=== PATIENT | female | born 1935 | race Caucasian/White ===

== ENCOUNTER 2016-11-23 06:45 | Inpatient (IN) | payer OTHER ==
--- NOTE | 2016-11-23 07:10 | PDOC ---
History of Present Illness <Benjamin Geller - Last Filed: 11/23/16 08:54> - General History Source: Patient Exam Limitations: No Limitations - History of Present Illness Initial Comments: 11/23/16 07:09 The patient is an 81-year-old female, with a significant past medical history of hypertension and hyperlipidemia, who presents to the emergency department with approximately 10 days of progressive generalized weakness, and approximately 4 days of progressive dyspnea. She was in her usual state of health until 14 days ago, when she developed urinary symptoms as well as nausea and lightheadedness. Ten days ago, she saw her primary care physician and was diagnosed with a urinary tract infection" a virus." She was placed on Levaquin, and she completed a course of it yesterday. <Conner Begum - Last Filed: 11/23/16 09:11> - General Chief Complaint: Respiratory Stated Complaint: DIFFICULTY BREATHING Time Seen by Provider: 11/23/16 07:02 Past History <Benjamin Geller - Last Filed: 11/23/16 08:54> - Past Medical History HTN: Yes - Psycho/Social/Smoking Cessation Hx Suicidal Ideation: No Smoking History: Unknown if ever smoked Information on smoking cessation initiated: No Hx Alcohol Use: No Drug/Substance Use Hx: No <Conner Begum - Last Filed: 11/23/16 09:11> - Past Medical History Allergies/Adverse Reactions: Allergies Allergy/AdvReac Type Severity Reaction Status Date / Time No Known Allergies Allergy Verified 11/23/16 07:04 Home Medications: Ambulatory Orders Acetaminophen [Tylenol .Extra-Strength -] 500 mg PO Q6H PRN 11/23/16 Ascorbate Calcium [Vitamin C] 500 mg PO DAILY 11/23/16 Aspirin [ASA -] 81 mg PO Q48H 11/23/16 Atorvastatin Ca [Lipitor] 10 mg PO HS 11/23/16 Calcium Carb, Citrate/Vit D3 [Calcium + D3 ER Tablet] 1,200 mg PO DAILY Cetirizine HCl [Zyrtec -] 10 mg PO DAILY 11/23/16 Lisinopril 10 mg PO DAILY 11/23/16 Review of Systems - Review of Systems Comments:: 11/23/16 07:17 CONSTITUTIONAL: Present: generalized weakness, malaise Absent: fever, chills, diaphoresis HEENT: Absent: rhinorrhea, nasal congestion, throat pain, throat swelling, difficulty swallowing, mouth swelling, ear pain, eye pain, visual Changes CARDIOVASCULAR: Absent: chest pain, loss of consciousness, palpitations, irregular heart rate, peripheral edema RESPIRATORY: Present: shortness of breath, dyspnea with exertion, orthopnea Absent: cough, wheezing, stridor, hemoptysis GASTROINTESTINAL: Absent: abdominal pain, abdominal distension, nausea, vomiting, diarrhea, constipation, melena, hematochezia GENITOURINARY: Absent: dysuria, frequency, urgency, hesitancy, hematuria, flank pain, genital pain MUSCULOSKELETAL: Absent: myalgia, arthralgia, joint swelling SKIN: Absent: rash, itching, pallor HEMATOLOGIC/IMMUNOLOGIC: Absent: easy bleeding, easy bruising, lymphadenopathy, frequent infections ENDOCRINE: Absent: unexplained weight gain, unexplained weight loss, heat intolerance, cold intolerance NEUROLOGIC: Absent: headache, focal weakness or paresthesias, dizziness, unsteady gait, seizure, mental status changes, bladder or bowel incontinence PSYCHIATRIC: Absent: anxiety, depression, suicidal or homicidal ideation, hallucinations. <Conner Begum - Last Filed: 11/23/16 09:11> *Physical Exam - Vital Signs Last Vital Signs Temp Pulse Resp BP Pulse Ox 98.3 F 102 H 18 139/85 98 11/23/16 07:04 11/23/16 07:04 11/23/16 07:04 11/23/16 07:04 11/23/16 07:04 <Benjamin Geller - Last Filed: 11/23/16 08:54> - Vital Signs Last Vital Signs Temp Pulse Resp BP Pulse Ox 98.3 F 102 H 18 139/85 98 11/23/16 07:04 11/23/16 07:04 11/23/16 07:04 11/23/16 07:04 11/23/16 07:04 - Physical Exam Comments: 11/23/16 07:18 GENERAL: Well developed, well nourished. Awake and alert. No acute distress. HEENT: Normocephalic, atraumatic. PERRLA, EOMI. No conjunctival pallor. Sclera are non- icteric. Moist mucous membranes. Oropharynx is clear. NECK: Supple. Full ROM. No JVD. Carotid pulses 2+ and symmetric, without bruits. No thyromegaly. No lymphadenopathy. CARDIOVASCULAR: Trace bilateral lower extremity pitting edema. Regular rate and rhythm. No murmurs, rubs, or gallops. Distal pulses are 2+ and symmetric. PULMONARY: Bibasilar crackles with dullness to percussion. No evidence of respiratory distress. LNo wheezing or rhonchi. ABDOMINAL: Soft. Non-tender. Non-distended. No rebound or guarding. No organomegaly. Normoactive bowel sounds. MUSCULOSKELETAL Normal range of motion at all joints. No bony deformities or tenderness. No CVA tenderness. EXTREMITIES: No cyanosis. No clubbing. No calf tenderness. SKIN: Warm and dry. Normal capillary refill. No rashes. No jaundice. NEUROLOGICAL: Alert, awake, appropriate. Cranial nerves 2-12 intact. No deficits to light touch and temperature in face, upper extremities and lower extremities. No motor deficits in the in face, upper extremities and lower extremities. Normoreflexic in the upper and lower extremities. Normal speech. Toes are down- going bilaterally. Gait is normal without ataxia. PSYCHIATRIC: Cooperative. Good eye contact. Appropriate mood and affect. <Conner Begum - Last Filed: 11/23/16 09:11> Heart Score/ECG Review - ECG Intrepretation Comment:: 11/23/16 07:20 Normal sinus rhythm at 96, normal axis, normal intervals, flat T-wave in 1, aVL , late R-wave progression, possible left atrial enlargement <Conner Begum - Last Filed: 11/23/16 09:11> ED Treatment Course - LABORATORY CBC & Chemistry Diagram: 11/23/16 07:15 11/23/16 07:15 - ADDITIONAL ORDERS Additional order review: Laboratory Results 11/23/16 11/23/16 07:19 07:15 Sodium 140 Potassium 4.3 Chloride 103 Carbon Dioxide 28 Anion Gap 9 BUN 18 Creatinine 0.8 Creat Clearance w eGFR > 60 Random Glucose 101 Calcium 9.0 Magnesium 2.0 Total Bilirubin 0.4 AST 21 ALT 24 Alkaline Phosphatase 103 Creatine Kinase 47 Troponin I 0.06 H B-Natriuretic Peptide 66003.13 H Total Protein 6.7 Albumin 3.0 L Urine Color Straw Urine Appearance Clear Urine pH 6.0 Ur Specific [place] 1.003 Urine Protein Negative Urine Glucose (UA) Negative Urine Ketones Negative Urine Blood Negative Urine Nitrite Negative Urine Bilirubin Negative Urine Urobilinogen Negative Ur Leukocyte Esterase Negative 11/23/16 07:15 RBC 4.46 MCV 92.3 MCHC 32.7 RDW 13.8 MPV 7.2 L Neutrophils % 62.1 Lymphocytes % 24.7 Monocytes % 9.8 Eosinophils % 2.9 Basophils % 0.5 <Benjamin Geller - Last Filed: 11/23/16 08:54> - LABORATORY CBC & Chemistry Diagram: 11/23/16 07:15 11/23/16 07:15 - RADIOLOGY Radiology Studies Ordered: Category Date Time Status CHEST PA & LAT [RAD] Stat Radiology 11/23/16 07:09 Ordered <Conner Begum - Last Filed: 11/23/16 09:11> Medical Decision Making - Medical Decision Making 11/23/16 08:50 First call placed to Dr. Brandon at 08:49. Awaiting call back. Case discussed with Dr. Mata at 08:55 First call placed to Dr. Britton at 08:54. Awaiting call back. <Benjamin Geller - Last Filed: 11/23/16 08:54> - Medical Decision Making 11/23/16 07:00 The patient is well-appearing and in no acute distress Her signs and symptoms are potentially consistent with left and right sided congestive heart failure Will obtain labs, EKG, chest x-ray 11/23/16 07:19 EKG noted with flattened T waves in 1, aVL No old EKGs are available for comparison 11/23/16 08:47 Labs noted, including elevated BNP Chest x-ray pending Clinical impression: New onset congestive heart failure, right-sided and left-sided Will admit to inpatient services Case discussed in detail with admitting provider including history, physical exam and ancillary studies. Admitting physician has assumed care for the patient, will follow all pending diagnostics and will complete the evaluation and treatment. A portion of this note was documented by scribe services under my direction. I have reviewed the details of the note, within reason, and agree with the documentation with the following case summary and management plan written by me. 11/23/16 08:54 11/23/16 09:11 Chest x-ray emergency Department interpretation: Increased interstitial markings bilaterally consistent with pulmonary vascular congestion, bilateral pleural effusions, left greater than right <Conner Begum - Last Filed: 11/23/16 09:11> *DC/Admit/Observation/Transfer - Attestations Scribe Attestion: 11/23/16 08:50 Documentation prepared by Benjmain Geller, acting as medical appliance maker for Conner Begum MD. <Benjamin Geller - Last Filed: 11/23/16 08:54> - Discharge Dispostion Admit: Yes <Conner Begum - Last Filed: 11/23/16 09:11> Diagnosis at time of Disposition: Congestive heart failure - Referrals Referrals: Sandra Brandon MD [Primary Care Provider] -
[2016-11-23 07:45] LABS: BASOPHIL 0.5 % (0-2.0); EOSINOPHIL 2.9 % (0-4.5); MCH 30.2 pg (25.7-33.7); MCHC 32.7 g/dl (32.0-36.0); MEAN CELL VOLUME 92.3 fl (80-96); MEAN PLT VOLUME 7.2 fl (7.5-11.1); NEUTROPHILS 62.1 % (42.8-82.8); PLATELET COUNT 404 K/MM3 (134-434); RDW 13.8 % (11.6-15.6); WHITE BLOOD COUNT 11.4 K/mm3 (4.0-10.0)
[2016-11-23 07:53] LABS: URINE APPEARANCE CLEAR; URINE BILIRUBIN NEGATIVE (NEGATIVE); URINE BLOOD NEGATIVE (NEGATIVE); URINE COLOR STRAW; URINE GLUCOSE (UA) NEGATIVE (NEGATIVE); URINE KETONE NEGATIVE (NEGATIVE); URINE LEUK ESTERASE NEGATIVE (NEGATIVE); URINE NITRITE NEGATIVE (NEGATIVE); URINE PROTEIN NEGATIVE (NEGATIVE); URINE UROBILINOGEN NEGATIVE E.U./dl (0.2-1.0)
[2016-11-23 08:06] LABS: INR 1.02 (0.82-1.09); PROTHROMBIN TIME (PATIENT) 11.2 SEC (9.98-11.88)
[2016-11-23 08:09] LABS: ACTIVATED PTT 36.6 SECONDS (26.9-34.4)
[2016-11-23 08:18] LABS: ANION GAP 9 (8-16); BILIRUBIN,TOTAL 0.4 mg/dL (0.2-1.0); CO2 28 mmol/L (21-32); CREATININE 0.8 mg/dL (0.55-1.02); GLUCOSE,RANDOM 101 mg/dL (74-106); SGOT/AST 21 U/L (15-37); SGPT/ALT 24 U/L (12-78); TOT PROT 6.7 g/dl (6.4-8.2)
[2016-11-23 08:20] LABS: ALK PHOS 103 U/L (45-117); TROPONIN I 0.06 ng/ml (0.00-0.05)
[2016-11-23] MEDS ORDERED: FUROSEMIDE 40 MG/4 ML INJECTABLE VIAL IVPUSH ONE (08:53)
[2016-11-23] MEDS ORDERED: ASPIRIN 81 MG CHEWABLE TABLETS PO ONE (08:54)
--- NOTE | 2016-11-23 09:21 | HP ---
Admitting History and Physical - Primary Care Physician PCP: Sandra Brandon - Admission Chief Complaint: shortness of breath History of Present Illness: developed fevers up to F102 with chills approx 2 weeks ago, came to office was diagnosed with UTI, was given levaquin. since then she has had poor appetite was getting progressively weaker and developed worsening exertional dyspnea to the point that now she has difficulty completing full sentences. no cough, has minimal pleuritic chest pain, no fever , no chills. History Source: Patient Limitations to Obtaining History: No Limitations - Past Medical History Cardiovascular: Yes: HTN, Hyperlipdemia - Past Surgical History Past Surgical History: Yes: Joint Replacement (bilateral hip replacements.) Additional Past Surgical History: hemorrhoidectomy - Smoking History Smoking history: Unknown if ever smoked Have you smoked in the past 12 months: No If you are a former smoker, when did you quit?: 25 years ago - Alcohol/Substance Use Hx Alcohol Use: No - Social History Usual Living Arrangement: Yes: With Spouse ADL: Independent History of Recent Travel: No Home Medications - Allergies Allergies/Adverse Reactions: Allergies Allergy/AdvReac Type Severity Reaction Status Date / Time No Known Allergies Allergy Verified 11/23/16 07:04 - Home Medications Home Medications: Ambulatory Orders Acetaminophen [Tylenol .Extra-Strength -] 500 mg PO Q6H PRN 11/23/16 Ascorbate Calcium [Vitamin C] 500 mg PO DAILY 11/23/16 Aspirin [ASA -] 81 mg PO Q48H 11/23/16 Atorvastatin Ca [Lipitor] 10 mg PO HS 11/23/16 Calcium Carb, Citrate/Vit D3 [Calcium + D3 ER Tablet] 1,200 mg PO DAILY Cetirizine HCl [Zyrtec -] 10 mg PO DAILY 11/23/16 Lisinopril 10 mg PO DAILY 11/23/16 Family Disease History - Family Disease History Family History: Unremarkable Review of Systems - Review of Systems Constitutional: reports: Loss of Appetite, Weakness Respiratory: reports: Exercise Intolerance, SOB on Exertion Physical Examination Vital Signs: Vital Signs Temperature 98.3 F 11/23/16 07:04 Pulse Rate 102 H 11/23/16 07:04 Respiratory Rate 18 11/23/16 07:04 Blood Pressure 139/85 11/23/16 07:04 O2 Sat by Pulse Oximetry (%) 98 11/23/16 07:04 Constitutional: Yes: Calm Eyes: Yes: EOM Intact HENT: Yes: Normocephalic Neck: Yes: Trachea Midline Cardiovascular: Yes: Regular Rate and Rhythm Respiratory: Yes: Rales (bilateral basal rales) Gastrointestinal: Yes: Normal Bowel Sounds, Soft Musculoskeletal: Yes: WNL Extremities: Yes: WNL Edema: LLE: 1+, RLE: 1+ Neurological: Yes: WNL Labs: CBC, BMP 11/23/16 07:15 11/23/16 07:15 Abnormal Lab Results 11/23/16 11/23/16 11/23/16 07:15 07:15 07:15 WBC 11.4 H MPV 7.2 L PTT (Actin FS) 36.6 H Troponin I 0.06 H B-Natriuretic Peptide 48499.13 H Albumin 3.0 L Imaging - Results Chest X-ray: Image Reviewed EKG: Image Reviewed Problem List - Problems (1) Congestive heart failure Code(s): I50.9 - HEART FAILURE, UNSPECIFIED Qualifiers: Congestive heart failure type: unspecified congestive heart failure type Congestive heart failure chronicity: acute Qualified Code(s): I50.9 - Heart failure, unspecified (2) Hypertension Code(s): I10 - ESSENTIAL (PRIMARY) HYPERTENSION Qualifiers: Hypertension type: essential hypertension Qualified Code(s): I10 - Essential (primary) hypertension (3) Hyperlipidemia Code(s): E78.5 - HYPERLIPIDEMIA, UNSPECIFIED Qualifiers: Hyperlipidemia type: unspecified Qualified Code(s): E78.5 - Hyperlipidemia, unspecified Assessment/Plan telemetry admission serial cardiac enzymes echo for LVSF cardiology consultation iv diuresis o2
[2016-11-23] MEDS ORDERED: ACETAMINOPHEN 500 MG TABLET (FP) PO PRN (09:22)
[2016-11-23] MEDS ORDERED: FUROSEMIDE 40 MG/4 ML INJECTABLE VIAL ONE (09:24)
[2016-11-23] MEDS: ASPIRIN 81 MG CHEWABLE TABLETS PO SCH (09:54)
[2016-11-23] MEDS ORDERED: ENOXAPARIN NA (PORCINE) 30 MG/0.3 ML DISP.SYRIN SQ ONE (10:16)
[2016-11-23] MEDS ORDERED: LISINOPRIL 5 MG TABLET (FP) ONE (10:16)
[2016-11-23] MEDS: LISINOPRIL 10 MG TABLET (FP) PO SCH (10:22)
--- NOTE | 2016-11-23 10:27 | CON.CARD ---
Consult Consult Specialty:: Cardiology Referred by:: ER Reason for Consultation:: SOB - History of Present Illness Chief Complaint: SOB History of Present Illness: 81 year old woman with a history of HTN, HLD, recent UTI, admitted with progressively worsening sob/phillips. Pt seen and examined in the ER in nad. states she is still feeling sob. became very dyspneic walking from the bathroom back to the stretcher. she states that for the past month or so she has noted intermittent episodes of sob/phillips however after her recent illness and especially today she has become severely sob and dyspneic with minimal exertion. she also notes mild LE edema R>L. denies any chest pain. no palpitations. no pnd, orthopnea. no lightheadedness, dizziness, syncope, or near syncope. - History Source History Provided By: Patient, Family Member, Medical Record Limitations to Obtaining History: No Limitations - Past Medical History Cardio/Vascular: Yes: HTN, Hyperlipdemia - Past Surgical History Past Surgical History: Yes: Joint Replacement (bilateral hip replacements.) - Alcohol/Substance Use Hx Alcohol Use: No - Smoking History Smoking history: Former smoker Have you smoked in the past 12 months: No If you are a former smoker, when did you quit?: 25 years ago - Social History ADL: Independent History of Recent Travel: No Home Medications - Allergies Allergies/Adverse Reactions: Allergies Allergy/AdvReac Type Severity Reaction Status Date / Time No Known Allergies Allergy Verified 11/23/16 07:04 - Home Medications Home Medications: Ambulatory Orders Acetaminophen [Tylenol .Extra-Strength -] 500 mg PO Q6H PRN 11/23/16 Ascorbate Calcium [Vitamin C] 500 mg PO DAILY 11/23/16 Aspirin [ASA -] 81 mg PO Q48H 11/23/16 Atorvastatin Ca [Lipitor] 10 mg PO HS 11/23/16 Calcium Carb, Citrate/Vit D3 [Calcium + D3 ER Tablet] 1,200 mg PO DAILY Cetirizine HCl [Zyrtec -] 10 mg PO DAILY 11/23/16 Lisinopril 10 mg PO DAILY 11/23/16 Family Disease History - Family Disease History Family History: Denies Review of Systems - Review of Systems Constitutional: reports: Fever, Malaise, Weakness. denies: No Symptoms, Chills , Diaphoresis, Lethargy, Loss of Appetite, Night Sweats, Unintentional Wgt. Loss , Other Eyes: denies: No Symptoms, Blind Spots, Blurred Vision, Double Vision, Eye Pain , Floaters, Photophobia, Recent Change in Vision, Other HENT: denies: No Symptoms, Difficult Swallowing, Ear Discharge, Ear Pain, Epistaxis, Gingival Bleeding, Hearing Loss, Mouth Swelling, Nasal Congestion, Ocular Prosthesis, Throat Pain, Toothache, Ringing in Ears, Other Neck: denies: No Symptoms, Decreased ROM, Lumps, Pain on Movement, Stiffness, Swollen Glands, Tenderness, Other Cardiovascular: reports: Edema, Shortness of Breath. denies: No Symptoms, Chest Pain, Palpitations, Other Respiratory: reports: Exercise Intolerance, SOB, SOB on Exertion. denies: No Symptoms, Cough, Hemoptysis, Orthopnea, PND, Snoring, Wheezing, Other Gastrointestinal: denies: No Symptoms, Abdominal Pain, Bloating, Constipation, Diarrhea, Dysphagia, Indigestion, Melena, Nausea, Rectal Bleeding, Vomiting, Vomiting Blood, Other Genitourinary: denies: No Symptoms, Burning, Discharge, Dysuria, Flank Pain, Frequency, Hematuria, Incontinence, Lesions, Menses, Pain, Testicular Mass, Testicular Pain, Testicular Swelling, Urgency, Vaginal Bleeding, Other Breasts: denies: No Symptoms Reported, See HPI, Breast Implants, Discharge from Nipple, Lumps, Pain, Skin Changes, Other Musculoskeletal: denies: No Symptoms, Back Pain, Crepitus, Decreased ROM, Extremity Pain, Joint Pain, Joint Swelling, Muscle Pain, Muscle Cramps, Muscle Weakness, Other Integumentary: denies: No Symptoms, Blister, Bruising, Change in Color, Eczema, Erythema, Incision, Lesions, Lump, Pallor, Pruritis, Rash, Wound, Other Neurological: denies: No Symptoms, Change in LOC, Change in Speech, Confusion, Dizziness, Headache, Incoordination, Numbness, Parasthesia, Pre-Existing Deficit , Seizure, Syncope, Tremors, Unsteady Gait, Weakness, Other Endocrine: denies: No Symptoms, Excessive Sweating, Flushing, Increased Hunger, Increased Thirst, Intolerance to Cold, Intolerance to Heat, Unexplained Weight Gain, Unexplained Weight Loss, Other Hematology/Lymphatic: denies: No Symptoms, Easily Bruised, Excessive Bleeding, Swollen Glands, Other Psychiatric: denies: No Symptoms, Altered Sleep Pattern, Anxiety, Depression, Hallucinations, Panic, Paranoia, Suicidal, Other - Risk Factors Known Risk Factors: Yes: Age, Hypercholesterolemia, Hypertension Vital Signs: Vital Signs Temperature 98.3 F 11/23/16 07:04 Pulse Rate 102 H 11/23/16 07:04 Respiratory Rate 18 11/23/16 07:04 Blood Pressure 139/85 11/23/16 07:04 O2 Sat by Pulse Oximetry (%) 98 11/23/16 07:04 Constitutional: Yes: Well Nourished, No Distress, Calm Eyes: Yes: WNL, Conjunctiva Clear, EOM Intact, PERRL HENT: Yes: WNL, Atraumatic, Normocephalic Neck: Yes: WNL, Supple, Trachea Midline Respiratory: Yes: Regular, Diminished, Rales, SOB. No: On Nasal O2, Rhonchi, Wheezes Gastrointestinal: Yes: WNL, Normal Bowel Sounds, Soft. No: Distention, Tenderness Renal/: Yes: WNL Cardiovascular: Yes: Regular Rate and Rhythm. No: Bradycardia, Tachycardia, Pulse Irregular, Gallop, Rub, Varicosities JVD: No Carotid Bruit: No PMI: Non-Displaced Heart Sounds: Yes: S1, S2. No: Split S2, S3, S4, Clicks, Gallop, Rub, Bruit Murmur: No: Systolic Murmur, Diastolic Murmur Musculoskeletal: Yes: WNL Extremities: Yes: WNL Edema: Yes Edema: LLE: Trace, RLE: Trace Peripheral Pulses WNL: Yes Peripheral Pulses: 2+ Left Doralis Pedis, 2+ Right Dorsalis Pedis Integumentary: Yes: WNL Neurological: Yes: WNL, Alert, Oriented, Cran Nerves II-XII Intact ...Motor Strength: WNL Psychiatric: Yes: WNL, Alert, Oriented - Other Data Labs, Other Data: INR, PTT INR 1.02 (0.82-1.09) 11/23/16 07:15 ekg-nsr 99bpm, LAE, septal infarct, poor R progression, NSST Echo: Pending Imaging - Results Chest X-ray: Report Reviewed, Image Reviewed EKG: Report Reviewed, Image Reviewed Other: Report Reviewed, Image Reviewed Assessment/Plan 81 year old woman with a history of HTN, HLD, recent UTI, admitted with progressively worsening sob/phillips. SOB/PHILLIPS -concern for possible acute exacerbation of CHF (unknown type) vs PNA vs COPD vs malignancy -given IV Lasix in ER with resultant urination but no change in symptoms -only appears mildly volume overloaded on exam -CT chest ordered to further evaluate pulmonary pathology -can cont IV Lasix, monitor I/Os, daily weights, bun/creat, electrolytes and replete as needed -would recc a Pulm evaluation, nodules seen on Cxr, CT chest ordered and done, awaiting read -trop very slightly elevated, would trend serial cardiac enzymes HTN-adequately controlled -cont current medical regimen HLD- -cont home meds
[2016-11-23] MEDS: ENOXAPARIN NA (PORCINE) 30 MG/0.3 ML DISP.SYRIN SQ SCH (10:29)
--- NOTE | 2016-11-23 12:20 | EKG ---
Test Reason : Blood Pressure : / mmHG Vent. Rate : 099 BPM Atrial Rate : 099 BPM P-R Int : 154 ms QRS Dur : 076 ms QT Int : 352 ms P-R-T Axes : 059 -02 057 degrees QTc Int : 451 ms SINUS RHYTHM WITH PREMATURE SUPRAVENTRICULAR COMPLEXES POSSIBLE LEFT ATRIAL ENLARGEMENT SEPTAL INFARCT (CITED ON OR BEFORE 29-JUN-2009) ABNORMAL ECG WHEN COMPARED WITH ECG OF 30-JUN-2009 08:32, PREMATURE SUPRAVENTRICULAR COMPLEXES ARE NOW PRESENT NONSPECIFIC T WAVE ABNORMALITY NOW EVIDENT IN ANTERIOR LEADS Confirmed by NACHO DONOHUE MD ([id number]) on 11/23/2016 12:19:40 PM Referred By: Confirmed By:NACHO DONOHUE MD
[2016-11-23 15:21] LABS: TROPONIN I 0.06 ng/ml (0.00-0.05)
[2016-11-23] MEDS: ATORVASTATIN CA 10 MG TABLET (FP) PO SCH (21:59)
[2016-11-24 07:12] LABS: MCH 30.2 pg (25.7-33.7); MCHC 33.3 g/dl (32.0-36.0); MEAN CELL VOLUME 90.6 fl (80-96); MEAN PLT VOLUME 7.5 fl (7.5-11.1); PLATELET COUNT 392 K/MM3 (134-434); RDW 13.5 % (11.6-15.6); WHITE BLOOD COUNT 9.5 K/mm3 (4.0-10.0)
[2016-11-24 07:44] LABS: ALBUMIN 2.8 g/dl (3.4-5.0); ANION GAP 7 (8-16); CALCIUM 8.5 mg/dL (8.5-10.1); CO2 31 mmol/L (21-32); CREATININE 0.8 mg/dL (0.55-1.02); GLUCOSE,RANDOM 92 mg/dL (74-106); SGOT/AST 17 U/L (15-37); SGPT/ALT 19 U/L (12-78)
[2016-11-24 07:46] LABS: ALK PHOS 92 U/L (45-117); BILIRUBIN,TOTAL 0.4 mg/dL (0.2-1.0); TOT PROT 6.1 g/dl (6.4-8.2)
--- NOTE | 2016-11-24 08:35 | PN ---
Progress Note (short form) - Note Progress Note: CBC, BMP 11/24/16 05:35 11/24/16 05:35 Vital Signs Period Temp Pulse Resp BP Sys/Johns Pulse Ox Last 24 Hr 97.5 F-98.8 F 89-116 16-97 105-144/52-72 95-99 S1S2 RRR Lungs faint basal rales decreased leg edema aa03 no deficit Allergic to Shellfish Imp Admitted fro exertional dyspnea COPD Lung mass mild fluid overload Plan cardiology consult appreciated pulm consult requested cont mild iv diuresis check US r/o DVT renal US-f/up hydro on CT chest DVT prophylaxis Problem List - Problems (1) Congestive heart failure Code(s): I50.9 - HEART FAILURE, UNSPECIFIED Qualifiers: Congestive heart failure type: unspecified congestive heart failure type Congestive heart failure chronicity: acute Qualified Code(s): I50.9 - Heart failure, unspecified (2) Hypertension Code(s): I10 - ESSENTIAL (PRIMARY) HYPERTENSION Qualifiers: Hypertension type: essential hypertension Qualified Code(s): I10 - Essential (primary) hypertension (3) Hyperlipidemia Code(s): E78.5 - HYPERLIPIDEMIA, UNSPECIFIED Qualifiers: Hyperlipidemia type: unspecified Qualified Code(s): E78.5 - Hyperlipidemia, unspecified
[2016-11-24] MEDS: LISINOPRIL 10 MG TABLET (FP) PO SCH (09:18)
[2016-11-24] MEDS: ENOXAPARIN NA (PORCINE) 30 MG/0.3 ML DISP.SYRIN SQ SCH (09:18)
--- NOTE | 2016-11-24 09:26 | PN ---
Progress Note, Physician History of Present Illness: seen and examined today in nad. states her sob/phillips is unchanged. reports urinating a lot yesterday. no overnight events. no new complaints. - Current Medication List Current Medications: Active Medications Acetaminophen (Tylenol -) 500 mg PO Q6H PRN PRN Reason: pain,fever Aspirin (Asa -) 81 mg PO Q2D@1000 [facility] Last Admin: 11/23/16 09:54 Dose: Not Given Atorvastatin Calcium (Lipitor -) 10 mg PO HS [facility] Last Admin: 11/23/16 21:59 Dose: 10 mg Enoxaparin Sodium (Lovenox -) 30 mg SQ DAILY [facility] Last Admin: 11/24/16 09:18 Dose: 30 mg Furosemide (Lasix Injection -) 40 mg IVPUSH DAILY [facility] Last Admin: 11/24/16 09:18 Dose: 40 mg Lisinopril (Prinivil) 10 mg PO DAILY [facility] Last Admin: 11/24/16 09:18 Dose: 10 mg - Objective Vital Signs: Vital Signs Temperature 97.9 F 11/24/16 06:00 Pulse Rate 94 H 11/24/16 06:00 Respiratory Rate 18 11/24/16 06:00 Blood Pressure 117/59 11/24/16 06:00 O2 Sat by Pulse Oximetry (%) 95 11/23/16 21:00 Constitutional: Yes: Well Nourished, No Distress, Calm Eyes: Yes: WNL, Conjunctiva Clear, EOM Intact, PERRL HENT: Yes: WNL, Atraumatic, Normocephalic Neck: Yes: WNL, Supple, Trachea Midline Cardiovascular: Yes: Tachycardia, S1, S2. No: Regular Rate and Rhythm, Bradycardia, Pulse Irregular, Bruit, JVD, Gallop, Murmur, Rub, S3, S4, Varicosities Respiratory: Yes: Regular, Rhonchi. No: Rales, Wheezes Musculoskeletal: Yes: WNL Extremities: Yes: WNL Edema: No Peripheral Pulses WNL: Yes Peripheral Pulses: Left Doralis Pedis: 2+, Right Dorsalis Pedis: 2+ Integumentary: Yes: WNL Neurological: Yes: WNL, Alert, Oriented, Cran Nerves II-XII Intact ...Motor Strength: WNL Psychiatric: Yes: WNL, Alert, Oriented Labs: CBC, BMP 11/24/16 05:35 11/24/16 05:35 INR, PTT INR 1.02 (0.82-1.09) 11/23/16 07:15 - ....Imaging Chest X-ray: Report Reviewed, Image Reviewed EKG: Report Reviewed, Image Reviewed Other: Report Reviewed, Image Reviewed (tele-sinus tach, pvcs, no sig arrhythmia ) Assessment/Plan 81 year old woman with a history of HTN, HLD, recent UTI, admitted with progressively worsening sob/phillips. SOB/PHILLIPS-uncertain etiology, COPD vs malignancy vs mild acute diastolic CHF -does not appear sig volume overloaded on exam or imaging -mild LE edema has resolved -can cont IV Lasix today and plan to transition to po tomorrow -echo showed normal LV systolic function, mild mr, mild tr, mild AR -CT chest reviewed, L lung mass -Pulmonary to evaluate -trop very slightly elevated, but did not trend up -would investigate potential pulmonary sources of sob -will consider a stress test for ischemic evaluation prior to discharge after pulmonary evaluates HTN-adequately controlled -cont current medical regimen HLD- -cont home meds
[2016-11-24] MEDS ORDERED: FUROSEMIDE 40 MG/4 ML INJECTABLE VIAL IVPUSH SCH (10:00)
--- NOTE | 2016-11-24 12:46 | PN ---
Progress Note (short form) - Note Progress Note: PULMONARY CONSULTATION DICTATED 11/24/16 IMP DYSPNEA ? COPD,?PE LEFT LUNG MASS LIKELY MALIGNANT,? INFECTIOUS,MAC COPD HTN PLAN CHEST CTA INHALED BRONCHODILATORS NASAL O2 PET SCAN OUTPATIENT PFTS CT GUIDED BX AFTER PET DR FREDERICK Problem List - Problems (1) Congestive heart failure Code(s): I50.9 - HEART FAILURE, UNSPECIFIED Qualifiers: Congestive heart failure type: unspecified congestive heart failure type Congestive heart failure chronicity: acute Qualified Code(s): I50.9 - Heart failure, unspecified (2) Hyperlipidemia Code(s): E78.5 - HYPERLIPIDEMIA, UNSPECIFIED Qualifiers: Hyperlipidemia type: unspecified Qualified Code(s): E78.5 - Hyperlipidemia, unspecified (3) Hypertension Code(s): I10 - ESSENTIAL (PRIMARY) HYPERTENSION Qualifiers: Hypertension type: essential hypertension Qualified Code(s): I10 - Essential (primary) hypertension (4) Lung mass Code(s): R91.8 - OTHER NONSPECIFIC ABNORMAL FINDING OF LUNG FIELD (5) COPD (chronic obstructive pulmonary disease) Code(s): J44.9 - CHRONIC OBSTRUCTIVE PULMONARY DISEASE, UNSPECIFIED (6) Dyspnea Code(s): R06.00 - DYSPNEA, UNSPECIFIED
[2016-11-24] MEDS: BUDESONIDE/FORMETEROL FUMARATE 80/4.5 mcg INHALER IH SCH ×2 (13:55→22:41)
[2016-11-24] MEDS: methylPREDNISolone NA SUCC 40 MG/1 ML VIAL IVPB SCH ×3 (13:56→22:40)
[2016-11-24] MEDS: TIOTROPIUM BROMIDE 18 MCG/INH (DEVICE W/ 5 CAPSULES) IH SCH (13:56)
--- NOTE | 2016-11-24 14:11 | CONS ---
DATE OF CONSULTATION: 11/24/2016 REFERRING PHYSICIAN: Dr. Mata. HISTORY OF PRESENT ILLNESS: The patient is an 81-year-old white female with a past medical history that includes hypertension, hyperlipidemia, history of bilateral hip replacement, history of tobacco use, approximately 1 pack per day, many years, quit 25 years ago, admitted to [facility] with the complaint of shortness of breath, dyspnea on exertion, and generalized weakness. Patient developed fevers of up to 102 with chills approximately 2 weeks ago. At that time, she was diagnosed to have a UTI and was started on Levaquin. Since that time, she had increasing loss of appetite, progressive weakness. For the past couple days , though, she started noticing increasing shortness of breath and marked dyspnea on minimal exertion. She states it is at the point now where she is unable to speak in full sentences without getting severely dyspneic. She presented to the emergency room as above. She denies any complaints of chest pain, nausea, vomiting, diaphoresis. Denies any hemoptysis. Denies any cough or wheezing. She states for the past month or so she started noticing increasing shortness of breath with exertion while walking up inclines, not on level ground. She denies any previous history of asthma or COPD. She was hospitalized approximately 7 years ago for pneumonia. On admission, she underwent a CAT scan of the chest which reveals a nodule in the left upper lobe, a spiculated nodule 1.5 x 1 cm. There is also a nodule in the right middle lobe 3 to 4 mm and 7 mm, slightly spiculated. On review of the CAT scan from 2008, she did not have any evidence of any nodularity in the left upper lobe. Patient denies any weight loss. Denies sweats. PAST MEDICAL HISTORY: Again includes hypertension, hyperlipidemia. PAST SURGICAL HISTORY: Significant for bilateral hip replacement. SOCIAL HISTORY: History of tobacco use; quit 25 years ago. No occupational exposures. REVIEW OF SYSTEMS: Positive dyspnea. No orthopnea. No PND. Positive dyspnea on exertion. Positive mild left chest discomfort. No cough. No hemoptysis. No wheeze. No abdominal pain. No diarrhea. No lower extremity edema. CURRENT MEDICATIONS: Include Tylenol, Prinivil, Lovenox, Lipitor, Lasix, and aspirin. PHYSICAL EXAMINATION:General: The patient is a well-developed thin white female awake, alert, mildly dyspneic but in no acute distress. Vital Signs: She is afebrile. Heart rate is 110, blood pressure 118/56, respiratory rate is 18, O2 saturation is 93% on room air. HEENT: Normocephalic, atraumatic. Neck: Supple. Heart: Tachycardic with a normal S1, S2. Chest: Diminished breath sounds bilaterally. Abdomen: Soft. Bowel sounds positive. Extremities: No cyanosis or edema. LABORATORIES: WBC is 9.5, hemoglobin 13.2, hematocrit 39.7, with a platelet count of 392,000. INR is 1.02. BUN 20, creatinine 0.8. BNP is 12,075. Echocardiogram reveals normal LV function, normal RV function, no evidence of pulmonary hypertension. IMPRESSION: 1. Dyspnea, etiology to be determined, possibly secondary to chronic obstructive pulmonary disease exacerbation. 2. Cannot exclude possible pulmonary embolism increased risk due to left upper lobe massl ikely ca. 3. 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 4. Hypertension. PLAN: Inhaled bronchodilators. IV steroids. Supplemental O2. Will obtain chest CT with contrast to rule out PE. Pulmonary function tests as outpatient as well as PET scan as outpatient .Will arrange CT-guided needle aspiration/biopsy as an outpatient after PET scan. GILBERTO FREDERICK M.D. [id number] MTDD
[2016-11-24 20:05] LABS: TROPONIN I 0.02 ng/ml (0.00-0.05)
[2016-11-24] MEDS: ATORVASTATIN CA 10 MG TABLET (FP) PO SCH (22:40)
[2016-11-25] MEDS: methylPREDNISolone NA SUCC 40 MG/1 ML VIAL IVPB SCH ×4 (03:30→21:15)
--- NOTE | 2016-11-25 08:16 | PN ---
Progress Note, Physician Chief Complaint: CTA negative for PE - Current Medication List Current Medications: Active Medications Acetaminophen (Tylenol -) 500 mg PO Q6H PRN PRN Reason: pain,fever Aspirin (Asa -) 81 mg PO Q2D@1000 [facility] Last Admin: 11/23/16 09:54 Dose: Not Given Atorvastatin Calcium (Lipitor -) 10 mg PO HS [facility] Last Admin: 11/24/16 22:40 Dose: 10 mg Budesonide/Formoterol Fumarate (Symbicort 80/4.5mcg -) 2 puff IH BID [facility] Last Admin: 11/24/16 22:41 Dose: 2 puff Enoxaparin Sodium (Lovenox -) 30 mg SQ DAILY [facility] Last Admin: 11/24/16 09:18 Dose: 30 mg Furosemide (Lasix Injection -) 40 mg IVPUSH DAILY [facility] Last Admin: 11/24/16 09:18 Dose: 40 mg Lisinopril (Prinivil) 10 mg PO DAILY [facility] Last Admin: 11/24/16 09:18 Dose: 10 mg Methylprednisolone Sodium Succinate (Solu-Medrol -) 60 mg IVPB Q6H-IV [facility] Last Admin: 11/25/16 03:30 Dose: 60 mg Tiotropium [place] (Spiriva -) 1 puff IH DAILY [facility] Last Admin: 11/24/16 13:56 Dose: 1 puff - Objective Vital Signs: Vital Signs Temperature 98 F 11/25/16 05:40 Pulse Rate 77 11/25/16 05:40 Respiratory Rate 20 11/25/16 05:40 Blood Pressure 118/61 11/25/16 05:40 O2 Sat by Pulse Oximetry (%) 97 11/24/16 21:00 Constitutional: Yes: Calm Eyes: Yes: Conjunctiva Clear Cardiovascular: Yes: Regular Rate and Rhythm Respiratory: Yes: CTA Bilaterally Gastrointestinal: Yes: Soft Edema: No Neurological: Yes: Alert, Oriented ...Motor Strength: WNL Labs: CBC, BMP 11/24/16 05:35 11/24/16 05:35 INR, PTT INR 1.02 (0.82-1.09) 11/23/16 07:15 - ....Imaging Cat Scan: Report Reviewed EKG: Image Reviewed (TELE: NSR with sinus tachycardia) Assessment/Plan Assessment/Plan 81 year old woman with a history of HTN, HLD, recent UTI, admitted with progressively worsening sob/phillips. SOB/PHILLIPS-uncertain etiology, COPD vs malignancy vs mild acute diastolic CHF -does not appear sig volume overloaded on exam or imaging -mild LE edema has resolved -switch to PO Lasix -echo showed normal LV systolic function, mild mr, mild tr, mild AR -CT chest reviewed, L lung mass and CTA with no pulmonary embolism -would investigate potential pulmonary sources of sob -will consider a stress test for ischemic evaluation prior to discharge after pulmonary evaluation completed.
--- NOTE | 2016-11-25 08:23 | PN ---
Progress Note (short form) - Note Progress Note: still have sob no palpitaions no distress cta o lung no pe she is c/o mild abd pain on ruq will order abd sono r/o gall stones vs Vital Signs Period Temp Pulse Resp BP Sys/Johns Pulse Ox Last 24 Hr 97.6 F-98.8 F 77-104 18-20 106-124/54-68 97-97 CBC, BMP 11/24/16 05:35 11/24/16 05:35 Heent nad neck supple lungs clear heart no change ext trace edema ap shortness of breath r/o asthma, copd cad continue the lasix oob d/w cardio will do w/u for lung mass out patient bases
[2016-11-25] MEDS: FUROSEMIDE 40 MG TABLET (FP) PO SCH (09:04)
[2016-11-25] MEDS: ENOXAPARIN NA (PORCINE) 30 MG/0.3 ML DISP.SYRIN SQ SCH (09:04)
[2016-11-25] MEDS: ASPIRIN 81 MG CHEWABLE TABLETS PO SCH (09:04)
[2016-11-25] MEDS: LISINOPRIL 10 MG TABLET (FP) PO SCH (09:05)
[2016-11-25] MEDS: TIOTROPIUM BROMIDE 18 MCG/INH (DEVICE W/ 5 CAPSULES) IH SCH (09:05)
[2016-11-25] MEDS: BUDESONIDE/FORMETEROL FUMARATE 80/4.5 mcg INHALER IH SCH ×2 (09:05→21:14)
--- NOTE | 2016-11-25 09:11 | PN ---
Progress Note, Physician History of Present Illness: pulmonary alert,feeling better,less dyspneic. chest cta - pe - Current Medication List Current Medications: Active Medications Acetaminophen (Tylenol -) 500 mg PO Q6H PRN PRN Reason: pain,fever Aspirin (Asa -) 81 mg PO Q2D@1000 [facility] Last Admin: 11/25/16 09:04 Dose: 81 mg Atorvastatin Calcium (Lipitor -) 10 mg PO HS [facility] Last Admin: 11/24/16 22:40 Dose: 10 mg Budesonide/Formoterol Fumarate (Symbicort 80/4.5mcg -) 2 puff IH BID [facility] Last Admin: 11/25/16 09:05 Dose: 2 puff Enoxaparin Sodium (Lovenox -) 30 mg SQ DAILY [facility] Last Admin: 11/25/16 09:04 Dose: 30 mg Furosemide (Lasix -) 40 mg PO DAILY [facility] Last Admin: 11/25/16 09:04 Dose: 40 mg Lisinopril (Prinivil) 10 mg PO DAILY [facility] Last Admin: 11/25/16 09:05 Dose: 10 mg Methylprednisolone Sodium Succinate (Solu-Medrol -) 60 mg IVPB Q6H-IV [facility] Last Admin: 11/25/16 09:04 Dose: 60 mg Tiotropium [place] (Spiriva -) 1 puff IH DAILY [facility] Last Admin: 11/25/16 09:05 Dose: 1 puff - Objective Vital Signs: Vital Signs Temperature 98 F 11/25/16 05:40 Pulse Rate 77 11/25/16 05:40 Respiratory Rate 20 11/25/16 05:40 Blood Pressure 118/61 11/25/16 05:40 O2 Sat by Pulse Oximetry (%) 97 11/24/16 21:00 Constitutional: Yes: Calm, Thin Eyes: Yes: WNL HENT: Yes: WNL Neck: Yes: WNL Cardiovascular: Yes: Regular Rate and Rhythm, S1, S2 Respiratory: Yes: Diminished Gastrointestinal: Yes: Normal Bowel Sounds, Soft Extremities: Yes: WNL Edema: No Labs: CBC, BMP Problem List - Problems (1) Congestive heart failure Code(s): I50.9 - HEART FAILURE, UNSPECIFIED Qualifiers: Congestive heart failure type: unspecified congestive heart failure type Congestive heart failure chronicity: acute Qualified Code(s): I50.9 - Heart failure, unspecified (2) Hyperlipidemia Code(s): E78.5 - HYPERLIPIDEMIA, UNSPECIFIED Qualifiers: Hyperlipidemia type: unspecified Qualified Code(s): E78.5 - Hyperlipidemia, unspecified (3) Hypertension Code(s): I10 - ESSENTIAL (PRIMARY) HYPERTENSION Qualifiers: Hypertension type: essential hypertension Qualified Code(s): I10 - Essential (primary) hypertension (4) Lung mass Code(s): R91.8 - OTHER NONSPECIFIC ABNORMAL FINDING OF LUNG FIELD (5) COPD (chronic obstructive pulmonary disease) Code(s): J44.9 - CHRONIC OBSTRUCTIVE PULMONARY DISEASE, UNSPECIFIED (6) Dyspnea Code(s): R06.00 - DYSPNEA, UNSPECIFIED Assessment/Plan IMP DYSPNEA ? COPD, LEFT LUNG MASS LIKELY MALIGNANT,? INFECTIOUS,MAC COPD HTN PLAN TAPER STEROIDS INHALED BRONCHODILATORS NASAL O2 PET SCAN OUTPATIENT PFTS OUTPATIENT CT GUIDED BX AFTER PET DR FREDERICK Problem List - Problems (1) Congestive heart failure Code(s): I50.9 - HEART FAILURE, UNSPECIFIED Qualifiers: Congestive heart failure type: unspecified congestive heart failure type Congestive heart failure chronicity: acute Qualified Code(s): I50.9 - Heart failure, unspecified (2) Hyperlipidemia Code(s): E78.5 - HYPERLIPIDEMIA, UNSPECIFIED Qualifiers: Hyperlipidemia type: unspecified Qualified Code(s): E78.5 - Hyperlipidemia, unspecified (3) Hypertension Code(s): I10 - ESSENTIAL (PRIMARY) HYPERTENSION Qualifiers: Hypertension type: essential hypertension Qualified Code(s): I10 - Essential (primary) hypertension (4) Lung mass Code(s): R91.8 - OTHER NONSPECIFIC ABNORMAL FINDING OF LUNG FIELD (5) COPD (chronic obstructive pulmonary disease) Code(s): J44.9 - CHRONIC OBSTRUCTIVE PULMONARY DISEASE, UNSPECIFIED (6) Dyspnea Code(s): R06.00 - DYSPNEA, UNSPECIFIED
[2016-11-25] MEDS: ATORVASTATIN CA 10 MG TABLET (FP) PO SCH (21:15)
[2016-11-26] MEDS: methylPREDNISolone NA SUCC 40 MG/1 ML VIAL IVPB SCH ×4 (02:47→17:28)
--- NOTE | 2016-11-26 08:56 | PN ---
Progress Note, Physician Chief Complaint: sob improved History of Present Illness: less dyspneic with exertion - Current Medication List Current Medications: Active Medications Acetaminophen (Tylenol -) 500 mg PO Q6H PRN PRN Reason: pain,fever Aspirin (Asa -) 81 mg PO Q2D@1000 [facility] Last Admin: 11/25/16 09:04 Dose: 81 mg Atorvastatin Calcium (Lipitor -) 10 mg PO HS [facility] Last Admin: 11/25/16 21:15 Dose: 10 mg Budesonide/Formoterol Fumarate (Symbicort 80/4.5mcg -) 2 puff IH BID [facility] Last Admin: 11/25/16 21:14 Dose: 2 puff Enoxaparin Sodium (Lovenox -) 30 mg SQ DAILY [facility] Last Admin: 11/25/16 09:04 Dose: 30 mg Furosemide (Lasix -) 40 mg PO DAILY [facility] Last Admin: 11/25/16 09:04 Dose: 40 mg Lisinopril (Prinivil) 10 mg PO DAILY [facility] Last Admin: 11/25/16 09:05 Dose: 10 mg Methylprednisolone Sodium Succinate (Solu-Medrol -) 40 mg IVPB Q6H-IV [facility] Last Admin: 11/26/16 02:47 Dose: 40 mg Tiotropium [place] (Spiriva -) 1 puff IH DAILY [facility] Last Admin: 11/25/16 09:05 Dose: 1 puff - Objective Vital Signs: Vital Signs Temperature 97.7 F 11/26/16 08:36 Pulse Rate 90 11/26/16 08:36 Respiratory Rate 18 11/26/16 05:00 Blood Pressure 129/65 11/26/16 08:36 O2 Sat by Pulse Oximetry (%) 98 11/25/16 20:36 Constitutional: Yes: No Distress Neck: Yes: Supple Cardiovascular: Yes: Regular Rate and Rhythm Respiratory: Yes: CTA Bilaterally Gastrointestinal: Yes: Soft Edema: No Neurological: Yes: Alert, Oriented Labs: CBC, BMP 11/24/16 05:35 11/24/16 05:35 INR, PTT INR 1.02 (0.82-1.09) 11/23/16 07:15 - ....Imaging EKG: Image Reviewed (tele: nsr pvcs) Assessment/Plan 81 year old woman with a history of HTN, HLD, recent UTI, admitted with progressively worsening sob/phillips. SOB/PHILLIPS- COPD vs malignancy vs mild acute diastolic CHF -does not appear sig volume overloaded on exam or imaging -mild LE edema has resolved -PO Lasix -echo showed normal LV systolic function, mild mr, mild tr, mild AR -CT chest reviewed, L lung mass and CTA with no pulmonary embolism -outpatient stress test recommended
[2016-11-26] MEDS: FUROSEMIDE 40 MG TABLET (FP) PO SCH (08:59)
[2016-11-26] MEDS: LISINOPRIL 10 MG TABLET (FP) PO SCH (08:59)
[2016-11-26] MEDS: ENOXAPARIN NA (PORCINE) 30 MG/0.3 ML DISP.SYRIN SQ SCH (09:00)
[2016-11-26] MEDS: TIOTROPIUM BROMIDE 18 MCG/INH (DEVICE W/ 5 CAPSULES) IH SCH (09:01)
[2016-11-26] MEDS: BUDESONIDE/FORMETEROL FUMARATE 80/4.5 mcg INHALER IH SCH ×2 (09:01→21:28)
--- NOTE | 2016-11-26 09:52 | PN ---
Progress Note, Physician History of Present Illness: pulmonary alert,+hackett and when speaking,-cp,-cough - Current Medication List Current Medications: Active Medications Acetaminophen (Tylenol -) 500 mg PO Q6H PRN PRN Reason: pain,fever Aspirin (Asa -) 81 mg PO Q2D@1000 [facility] Last Admin: 11/25/16 09:04 Dose: 81 mg Atorvastatin Calcium (Lipitor -) 10 mg PO HS [facility] Last Admin: 11/25/16 21:15 Dose: 10 mg Budesonide/Formoterol Fumarate (Symbicort 80/4.5mcg -) 2 puff IH BID [facility] Last Admin: 11/26/16 09:01 Dose: 2 puff Enoxaparin Sodium (Lovenox -) 30 mg SQ DAILY [facility] Last Admin: 11/26/16 09:00 Dose: 30 mg Furosemide (Lasix -) 40 mg PO DAILY [facility] Last Admin: 11/26/16 08:59 Dose: 40 mg Lisinopril (Prinivil) 10 mg PO DAILY [facility] Last Admin: 11/26/16 08:59 Dose: 10 mg Methylprednisolone Sodium Succinate (Solu-Medrol -) 40 mg IVPB Q6H-IV [facility] Last Admin: 11/26/16 09:00 Dose: 40 mg Tiotropium [place] (Spiriva -) 1 puff IH DAILY [facility] Last Admin: 11/26/16 09:01 Dose: 1 puff - Objective Vital Signs: Vital Signs Temperature 97.7 F 11/26/16 08:36 Pulse Rate 90 11/26/16 08:36 Respiratory Rate 18 11/26/16 05:00 Blood Pressure 129/65 11/26/16 08:36 O2 Sat by Pulse Oximetry (%) 97 11/26/16 09:10 Constitutional: Yes: Well Nourished, Calm Eyes: Yes: WNL HENT: Yes: WNL Neck: Yes: WNL Cardiovascular: Yes: Regular Rate and Rhythm, S1, S2 Respiratory: Yes: Diminished Gastrointestinal: Yes: Normal Bowel Sounds, Soft Extremities: Yes: WNL Edema: No Labs: CBC, BMP Problem List - Problems (1) Congestive heart failure Code(s): I50.9 - HEART FAILURE, UNSPECIFIED Qualifiers: Congestive heart failure type: unspecified congestive heart failure type Congestive heart failure chronicity: acute Qualified Code(s): I50.9 - Heart failure, unspecified (2) Hyperlipidemia Code(s): E78.5 - HYPERLIPIDEMIA, UNSPECIFIED Qualifiers: Hyperlipidemia type: unspecified Qualified Code(s): E78.5 - Hyperlipidemia, unspecified (3) Hypertension Code(s): I10 - ESSENTIAL (PRIMARY) HYPERTENSION Qualifiers: Hypertension type: essential hypertension Qualified Code(s): I10 - Essential (primary) hypertension (4) Lung mass Code(s): R91.8 - OTHER NONSPECIFIC ABNORMAL FINDING OF LUNG FIELD (5) COPD (chronic obstructive pulmonary disease) Code(s): J44.9 - CHRONIC OBSTRUCTIVE PULMONARY DISEASE, UNSPECIFIED (6) Dyspnea Code(s): R06.00 - DYSPNEA, UNSPECIFIED Assessment/Plan IMP DYSPNEA LIKELY COPD, LEFT LUNG MASS LIKELY MALIGNANT,? INFECTIOUS,MAC COPD HTN PLAN TAPER STEROIDS INHALED BRONCHODILATORS NASAL O2 PET SCAN OUTPATIENT PFTS OUTPATIENT CT GUIDED BX AFTER PET DR FREDERICK Problem List - Problems (1) Congestive heart failure Code(s): I50.9 - HEART FAILURE, UNSPECIFIED Qualifiers: Congestive heart failure type: unspecified congestive heart failure type Congestive heart failure chronicity: acute Qualified Code(s): I50.9 - Heart failure, unspecified (2) Hyperlipidemia Code(s): E78.5 - HYPERLIPIDEMIA, UNSPECIFIED Qualifiers: Hyperlipidemia type: unspecified Qualified Code(s): E78.5 - Hyperlipidemia, unspecified (3) Hypertension Code(s): I10 - ESSENTIAL (PRIMARY) HYPERTENSION Qualifiers: Hypertension type: essential hypertension Qualified Code(s): I10 - Essential (primary) hypertension (4) Lung mass Code(s): R91.8 - OTHER NONSPECIFIC ABNORMAL FINDING OF LUNG FIELD (5) COPD (chronic obstructive pulmonary disease) Code(s): J44.9 - CHRONIC OBSTRUCTIVE PULMONARY DISEASE, UNSPECIFIED (6) Dyspnea Code(s): R06.00 - DYSPNEA, UNSPECIFIED
[2016-11-26] MEDS: ATORVASTATIN CA 10 MG TABLET (FP) PO SCH (21:29)
[2016-11-27] MEDS: methylPREDNISolone NA SUCC 40 MG/1 ML VIAL IVPB SCH ×3 (01:25→21:55)
--- NOTE | 2016-11-27 09:01 | PN ---
Progress Note (short form) - Note Progress Note: Vital Signs Period Temp Pulse Resp BP Sys/Johns Pulse Ox Last 24 Hr 97.6 F-98.3 F 84-93 17-20 110-133/50-77 97 S1S2 RRR Lungs clear decreased leg edema mild RUQ tenderness aa03 no deficit Allergic to Shellfish Imp Admitted fro exertional dyspnea COPD Lung mass mild fluid overload with acute diastolic CHF HTN Cholelithiasis Plan cardiology consult appreciated pulm consult appreciated cont po lasix w/up negative for PE DVT prophylaxis H2 blockers steroid taper dc planning for outpt PET Problem List - Problems (1) Congestive heart failure Code(s): I50.9 - HEART FAILURE, UNSPECIFIED Qualifiers: Congestive heart failure type: unspecified congestive heart failure type Congestive heart failure chronicity: acute Qualified Code(s): I50.9 - Heart failure, unspecified (2) Hypertension Code(s): I10 - ESSENTIAL (PRIMARY) HYPERTENSION Qualifiers: Hypertension type: essential hypertension Qualified Code(s): I10 - Essential (primary) hypertension (3) Hyperlipidemia Code(s): E78.5 - HYPERLIPIDEMIA, UNSPECIFIED Qualifiers: Hyperlipidemia type: unspecified Qualified Code(s): E78.5 - Hyperlipidemia, unspecified
[2016-11-27] MEDS: FUROSEMIDE 40 MG TABLET (FP) PO SCH (09:46)
[2016-11-27] MEDS: BUDESONIDE/FORMETEROL FUMARATE 80/4.5 mcg INHALER IH SCH ×2 (09:47→21:55)
[2016-11-27] MEDS: ENOXAPARIN NA (PORCINE) 30 MG/0.3 ML DISP.SYRIN SQ SCH (09:47)
[2016-11-27] MEDS: ASPIRIN 81 MG CHEWABLE TABLETS PO SCH (09:47)
[2016-11-27] MEDS: LISINOPRIL 10 MG TABLET (FP) PO SCH (09:47)
[2016-11-27] MEDS: TIOTROPIUM BROMIDE 18 MCG/INH (DEVICE W/ 5 CAPSULES) IH SCH (09:48)
[2016-11-27] MEDS: RANITIDINE HCL 150 MG TABLET (FP) PO SCH ×2 (09:48→21:55)
[2016-11-27 10:17] LABS: BASOPHIL 0.1 % (0-2.0); MCH 30.1 pg (25.7-33.7); MCHC 32.8 g/dl (32.0-36.0); MEAN CELL VOLUME 91.6 fl (80-96); MEAN PLT VOLUME 7.6 fl (7.5-11.1); NEUTROPHILS 84.5 % (42.8-82.8); PLATELET COUNT 409 K/MM3 (134-434); RDW 13.8 % (11.6-15.6)
[2016-11-27 10:40] LABS: ALBUMIN 3.2 g/dl (3.4-5.0); ANION GAP 10 (8-16); BILIRUBIN,TOTAL 0.2 mg/dL (0.2-1.0); CALCIUM 8.9 mg/dL (8.5-10.1); CO2 29 mmol/L (21-32); CREATININE 0.9 mg/dL (0.55-1.02); GLUCOSE,RANDOM 161 mg/dL (74-106); SGOT/AST 28 U/L (15-37); SGPT/ALT 41 U/L (12-78); TOT PROT 6.6 g/dl (6.4-8.2)
[2016-11-27 10:41] LABS: ALK PHOS 97 U/L (45-117)
--- NOTE | 2016-11-27 11:35 | PN ---
Progress Note, Physician History of Present Illness: pulmonary alert,feeling better,less dyspneic - Current Medication List Current Medications: Active Medications Acetaminophen (Tylenol -) 500 mg PO Q6H PRN PRN Reason: pain,fever Aspirin (Asa -) 81 mg PO Q2D@1000 [facility] Last Admin: 11/27/16 09:47 Dose: 81 mg Atorvastatin Calcium (Lipitor -) 10 mg PO HS [facility] Last Admin: 11/26/16 21:29 Dose: 10 mg Budesonide/Formoterol Fumarate (Symbicort 80/4.5mcg -) 2 puff IH BID [facility] Last Admin: 11/27/16 09:47 Dose: 2 puff Enoxaparin Sodium (Lovenox -) 30 mg SQ DAILY [facility] Last Admin: 11/27/16 09:47 Dose: 30 mg Furosemide (Lasix -) 40 mg PO DAILY [facility] Last Admin: 11/27/16 09:46 Dose: 40 mg Lisinopril (Prinivil) 10 mg PO DAILY [facility] Last Admin: 11/27/16 09:47 Dose: 10 mg Methylprednisolone Sodium Succinate (Solu-Medrol -) 40 mg IVPB BID [facility] Last Admin: 11/27/16 09:47 Dose: 40 mg Ranitidine HCl (Zantac -) 150 mg PO BID [facility] Last Admin: 11/27/16 09:48 Dose: 150 mg Tiotropium [place] (Spiriva -) 1 puff IH DAILY [facility] Last Admin: 11/27/16 09:48 Dose: 1 puff - Objective Vital Signs: Vital Signs Temperature 97.6 F 11/27/16 05:29 Pulse Rate 93 H 11/27/16 05:29 Respiratory Rate 20 11/27/16 05:29 Blood Pressure 126/62 11/27/16 05:29 O2 Sat by Pulse Oximetry (%) 97 11/26/16 09:10 Constitutional: Yes: Calm, Thin Eyes: Yes: WNL HENT: Yes: WNL Neck: Yes: WNL Cardiovascular: Yes: Regular Rate and Rhythm, S1, S2 Respiratory: Yes: Diminished Gastrointestinal: Yes: Normal Bowel Sounds, Soft Extremities: Yes: WNL Edema: No Labs: CBC, BMP 11/27/16 10:11 11/27/16 10:11 INR, PTT INR 1.02 (0.82-1.09) 11/23/16 07:15 Problem List - Problems (1) Congestive heart failure Code(s): I50.9 - HEART FAILURE, UNSPECIFIED Qualifiers: Congestive heart failure type: unspecified congestive heart failure type Congestive heart failure chronicity: acute Qualified Code(s): I50.9 - Heart failure, unspecified (2) Hyperlipidemia Code(s): E78.5 - HYPERLIPIDEMIA, UNSPECIFIED Qualifiers: Hyperlipidemia type: unspecified Qualified Code(s): E78.5 - Hyperlipidemia, unspecified (3) Hypertension Code(s): I10 - ESSENTIAL (PRIMARY) HYPERTENSION Qualifiers: Hypertension type: essential hypertension Qualified Code(s): I10 - Essential (primary) hypertension (4) Lung mass Code(s): R91.8 - OTHER NONSPECIFIC ABNORMAL FINDING OF LUNG FIELD (5) COPD (chronic obstructive pulmonary disease) Code(s): J44.9 - CHRONIC OBSTRUCTIVE PULMONARY DISEASE, UNSPECIFIED (6) Dyspnea Code(s): R06.00 - DYSPNEA, UNSPECIFIED Assessment/Plan IMP DYSPNEA LIKELY COPD, LEFT LUNG MASS LIKELY MALIGNANT,? INFECTIOUS,MAC COPD HTN PLAN TAPER STEROIDS INHALED BRONCHODILATORS NASAL O2 PET SCAN OUTPATIENT PFTS OUTPATIENT CT GUIDED BX AFTER PET CHECK O2 SAT AT REST AND POAT EXERCISE ON RA DR FREDERICK Problem List - Problems (1) Congestive heart failure Code(s): I50.9 - HEART FAILURE, UNSPECIFIED Qualifiers: Congestive heart failure type: unspecified congestive heart failure type Congestive heart failure chronicity: acute Qualified Code(s): I50.9 - Heart failure, unspecified (2) Hyperlipidemia Code(s): E78.5 - HYPERLIPIDEMIA, UNSPECIFIED Qualifiers: Hyperlipidemia type: unspecified Qualified Code(s): E78.5 - Hyperlipidemia, unspecified (3) Hypertension Code(s): I10 - ESSENTIAL (PRIMARY) HYPERTENSION Qualifiers: Hypertension type: essential hypertension Qualified Code(s): I10 - Essential (primary) hypertension (4) Lung mass Code(s): R91.8 - OTHER NONSPECIFIC ABNORMAL FINDING OF LUNG FIELD (5) COPD (chronic obstructive pulmonary disease) Code(s): J44.9 - CHRONIC OBSTRUCTIVE PULMONARY DISEASE, UNSPECIFIED (6) Dyspnea Code(s): R06.00 - DYSPNEA, UNSPECIFIED
--- NOTE | 2016-11-27 11:36 | PN ---
Progress Note, Physician History of Present Illness: seen and examined today in nad. no overnight events. feeling a little better today. - Current Medication List Current Medications: Active Medications Acetaminophen (Tylenol -) 500 mg PO Q6H PRN PRN Reason: pain,fever Aspirin (Asa -) 81 mg PO Q2D@1000 [facility] Last Admin: 11/27/16 09:47 Dose: 81 mg Atorvastatin Calcium (Lipitor -) 10 mg PO HS [facility] Last Admin: 11/26/16 21:29 Dose: 10 mg Budesonide/Formoterol Fumarate (Symbicort 80/4.5mcg -) 2 puff IH BID [facility] Last Admin: 11/27/16 09:47 Dose: 2 puff Enoxaparin Sodium (Lovenox -) 30 mg SQ DAILY [facility] Last Admin: 11/27/16 09:47 Dose: 30 mg Furosemide (Lasix -) 40 mg PO DAILY [facility] Last Admin: 11/27/16 09:46 Dose: 40 mg Lisinopril (Prinivil) 10 mg PO DAILY [facility] Last Admin: 11/27/16 09:47 Dose: 10 mg Methylprednisolone Sodium Succinate (Solu-Medrol -) 40 mg IVPB BID [facility] Last Admin: 11/27/16 09:47 Dose: 40 mg Ranitidine HCl (Zantac -) 150 mg PO BID [facility] Last Admin: 11/27/16 09:48 Dose: 150 mg Tiotropium [place] (Spiriva -) 1 puff IH DAILY [facility] Last Admin: 11/27/16 09:48 Dose: 1 puff - Objective Vital Signs: Vital Signs Temperature 97.6 F 11/27/16 05:29 Pulse Rate 93 H 11/27/16 05:29 Respiratory Rate 20 11/27/16 05:29 Blood Pressure 126/62 11/27/16 05:29 O2 Sat by Pulse Oximetry (%) 97 11/26/16 09:10 Constitutional: Yes: Well Nourished, No Distress, Calm Eyes: Yes: WNL, Conjunctiva Clear, EOM Intact, PERRL HENT: Yes: WNL, Atraumatic, Normocephalic Neck: Yes: WNL, Supple, Trachea Midline Cardiovascular: Yes: Regular Rate and Rhythm, S1, S2. No: Bradycardia, Tachycardia, Pulse Irregular, Bruit, JVD, Gallop, Murmur, Rub, S3, S4, Varicosities Respiratory: Yes: Regular, Rales, Rhonchi, Wheezes Gastrointestinal: Yes: WNL, Normal Bowel Sounds, Soft. No: Distention, Tenderness Musculoskeletal: Yes: WNL Extremities: Yes: WNL Edema: No Peripheral Pulses WNL: Yes Peripheral Pulses: Left Doralis Pedis: 2+, Right Dorsalis Pedis: 2+ Integumentary: Yes: WNL Neurological: Yes: Alert, Oriented Psychiatric: Yes: Alert, Oriented Labs: CBC, BMP 11/27/16 10:11 11/27/16 10:11 INR, PTT INR 1.02 (0.82-1.09) 11/23/16 07:15 Assessment/Plan 81 year old woman with a history of HTN, HLD, recent UTI, admitted with progressively worsening sob/phillips. SOB/PHILLIPS- COPD vs malignancy vs mild acute diastolic CHF -improving slowly with tx of COPD -does not appear sig volume overloaded on exam or imaging -mild LE edema has resolved -cont Lasix 40mg po daily -echo showed normal LV systolic function, mild mr, mild tr, mild AR -CT chest reviewed, L lung mass and CTA with no pulmonary embolism -plan for outpatient stress test -no additional inpatient cardiac work up at this point -ok to dc tele
[2016-11-27] MEDS ORDERED: PT OWN MED DRAWER 7, Y5N ONE (21:54)
[2016-11-27] MEDS: ATORVASTATIN CA 10 MG TABLET (FP) PO SCH (21:55)
--- NOTE | 2016-11-28 09:20 | DS ---
Physical Examination Vital Signs: Vital Signs Temperature 98.4 F 11/28/16 07:00 Pulse Rate 75 11/28/16 07:00 Respiratory Rate 18 11/28/16 07:00 Blood Pressure 127/62 11/28/16 07:00 O2 Sat by Pulse Oximetry (%) 96 11/27/16 21:00 Constitutional: Yes: No Distress Eyes: Yes: Conjunctiva Clear Neck: Yes: Trachea Midline Cardiovascular: Yes: Regular Rate and Rhythm Respiratory: Yes: CTA Bilaterally Edema: No Labs: CBC, BMP 11/27/16 10:11 11/27/16 10:11 Discharge Summary Reason For Visit: CHF Current Active Problems COPD (chronic obstructive pulmonary disease) (Acute) Congestive heart failure (Acute) Dyspnea (Acute) Hyperlipidemia (Acute) Hypertension (Acute) Lung mass (Acute) Hospital Course: Admitted fro exertional dyspnea, was found to have mild diastolic congestive heart failure, COPD and spiculated TEREZA lung mass. Improved after iv steroids, mild diuresis and bronchodilators. Medically stable to nc home with close outpt f/up for work up for likely lung malignancy. - Instructions Referrals: Sandra Brandon MD [Primary Care Provider] - - Home Medications Comprehensive Discharge Medication List: Ambulatory Orders Acetaminophen [Tylenol .Extra-Strength -] 500 mg PO Q6H PRN 11/23/16 Ascorbate Calcium [Vitamin C] 500 mg PO DAILY 11/23/16 Aspirin [ASA -] 81 mg PO Q48H 11/23/16 Atorvastatin Ca [Lipitor] 10 mg PO HS 11/23/16 Calcium Carb, Citrate/Vit D3 [Calcium + D3 ER Tablet] 1,200 mg PO DAILY Cetirizine HCl [Zyrtec -] 10 mg PO DAILY 11/23/16 Lisinopril 10 mg PO DAILY 11/23/16 Budesonide/Formeterol Fumarate [SYMBICORT 80/4.5mcg -] 1 puff IH BID #1 inhaler 11/28/16 Furosemide [Lasix -] 20 mg PO DAILY #30 tablet 11/28/16 Methylprednisolone [Medrol Dose [place]] 4 mg PO ASDIR #21 tablet 11/28/16 Tiotropium [place] [Spiriva] 1 puff IH DAILY #1 inh 11/28/16
[2016-11-28] MEDS ORDERED: PT OWN MED DRAWER 7, Y5N ONE (09:29)
[2016-11-28] MEDS: RANITIDINE HCL 150 MG TABLET (FP) PO SCH (09:33)
[2016-11-28] MEDS: TIOTROPIUM BROMIDE 18 MCG/INH (DEVICE W/ 5 CAPSULES) IH SCH (09:33)
[2016-11-28] MEDS: methylPREDNISolone NA SUCC 40 MG/1 ML VIAL IVPB SCH (09:33)
[2016-11-28] MEDS: LISINOPRIL 10 MG TABLET (FP) PO SCH (09:33)
[2016-11-28] MEDS: BUDESONIDE/FORMETEROL FUMARATE 80/4.5 mcg INHALER IH SCH (09:33)
[2016-11-28] MEDS: ENOXAPARIN NA (PORCINE) 30 MG/0.3 ML DISP.SYRIN SQ SCH (09:33)
[2016-11-28] MEDS: FUROSEMIDE 40 MG TABLET (FP) PO SCH (09:33)
[2016-11-28 09:50] VITALS: BP 143/64; PULSE 95; TEMP 98.7
== END 2016-11-28 10:48 | disposition home or self-care (01) | DRG 190 ==
LOC: JER 06:45 → JERBED 08:48 → J4W 15:10 → J5S 11-27 15:18
PROVIDERS: ADMIT Internal Medicine; ATTEND Internal Medicine
DX: J44.1 Chronic obstructive pulmonary disease with (acute) exacerbation (principal); I50.31 Acute diastolic (congestive) heart failure; I10 Essential (primary) hypertension; E78.5 Hyperlipidemia, unspecified; Z96.643 Presence of artificial hip joint, bilateral; R91.8 Other nonspecific abnormal finding of lung field; R10.11 Right upper quadrant pain
CPT/HCPCS: 36415; 71020-TC; 71250-TC; 71275-TC; 76705-TC; 76775-TC; 80053; 81003; 82550; 83735; 83880; 84484; 85025; 85027; 85379; 85610; 85730; 93005; 93010; 93306-TC; 93970-TC; 94761; 99283-25

== ENCOUNTER 2016-12-20 08:04 | Day surgery (SDC) | payer OTHER ==
[2016-12-19 17:11] VITALS: BMI 18.6
[2016-12-20 08:24] LABS: BASOPHIL 0.6 % (0-2.0); EOSINOPHIL 5.3 % (0-4.5); MCH 30.5 pg (25.7-33.7); MEAN CELL VOLUME 92.5 fl (80-96); MEAN PLT VOLUME 7.2 fl (7.5-11.1); NEUTROPHILS 46.1 % (42.8-82.8); PLATELET COUNT 242 K/MM3 (134-434); RDW 14.2 % (11.6-15.6); WHITE BLOOD COUNT 7.8 K/mm3 (4.0-10.0)
[2016-12-20 08:44] LABS: INR 0.95 (0.82-1.09); PROTHROMBIN TIME (PATIENT) 10.4 SEC (9.98-11.88)
[2016-12-20 10:03] VITALS: TEMP 97.6
[2016-12-20 12:17] VITALS: BP 115/62; PULSE 90
== END 2016-12-20 12:25 | disposition home or self-care (01) ==
LOC: JRADIR 08:04
PROVIDERS: ATTEND Internal Medicine Pulmonary Disease
PROC: BB24ZZZ Computerized Tomography (CT Scan) of Bilateral Lungs (ICD-10-PCS; principal; 2016-12-20)
PROC: 0BBJ3ZX Excision of Left Lower Lung Lobe, Percutaneous Approach, Diagnostic (ICD-10-PCS; 2016-12-20)
DX: R91.1 Solitary pulmonary nodule (principal); Z53.8 Procedure and treatment not carried out for other reasons
CPT/HCPCS: 36415; 71250-TC; 85025; 85610

== ENCOUNTER 2017-03-05 05:24 | Inpatient (IN) | payer OTHER ==
[2017-03-01 17:02] VITALS: BMI 17.9
[2017-03-05] MEDS ORDERED: methylPREDNISolone NA SUCC 40 MG/1 ML VIAL ONE (07:01)
[2017-03-05] MEDS ORDERED: ALBUTEROL SO4 0.083% IH SOL 2.5 MG/3 ML VIAL.NEB. NEB ONE (07:02)
[2017-03-05] MEDS ORDERED: ALBUTEROL SO4 0.5 % INH SOLN 2.5 MG/0.5 ML VIAL.NEB. NEB PRN ×2 (07:11→07:13)
[2017-03-05] MEDS ORDERED: MIDAZOLAM HCL 2 MG/2 ML SINGLE DOSE VIAL ONE (07:42)
[2017-03-05] MEDS ORDERED: ROCURONIUM BROMIDE 50 MG/5 ML VIAL ONE (07:42)
[2017-03-05] MEDS ORDERED: PROPOFOL 20 ML ONE ×3 (07:42→09:30)
[2017-03-05] MEDS ORDERED: methylPREDNISolone NA SUCC 125 MG/2 ML VIAL IVPB ONE (08:00)
[2017-03-05] MEDS ORDERED: LIDOCAINE HCL 1%, 10 MG/ML (20ML VIAL) ONE (08:00)
[2017-03-05] MEDS ORDERED: BUPIVACAINE HCL/PF 0.25% (2.5MG/ML) 10 ML VIAL ONE ×2 (08:16→09:02)
[2017-03-05] MEDS ORDERED: ceFAZolin SODIUM 1 GM VIAL ONE (08:23)
[2017-03-05] MEDS ORDERED: ceFAZolin SODIUM 1 GM VIAL IVPB ONE (08:45)
[2017-03-05] MEDS ORDERED: DEXAMETHASONE SOD PHOSPHATE/PF 10 MG/ML SDV ONE (08:54)
[2017-03-05] MEDS ORDERED: ACETAMINOPHEN INJECTION 100 ML IVPB ONE ×2 (09:26)
[2017-03-05] MEDS ORDERED: NEOSTIGMINE METHYLSULFATE 0.5 MG/ML - 10 ML MDV ONE (09:49)
[2017-03-05] MEDS ORDERED: BUPIVACAINE HCL/PF 0.25% (2.5MG/ML) 10 ML VIAL IJ ONE (10:15)
[2017-03-05] MEDS ORDERED: ONDANSETRON 4 MG/2 ML VIAL IVPUSH PRN (10:30)
[2017-03-05] MEDS ORDERED: LACTATED RINGERS SOLUTION 1,000 ML IV SCH (10:30)
[2017-03-05] MEDS ORDERED: HYDROmorphone HCL CARPU-JECT 2 MG/1 ML DISP.SYRIN ONE (10:36)
[2017-03-05] MEDS: HYDROmorphone HCL CARPU-JECT 1 MG/1 ML DISP.SYRIN IVPUSH PRN ×4 (10:39→11:20)
[2017-03-05] MEDS ORDERED: traMADol HCL 50 MG TABLET PO PRN (10:45)
[2017-03-05] MEDS ORDERED: traMADol HCL 50 MG TABLET ONE (11:15)
--- NOTE | 2017-03-05 11:17 | OP ---
Operative Note - Note: Operative Date: 03/05/17 Pre-Operative Diagnosis: Lung cancer Operation: Bronchoscopy, left VATS, pneumolysis, wedge resection, mediastinal lymph node sampling, intercostal nerve block. Findings: Adhesions from TEREZA to chest wall, nodule in fissure (frozen margin negative), no pleural implants or other lung nodules. Surgeon: Chandu Rocha Home Improvement Contractor: Migue Wilder Anesthesiologist/FEDERAL JAVA DEVELOPER: Eloise Badillo Anesthesia: General Specimens Removed: TEREZA wedge, lymph node Drains & Tubes with Location: Left chest tube.
--- NOTE | 2017-03-05 12:32 | OPR ---
Patient Name: Kaia Chang MR#: [id number] Procedure Date: 03/05/2017 Preoperative Diagnosis: Left lung cancer Postoperative Diagnosis: same Procedure: 1. Bronchoscopy; 2. Left VATS pneumolysis; 3. Left upper lobe wedge resection 4. Mediastinal lymph node sampling; 5. Intercostal nerve block. Indication: Infection. Surgeon(s): Chandu Rocha MD Cosurgeon: Migue Wilder MD Assembler Watch Train Surgeon: ayana Anesthesia: General with intercostal nerve black. Findings: 1. Bronchoscopy: Minimal secretions; 2. VATS: TEREZA adherent to posterior chest wall; nodule with negative margin on frozen. Specimens Sent: TEREZA wedge, LN level 5, sputum from left upper lobe. Complications: none Drains / Tubes / Catheters: 1 chest tubes. Hardware / Implants: na Blood / Fluid Losses: 25cc. Post-Operative Condition: Hemodynamically stable in transfer to PACU Indications: This patient is an 81 year-old female with CAD and a PET avid biopsy proven TEREZA nodule. She was referred by Dr. Dasilva and Dr. Britton for resection. After discussion and consideration of risks, benefits, and alternatives with the patient she agreed to the procedure. The patient understood the risks and benefits. Details of Procedure: The patient was taken into the operating room and placed supine on the table. She was monitored with pulse oximetry and blood pressure monitoring. She was given sedation and then intubated. Preoperative antibiotics were given. I then performed a bronchoscopy. Findings are listed above. A bronchial karthikeyan was then placed. Subcutaneous heparin and antibiotics were given. Next we positioned. Her left chest was prepared and draped in standard surgical fashion. The first port was placed in the posterior axillary line 6th intercostal space. A posterior and anterior access port were then created. A pneumolysis was performed of a TEREZA adhesion to the chest wall. We then identified the lesion and prepared to resect with an adequate negative margin. We wedge-resected it. We removed it with an endo-catch bag. We then sampled a level 5 lymph node. We placed surgicell on the lymph node harvest site. The chest was irrigated with warm water. There was no air-leak on inflation of the lung. We then performed an intercostal nerve block using lidocaine, bupivicane, and decadron from the 3rd interspace to the 8th interspace. Hemostasis was then checked. Next we placed a chest tube and secured it. The incisions were closed and dressings were placed. She was extubated and transferred to the PACU in hemodynamically stable condition. Dr. Wilder was present and available (as was I ) during the procedure and afterwards. His expertise was necessary as there was no other qualified help available.
[2017-03-05] MEDS: ACETAMINOPHEN 1000 MG/100 ML VIAL (NON FORMULARY) IVPB SCH ×2 (13:55→16:45)
[2017-03-05] MEDS: METOPROLOL TARTRATE 5 MG/5 ML VIAL IVPUSH SCH ×3 (17:00→22:53)
[2017-03-05] MEDS: oxyCODONE HCL 5 MG TABLET PO PRN ×2 (17:06→22:40)
[2017-03-05] MEDS: IPRATROPIUM BR 0.02% 0.5 MG/2.5 ML VIAL.NEB. NEB SCH (18:32)
[2017-03-05 19:34] LABS: MCH 30.2 pg (25.7-33.7); MCHC 32.1 g/dl (32.0-36.0); MEAN PLT VOLUME 7.7 fl (7.5-11.1); PLATELET COUNT 239 K/MM3 (134-434); RDW 13.8 % (11.6-15.6); WHITE BLOOD COUNT 13.8 K/mm3 (4.0-10.0)
[2017-03-05] MEDS: HEPARIN NA (PORCINE) 5,000 UNITS/ML 1ML VIAL SQ SCH (22:40)
[2017-03-05] MEDS: SENNOSIDES 8.6MG TABLET (FP) PO SCH (22:40)
[2017-03-05] MEDS: ACETAMINOPHEN IVPB SCH (22:40)
--- NOTE | 2017-03-05 22:59 | CONSULT ---
Consult Consult Specialty:: Pulm/CCM Reason for Consultation:: Post-Op VATS; TEREZA nodule - History of Present Illness Chief Complaint: Lt chest post-op pain History of Present Illness: 81 year-old female with COPD, CHF, HTN, HLD who was admitted to hospital for elective resection of a PET avid biopsy proven TEREZA nodule. The procedure a VATS assisted wedge resection of Lt lung was performed without complications and the pt was extubated and transferred to ICU for monitoring. She received an intercostal nerve block using lidocaine, bupivicane, and decadron from the 3rd interspace to the 8th interspace. Pt received in ICU A+O x3, hemodynamically stable with Lt chest tube to pleuravac drainage. There was moderate amt serosang drainage and no air leak noted. Pt appears comfortable but with c/o Lt chest tube site pain. - History Source History Provided By: Medical Record - Past Medical History Cardio/Vascular: Yes: HTN, Hyperlipdemia - Past Surgical History Past Surgical History: Yes: Joint Replacement (bilateral hip replacements.) - Alcohol/Substance Use Hx Alcohol Use: Yes (RARELY) - Smoking History Smoking history: Former smoker Have you smoked in the past 12 months: No If you are a former smoker, when did you quit?: 25 years ago - Social History ADL: Independent History of Recent Travel: No Home Medications - Allergies Allergies/Adverse Reactions: Allergies Allergy/AdvReac Type Severity Reaction Status Date / Time shellfish derived Allergy Severe Verified 03/05/17 06:56 aspirin AdvReac Intermediate Verified 03/05/17 06:56 - Home Medications Home Medications: Ambulatory Orders Aspirin [ASA -] 81 mg PO Q48H 11/23/16 Atorvastatin Ca [Lipitor] 10 mg PO HS 11/23/16 Cetirizine HCl [Zyrtec -] 10 mg PO HS 11/23/16 Lisinopril 10 mg PO DAILY 11/23/16 Tiotropium [place] [Spiriva] 1 puff IH DAILY #1 inh 11/28/16 Ascorbate Calcium [Vitamin C] 500 mg PO DAILY 03/01/17 Calcium Carbonate/Vitamin D3 [Calcium 600 + Vit D Softgel] 2 each PO DAILY 03/01 Family Disease History - Family Disease History Family History: Unremarkable Physical Exam Vital Signs: Vital Signs Temperature 98.2 F 03/05/17 22:00 Pulse Rate 79 03/05/17 22:00 Respiratory Rate 20 03/05/17 22:00 Blood Pressure 139/63 03/05/17 22:00 O2 Sat by Pulse Oximetry (%) 98 03/05/17 14:00 Constitutional: Yes: No Distress, Calm Eyes: Yes: WNL HENT: Yes: WNL, Atraumatic, Normocephalic Neck: Yes: WNL, Supple, Trachea Midline Cardiovascular: Yes: Regular Rate and Rhythm Respiratory: Yes: Regular, CTA Bilaterally, On Nasal O2, Other (Lt CT site dry and intact) Gastrointestinal: Yes: Normal Bowel Sounds, Soft Renal/: Yes: [place] Present Extremities: Yes: WNL Edema: No Peripheral Pulses WNL: Yes Neurological: Yes: Alert, Oriented ...Motor Strength: WNL Psychiatric: Yes: WNL Labs: CBC, BMP 03/05/17 19:26 CBC,CMP WBC 13.8 K/mm3 (4.0-10.0) H D 03/05/17 19:26 RBC 4.14 M/mm3 (3.60-5.2) 03/05/17 19:26 Hgb 12.5 GM/dL (10.7-15.3) D 03/05/17 19:26 Hct 38.9 % (32.4-45.2) 03/05/17 19:26 MCV 94.0 fl (80-96) 03/05/17 19:26 MCH 30.2 pg (25.7-33.7) 03/05/17 19:26 MCHC 32.1 g/dl (32.0-36.0) 03/05/17 19:26 RDW 13.8 % (11.6-15.6) 03/05/17 19:26 Plt Count 239 K/MM3 (134-434) D 03/05/17 19:26 MPV 7.7 fl (7.5-11.1) 03/05/17 19:26 Vital Signs Period Temp Pulse Resp BP Sys/Johns Pulse Ox Last 24 Hr 95.0 F-98.2 F 60-82 15-22 86-168/36-70 97-100 Active Medications Albuterol Sulfate (Ventolin 0.5% -) 1 amp NEB Q6H PRN Last Admin: 03/05/17 07:05 Dose: 1 amp Albuterol Sulfate (Ventolin 0.5% -) 1 amp NEB Q4H PRN PRN Reason: SHORT OF BREATH/WHEEZING Atorvastatin Calcium (Lipitor -) 10 mg PO HS [facility] Docusate Sodium (Colace -) 100 mg PO Q8H PRN PRN Reason: CONSTIPATION Heparin Sodium (Porcine) (Heparin -) 5,000 unit SQ BID [facility] Last Admin: 03/05/17 22:40 Dose: 5,000 unit Hydromorphone HCl (Dilaudid Injection -) 0.25 mg IVPUSH [id number] PRN PRN Reason: PAIN Stop: 03/08/17 10:31 Last Admin: 03/05/17 11:20 Dose: 0.25 mg Lactated Ringer's (Lactated Ringers Solution) 1,000 mls @ 75 mls/hr IV ASDIR [facility] Last Admin: 03/05/17 14:00 Dose: 75 mls/hr Acetaminophen (Ofirmev Injection -) 60 mls @ 240 mls/hr IVPB Q6H [facility] Stop: 03/06/17 13:14 Last Admin: 03/06/17 03:00 Dose: 240 mls/hr Ipratropium [place] (Atrovent 0.02% Nebulizer -) 1 amp NEB Q6HPO [facility] Last Admin: 03/06/17 00:28 Dose: 1 amp Metoprolol Tartrate (Lopressor Injection -) 5 mg IVPUSH Q6H-IV [facility] Last Admin: 03/06/17 03:00 Dose: 5 mg Oxycodone HCl (Roxicodone -) 5 mg PO Q4H PRN PRN Reason: PAIN Last Admin: 03/05/17 22:40 Dose: 5 mg Senna (Senna -) 1 tab PO HS [facility] Last Admin: 03/05/17 22:40 Dose: 1 tab Tramadol HCl (Ultram -) 50 mg PO Q6H PRN Imaging - Results Chest X-ray: Report Reviewed (Post-op changes, CT in place. no pneumothorax) Problem List - Problems (1) COPD (chronic obstructive pulmonary disease) Code(s): J44.9 - CHRONIC OBSTRUCTIVE PULMONARY DISEASE, UNSPECIFIED (2) Congestive heart failure Code(s): I50.9 - HEART FAILURE, UNSPECIFIED Qualifiers: Congestive heart failure type: unspecified congestive heart failure type Congestive heart failure chronicity: acute Qualified Code(s): I50.9 - Heart failure, unspecified (3) Dyspnea Code(s): R06.00 - DYSPNEA, UNSPECIFIED (4) Hyperlipidemia Code(s): E78.5 - HYPERLIPIDEMIA, UNSPECIFIED Qualifiers: Hyperlipidemia type: unspecified Qualified Code(s): E78.5 - Hyperlipidemia, unspecified (5) Lung mass Code(s): R91.8 - OTHER NONSPECIFIC ABNORMAL FINDING OF LUNG FIELD Assessment/Plan 81 year-old female with CAD who was admitted to hospital for elective resection of a PET avid biopsy proven TEREZA nodule. The procedure was performed without complications and the pt was extubated and transferred to ICU for monitoring. Plan: Pulm: Post-op VATS procedure for TEREZA nodule -NC O2 support for O2 sat >92% -CT to LWS- monitor for air leak and bleeding -incentive spirometry -Pulm toilet -OOB as able -Pain management -Continue antihypertensives and statins Proph Heparin sq
[2017-03-06] MEDS: IPRATROPIUM BR 0.02% 0.5 MG/2.5 ML VIAL.NEB. NEB SCH ×4 (00:28→18:00)
[2017-03-06 00:54] LABS: ALBUMIN 3.3 g/dl (3.4-5.0); ALK PHOS 108 U/L (45-117); ANION GAP 11 (8-16); BILIRUBIN,TOTAL 0.3 mg/dL (0.2-1.0); CALCIUM 8.6 mg/dL (8.5-10.1); CO2 23 mmol/L (21-32); CREATININE 0.9 mg/dL (0.55-1.02); GLUCOSE,RANDOM 199 mg/dL (74-106); SGOT/AST 23 U/L (15-37); SGPT/ALT 21 U/L (12-78)
[2017-03-06] MEDS: ACETAMINOPHEN IVPB SCH ×3 (03:00→13:09)
[2017-03-06] MEDS: METOPROLOL TARTRATE 5 MG/5 ML VIAL IVPUSH SCH ×4 (03:00→21:59)
[2017-03-06 06:27] LABS: MCH 30.6 pg (25.7-33.7); MCHC 32.6 g/dl (32.0-36.0); MEAN CELL VOLUME 93.9 fl (80-96); MEAN PLT VOLUME 8.4 fl (7.5-11.1); PLATELET COUNT 247 K/MM3 (134-434); RDW 13.5 % (11.6-15.6); WHITE BLOOD COUNT 11.8 K/mm3 (4.0-10.0)
[2017-03-06] MEDS: oxyCODONE HCL 5 MG TABLET PO PRN ×3 (06:31→21:59)
[2017-03-06 06:54] LABS: ALBUMIN 2.9 g/dl (3.4-5.0); ANION GAP 6 (8-16); CO2 29 mmol/L (21-32); GLUCOSE,RANDOM 93 mg/dL (74-106)
[2017-03-06 06:58] LABS: ALK PHOS 100 U/L (45-117); BILIRUBIN,TOTAL 0.6 mg/dL (0.2-1.0); CREATININE 0.8 mg/dL (0.55-1.02); PHOSPHOROUS 4.4 mg/dL (2.5-4.9); SGOT/AST 20 U/L (15-37); SGPT/ALT 18 U/L (12-78); TOT PROT 5.6 g/dl (6.4-8.2)
[2017-03-06] MEDS ORDERED: SODIUM POLYSTYRENE SULFONATE 15 GM/60 ML BOTTLE PO ONE (08:20)
--- NOTE | 2017-03-06 08:24 | PN ---
Progress Note, Physician Chief Complaint: 81F, office patient with COPD and recently diagnosed lung mass s/p resection yesterday. Awake and alert in ICU Left chest tube in place. - Current Medication List Current Medications: Active Medications Albuterol Sulfate (Ventolin 0.5% -) 1 amp NEB Q6H PRN Last Admin: 03/05/17 07:05 Dose: 1 amp Albuterol Sulfate (Ventolin 0.5% -) 1 amp NEB Q4H PRN PRN Reason: SHORT OF BREATH/WHEEZING Atorvastatin Calcium (Lipitor -) 10 mg PO HS [facility] Docusate Sodium (Colace -) 100 mg PO Q8H PRN PRN Reason: CONSTIPATION Heparin Sodium (Porcine) (Heparin -) 5,000 unit SQ BID [facility] Last Admin: 03/05/17 22:40 Dose: 5,000 unit Hydromorphone HCl (Dilaudid Injection -) 0.25 mg IVPUSH [id number] PRN PRN Reason: PAIN Stop: 03/08/17 10:31 Last Admin: 03/05/17 11:20 Dose: 0.25 mg Lactated Ringer's (Lactated Ringers Solution) 1,000 mls @ 75 mls/hr IV ASDIR [facility] Last Admin: 03/05/17 14:00 Dose: 75 mls/hr Acetaminophen (Ofirmev Injection -) 60 mls @ 240 mls/hr IVPB Q6H [facility] Stop: 03/06/17 13:14 Last Admin: 03/06/17 03:00 Dose: 240 mls/hr Ipratropium [place] (Atrovent 0.02% Nebulizer -) 1 amp NEB Q6HPO [facility] Last Admin: 03/06/17 06:15 Dose: 1 amp Metoprolol Tartrate (Lopressor Injection -) 5 mg IVPUSH Q6H-IV [facility] Last Admin: 03/06/17 03:00 Dose: 5 mg Oxycodone HCl (Roxicodone -) 5 mg PO Q4H PRN PRN Reason: PAIN Last Admin: 03/06/17 06:31 Dose: 5 mg Senna (Senna -) 1 tab PO HS [facility] Last Admin: 03/05/17 22:40 Dose: 1 tab Tramadol HCl (Ultram -) 50 mg PO Q6H PRN - Objective Vital Signs: Vital Signs Temperature 98.5 F 03/06/17 06:00 Pulse Rate 65 03/06/17 06:00 Respiratory Rate 18 03/06/17 06:00 Blood Pressure 131/57 03/06/17 04:00 O2 Sat by Pulse Oximetry (%) 98 03/05/17 21:00 Constitutional: Yes: No Distress Eyes: Yes: Conjunctiva Clear Cardiovascular: Yes: Regular Rate and Rhythm Respiratory: Yes: Other (decreased breath sounds c/w chronic COPD) Gastrointestinal: Yes: Soft Edema: No (venodynes) Neurological: Yes: Alert, Oriented Labs: CBC, BMP 03/06/17 05:20 03/06/17 05:20 Laboratory Tests 03/06/17 03/06/17 05:20 05:20 WBC 11.8 H Hgb 12.5 Plt Count 247 Sodium 133 L Potassium 6.3 H* D BUN 21 H Creatinine 0.8 - ....Imaging EKG: Pending Problem List - Problems (1) COPD (chronic obstructive pulmonary disease) Code(s): J44.9 - CHRONIC OBSTRUCTIVE PULMONARY DISEASE, UNSPECIFIED (2) Hypertension Code(s): I10 - ESSENTIAL (PRIMARY) HYPERTENSION Qualifiers: Hypertension type: essential hypertension Qualified Code(s): I10 - Essential (primary) hypertension (3) Lung mass Code(s): R91.8 - OTHER NONSPECIFIC ABNORMAL FINDING OF LUNG FIELD (4) Hyperkalemia Code(s): E87.5 - HYPERKALEMIA Assessment/Plan IMP: S/p L. VATS and wedge resection PET+ lung mass COPD Hyperkalemia REC: 1. K+ 6.3 today (not hemolyzed) -Will order Kayexalate, repeat K+ in several hours -Check ECG -Continue tele in ICU 2. L. chest tube management as per thoracic surgery -suppliment O2 -f/u path.
[2017-03-06] MEDS ORDERED: SODIUM POLYSTYRENE SULFONATE 15 GM/60 ML BOTTLE ONE (08:58)
--- NOTE | 2017-03-06 09:12 | PN ---
Progress Note (short form) - Note Progress Note: POD#1 Pt with complaints of pain today, no CP or SOB. Vital Signs Period Temp Pulse Resp BP Sys/Johns Pulse Ox Last 24 Hr 95.0 F-98.5 F 60-82 15-22 86-139/36-70 97-99 CT-300ml serosangrenous eduardo-1600ml, eduardo removed this am. GEN: Alert CV: RRR Lungs: course breath sounds L>R, NO air leak in CT off suction. No SQ emphysema noted on palpation. CT dressing c/d/i. LE: SCDs in place. CBC, BMP 03/06/17 05:20 03/06/17 05:20 cxr: 03/06-CT in place, lung expanded A/P: 81 yo female s/p Left VATS with wedge resection/mediastinal biopsy CT placed off suction at midnight, no obvious airleak poor cough effort S/w Dr. Rocha and will give 1 dose of ultram this am to help with pain management. Goal is to manage her pain and mobilize her oob to chair today. May possibly remove her CT later today, cont to water seal. eduardo cath removed DVT ppx with Heparin SQ/SCDs K 6.3 today, discontinued lactate ringers she was treated with kayexalate and plan for repeat K today.
[2017-03-06] MEDS: HEPARIN NA (PORCINE) 5,000 UNITS/ML 1ML VIAL SQ SCH ×2 (09:20→22:00)
[2017-03-06] MEDS ORDERED: morphine CARPU-JECT 2 MG/1 ML DISP.SYRIN IVPUSH PRN (11:21)
--- NOTE | 2017-03-06 11:28 | PN ---
Progress Note, Physician Chief Complaint: s/p L VATS wedge resection under general anesthesia History of Present Illness: post op pain control by intercostal bloock performed by surgeon and IV and oral analgesics - Current Medication List Current Medications: Active Medications Albuterol Sulfate (Ventolin 0.5% -) 1 amp NEB Q6H PRN Last Admin: 03/05/17 07:05 Dose: 1 amp Albuterol Sulfate (Ventolin 0.5% -) 1 amp NEB Q4H PRN PRN Reason: SHORT OF BREATH/WHEEZING Atorvastatin Calcium (Lipitor -) 10 mg PO HS [facility] Docusate Sodium (Colace -) 100 mg PO Q8H PRN PRN Reason: CONSTIPATION Heparin Sodium (Porcine) (Heparin -) 5,000 unit SQ BID [facility] Last Admin: 03/06/17 09:20 Dose: 5,000 unit Acetaminophen (Ofirmev Injection -) 60 mls @ 240 mls/hr IVPB Q6H [facility] Stop: 03/06/17 13:14 Last Admin: 03/06/17 09:18 Dose: 240 mls/hr Ipratropium [place] (Atrovent 0.02% Nebulizer -) 1 amp NEB Q6HPO [facility] Last Admin: 03/06/17 06:15 Dose: 1 amp Metoprolol Tartrate (Lopressor Injection -) 5 mg IVPUSH Q6H-IV [facility] Last Admin: 03/06/17 09:19 Dose: 5 mg Morphine Sulfate (Morphine Injection -) 2 mg IVPUSH Q4H PRN PRN Reason: PAIN Oxycodone HCl (Roxicodone -) 5 mg PO Q4H PRN PRN Reason: PAIN Last Admin: 03/06/17 06:31 Dose: 5 mg Senna (Senna -) 1 tab PO HS [facility] Last Admin: 03/05/17 22:40 Dose: 1 tab Tramadol HCl (Ultram -) 50 mg PO Q6H PRN Last Admin: 03/06/17 09:31 Dose: 50 mg - Objective Vital Signs: Vital Signs Temperature 98.5 F 03/06/17 06:00 Pulse Rate 73 03/06/17 09:19 Respiratory Rate 25 H 03/06/17 08:00 Blood Pressure 125/53 03/06/17 09:19 O2 Sat by Pulse Oximetry (%) 98 03/05/17 21:00 Constitutional: Yes: Well Nourished Cardiovascular: Yes: WNL Respiratory: Yes: On Nasal O2 (chest tube in place and draining) Labs: CBC, BMP 03/06/17 05:20 Assessment/Plan patient complains of pain, treated with tramodol this morning which appears to be working, patient is able to cough, no nausea or vomiting, no adverse effects of anesthesia, dept of anesthesia will sign off care at this time.
[2017-03-06] MEDS ORDERED: SODIUM CHLORIDE 1,000 ML IV STA (11:40)
[2017-03-06] MEDS ORDERED: ASPIRIN COATED 81 MG TABLET.EC PO SCH (11:45)
--- NOTE | 2017-03-06 11:56 | HP ---
CHIEF COMPLAINT: Post-Op Pain PCP: Sandra Brandon HISTORY OF PRESENT ILLNESS: 81 year old F with a PMH of CAD, COPD, HTN, HLD, and TEREZA lung nodule presented for a elective bronchoscopy, left VATS, pneumolysis, wedge resection, mediastinal lymph node sampling, and intercostal nerve block on 03/05 admitted for pain at the chest tube site. Patient underwent procedure yesterday morning with left chest tube placement. Patient states she woke up in the middle of the night in severe sharp pain at the chest tube site radiating across her chest. Pain was a 10/10. Pain worse upon movement. Current pain regimen did not help control her pain. Pain improved when resting. Patient had an episode of lightheadedness this morning. No LOC. She was found to be hypotensive. Symptoms resolved after receiving IVF. Patient went to her PCP in November for a UTI and dyspnea. She received antibiotics. UTI resolved, but dyspnea continued to worsen so patient went to the ED. On chest CT, patient was found to have a TEREZA nodule. She has been following with Dr. Rocha. PET scan was done, which showed no hot nodules outside of her one lung nodule. PAST MEDICAL HISTORY: as stated above PAST SURGICAL HISTORY: Hip replacement B/L, Cataract surgery, Hemorrhoid surgery Social History: Smoking: Former Smoker, 50 Pack year Alcohol: Occasional Drugs: Denies Family History: Allergies shellfish derived Allergy (Severe, Verified 03/05/17 06:56) STATED SEVERE ALLERGIES TO SHELLFISH "SEVERE SWELLING, SHORTNESS OF BREATH." aspirin Adverse Reaction (Intermediate, Verified 03/05/17 06:56) PT DOES NOT DANIELA DUE TO HX OF DUODENAL ULCER DISEASE HOME MEDICATIONS: Home Medications Medication Instructions Recorded Aspirin [ASA -] 81 mg PO Q48H 11/23/16 Atorvastatin Ca [Lipitor] 10 mg PO HS 11/23/16 Cetirizine HCl [Zyrtec -] 10 mg PO HS 11/23/16 Lisinopril 10 mg PO DAILY 11/23/16 Tiotropium [place] [Spiriva] 1 puff IH DAILY #1 inh 11/28/16 Ascorbate Calcium [Vitamin C] 500 mg PO DAILY 03/01/17 Calcium Carbonate/Vitamin D3 2 each PO DAILY 03/01/17 [Calcium 600 + Vit D Softgel] REVIEW OF SYSTEMS CONSTITUTIONAL: Absent: fever, chills, diaphoresis, generalized weakness, malaise, loss of appetite, weight change HEENT: Absent: rhinorrhea, nasal congestion, throat pain, throat swelling, difficulty swallowing, mouth swelling, ear pain, eye pain, visual changes CARDIOVASCULAR: Absent: chest pain (@ site of chest tube), syncope, palpitations, irregular heart rate, lightheadedness (resolved), peripheral edema RESPIRATORY: Absent: cough, shortness of breath, dyspnea with exertion, orthopnea, wheezing, stridor, hemoptysis GASTROINTESTINAL: Absent: abdominal pain, abdominal distension, nausea, vomiting, diarrhea, constipation, melena, hematochezia GENITOURINARY: Absent: dysuria, frequency, urgency, hesitancy, hematuria, flank pain, genital pain MUSCULOSKELETAL: Absent: myalgia, arthralgia, joint swelling, back pain, neck pain SKIN: Absent: rash, itching, pallor HEMATOLOGIC/IMMUNOLOGIC: Absent: easy bleeding, easy bruising, lymphadenopathy, frequent infections ENDOCRINE: Absent: unexplained weight gain, unexplained weight loss, heat intolerance, cold intolerance NEUROLOGIC: Absent: headache, focal weakness or paresthesias, dizziness, unsteady gait, seizure, mental status changes, bladder or bowel incontinence PSYCHIATRIC: Absent: anxiety, depression, suicidal or homicidal ideation, hallucinations. PHYSICAL EXAMINATION Vital Signs - 24 hr 03/05/17 03/05/17 03/05/17 12:05 12:20 12:35 Temperature 95.5 F L Pulse Rate 64 64 62 Respiratory 18 18 16 Rate Blood Pressure 101/68 107/46 91/36 O2 Sat by Pulse 99 97 99 Oximetry (%) 03/05/17 03/05/17 03/05/17 12:50 13:05 13:15 Temperature 97.7 F 97.8 F Pulse Rate 62 62 67 Respiratory 16 22 18 Rate Blood Pressure 108/45 98/44 100/39 O2 Sat by Pulse 99 99 Oximetry (%) 03/05/17 03/05/17 03/05/17 14:00 16:00 17:00 Temperature 97.5 F L 97.5 F L Pulse Rate 61 61 61 Respiratory 19 19 Rate Blood Pressure 87/63 109/56 109/56 O2 Sat by Pulse 98 Oximetry (%) 03/05/17 03/05/17 03/05/17 18:00 20:00 21:00 Temperature 97.6 F Pulse Rate 60 80 Respiratory 19 21 18 Rate Blood Pressure 108/54 108/70 O2 Sat by Pulse 98 Oximetry (%) 03/05/17 03/06/17 03/06/17 22:00 00:00 02:00 Temperature 98.2 F 98.2 F Pulse Rate 79 68 67 Respiratory 20 18 18 Rate Blood Pressure 139/63 130/64 136/60 O2 Sat by Pulse Oximetry (%) 03/06/17 03/06/17 03/06/17 03:00 04:00 06:00 Temperature 98.5 F Pulse Rate 68 65 Respiratory 20 18 Rate Blood Pressure 134/65 131/57 O2 Sat by Pulse Oximetry (%) 03/06/17 03/06/17 08:00 09:19 Temperature Pulse Rate 82 73 Respiratory 25 H Rate Blood Pressure 136/53 125/53 O2 Sat by Pulse Oximetry (%) GENERAL: Awake, alert, and fully oriented, mild distress. HEAD: Normal with no signs of trauma. EYES: Pupils equal, round and reactive to light, extraocular movements intact, sclera anicteric, conjunctiva clear. No lid lag. EARS, NOSE, THROAT: Oropharynx clear without exudates. dry mucous membranes. NECK: Normal range of motion, submandibuular fullnes, supple without lymphadenopathy, JVD, or masses. LUNGS: Breath sounds equal, bilateral crackles at the bases, mild expiratory wheezing. No accessory muscle use. +Chest Tube site - dressing in place c/d/i HEART: Regular rate and rhythm, normal S1 and S2 without murmur, rub or gallop. ABDOMEN: Soft, + LUQ tenderness, not distended, normoactive bowel sounds, no guarding, no rebound, no masses. No hepatomegaly or splenomegaly. MUSCULOSKELETAL: Normal range of motion at all joints. No bony deformities or tenderness. UPPER EXTREMITIES:warm, well-perfused. No cyanosis. No clubbing. No peripheral edema. LOWER EXTREMITIES: 1+ Dp pulses, warm, well-perfused. No calf tenderness. No peripheral edema. NEUROLOGICAL: Cranial nerves II-XII intact. Normal speech. Normal gait. PSYCHIATRIC: Cooperative. Good eye contact. Appropriate mood and affect. SKIN: Warm, dry, skin tenting, no rashes or lesions noted, normal capillary refill. Laboratory Results - last 24 hr 03/05/17 03/05/17 03/06/17 19:26 19:26 05:20 WBC 13.8 H D 11.8 H RBC 4.14 4.07 Hgb 12.5 D 12.5 Hct 38.9 38.2 MCV 94.0 93.9 MCH 30.2 30.6 MCHC 32.1 32.6 RDW 13.8 13.5 Plt Count 239 D 247 MPV 7.7 8.4 Sodium 133 L Potassium 5.1 Chloride 99 Carbon Dioxide 23 D Anion Gap 11 BUN 25 H Creatinine 0.9 D Creat Clearance w eGFR > 60 Random Glucose 199 H D Calcium 8.6 Phosphorus Magnesium Total Bilirubin 0.3 D AST 23 ALT 21 D Alkaline Phosphatase 108 Total Protein 6.0 L Albumin 3.3 L 03/06/17 05:20 WBC RBC Hgb Hct MCV MCH MCHC RDW Plt Count MPV Sodium 133 L Potassium 6.3 H* D Chloride 98 Carbon Dioxide 29 D Anion Gap 6 L BUN 21 H Creatinine 0.8 Creat Clearance w eGFR > 60 Random Glucose 93 D Calcium 9.0 Phosphorus 4.4 Magnesium 2.0 Total Bilirubin 0.6 D AST 20 ALT 18 Alkaline Phosphatase 100 Total Protein 5.6 L Albumin 2.9 L ASSESSMENT/PLAN: 81 year old F with a PMH of CAD, COPD, HTN, HLD, and TEREZA lung nodule presented for a elective bronchoscopy, left VATS, pneumolysis, wedge resection, mediastinal lymph node sampling, and intercostal nerve block on 03/05 admitted for pain at the chest tube site. Low sodium diet Code Status: Full Code Problem List - Problem (1) Lung mass Assessment/Plan: Patient's chest tube removed Continue morphine 2mg Q4 PRN, Oxycodone 5 mg Q4 PRn, and Tramadal 50 mg Q6 PRN Incentive spirometry Nasal Cannula 4L, wean as tolerated Pulse ox monitoring CT Surgery on board: Dr. Rocha (2) Hyperkalemia Assessment/Plan: Resolved after a dose of kayexalate (3) COPD (chronic obstructive pulmonary disease) Assessment/Plan: Continue Ipratropium nebs and Ventolin nebs (4) Hyperlipidemia Assessment/Plan: Lipitor 10 mg starting at 2200 (5) Hypertension Assessment/Plan: On Metoprolol 5 mg IV q6 Holding lisinopril due to hypotensive episode resolved with fluids. (6) Constipation Assessment/Plan: Secondary to pain medications On Colace and Senna (7) CAD (coronary artery disease) Assessment/Plan: Continue Aspirin 81 mg Qualifiers: Coronary Disease-Associated Artery/Lesion type: unspecified vessel or lesion type Associated angina: without angina (8) DVT prophylaxis Assessment/Plan: Heparin 5000 units BID TEDs stockings Visit type - Emergency Visit Emergency Visit: No - New Patient This patient is new to me today: Yes Date on this admission: 03/06/17 - Critical Care Critical Care patient: Yes Total Critical Care Time (in minutes): 30 Critical Care Statement: The care of this patient involved high complexity decision making to prevent further life threatening deterioration of the patient 's condition and/or to evalute & treat vital organ system(s) failure or risk of failure.
--- NOTE | 2017-03-06 12:12 | EKG ---
Test Reason : Blood Pressure : / mmHG Vent. Rate : 075 BPM Atrial Rate : 075 BPM P-R Int : 146 ms QRS Dur : 076 ms QT Int : 440 ms P-R-T Axes : 001 -06 005 degrees QTc Int : 491 ms SINUS RHYTHM WITH FREQUENT ,SINGLE AND UNIFOCAL SEPTAL INFARCT (CITED ON OR BEFORE 29-JUN-2009) ABNORMAL ECG WHEN COMPARED WITH ECG OF 06-MAR-2017 08:32, NO SIGNIFICANT CHANGE WAS FOUND Confirmed by TERRELL SOTO MD ([id number]) on 03/06/2017 12:12:33 PM Referred By: Elias MENDOSA Confirmed By:TERRELL SOTO MD
--- NOTE | 2017-03-06 12:17 | EKG ---
Test Reason : Blood Pressure : / mmHG Vent. Rate : 075 BPM Atrial Rate : 075 BPM P-R Int : 148 ms QRS Dur : 078 ms QT Int : 398 ms P-R-T Axes : 002 -10 007 degrees QTc Int : 444 ms SINUS RHYTHM WITH FREQUENT PREMATURE VENTRICULAR COMPLEXES SEPTAL INFARCT (CITED ON OR BEFORE 29-JUN-2009) ABNORMAL ECG COMPARED [id number] APPEARANCE OF VPBs NONSPECIFIC T WAVE ABNORMALITY NO LONGER EVIDENT IN ANTERIOR LEADS CLINICAL CORRELATION IS RECOMMENDED Confirmed by ETRRELL SOTO MD ([id number]) on 03/06/2017 12:16:47 PM Referred By: [facility] Confirmed By:TERRELL SOTO MD
[2017-03-06 12:22] LABS: ANION GAP 8 (8-16); CALCIUM 8.6 mg/dL (8.5-10.1); CO2 28 mmol/L (21-32); CPK 119 IU/L (26-192); CREATININE 0.9 mg/dL (0.55-1.02); GLUCOSE,RANDOM 90 mg/dL (74-106)
[2017-03-06 12:23] LABS: TROPONIN I < 0.02 ng/ml (0.00-0.05)
--- NOTE | 2017-03-06 13:41 | PN ---
Teaching Attending Note Name of Resident: Beny Martell ATTENDING PHYSICIAN STATEMENT I saw and evaluated the patient. I reviewed the resident's note and discussed the case with the resident. I agree with the resident's findings and plan as documented. SUBJECTIVE: In brief. 81 F, CAD, COPD, HPL, and TEREZA lung nodule. Admitted for surgical biopsy. POD #1 from a bronchoscopy, left VATS, pneumolysis, wedge resection, mediastinal lymph node sampling, and intercostal nerve block. Pathology is pending. Patient is awake and alert. She is mildly tachypneic at rest. Intake & Output 03/03/17 03/04/17 03/05/17 03/06/17 23:59 23:59 23:59 23:59 Intake Total 100 3000 1300 Output Total 1075 1740 Balance 100 1925 -440 Last Vital Signs Temp Pulse Resp BP Pulse Ox 98.7 F 73 20 125/63 98 03/06/17 10:00 03/06/17 12:00 03/06/17 12:00 03/06/17 12:00 03/05/17 21:00 Active Medications Albuterol Sulfate (Ventolin 0.5% -) 1 amp NEB Q6H PRN Last Admin: 03/05/17 07:05 Dose: 1 amp Albuterol Sulfate (Ventolin 0.5% -) 1 amp NEB Q4H PRN PRN Reason: SHORT OF BREATH/WHEEZING Aspirin (Ecotrin -) 81 mg PO DAILY [facility] Last Admin: 03/06/17 11:47 Dose: 81 mg Atorvastatin Calcium (Lipitor -) 10 mg PO HS [facility] Docusate Sodium (Colace -) 100 mg PO Q8H PRN PRN Reason: CONSTIPATION Heparin Sodium (Porcine) (Heparin -) 5,000 unit SQ BID [facility] Last Admin: 03/06/17 09:20 Dose: 5,000 unit Ipratropium [place] (Atrovent 0.02% Nebulizer -) 1 amp NEB Q6HPO [facility] Last Admin: 03/06/17 06:15 Dose: 1 amp Metoprolol Tartrate (Lopressor Injection -) 5 mg IVPUSH Q6H-IV [facility] Last Admin: 03/06/17 09:19 Dose: 5 mg Morphine Sulfate (Morphine Injection -) 2 mg IVPUSH Q4H PRN PRN Reason: PAIN Oxycodone HCl (Roxicodone -) 5 mg PO Q4H PRN PRN Reason: PAIN Last Admin: 03/06/17 13:09 Dose: 5 mg Senna (Senna -) 1 tab PO HS [facility] Last Admin: 03/05/17 22:40 Dose: 1 tab Tiotropium [place] (Spiriva -) 1 puff IH DAILY [facility] Tramadol HCl (Ultram -) 50 mg PO Q6H PRN Last Admin: 03/06/17 09:31 Dose: 50 mg GENERAL: Awake, alert, and fully oriented, mildy tachypneic at rest HEAD: Normal with no signs of trauma. EYES: Pupils equal, round and reactive to light, sclera anicteric, conjunctiva clear. No lid lag. EARS, NOSE, THROAT: Ears normal, nares patent, oropharynx clear without exudates. Moist mucous membranes. NECK: Normal range of motion, supple without lymphadenopathy, JVD, or masses. LUNGS: Left CT intact w/o an air leak, bibasilar rhonchi HEART: Regular rate and rhythm, normal S1 and S2 without murmur, rub or gallop. ABDOMEN: Soft, nontender, not distended, normoactive bowel sounds, no guarding, no rebound, no masses. No hepatomegaly or splenomegaly. MUSCULOSKELETAL: Normal range of motion at all joints. No bony deformities or tenderness. No CVA tenderness. UPPER EXTREMITIES: 2+ pulses, warm, well-perfused. No cyanosis. No clubbing. No peripheral edema. LOWER EXTREMITIES: 2+ pulses, warm, well-perfused. No calf tenderness. No peripheral edema. NEUROLOGICAL: Non-focal PSYCHIATRIC: Cooperative. Appropriate mood and affect. SKIN: Warm, dry, normal turgor, no rashes or lesions noted, normal capillary refill. Laboratory Results - last 24 hr 03/05/17 03/05/17 03/06/17 19:26 19:26 05:20 WBC 13.8 H D 11.8 H RBC 4.14 4.07 Hgb 12.5 D 12.5 Hct 38.9 38.2 MCV 94.0 93.9 MCH 30.2 30.6 MCHC 32.1 32.6 RDW 13.8 13.5 Plt Count 239 D 247 MPV 7.7 8.4 Sodium 133 L Potassium 5.1 Chloride 99 Carbon Dioxide 23 D Anion Gap 11 BUN 25 H Creatinine 0.9 D Creat Clearance w eGFR > 60 Random Glucose 199 H D Calcium 8.6 Phosphorus Magnesium Total Bilirubin 0.3 D AST 23 ALT 21 D Alkaline Phosphatase 108 Total Protein 6.0 L Albumin 3.3 L 03/06/17 05:20 WBC RBC Hgb Hct MCV MCH MCHC RDW Plt Count MPV Sodium 133 L Potassium 6.3 H* D Chloride 98 Carbon Dioxide 29 D Anion Gap 6 L BUN 21 H Creatinine 0.8 Creat Clearance w eGFR > 60 Random Glucose 93 D Calcium 9.0 Phosphorus 4.4 Magnesium 2.0 Total Bilirubin 0.6 D AST 20 ALT 18 Alkaline Phosphatase 100 Total Protein 5.6 L Albumin 2.9 L ASSESSMENT/PLAN: POD #1 bronchoscopy, left VATS, pneumolysis, wedge resection, mediastinal lymph node sampling, and intercostal nerve block for a TEREZA Pulmonary nodule CAD COPD HPL Hyperkalemia IVF Pain control O2 as needed Cardiac enzymes EKG SQ Heparin ASA Dr Mcgill Critical care time spent in reviewing chart, evaluating patient and formulating plan 35 min
--- NOTE | 2017-03-06 13:50 | PN ---
Progress Note, Physician History of Present Illness: patient seen and examined at bedside no events ivclint feels well complains of pain at the incision site - Current Medication List Current Medications: Active Medications Albuterol Sulfate (Ventolin 0.5% -) 1 amp NEB Q6H PRN Last Admin: 03/05/17 07:05 Dose: 1 amp Albuterol Sulfate (Ventolin 0.5% -) 1 amp NEB Q4H PRN PRN Reason: SHORT OF BREATH/WHEEZING Aspirin (Ecotrin -) 81 mg PO DAILY [facility] Last Admin: 03/06/17 11:47 Dose: 81 mg Atorvastatin Calcium (Lipitor -) 10 mg PO HS [facility] Docusate Sodium (Colace -) 100 mg PO Q8H PRN PRN Reason: CONSTIPATION Heparin Sodium (Porcine) (Heparin -) 5,000 unit SQ BID [facility] Last Admin: 03/06/17 09:20 Dose: 5,000 unit Ipratropium [place] (Atrovent 0.02% Nebulizer -) 1 amp NEB Q6HPO [facility] Last Admin: 03/06/17 06:15 Dose: 1 amp Metoprolol Tartrate (Lopressor Injection -) 5 mg IVPUSH Q6H-IV [facility] Last Admin: 03/06/17 09:19 Dose: 5 mg Morphine Sulfate (Morphine Injection -) 2 mg IVPUSH Q4H PRN PRN Reason: PAIN Oxycodone HCl (Roxicodone -) 5 mg PO Q4H PRN PRN Reason: PAIN Last Admin: 03/06/17 13:09 Dose: 5 mg Senna (Senna -) 1 tab PO [facility] Last Admin: 03/05/17 22:40 Dose: 1 tab Tiotropium [place] (Spiriva -) 1 puff IH DAILY [facility] Tramadol HCl (Ultram -) 50 mg PO Q6H PRN Last Admin: 03/06/17 09:31 Dose: 50 mg - Objective Vital Signs: Vital Signs Temperature 98.7 F 03/06/17 10:00 Pulse Rate 73 03/06/17 12:00 Respiratory Rate 20 03/06/17 12:00 Blood Pressure 125/63 03/06/17 12:00 O2 Sat by Pulse Oximetry (%) 98 03/05/17 21:00 Constitutional: Yes: No Distress, Calm, Thin Eyes: Yes: Conjunctiva Clear HENT: Yes: Atraumatic, Normocephalic Neck: Yes: Supple Cardiovascular: Yes: Regular Rate and Rhythm Respiratory: Yes: Other (righht side clear left side coarse breath sounds chest tube in place serosangenous fluid draining) Gastrointestinal: Yes: Normal Bowel Sounds, Soft Extremities: Yes: WNL Edema: No Neurological: Yes: Alert, Oriented Psychiatric: Yes: Alert, Oriented Labs: CBC, BMP 03/06/17 05:20 03/06/17 11:00 - ....Imaging Chest X-ray: Report Reviewed, Image Reviewed Assessment/Plan 81F with a history of HTN HLD COPD presents to the hospital for VATS wedge resection after PET scan proven Lung Cancer. lung Ca: s/p Left VATS wedge resection thoracic surgery on board CT to waterseal CT to be pulled today f/u CXR after removal to make sure no pneumothorax f/u pathology incentive spirometry COPD: ipratropium albuterol nebulizer as needed not in acute exacerbation supplemental O2 PRN HTN: metoprolol 5mg IV Q6h with hold parameters well controlled at this time hold lisinopril will restart when cleared by cardiology HLD: on statin will hold got for now until restarted by cardiology Hyperkalemia: Resolved Of note patient had orthostatic hypotension when she got up to sit in the prabhu. given 1 liter bolus and BP and dizziness improved FEN: no IVF bolus PRN hyperkalemia resolved low sodium diet PPx: HSQ No GI PPx needed PT consult CCTime 35 min
--- NOTE | 2017-03-06 13:57 | PROC ---
Procedure Note Procedure: Left chest tube dc'd fully intact. Occlusive dressing applied. Patient tolerated procedure well. Post-pull cxr ordered.
--- NOTE | 2017-03-06 14:25 | HP ---
Admitting History and Physical - Admission Chief Complaint: s/p uncomplicated VATS, Bronchoscopy, left VATS, pneumolysis, wedge resection, mediastinal lymph node sampling, intercostal nerve block. History of Present Illness: 81 yr old woman with COPD, HTN, with pulmonary lung nodule s/p wedge resection and VATS on 03/05. c/o pain especially at chest tube insertion, radiating from left lower chest across to the right, worse with movement. Feels short of breath especially with exertion. She had an episode of feeling lightheaded and dizzy with floaters which was attributed to the pain medications she was given. She has not had a bowel movement yet but does not have abdominal pain. denies palpitations, headache, difficulty swallowing, fevers,vomiting, urinary retention. History Source: Patient, Family Member Limitations to Obtaining History: No Limitations - Past Medical History Cardiovascular: Yes: HTN, Hyperlipdemia Pulmonary: Yes: COPD - Past Surgical History Past Surgical History: Yes: Joint Replacement (bilateral hip replacements.) - Smoking History Smoking history: Former smoker Have you smoked in the past 12 months: No If you are a former smoker, when did you quit?: 25 years ago - Alcohol/Substance Use Hx Alcohol Use: Yes (RARELY) History of Substance Use: reports: None - Social History ADL: Independent History of Recent Travel: No Home Medications - Allergies Allergies/Adverse Reactions: Allergies Allergy/AdvReac Type Severity Reaction Status Date / Time shellfish derived Allergy Severe Verified 03/05/17 06:56 aspirin AdvReac Intermediate Verified 03/05/17 06:56 - Home Medications Home Medications: Ambulatory Orders Aspirin [ASA -] 81 mg PO Q48H 11/23/16 Atorvastatin Ca [Lipitor] 10 mg PO HS 11/23/16 Cetirizine HCl [Zyrtec -] 10 mg PO HS 11/23/16 Lisinopril 10 mg PO DAILY 11/23/16 Tiotropium [place] [Spiriva] 1 puff IH DAILY #1 inh 11/28/16 Ascorbate Calcium [Vitamin C] 500 mg PO DAILY 03/01/17 Calcium Carbonate/Vitamin D3 [Calcium 600 + Vit D Softgel] 2 each PO DAILY 03/01 Review of Systems - Review of Systems Constitutional: denies: Fever, Unintentional Wgt. Loss Gastrointestinal: reports: Constipation. denies: Abdominal Pain Musculoskeletal: reports: No Symptoms Integumentary: reports: No Symptoms Neurological: reports: No Symptoms Endocrine: reports: No Symptoms Physical Examination Vital Signs: Vital Signs Temperature 98.7 F 03/06/17 10:00 Pulse Rate 73 03/06/17 12:00 Respiratory Rate 20 03/06/17 12:00 Blood Pressure 125/63 03/06/17 12:00 O2 Sat by Pulse Oximetry (%) 98 03/05/17 21:00 Findings/Remarks: full physical as per paid internship note Constitutional: Yes: Calm Eyes: Yes: EOM Intact HENT: Yes: Atraumatic, Normocephalic Neck: Yes: Trachea Midline Cardiovascular: Yes: Regular Rate and Rhythm. No: Tachycardia Edema: No Wound/Incision: Yes: Dressing Dry and Intact (left lateral chest tube with sero- sanguious drainage) Psychiatric: Yes: Alert, Oriented Labs: CBC, BMP 03/06/17 05:20 03/06/17 11:00 Assessment/Plan 81 yr old woman with recent lung cancer dx s/p VATS, wedge resection. #Hyperkalemia - resolved on repeat labs, given dose of kayexalate #s/p VATS/lung wedge resection, Lung cancer - chest tube removed today - CT surgery consult: Dr. Rocha - pathology pending - pain control with oxy, morphine and tramadol, avoid dilaudid - attempt to wean parenteral pain control to po - incentive spirometry and OOB - nasal cannula o2 4L, titrate as needed to maintain o2 sat - continuos pulse ox monitoring constipation - colace and senna, likely due to pain meds COPD - ventolin and atrovent prn nebs HTN- curretly normotensive, had episode of hypotension earlier that responded well to fluids. - metoprolol 5mg IV Q6h, hold if systolic <110 and HR <65bpm - hold acei due to hypotension HLD: statin on hold, CAD- continue asa 81mg #physical therapy qshift #DVT - Heparin 5000 units BID + TEDS #Diet: low sodium Code status- patient has living will, if efforts are futile she does not want resuscitation. Visit type - Emergency Visit Emergency Visit: No - New Patient This patient is new to me today: Yes Date on this admission: 03/06/17 - Critical Care Critical Care patient: Yes Total Critical Care Time (in minutes): 36 Critical Care Statement: The care of this patient involved high complexity decision making to prevent further life threatening deterioration of the patient 's condition and/or to evalute & treat vital organ system(s) failure or risk of failure.
--- NOTE | 2017-03-06 18:29 | PN ---
Teaching Attending Note Name of Resident: Sabino Branch ATTENDING PHYSICIAN STATEMENT I saw and evaluated the patient. I reviewed the resident's note and discussed the case with the resident. I agree with the resident's findings and plan as documented. SUBJECTIVE: OBJECTIVE: Vital Signs Period Temp Pulse Resp BP Sys/Johns Pulse Ox Last 24 Hr 98.2 F-98.9 F 65-83 17-32 108-139/50-76 95-98 ASSESSMENT AND PLAN:
[2017-03-06] MEDS: ATORVASTATIN CA 10 MG TABLET (FP) PO SCH (22:00)
[2017-03-06] MEDS: SENNOSIDES 8.6MG TABLET (FP) PO SCH (22:00)
[2017-03-07] MEDS: IPRATROPIUM BR 0.02% 0.5 MG/2.5 ML VIAL.NEB. NEB SCH ×4 (00:34→18:13)
[2017-03-07 02:45] LABS: URINE APPEARANCE CLEAR; URINE BILIRUBIN NEGATIVE (NEGATIVE); URINE BLOOD NEGATIVE (NEGATIVE); URINE COLOR COLORLESS; URINE GLUCOSE (UA) NEGATIVE (NEGATIVE); URINE KETONE NEGATIVE (NEGATIVE); URINE LEUK ESTERASE NEGATIVE (NEGATIVE); URINE NITRITE NEGATIVE (NEGATIVE); URINE PROTEIN NEGATIVE (NEGATIVE); URINE UROBILINOGEN NEGATIVE mg/dL (0.2-1.0)
[2017-03-07] MEDS: METOPROLOL TARTRATE 5 MG/5 ML VIAL IVPUSH SCH (03:00)
[2017-03-07] MEDS: oxyCODONE HCL 5 MG TABLET PO PRN (06:30)
[2017-03-07 06:34] LABS: BASOPHIL 0.2 % (0-2.0); EOSINOPHIL 2.5 % (0-4.5); MCH 30.6 pg (25.7-33.7); MCHC 32.9 g/dl (32.0-36.0); MEAN CELL VOLUME 93.1 fl (80-96); MEAN PLT VOLUME 8.4 fl (7.5-11.1); NEUTROPHILS 64.4 % (42.8-82.8); PLATELET COUNT 255 K/MM3 (134-434); RDW 13.3 % (11.6-15.6)
[2017-03-07 06:57] LABS: ALBUMIN 2.8 g/dl (3.4-5.0); ANION GAP 6 (8-16); CALCIUM 8.7 mg/dL (8.5-10.1); CO2 30 mmol/L (21-32); GLUCOSE,RANDOM 81 mg/dL (74-106)
[2017-03-07 07:01] LABS: ALK PHOS 103 U/L (45-117); BILIRUBIN,TOTAL 0.5 mg/dL (0.2-1.0); CREATININE 0.7 mg/dL (0.55-1.02); MAGNESIUM 2.1 mg/dL (1.8-2.4); PHOSPHOROUS 3.5 mg/dL (2.5-4.9); SGOT/AST 25 U/L (15-37); SGPT/ALT 18 U/L (12-78); TOT PROT 5.5 g/dl (6.4-8.2)
--- NOTE | 2017-03-07 08:12 | PN ---
Progress Note (short form) - Note Progress Note: POD#2 Pt complaints of some dyspnea with movement, overall feels much better than yesterday. Tolerated a diet and was oob to chair. frequent urination. Vital Signs Period Temp Pulse Resp BP Sys/Johns Pulse Ox Last 24 Hr 98.2 F-98.9 F 68-84 16-32 109-160/50-76 95-95 GEN: Alert and appears comfortable CV:RRR Lungs: coarse BS b/l. left chest inc c/d/i. Dressing dry and intact. LE: no calf tenderness and SCDs in place b/l CBC, BMP 08/02/17 05:30 08//17 05:30 Laboratory Tests //17 02:30 Urine Color Colorless Urine Appearance Clear Urine pH 5.0 Ur Specific [place] Pending Urine Protein Negative Urine Glucose (UA) Negative Urine Ketones Negative Urine Blood Negative Urine Nitrite Negative Urine Bilirubin Negative Urine Urobilinogen Negative Ur Leukocyte Esterase Negative CXR-8/2 no pntx A/P: 81 YO female, POD #2 s/p Left Vats with wedge resection and mediastinal LN biopsy CXR removed yesterday with resolution of small hilar pntx, cont left CT dressing Diet as tolerated, continue stool softners to avoid constipation with narcotic use OOB and ambulate as tolerated The patient was transferred to the medical service for continued care Awaiting biopsy results Continue DVT ppx with SCD/heparin SQ D/w Dr. Rocha
--- NOTE | 2017-03-07 08:22 | PN ---
Progress Note, Physician Chief Complaint: chest tube out In Sinus - Current Medication List Current Medications: Active Medications Albuterol Sulfate (Ventolin 0.5% -) 1 amp NEB Q6H PRN Last Admin: 03/05/17 07:05 Dose: 1 amp Albuterol Sulfate (Ventolin 0.5% -) 1 amp NEB Q4H PRN PRN Reason: SHORT OF BREATH/WHEEZING Aspirin (Ecotrin -) 81 mg PO Q2D@1000 [facility] Atorvastatin Calcium (Lipitor -) 10 mg PO HS [facility] Last Admin: 03/06/17 22:00 Dose: 10 mg Docusate Sodium (Colace -) 100 mg PO Q8H PRN PRN Reason: CONSTIPATION Heparin Sodium (Porcine) (Heparin -) 5,000 unit SQ BID [facility] Last Admin: 03/06/17 22:00 Dose: 5,000 unit Ipratropium [place] (Atrovent 0.02% Nebulizer -) 1 amp NEB Q6HPO [facility] Last Admin: 03/07/17 07:07 Dose: 1 amp Metoprolol Tartrate (Lopressor Injection -) 5 mg IVPUSH Q6H-IV [facility] Last Admin: 03/07/17 03:00 Dose: 5 mg Oxycodone HCl (Roxicodone -) 5 mg PO Q4H PRN PRN Reason: PAIN Last Admin: 03/07/17 06:30 Dose: 5 mg Senna (Senna -) 1 tab PO [facility] Last Admin: 03/06/17 22:00 Dose: 1 tab Tiotropium [place] (Spiriva -) 1 puff IH DAILY [facility] Tramadol HCl (Ultram -) 50 mg PO Q6H PRN Last Admin: 03/06/17 09:31 Dose: 50 mg - Objective Vital Signs: Vital Signs Temperature 98.8 F 03/07/17 06:00 Pulse Rate 83 03/07/17 06:00 Respiratory Rate 20 03/07/17 06:00 Blood Pressure 143/69 03/07/17 06:00 O2 Sat by Pulse Oximetry (%) 95 03/06/17 19:50 Constitutional: Yes: No Distress Eyes: Yes: Conjunctiva Clear Cardiovascular: Yes: Regular Rate and Rhythm Respiratory: Yes: CTA Bilaterally (no wheezing) Gastrointestinal: Yes: Soft Edema: No Neurological: Yes: Alert Labs: CBC, BMP 03/07/17 05:30 03/07/17 05:30 Laboratory Tests 03/06/17 03/07/17 03/07/17 11:00 05:30 05:30 WBC 10.0 Hgb 13.4 Plt Count 255 Sodium 135 L Potassium 5.2 H Creatinine 0.7 D Troponin I < 0.02 - ....Imaging EKG: Image Reviewed Problem List - Problems (1) COPD (chronic obstructive pulmonary disease) Code(s): J44.9 - CHRONIC OBSTRUCTIVE PULMONARY DISEASE, UNSPECIFIED Qualifiers : COPD type: unspecified COPD Qualified Code(s): J44.9 - Chronic obstructive pulmonary disease, unspecified (2) Hypertension Code(s): I10 - ESSENTIAL (PRIMARY) HYPERTENSION Qualifiers: Hypertension type: essential hypertension Qualified Code(s): I10 - Essential (primary) hypertension (3) Lung mass Code(s): R91.8 - OTHER NONSPECIFIC ABNORMAL FINDING OF LUNG FIELD (4) Hyperkalemia Code(s): E87.5 - HYPERKALEMIA Assessment/Plan IMP: S/p L. VATS and wedge resection PET+ lung mass, tolerated well COPD Hyperkalemia REC: 1.Borderline elevated K, would repeat and consider renal consult. 2. Mild HTN: can continue low dose beta karthikeyan. Can start lopressor 12.5 mg Q8H
--- NOTE | 2017-03-07 08:32 | MSN ---
Progress Note (short form) - Note Progress Note: Pt seen and examined at bedside, bladder discomfort, urinary urgency, and incontinence noted overnight. States her chest tube site pain is much better today, rates as 4/10. States she still has dyspnea with exertion. She has been burping but not passing gas and has not had a bowel movement since sunday ( before her surgery). She states she has pressure over her bladder, feels like she is constantly urinating and leaking, especially with coughing. Denies chest pain,palpitations, nausea, vomiting, h/a, change in vision, leg pain, and numbness and tingling in extremities. Last Vital Signs Temp Pulse Resp BP Pulse Ox 98.8 F 83 20 143/69 95 03/07/17 06:00 03/07/17 06:00 03/07/17 06:00 03/07/17 06:00 03/06/17 19:50 PE: Constitutional: alert and oriented x3, in no acute distress Head: normocephalic, atraumatic, dry mucus membranes Eyes: PERRLA, EOM intact Neck: submandibular fullness noted, no other lymphadenopathy felt Heart: RRR Lungs: expiratory wheezes in all lung nascimento, some crackles heard in b/l bases Ab: suprapubic tenderness elicited, hypoactive bowel sounds in upper quadrants, normactive bowel sounds in lower quadrants Extremities: 2+ radial pulses b/l, 1+ DP pulses b/l, no LE edema appreciated, 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 Laboratory Results - last 24 hr 03/06/17 03/07/17 03/07/17 11:00 02:30 05:30 WBC 10.0 RBC 4.37 Hgb 13.4 Hct 40.6 MCV 93.1 MCH 30.6 MCHC 32.9 RDW 13.3 Plt Count 255 MPV 8.4 Neutrophils % 64.4 Lymphocytes % 24.1 Monocytes % 8.8 Eosinophils % 2.5 Basophils % 0.2 Sodium 133 L Potassium 4.9 D Chloride 97 L Carbon Dioxide 28 Anion Gap 8 BUN 21 H Creatinine 0.9 Creat Clearance w eGFR Random Glucose 90 Calcium 8.6 Phosphorus Magnesium Total Bilirubin AST ALT Alkaline Phosphatase Creatine Kinase 119 Troponin I < 0.02 Total Protein Albumin Urine Color Colorless Urine Appearance Clear Urine pH 5.0 Urine Protein Negative Urine Glucose (UA) Negative Urine Ketones Negative Urine Blood Negative Urine Nitrite Negative Urine Bilirubin Negative Urine Urobilinogen Negative Ur Leukocyte Esterase Negative 03/07/17 05:30 WBC RBC Hgb Hct MCV MCH MCHC RDW Plt Count MPV Neutrophils % Lymphocytes % Monocytes % Eosinophils % Basophils % Sodium 135 L Potassium 5.2 H Chloride 99 Carbon Dioxide 30 Anion Gap 6 L BUN 16 D Creatinine 0.7 D Creat Clearance w eGFR > 60 Random Glucose 81 Calcium 8.7 Phosphorus 3.5 D Magnesium 2.1 Total Bilirubin 0.5 AST 25 D ALT 18 Alkaline Phosphatase 103 Creatine Kinase Troponin I Total Protein 5.5 L Albumin 2.8 L Urine Color Urine Appearance Urine pH Urine Protein Urine Glucose (UA) Urine Ketones Urine Blood Urine Nitrite Urine Bilirubin Urine Urobilinogen Ur Leukocyte Esterase Assessment: 81 y.o. F, PMHx of COPD, HTN, HLD, pulmonary lung nodule s/p TEREZA wedge resection and VATS (03/05) admitted for pain control. Plan: 1. Hyperkalemia: could be due to SIADH from lung malignancy, repeat BMP ordered , cont to monitor 2. 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 Repeat CXR improved from yesterday, cont to monitor for signs of pneumothorax or atelectasis 3. Constipation: most likely due to pain control meds, was given one dose of colace yesterday, given another dose today. 4. COPD: most likely due to 50pack year smoking history, continue on home ventolin as well as atrovent 5. HTN: cont home meds, metoprolol 6. HLD: cont home meds, lipitor 10mg
[2017-03-07] MEDS ORDERED: TIOTROPIUM BROMIDE 18 MCG/INH (DEVICE W/ 5 CAPSULES) IH SCH (10:00)
[2017-03-07] MEDS: DOCUSATE SODIUM 100 MG CAPSULE (FP) PO PRN ×2 (10:27→22:29)
[2017-03-07] MEDS: METOPROLOL TARTRATE 25 MG TABLET (FP) PO SCH ×3 (10:27→22:23)
[2017-03-07] MEDS: HEPARIN NA (PORCINE) 5,000 UNITS/ML 1ML VIAL SQ SCH ×2 (10:31→22:24)
--- NOTE | 2017-03-07 13:10 | CONSULT ---
Consultation: REQUESTING PROVIDER: CONSULT REQUEST: We have been asked to medically evaluate this patient for ( Nephrology). HISTORY OF PRESENT ILLNESS: 81 year old F with a PMH of CAD, COPD, HTN, HLD, and TEREZA lung nodule had elective bronchoscopy, left VATS, pneumolysis, wedge resection, mediastinal lymph node sampling, and intercostal nerve block on . Post patient has hyperkalemia and hyponatrmia. For hypokalemia patient got kaxylate on 03/06. Patient hyponatrmia has resolved. Patient has no bowel movement post surgery. Patient was sitting comfortably in chair States pain has decreased. Denies sob, palpitations. Denies pain abdomen, nausea, vomiting. Denies pain in legs. PAST MEDICAL HISTORY: CAD, copd, htn, hld, TEREZA nodule PAST SURGICAL HISTORY: Hip replacement B/L, Cataract surgery, Hemorrhoid surgery Social History: Smoking: Former Smoker, 50 Pack year Alcohol: Occasional Drugs: Denies Family History: Allergies shellfish derived Allergy (Severe, Verified 03/05/17 06:56) STATED SEVERE ALLERGIES TO SHELLFISH "SEVERE SWELLING, SHORTNESS OF BREATH." aspirin Adverse Reaction (Intermediate, Verified 03/05/17 06:56) REVIEW OF SYSTEMS: CONSTITUTIONAL: Absent: fever, chills, diaphoresis, generalized weakness, malaise, loss of appetite, weight change HEENT: Absent: rhinorrhea, nasal congestion, throat pain, throat swelling, CARDIOVASCULAR: Absent: syncope, palpitations, irregular heart rate, RESPIRATORY: Absent: cough, shortness of breath, dyspnea with exertion, GASTROINTESTINAL: Absent: abdominal pain, abdominal distension, nausea, vomiting, diarrhea, GENITOURINARY: Absent: dysuria, frequency, urgency, MUSCULOSKELETAL: Absent: myalgia, arthralgia, PHYSICAL EXAMINATION Vital Signs - 24 hr 03/06/17 03/06/17 03/06/17 14:00 14:53 16:00 Temperature 98.3 F Pulse Rate 71 69 69 Respiratory 19 17 Rate Blood Pressure 111/50 109/50 111/50 O2 Sat by Pulse Oximetry (%) 03/06/17 03/06/17 03/06/17 17:52 19:50 20:00 Temperature 98.9 F Pulse Rate 83 84 Respiratory 20 20 20 Rate Blood Pressure 110/51 129/51 O2 Sat by Pulse 95 Oximetry (%) 03/06/17 03/06/17 03/07/17 21:59 22:00 00:00 Temperature 98.8 F Pulse Rate 81 79 Respiratory 18 16 Rate Blood Pressure 122/50 135/65 129/54 O2 Sat by Pulse Oximetry (%) 03/07/17 03/07/17 03/07/17 02:00 04:00 06:00 Temperature 98.2 F 98.8 F Pulse Rate 84 82 83 Respiratory 18 18 20 Rate Blood Pressure 119/54 160/57 143/69 O2 Sat by Pulse Oximetry (%) 03/07/17 03/07/17 03/07/17 08:00 09:00 10:00 Temperature 98.6 F Pulse Rate 98 H 83 Respiratory 19 19 Rate Blood Pressure 159/82 143/72 O2 Sat by Pulse 95 Oximetry (%) 03/07/17 03/07/17 10:44 12:00 Temperature Pulse Rate 77 79 Respiratory 23 Rate Blood Pressure 147/64 O2 Sat by Pulse 96 Oximetry (%) GENERAL: Awake, alert, and fully oriented, in no acute distress. HEAD: Normal with no signs of trauma. EARS, NOSE, THROAT: oropharynx clear without exudates. dry mucous membranes. NECK: Normal range of motion, no JVD, . LUNGS: Breath sounds equal, clear to auscultation bilaterally. b/l crackles. No accessory muscle use. HEART: Regular rate and rhythm, s1s2 normal ABDOMEN: Soft, nontender, not distended, normoactive bowel sounds, no guarding, no rebound, no masses UPPER EXTREMITIES: 2+ pulses, warm, well-perfused. No cyanosis. No clubbing. No peripheral edema. LOWER EXTREMITIES: No calf tenderness. No peripheral edema. PSYCHIATRIC: Cooperative. Good eye contact. SKIN: Warm, dry, Laboratory Results - last 24 hr 03/07/17 03/07/17 03/07/17 02:30 05:30 05:30 WBC 10.0 RBC 4.37 Hgb 13.4 Hct 40.6 MCV 93.1 MCH 30.6 MCHC 32.9 RDW 13.3 Plt Count 255 MPV 8.4 Neutrophils % 64.4 Lymphocytes % 24.1 Monocytes % 8.8 Eosinophils % 2.5 Basophils % 0.2 Sodium 135 L Potassium 5.2 H Chloride 99 Carbon Dioxide 30 Anion Gap 6 L BUN 16 D Creatinine 0.7 D Creat Clearance w eGFR > 60 Random Glucose 81 Calcium 8.7 Phosphorus 3.5 D Magnesium 2.1 Total Bilirubin 0.5 AST 25 D ALT 18 Alkaline Phosphatase 103 Total Protein 5.5 L Albumin 2.8 L Urine Color Colorless Urine Appearance Clear Urine pH 5.0 Ur Specific [place] <= 1.005 Urine Protein Negative Urine Glucose (UA) Negative Urine Ketones Negative Urine Blood Negative Urine Nitrite Negative Urine Bilirubin Negative Urine Urobilinogen Negative Ur Leukocyte Esterase Negative Active Medications Generic Name Dose Route Start Last Admin Trade Name Freq PRN Reason Stop Dose Admin Albuterol Sulfate 1 amp 03/05/17 07:11 03/05/17 07:05 Ventolin 0.5% - NEB 1 amp Q6H PRN Administration Albuterol Sulfate 1 amp 03/05/17 07:13 Ventolin 0.5% - NEB Q4H PRN SHORT OF BREATH/WHEEZING Aspirin 81 mg 03/08/17 10:00 Ecotrin - PO Q2D@1000 [facility] Atorvastatin Calcium 10 mg 03/06/17 22:00 03/06/17 22:00 Lipitor - PO 10 mg HS [facility] Administration Docusate Sodium 100 mg 03/05/17 11:21 03/07/17 10:27 Colace - PO 100 mg Q8H PRN Administration CONSTIPATION Heparin Sodium (Porcine) 5,000 unit 03/05/17 22:00 03/07/17 10:31 Heparin - SQ 5,000 unit BID [facility] Administration Ipratropium [place] 1 amp 03/05/17 12:00 03/07/17 07:07 Atrovent 0.02% Nebulizer - NEB 1 amp Q6HPO [facility] Administration Metoprolol Tartrate 12.5 mg 03/07/17 08:45 03/07/17 10:27 Lopressor - PO 12.5 mg TID [facility] Administration Oxycodone HCl 5 mg 03/05/17 10:31 03/07/17 06:30 Roxicodone - PO 5 mg Q4H PRN Administration PAIN Senna 1 tab 03/05/17 22:00 03/06/17 22:00 Senna - PO 1 tab HS [facility] Administration Tiotropium [place] 1 puff 03/07/17 10:00 Spiriva - IH DAILY [facility] Tramadol HCl 50 mg 03/05/17 10:45 03/06/17 09:31 Ultram - PO 50 mg Q6H PRN Administration ASSESSMENT/PLAN: Hyperkalemia: could be due due to post op haemolysis, rhabdomyolysis( from bed rest or from statin), or beta karthikeyan use Hyponatremia lung Ca:S/P VATS. PO day 2. COPD HTN HLD Plan low potassium diet. Monitor serum potassium. Serum sodium improved. monitor intake and output. Monitor vitals. BP control. Incentive spirometry. on albuterol inhaler for copd. Increase PO intake. Visit type - Emergency Visit Emergency Visit: Yes ED Registration Date: 03/05/17 Care time: The patient presented to the Emergency Department on the above date and was hospitalized for further evaluation of their emergent condition. - New Patient This patient is new to me today: No - Critical Care Critical Care patient: No
--- NOTE | 2017-03-07 14:19 | PN ---
Progress Note, Physician History of Present Illness: patient seen and examined at bedside no events overnight feels well complains of pain at the incision site but improving denies bowel movement but feels like she may go soon now has trouble controlling her urine flow and requested a diaper - Current Medication List Current Medications: Active Medications Albuterol Sulfate (Ventolin 0.5% -) 1 amp NEB Q6H PRN Last Admin: 03/05/17 07:05 Dose: 1 amp Albuterol Sulfate (Ventolin 0.5% -) 1 amp NEB Q4H PRN PRN Reason: SHORT OF BREATH/WHEEZING Aspirin (Ecotrin -) 81 mg PO Q2D@1000 [facility] Atorvastatin Calcium (Lipitor -) 10 mg PO HS [facility] Last Admin: 03/06/17 22:00 Dose: 10 mg Docusate Sodium (Colace -) 100 mg PO Q8H PRN PRN Reason: CONSTIPATION Last Admin: 03/07/17 10:27 Dose: 100 mg Heparin Sodium (Porcine) (Heparin -) 5,000 unit SQ BID [facility] Last Admin: 03/07/17 10:31 Dose: 5,000 unit Ipratropium [place] (Atrovent 0.02% Nebulizer -) 1 amp NEB Q6HPO [facility] Last Admin: 03/07/17 12:00 Dose: 1 amp Metoprolol Tartrate (Lopressor -) 12.5 mg PO TID [facility] Last Admin: 03/07/17 10:27 Dose: 12.5 mg Oxycodone HCl (Roxicodone -) 5 mg PO Q4H PRN PRN Reason: PAIN Last Admin: 03/07/17 06:30 Dose: 5 mg Senna (Senna -) 1 tab PO [facility] Last Admin: 03/06/17 22:00 Dose: 1 tab Tiotropium [place] (Spiriva -) 1 puff IH DAILY [facility] Tramadol HCl (Ultram -) 50 mg PO Q6H PRN Last Admin: 03/06/17 09:31 Dose: 50 mg - Objective Vital Signs: Vital Signs Temperature 98.6 F 03/07/17 10:00 Pulse Rate 79 03/07/17 12:00 Respiratory Rate 23 03/07/17 12:00 Blood Pressure 147/64 03/07/17 12:00 O2 Sat by Pulse Oximetry (%) 96 03/07/17 10:44 Constitutional: Yes: No Distress, Calm, Thin Eyes: Yes: Conjunctiva Clear HENT: Yes: Atraumatic, Normocephalic Neck: Yes: Supple Cardiovascular: Yes: Regular Rate and Rhythm Respiratory: Yes: CTAB. Chest incision C/D/I Gastrointestinal: Yes: Normal Bowel Sounds, Soft Extremities: Yes: WNL Edema: No Neurological: Yes: Alert, Oriented Psychiatric: Yes: Alert, Oriented Labs: CBC, BMP 03/07/17 05:30 03/07/17 05:30 - ....Imaging Chest X-ray: Report Reviewed, Image Reviewed Assessment/Plan 81F with a history of HTN HLD COPD presents to the hospital for VATS wedge resection after PET scan proven Lung Cancer. lung Ca: s/p Left VATS wedge resection POD 2 thoracic surgery on board f/u pathology incentive spirometry COPD: ipratropium albuterol nebulizer as needed not in acute exacerbation supplemental O2 PRN HTN: metoprolol 12.5mg TID well controlled at this time hold lisinopril will restart when cleared by cardiology HLD: statin continue aspirin 81mg po q48hrs (Home dose) Hyperkalemia: potassium 5.2 renal consult appreciated Incontinence: could be an effect of narcotis UA negative FEN: no IVF hyperkalemia trend potassium low potassium diet low sodium low potassium diet PPx: HSQ No GI PPx needed PT consult CCTime 35 min Transfer to telemetry
[2017-03-07 14:43] LABS: CPK 103 IU/L (26-192)
--- NOTE | 2017-03-07 14:55 | PN ---
Teaching Attending Note Name of Resident: Beny Martell ATTENDING PHYSICIAN STATEMENT I saw and evaluated the patient. I reviewed the resident's note and discussed the case with the resident. I agree with the resident's findings and plan as documented. SUBJECTIVE: Pt seen and examined in the ICU. Pain much improved since chest tube removed. Denies shortness of breath. No fevers or chills. Had episode of orthostatic hypotension yesterday but improved today. OBJECTIVE: Last Vital Signs Temp Pulse Resp BP Pulse Ox 98.6 F 79 23 147/64 96 03/07/17 10:00 03/07/17 12:00 03/07/17 12:00 03/07/17 12:00 03/07/17 10:44 Intake & Output 03/04/17 03/05/17 03/06/17 03/07/17 23:59 23:59 23:59 23:59 Intake Total 100 3000 2420 Output Total 1075 2030 Balance 100 1925 390 Weight 109 lb 9.116 oz Gen: NAD at rest Heart: RRR Lung: distant breath sounds Abd: soft, nontender Ext: no edema CBC, BMP 03/07/17 05:30 03/07/17 05:30 Active Medications Albuterol Sulfate (Ventolin 0.5% -) 1 amp NEB Q6H PRN Last Admin: 03/05/17 07:05 Dose: 1 amp Albuterol Sulfate (Ventolin 0.5% -) 1 amp NEB Q4H PRN PRN Reason: SHORT OF BREATH/WHEEZING Aspirin (Ecotrin -) 81 mg PO Q2D@1000 [facility] Atorvastatin Calcium (Lipitor -) 10 mg PO HS [facility] Last Admin: 03/06/17 22:00 Dose: 10 mg Docusate Sodium (Colace -) 100 mg PO Q8H PRN PRN Reason: CONSTIPATION Last Admin: 03/07/17 10:27 Dose: 100 mg Heparin Sodium (Porcine) (Heparin -) 5,000 unit SQ BID [facility] Last Admin: 03/07/17 10:31 Dose: 5,000 unit Ipratropium [place] (Atrovent 0.02% Nebulizer -) 1 amp NEB Q6HPO [facility] Last Admin: 03/07/17 12:00 Dose: 1 amp Metoprolol Tartrate (Lopressor -) 12.5 mg PO TID [facility] Last Admin: 03/07/17 10:27 Dose: 12.5 mg Oxycodone HCl (Roxicodone -) 5 mg PO Q4H PRN PRN Reason: PAIN Last Admin: 03/07/17 06:30 Dose: 5 mg Senna (Senna -) 1 tab PO HS [facility] Last Admin: 03/06/17 22:00 Dose: 1 tab Tiotropium [place] (Spiriva -) 1 puff IH DAILY [facility] Tramadol HCl (Ultram -) 50 mg PO Q6H PRN Last Admin: 03/06/17 09:31 Dose: 50 mg ASSESSMENT AND PLAN: Lung Nodule s/p L VATS/wedge resection/LN biopsy COPD HTN Hyperlipidemia - pain control - incentive spirometry - O2 to keep SpO2 >90% - inhaled bronchodilators - f/u final pathology report - OOB, ambulate - can monitor on floor
--- NOTE | 2017-03-07 16:14 | PN ---
Physical Exam: SUBJECTIVE: Patient seen and examined No acute events overnight. Pain improved. Patient complaining of urinary incontinence, needing diaper. Feels she cannot make it to the bathroom OBJECTIVE: Vital Signs Period Temp Pulse Resp BP Sys/Johns Pulse Ox Last 24 Hr 98.2 F-98.9 F 77-98 16-23 110-160/50-82 95-96 GENERAL: Awake, alert, and fully oriented, mild distress. HEAD: Normal with no signs of trauma. EYES: Pupils equal, round and reactive to light, extraocular movements intact, sclera anicteric, conjunctiva clear. No lid lag. EARS, NOSE, THROAT: Oropharynx clear without exudates. dry mucous membranes. NECK: Normal range of motion, submandibular fullness, supple without lymphadenopathy, JVD, or masses. LUNGS: Breath sounds equal, lungs CTAB. No accessory muscle use. HEART: Regular rate and rhythm, normal S1 and S2 without murmur, rub or gallop. ABDOMEN: Soft, + LUQ tenderness, not distended, normoactive bowel sounds, no guarding, no rebound, no masses. No hepatomegaly or splenomegaly. MUSCULOSKELETAL: Normal range of motion at all joints. No bony deformities or tenderness. UPPER EXTREMITIES:warm, well-perfused. No cyanosis. No clubbing. No peripheral edema. LOWER EXTREMITIES: 1+ Dp pulses, warm, well-perfused. No calf tenderness. No peripheral edema. NEUROLOGICAL: Cranial nerves II-XII intact. Normal speech. Normal gait. PSYCHIATRIC: Cooperative. Good eye contact. Appropriate mood and affect. SKIN: Warm, dry, skin tenting, no rashes or lesions noted, normal capillary refill. Laboratory Results - last 24 hr 03/07/17 03/07/17 03/07/17 02:30 05:30 05:30 WBC 10.0 RBC 4.37 Hgb 13.4 Hct 40.6 MCV 93.1 MCH 30.6 MCHC 32.9 RDW 13.3 Plt Count 255 MPV 8.4 Neutrophils % 64.4 Lymphocytes % 24.1 Monocytes % 8.8 Eosinophils % 2.5 Basophils % 0.2 Sodium 135 L Potassium 5.2 H Chloride 99 Carbon Dioxide 30 Anion Gap 6 L BUN 16 D Creatinine 0.7 D Creat Clearance w eGFR > 60 Random Glucose 81 Calcium 8.7 Phosphorus 3.5 D Magnesium 2.1 Total Bilirubin 0.5 AST 25 D ALT 18 Alkaline Phosphatase 103 Creatine Kinase 103 Total Protein 5.5 L Albumin 2.8 L Urine Color Colorless Urine Appearance Clear Urine pH 5.0 Ur Specific [place] <= 1.005 Urine Protein Negative Urine Glucose (UA) Negative Urine Ketones Negative Urine Blood Negative Urine Nitrite Negative Urine Bilirubin Negative Urine Urobilinogen Negative Ur Leukocyte Esterase Negative 03/07/17 13:50 WBC RBC Hgb Hct MCV MCH MCHC RDW Plt Count MPV Neutrophils % Lymphocytes % Monocytes % Eosinophils % Basophils % Sodium Potassium Chloride Carbon Dioxide Anion Gap BUN Creatinine Creat Clearance w eGFR Random Glucose Calcium Phosphorus Magnesium Total Bilirubin AST ALT Alkaline Phosphatase Creatine Kinase Cancelled Total Protein Albumin Urine Color Urine Appearance Urine pH Ur Specific [place] Urine Protein Urine Glucose (UA) Urine Ketones Urine Blood Urine Nitrite Urine Bilirubin Urine Urobilinogen Ur Leukocyte Esterase Active Medications Generic Name Dose Route Start Last Admin Trade Name Freq PRN Reason Stop Dose Admin Albuterol Sulfate 1 amp 03/05/17 07:11 03/05/17 07:05 Ventolin 0.5% - NEB 1 amp Q6H PRN Administration Albuterol Sulfate 1 amp 03/05/17 07:13 Ventolin 0.5% - NEB Q4H PRN SHORT OF BREATH/WHEEZING Aspirin 81 mg 03/08/17 10:00 Ecotrin - PO Q2D@1000 [facility] Atorvastatin Calcium 10 mg 03/06/17 22:00 03/06/17 22:00 Lipitor - PO 10 mg HS [facility] Administration Docusate Sodium 100 mg 03/05/17 11:21 03/07/17 10:27 Colace - PO 100 mg Q8H PRN Administration CONSTIPATION Heparin Sodium (Porcine) 5,000 unit 03/05/17 22:00 03/07/17 10:31 Heparin - SQ 5,000 unit BID [facility] Administration Ipratropium [place] 1 amp 03/05/17 12:00 03/07/17 12:00 Atrovent 0.02% Nebulizer - NEB 1 amp Q6HPO [facility] Administration Metoprolol Tartrate 12.5 mg 03/07/17 08:45 03/07/17 10:27 Lopressor - PO 12.5 mg TID [facility] Administration Oxycodone HCl 5 mg 03/05/17 10:31 03/07/17 06:30 Roxicodone - PO 5 mg Q4H PRN Administration PAIN Senna 1 tab 03/05/17 22:00 03/06/17 22:00 Senna - PO 1 tab HS [facility] Administration Tiotropium [place] 1 puff 03/07/17 10:00 Spiriva - IH DAILY [facility] Tramadol HCl 50 mg 03/05/17 10:45 03/06/17 09:31 Ultram - PO 50 mg Q6H PRN Administration ASSESSMENT/PLAN: 81 year old F with a PMH of CAD, COPD, HTN, HLD, and TEREZA lung nodule presented for a elective bronchoscopy, left VATS, pneumolysis, wedge resection, mediastinal lymph node sampling, and intercostal nerve block on 03/05 admitted for pain at the chest tube site. Low sodium diet Code Status: Full Code Problem List - Problems (1) Lung mass Assessment/Plan: s/p left VATS and wedge resection Patient's chest tube removed Continue morphine 2mg Q4 PRN, Oxycodone 5 mg Q4 PRn, and Tramadal 50 mg Q6 PRN Incentive spirometry Supplemental O2, wean as tolerated Pulse ox monitoring CT Surgery on board: Dr. Rocha (2) Hyperkalemia Assessment/Plan: K+ 5.2 today, possibly SIADH secondary to lung Ca Renal consulted (3) COPD (chronic obstructive pulmonary disease) Assessment/Plan: Continue Ipratropium nebs and Ventolin nebs O2 as needed, wean as tolerated (4) Hyperlipidemia Assessment/Plan: Lipitor 10 mg starting at 2200 (5) Hypertension Assessment/Plan: On Metoprolol 12.5 mg po tid Holding lisinopril due to hypotensive episode resolved with fluids. (6) Constipation Assessment/Plan: Secondary to pain medications On Colace and Senna (7) CAD (coronary artery disease) Assessment/Plan: Continue Aspirin 81 mg (8) Urinary incontinence Assessment/Plan: No dysuria UA overnight negative Renal consulted Will monitor for improvement (9) DVT prophylaxis Assessment/Plan: Heparin 5000 units BID TEDs stockings Visit type - Emergency Visit Emergency Visit: No - New Patient This patient is new to me today: No - Critical Care Critical Care patient: Yes Total Critical Care Time (in minutes): 30 Critical Care Statement: The care of this patient involved high complexity decision making to prevent further life threatening deterioration of the patient 's condition and/or to evalute & treat vital organ system(s) failure or risk of failure.
--- NOTE | 2017-03-07 17:06 | PN ---
Teaching Attending Note Name of Resident: Sabino Branch ATTENDING PHYSICIAN STATEMENT I saw and evaluated the patient. I reviewed the resident's note and discussed the case with the resident. I agree with the resident's findings and plan as documented. SUBJECTIVE: OBJECTIVE: Vital Signs Period Temp Pulse Resp BP Sys/Johns Pulse Ox Last 24 Hr 98.2 F-98.9 F 77-98 16-23 110-160/50-82 95-96 ASSESSMENT AND PLAN:
--- NOTE | 2017-03-07 17:50 | PN ---
Teaching Attending Note Name of Resident: Thor Trinidad (Nephrology) ATTENDING PHYSICIAN STATEMENT I saw and evaluated the patient. I reviewed the resident's note and discussed the case with the resident. I agree with the resident's findings and plan as documented. Nephrology Consult Please see consult filed out by resident. Called to evaluate pt for hyponatremia nd hyperkalemia. Pt is s/p left vats for nodule. She denies history of hyponatremia. She denies history of kidney disease. She says she has better appetite. pmhx cad copd htn chol TEREZA lung nodule psh vats allergies shellfish aspirine ros incontinance Current Medications Generic Name Dose Route Start Last Admin Trade Name Freq PRN Reason Stop Dose Admin Albuterol Sulfate 1 amp 03/05/17 07:11 03/05/17 07:05 Ventolin 0.5% - NEB 1 amp Q6H PRN Administration Albuterol Sulfate 1 amp 03/05/17 07:13 Ventolin 0.5% - NEB Q4H PRN SHORT OF BREATH/WHEEZING Aspirin 81 mg 03/08/17 10:00 Ecotrin - PO Q2D@1000 [facility] Atorvastatin Calcium 10 mg 03/06/17 22:00 03/06/17 22:00 Lipitor - PO 10 mg HS [facility] Administration Docusate Sodium 100 mg 03/05/17 11:21 03/07/17 10:27 Colace - PO 100 mg Q8H PRN Administration CONSTIPATION Heparin Sodium (Porcine) 5,000 unit 03/05/17 22:00 03/07/17 10:31 Heparin - SQ 5,000 unit BID [facility] Administration Ipratropium [place] 1 amp 03/05/17 12:00 03/07/17 12:00 Atrovent 0.02% Nebulizer - NEB 1 amp Q6HPO [facility] Administration Metoprolol Tartrate 12.5 mg 03/07/17 08:45 03/07/17 10:27 Lopressor - PO 12.5 mg TID [facility] Administration Oxycodone HCl 5 mg 03/05/17 10:31 03/07/17 06:30 Roxicodone - PO 5 mg Q4H PRN Administration PAIN Senna 1 tab 03/05/17 22:00 03/06/17 22:00 Senna - PO 1 tab HS [facility]RAD Administration Tiotropium [place] 1 puff 03/07/17 10:00 Spiriva - IH DAILY [facility] Tramadol HCl 50 mg 03/05/17 10:45 03/06/17 09:31 Ultram - PO 50 mg Q6H PRN Administration Last Vital Signs Temp Pulse Resp BP Pulse Ox 98.8 F 80 23 152/69 96 03/07/17 14:00 03/07/17 14:00 03/07/17 14:00 03/07/17 14:00 03/07/17 10:44 cardio s1s2 pulm rhonchi GI soft ext neg edema neuro awake and alert Impression 1. hyperkalemia 2. hyponatremia 3. lung nodule s/p vats 4. cad 5. copd 6. htn 7. chol Plan - stop fluids - low potassium diet - check urine lytes - sodium stabilizing - will repeat labs in am and order further workup as needed Dr Pinto
[2017-03-07] MEDS: ATORVASTATIN CA 10 MG TABLET (FP) PO SCH (22:23)
[2017-03-07] MEDS: SENNOSIDES 8.6MG TABLET (FP) PO SCH (22:24)
[2017-03-08] MEDS: IPRATROPIUM BR 0.02% 0.5 MG/2.5 ML VIAL.NEB. NEB SCH ×3 (00:10→12:00)
[2017-03-08] MEDS: METOPROLOL TARTRATE 25 MG TABLET (FP) PO SCH ×2 (05:56→15:04)
[2017-03-08 07:40] LABS: MCH 30.7 pg (25.7-33.7); MEAN PLT VOLUME 8.3 fl (7.5-11.1); PLATELET COUNT 281 K/MM3 (134-434); RDW 13.5 % (11.6-15.6); WHITE BLOOD COUNT 9.2 K/mm3 (4.0-10.0)
--- NOTE | 2017-03-08 08:00 | OP ---
DATE OF OPERATION: 03/05/2017 PREOPERATIVE DIAGNOSIS: Lung cancer, left side. POSTOPERATIVE DIAGNOSIS: Lung cancer, left side. PROCEDURE: Bronchoscopy, left video-assisted thoracoscopic surgery, pneumolysis , left upper lobe wedge resection, mediastinal lymph node sampling/dissection, and intercostal nerve block. SURGEON: Chandu Rocha MD CO-SURGEON: Migue Wilder MD CREATIVE PERFUMER SURGEON: Not applicable. ANESTHESIA: General with intercostal block. FINDINGS: Left upper lobe adherent to posterior chest wall. Nodule with negative margin on frozen. SPECIMENS SENT: Left upper lobe wedge and lymph node, level 5. Also sputum from left upper lobe. COMPLICATIONS: None. DRAINS/TUBES/CATHETER: One chest tube. HARDWARE/IMPLANTS: Not applicable. BLOOD/FLUID LOSS: 25 mL. POSTOPERATIVE CONDITION: Hemodynamically stable, transferred to PACU. 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 Patient was consented by Dr. Rocha. PROCEDURE IN DETAIL: Patient was taken into the OR. Was placed in a supine position. Intravenous and intraarterial access was done by anesthesiologist. Patient was put in general anesthesia, intubated with a single-lumen tube. Bronchoscopy was performed and showed no intrabronchial lesion. Bronchial washing was performed. Hereafter, bronchoscope was removed and a bronchial karthikeyan was introduced through the single-lumen tube into the left mainstem bronchus guided by bronchoscope. Single-lung ventilation was done. Patient was hereafter placed in the right lateral decubitus flexed position, left side up, prepped and draped in a sterile fashion. Three-port 3-hole technique was applied. Camera was inserted through IC7 into the chest. Adhesions between the posterior segment of the left upper lobe and chest wall were taken down. Hereafter, the nodule was palpated and resected using staple. Frozen section showed free margin and adenocarcinoma. Mediastinal lymph node sampling at level 5 was performed. Hemostasis was secured and Surgicel was applied to the sampling site. Hereafter, washing out with sterile water performed. No air leak was identified. A 28-[place] chest tube was inserted into the chest, placed posterior apical. Prior to that, intercostal block was performed for pain management. Incision sites were closed using 0 Vicryl at the level of fascia and subcutaneous tissue and skin was closed using 4-0 Monocryl. Patient tolerated the procedure well. Dr. Rocha and I performed the procedure as dictated above. We remained available thereafter. Kenroy [id number] MTDD
[2017-03-08 08:42] LABS: ALBUMIN 3.1 g/dl (3.4-5.0); ALK PHOS 108 U/L (45-117); ANION GAP 6 (8-16); BILIRUBIN,TOTAL 0.5 mg/dL (0.2-1.0); CO2 34 mmol/L (21-32); CREATININE 0.6 mg/dL (0.55-1.02); GLUCOSE,RANDOM 99 mg/dL (74-106); MAGNESIUM 1.9 mg/dL (1.8-2.4); PHOSPHOROUS 3.5 mg/dL (2.5-4.9); SGOT/AST 25 U/L (15-37); SGPT/ALT 19 U/L (12-78); TOT PROT 6.5 g/dl (6.4-8.2)
--- NOTE | 2017-03-08 09:18 | PN ---
Physical Exam: SUBJECTIVE: Patient seen and examined. Sitting comfortably in chair. Feels good Pain has significantly decreased. Denies headache, nausea, vomiting, burning micturation. Frequency of urination has improved. didn't have bowel movement since post op. Sates that had one episode of difficulty in breathing because of unable to cough out mucus. But now feels fine. Afebrile. PO intake in last 24 hours 550. potassium and sodium improved. OBJECTIVE: Vital Signs Period Temp Pulse Resp BP Sys/Johns Pulse Ox Last 24 Hr 97.8 F-98.8 F 77-96 13-26 110-171/51-87 96-98 GENERAL: The patient is awake, alert, and fully oriented, in no acute distress. HEAD: Normal with no signs of trauma. EYES: PERRL, extraocular movements intact, sclera anicteric, conjunctiva clear. No ptosis. ENT: Ears normal, nares patent, oropharynx clear without exudates, moist mucous membranes. NECK: Trachea midline, full range of motion, supple. LUNGS: Breath sounds equal, clear to auscultation bilaterally, no wheezes, no crackles, no accessory muscle use. HEART: Regular rate and rhythm, S1, S2 without murmur, rub or gallop. ABDOMEN: Soft, nontender, nondistended, normoactive bowel sounds, no guarding, no rebound, no hepatosplenomegaly, no masses. EXTREMITIES: 2+ pulses, warm, well-perfused, no edema. NEUROLOGICAL: Cranial nerves II through XII grossly intact. Normal speech, gait not observed. PSYCH: Normal mood, normal affect. SKIN: Warm, dry, normal turgor, no rashes or lesions noted Laboratory Results - last 24 hr 03/07/17 03/07/17 03/07/17 02:30 05:30 13:50 WBC RBC Hgb Hct MCV MCH MCHC RDW Plt Count MPV Sodium 135 L Potassium 5.2 H Chloride 99 Carbon Dioxide 30 Anion Gap 6 L BUN 16 D Creatinine 0.7 D Creat Clearance w eGFR > 60 Random Glucose 81 Calcium 8.7 Phosphorus 3.5 D Magnesium 2.1 Total Bilirubin 0.5 AST 25 D ALT 18 Alkaline Phosphatase 103 Creatine Kinase 103 Cancelled Total Protein 5.5 L Albumin 2.8 L Urine Color Colorless Urine Appearance Clear Urine pH 5.0 Ur Specific [place] <= 1.005 Urine Protein Negative Urine Glucose (UA) Negative Urine Ketones Negative Urine Blood Negative Urine Nitrite Negative Urine Bilirubin Negative Urine Urobilinogen Negative Ur Leukocyte Esterase Negative 03/08/17 03/08/17 05:35 05:35 WBC 9.2 RBC 4.65 Hgb 14.3 Hct 43.2 MCV 93.0 MCH 30.7 MCHC 33.0 RDW 13.5 Plt Count 281 MPV 8.3 Sodium 137 Potassium 3.7 D Chloride 97 L Carbon Dioxide 34 H Anion Gap 6 L BUN 10 D Creatinine 0.6 Creat Clearance w eGFR > 60 Random Glucose 99 D Calcium 9.0 Phosphorus 3.5 Magnesium 1.9 Total Bilirubin 0.5 AST 25 ALT 19 Alkaline Phosphatase 108 Creatine Kinase Total Protein 6.5 Albumin 3.1 L Urine Color Urine Appearance Urine pH Ur Specific [place] Urine Protein Urine Glucose (UA) Urine Ketones Urine Blood Urine Nitrite Urine Bilirubin Urine Urobilinogen Ur Leukocyte Esterase Active Medications Generic Name Dose Route Start Last Admin Trade Name Freq PRN Reason Stop Dose Admin Albuterol Sulfate 1 amp 03/05/17 07:11 03/05/17 07:05 Ventolin 0.5% - NEB 1 amp Q6H PRN Administration Albuterol Sulfate 1 amp 03/05/17 07:13 Ventolin 0.5% - NEB Q4H PRN SHORT OF BREATH/WHEEZING Aspirin 81 mg 03/08/17 10:00 Ecotrin - PO Q2D@1000 [facility] Atorvastatin Calcium 10 mg 03/06/17 22:00 03/07/17 22:23 Lipitor - PO 10 mg HS [facility]RAD Administration Docusate Sodium 100 mg 03/05/17 11:21 03/07/17 22:29 Colace - PO 100 mg Q8H PRN Administration CONSTIPATION Heparin Sodium (Porcine) 5,000 unit 03/05/17 22:00 03/07/17 22:24 Heparin - SQ 5,000 unit BID [facility] Administration Ipratropium [place] 1 amp 03/05/17 12:00 03/08/17 06:50 Atrovent 0.02% Nebulizer - NEB 1 amp Q6HPO [facility] Administration Metoprolol Tartrate 12.5 mg 03/07/17 08:45 03/08/17 05:56 Lopressor - PO 12.5 mg TID [facility] Administration Oxycodone HCl 5 mg 03/05/17 10:31 03/07/17 06:30 Roxicodone - PO 5 mg Q4H PRN Administration PAIN Senna 1 tab 03/05/17 22:00 03/07/17 22:24 Senna - PO 1 tab HS [facility]RAD Administration Tiotropium [place] 1 puff 03/07/17 10:00 Spiriva - IH DAILY [facility] Tramadol HCl 50 mg 03/05/17 10:45 03/06/17 09:31 Ultram - PO 50 mg Q6H PRN Administration ASSESSMENT/PLAN: Hyperkalemia: Hyponatremia lung Ca:S/P VATS. PO day 3. COPD HTN HLD Plan serum sodium and potassium improved. Monitor intake and output. Monitor vitals. Encourage PO intake. Incentive spirometry. Urine lytes pending. Visit type - Emergency Visit Emergency Visit: Yes ED Registration Date: 03/05/17 Care time: The patient presented to the Emergency Department on the above date and was hospitalized for further evaluation of their emergent condition. - New Patient This patient is new to me today: No - Critical Care Critical Care patient: No
[2017-03-08] MEDS: HEPARIN NA (PORCINE) 5,000 UNITS/ML 1ML VIAL SQ SCH (09:36)
[2017-03-08] MEDS: DOCUSATE SODIUM 100 MG CAPSULE (FP) PO PRN (09:36)
[2017-03-08] MEDS ORDERED: ASPIRIN COATED 81 MG TABLET.EC PO SCH (10:00)
--- NOTE | 2017-03-08 11:50 | PN ---
Progress Note, Physician History of Present Illness: seen and examined today in nad. sitting in chair. no overnight events. no new complaints. - Current Medication List Current Medications: Active Medications Albuterol Sulfate (Ventolin 0.5% -) 1 amp NEB Q6H PRN Last Admin: 03/05/17 07:05 Dose: 1 amp Albuterol Sulfate (Ventolin 0.5% -) 1 amp NEB Q4H PRN PRN Reason: SHORT OF BREATH/WHEEZING Aspirin (Ecotrin -) 81 mg PO Q2D@1000 [facility] Last Admin: 03/08/17 09:36 Dose: 81 mg Atorvastatin Calcium (Lipitor -) 10 mg PO HS [facility] Last Admin: 03/07/17 22:23 Dose: 10 mg Docusate Sodium (Colace -) 100 mg PO Q8H PRN PRN Reason: CONSTIPATION Last Admin: 03/08/17 09:36 Dose: 100 mg Heparin Sodium (Porcine) (Heparin -) 5,000 unit SQ BID [facility] Last Admin: 03/08/17 09:36 Dose: 5,000 unit Ipratropium [place] (Atrovent 0.02% Nebulizer -) 1 amp NEB Q6HPO [facility] Last Admin: 03/08/17 06:50 Dose: 1 amp Metoprolol Tartrate (Lopressor -) 12.5 mg PO TID [facility] Last Admin: 03/08/17 05:56 Dose: 12.5 mg Oxycodone HCl (Roxicodone -) 5 mg PO Q4H PRN PRN Reason: PAIN Last Admin: 03/07/17 06:30 Dose: 5 mg Senna (Senna -) 1 tab PO [facility] Last Admin: 03/07/17 22:24 Dose: 1 tab Tiotropium [place] (Spiriva -) 1 puff IH DAILY [facility] Tramadol HCl (Ultram -) 50 mg PO Q6H PRN Last Admin: 03/06/17 09:31 Dose: 50 mg - Objective Vital Signs: Vital Signs Temperature 98.6 F 03/08/17 08:10 Pulse Rate 82 03/08/17 08:10 Respiratory Rate 18 03/08/17 08:10 Blood Pressure 158/74 03/08/17 08:10 O2 Sat by Pulse Oximetry (%) 98 03/07/17 21:00 Constitutional: Yes: No Distress, Calm Eyes: Yes: Conjunctiva Clear, EOM Intact, PERRL HENT: Yes: Atraumatic, Normocephalic Neck: Yes: Supple, Trachea Midline Cardiovascular: Yes: Regular Rate and Rhythm, S1, S2. No: Bradycardia, Tachycardia, Pulse Irregular, Bruit, JVD, Gallop, Murmur, Rub, S3, S4, Varicosities Respiratory: Yes: Regular, Diminished. No: On Nasal O2, Rales, Rhonchi, SOB, Wheezes Gastrointestinal: Yes: Normal Bowel Sounds, Soft. No: Distention, Tenderness Edema: No Peripheral Pulses WNL: Yes Peripheral Pulses: Left Doralis Pedis: 2+, Right Dorsalis Pedis: 2+ Neurological: Yes: Alert, Oriented Psychiatric: Yes: Alert, Oriented Labs: CBC, BMP 03/08/17 05:35 03/08/17 05:35 - ....Imaging Chest X-ray: Report Reviewed, Image Reviewed EKG: Report Reviewed, Image Reviewed Other: Report Reviewed, Image Reviewed (tele-nsr, frequent apcs) Assessment/Plan IMP: S/p L. VATS and wedge resection PET+ lung mass, tolerated well COPD Hyperkalemia REC: 1. Hyperkalemia and Hyponatremia improved -Can dc tele at this point 2. Mild HTN: overall adequately controlled -Cont lopressor 12.5 mg TID
--- NOTE | 2017-03-08 12:42 | PN ---
Progress Note (short form) - Note Progress Note: PULMONARY Feels well. Denies shortness of breath, pain adequately controlled. +cough with dark sputum. No fevers or chills. Last Vital Signs Temp Pulse Resp BP Pulse Ox 98.6 F 82 18 158/74 98 03/08/17 08:10 03/08/17 08:10 03/08/17 08:10 03/08/17 08:10 03/07/17 21:00 Gen: NAD at rest Heart: RRR Lung: distant breath sounds, no wheezes Abd: soft, nontender Ext: no edema CBC, BMP 03/08/17 05:35 03/08/17 05:35 Active Medications Albuterol Sulfate (Ventolin 0.5% -) 1 amp NEB Q6H PRN Last Admin: 03/05/17 07:05 Dose: 1 amp Albuterol Sulfate (Ventolin 0.5% -) 1 amp NEB Q4H PRN PRN Reason: SHORT OF BREATH/WHEEZING Aspirin (Ecotrin -) 81 mg PO Q2D@1000 [facility] Last Admin: 03/08/17 09:36 Dose: 81 mg Atorvastatin Calcium (Lipitor -) 10 mg PO [facility] Last Admin: 03/07/17 22:23 Dose: 10 mg Docusate Sodium (Colace -) 100 mg PO Q8H PRN PRN Reason: CONSTIPATION Last Admin: 03/08/17 09:36 Dose: 100 mg Heparin Sodium (Porcine) (Heparin -) 5,000 unit SQ BID [facility] Last Admin: 03/08/17 09:36 Dose: 5,000 unit Ipratropium [place] (Atrovent 0.02% Nebulizer -) 1 amp NEB Q6HPO [facility] Last Admin: 03/08/17 06:50 Dose: 1 amp Metoprolol Tartrate (Lopressor -) 12.5 mg PO TID [facility] Last Admin: 03/08/17 05:56 Dose: 12.5 mg Oxycodone HCl (Roxicodone -) 5 mg PO Q4H PRN PRN Reason: PAIN Last Admin: 03/07/17 06:30 Dose: 5 mg Senna (Senna -) 1 tab PO [facility] Last Admin: 03/07/17 22:24 Dose: 1 tab Tiotropium [place] (Spiriva -) 1 puff IH DAILY [facility] Tramadol HCl (Ultram -) 50 mg PO Q6H PRN Last Admin: 03/06/17 09:31 Dose: 50 mg A/P Lung Nodule s/p L VATS/wedge resection/LN biopsy COPD HTN Hyperlipidemia - pain control - incentive spirometry - O2 to keep SpO2 >90% - inhaled bronchodilators - f/u final pathology report - OOB, ambulate - can be discharged home from pulmonary standpoint with outpt follow up
--- NOTE | 2017-03-08 13:30 | MSN ---
Progress Note (short form) - Note Progress Note: Pt seen and examined at bedside, no acute overnight events. States she is feeling better today, her pain is a 2/10 but she is feeling more tired today. She had a "coughing episode" where she felt like she couldn't breathe, her nurse helped replace her nasal canula that she had taken off to eat breakfast and feels better now. She still has some dyspnea with exertion but states she is improving everyday. Denies chest pain, palpitations, h/a, nausea or vomiting , leg pain, abdominal pain, changes in vision. Last Vital Signs Temp Pulse Resp BP Pulse Ox 98.6 F 82 18 158/74 98 03/08/17 08:10 03/08/17 08:10 03/08/17 08:10 03/08/17 08:10 03/07/17 21:00 PE: Constitutional: A&Ox3, in no acute distress Head: atraumatic, normocephalic Eyes: PERRLA, EOM intact Heart: RRR Lungs: expiratory wheezes appreciated diffusely (improved from previous exam), R Lower lobe crackles Abd: non-tender and non- distended throughout, normoactive bowel sounds in LLQ Extremities: 2+ radial pulses b/l, 1+ DP pulses b/l, no LE edema Laboratory Results - last 24 hr 03/07/17 03/07/17 03/08/17 05:30 13:50 05:35 WBC 9.2 RBC 4.65 Hgb 14.3 Hct 43.2 MCV 93.0 MCH 30.7 MCHC 33.0 RDW 13.5 Plt Count 281 MPV 8.3 Sodium 135 L Potassium 5.2 H Chloride 99 Carbon Dioxide 30 Anion Gap 6 L BUN 16 D Creatinine 0.7 D Creat Clearance w eGFR > 60 Random Glucose 81 Calcium 8.7 Phosphorus 3.5 D Magnesium 2.1 Total Bilirubin 0.5 AST 25 D ALT 18 Alkaline Phosphatase 103 Creatine Kinase 103 Cancelled Total Protein 5.5 L Albumin 2.8 L Ur Random Sodium Ur Random Potassium Ur Random Chloride 03/08/17 03/08/17 05:35 12:00 WBC RBC Hgb Hct MCV MCH MCHC RDW Plt Count MPV Sodium 137 Potassium 3.7 D Chloride 97 L Carbon Dioxide 34 H Anion Gap 6 L BUN 10 D Creatinine 0.6 Creat Clearance w eGFR > 60 Random Glucose 99 D Calcium 9.0 Phosphorus 3.5 Magnesium 1.9 Total Bilirubin 0.5 AST 25 ALT 19 Alkaline Phosphatase 108 Creatine Kinase Total Protein 6.5 Albumin 3.1 L Ur Random Sodium 71 Ur Random Potassium 16.0 Ur Random Chloride 78 Assessment: 81 y.o. F with PMHx of CAD, COPD, HTN, HLD, TEREZA lung nodule that presented for elective bronchoscopy, VATS, pneumolysis, wedge resection, and intercostal nerve block on 03/05; admitted for pain management. Plan: 1. Hyperkalemia: improved, possibly due to SIADH secondary to lung cancer or SIADH secondary to surgery, labs today 3.7. Cont to monitor, per nephro recommend low K diet. 2. Lung Mass: s/p wedge resection, repeat CXR shows resolved pneumothorax but persistent bibasilar fluid and atelectasis. Incentive spirometer given and pt understands how to use it. Pain controlled with roxicodone but has not needed much. Follow up with Dr. Otero 3. COPD: cont home ipratropium nebs and ventolin. Wean O2 as tolerated, consult respiratory therapist for pre and post O2 sat with walking around to determine if pt needs home O2. 4. HTN: could be related to pain from chest tube site, started on lopressor 12.5mg q8h by Dr. Britton 5. Constipation: most likely due to narcotics used for pain control, cont colace and senna and encourage PO fluids 6. Urinary incontinence: most likely due to large amounts of IV fluids given, after IV fluids were d/c her symptoms have resolved. Urinary electrolytes wnl. 7. CAD: cont aspirin 81mg (every other day) 8.DVT prophylaxis: Heparin 5,000U SQ BID, compression stockings both legs
[2017-03-08 15:08] VITALS: PULSE 102
[2017-03-08 15:10] VITALS: BP 141/65; TEMP 97.9
--- NOTE | 2017-03-08 16:05 | PATH ---
Surgical Pathology Report Patient Name: FIORDALIZA CARVER [facility]. Rec. #: [id number] /Age/Gender: 1935 (Age: 81) / F Account: [id number] Location: 4 W TELEMETRY U Taken: 03/05/2017 Received: 03/05/2017 Reported: 03/08/2017 Physicians: Kenroy Ramos M.D. Specimen(s) Received A: LEFT UPPER LOBE WEDGE RESECTION B: THORACIC LYMPH NODE BIOPSY LEVEL 5 Clinical History Lung cancer Intraoperative Consult Diagnosis Left upper lobe wedge resection, frozen section: Margin negative for carcinoma. Dr. Natarajan, 03/05/17. Final Diagnosis A. 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 TUMOR SIZE: 1.3 CM. SURGICAL RESECTION MARGIN: NEGATIVE FOR CARCINOMA (0.6 CM FROM CARCINOMA). VISCERAL PLEURAL INVASION: SUSPICIOUS, WITH FOCALLY DISRUPTED PLEURAL SURFACE (SEE COMMENT). LYMPHOVASCULAR INVASION: NOT DEFINITIVELY IDENTIFIED. SURROUNDING LUNG TISSUE: EMPHYSEMATOUS CHANGES, FOCAL PLEURAL ADHESIONS. PATHOLOGIC STAGING: SEE COMMENT. B. THORACIC LYMPH NODE, LEVEL 5, BIOPSY: FRAGMENTS OF BENIGN ANTHRACOTIC LYMPH NODE WITH MARKED SINUS HISTIOCYTOSIS. NEGATIVE FOR CARCINOMA. Comment: The tumor is comprised of intermediate to large size cells with irregular nuclei with powdery chromatin, mostly inconspicuous nucleoli and a small amount of amphophilic cytoplasm arranged in nests, cords and gland-like structures. Necrosis is evident. Frequent mitotic and apoptotic figures are present. Immunohistochemical stains performed and interpreted at [facility] on block A6 show the following: the tumor cells are positive for TTF1, Ae1/A3 keratin and CK7 and are negative for synaptophysin, chromogranin and CK20 immunostains. Additional immunohistochemical stains performed at [place], [place] ([id number]) on block A8 and interpreted at [facility] show the tumor cells are focally positive for CD56 immunostain; p40 immunostain shows focal reactivity. Ki67 proliferation index is 50-60%. 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 The tumor is seen approaching visceral pleura; however, there are pleural adhesions and the pleural surface is focally disrupted. These findings are suspicious for a focal involvement of visceral pleura by carcinoma; however, this cannot be definitively proven. EVG elastin stain performed on blocks A6 and A7 is not conclusive in the area of pleura disruption. Without the visceral pleural involvement by tumor the pathologic stage is pT1a pN0; assuming visceral pleura involvement by tumor, the pathologic stage is pT2a pN0, which is favored. The case was discussed with Dr. Rocha on . PD-L1 IHC is pending; results will be reported in an addendum. Comments Lung Carcinoma: Surgical Pathology Cancer Case Summary (Checklist) Based on AJCC/UICC TNM, 7th edition Procedure: wedge resection Specimen Laterality _x_ Left Specimen Integrity _x_ Intact (pleural surface is focally disrupted) Tumor Site _x_ Upper lobe Tumor Size Greatest dimension: 1.3 cm Tumor Focality _x_ Unifocal Histologic Type: Large cell neuroendocrine carcinoma. Visceral Pleura Invasion _x_ Indeterminate Margins Bronchial Margin _x_ Not applicable Vascular Margin _x_ Not applicable Parenchymal Margin _x_ Uninvolved by invasive carcinoma Parietal Pleural Margin _x_ Not applicable Chest Wall Margin _x_ Not applicable If all margins uninvolved by invasive carcinoma: Distance of invasive carcinoma from closest margin: 0.6 cm. Specify margin: parenchymal Treatment Effect _x_ Not applicable Lymph-Vascular Invasion _x_ Not definitively identified Pathologic Staging (pTNM) Primary Tumor: favor pT2a (see comment above) Regional Lymph Nodes: pN0 Number examined: 1 Number involved: 0 Distant Metastasis (pM): not applicable Electronically Signed Duc Natarajan M.D. Addendum Reported: 03/09/2017 Addendum Diagnosis PD-L1 (Keytruda) IHC, Clone 22C3 Pharm Dx performed and interpreted at [facility] [place], [place] ([id number]) shows the following: Result: PD-L1 (Keytruda) TPS: 0% (No PD-L1 Expression) Reference Range: TPS=Tumor Proportion Score (% of at least 100 viable tumor cells showing complete or partial membrane staining at =1+) TPS< 1% =No Expression TPS 1-49% =Low Expression. Eligible for second line treatment with Keytruda. TPS =50% =High Expression. Eligible for first or second line treatment with Keytruda. The PD-L1, 22C3 pharmDx is FDA approved for use in the detection of PD-L1 in formalin-fixed paraffin-embedded non-small cell lung carcinoma using the [employer] platform. The assay is indicated as an aid in identifying NSCLC patients for treatment with Keytruda (pembrolizumab). Duc Natarajan M.D. Gross Description A. Received fresh labeled "left upper lobe wedge resection" is an 8.5 x 3.0 x 2.0 cm portion of lung with a stapled margin of resection. The pleural surface is owodard-red with focal dimpling and is inked blue. The staple line is inked black. Sectioning reveals a 1.3 x 0.9 x 0.8 cm woodard-cameron mass less than 0.1 cm from the pleura and 0.6 cm from the stapled margin. The tissue from the staple line is submitted for frozen section. The specimen is entirely and sequentially submitted in 13 cassettes as follows: 1-frozen section residue; 2-additional tissue removed from staple line; [id number] submitted remainder of specimen (mass in cassettes 6-7). B. Received in formalin labeled "thoracic lymph node biopsy level 5" are 2 black, irregular portions of lymphoid tissue averaging 0.4 cm in greatest dimension. The specimens are submitted in toto in one cassette. 03/05/2017 saudi03/05/2017
--- NOTE | 2017-03-08 16:41 | PN ---
Teaching Attending Note Name of Resident: Thor Trinidad (Nephrology) ATTENDING PHYSICIAN STATEMENT I saw and evaluated the patient. I reviewed the resident's note and discussed the case with the resident. I agree with the resident's findings and plan as documented. Renal Follow Up Pt seen and examined at bedside. She is awake and alert. She feels well. Laboratory Tests 03/07/17 03/07/17 03/08/17 02:30 05:30 05:35 Sodium 135 L 137 Potassium 5.2 H 3.7 D Chloride 99 Carbon Dioxide 30 Anion Gap 6 L BUN 16 D Urine Color Colorless Urine Appearance Clear Urine pH 5.0 Ur Specific [place] <= 1.005 Urine Protein Negative Urine Glucose (UA) Negative Urine Ketones Negative Urine Blood Negative Urine Nitrite Negative Urine Bilirubin Negative Urine Urobilinogen Negative Ur Leukocyte Esterase Negative cardio s1s2 pulm improved GI soft ext neg edema neuro awake and alert Impression 1. hyperkalemia 2. hyponatremia 3. lung nodule s/p vats 4. cad 5. copd 6. htn 7. chol Plan - sodium is improved - potassium is improved - encourage PO intake Dr Pinto
--- NOTE | 2017-03-08 17:02 | DS ---
Physical Exam: LABS Laboratory Results - last 24 hr Selected Entries 03/08/17 08:10 Temperature 98.6 F Temperature Oral Source Pulse Rate 82 Respiratory 18 Rate Blood Pressure 158/74 Laboratory Tests 03/05/17 03/05/17 03/06/17 19:26 19:26 05:20 WBC 13.8 H D 11.8 H Sodium 133 L Potassium 5.1 Random Glucose 199 H D 03/06/17 03/06/17 03/07/17 05:20 11:00 05:30 WBC 10.0 Sodium 133 L 133 L Potassium 6.3 H* D 4.9 D Random Glucose 93 D 90 03/07/17 03/08/17 03/08/17 05:30 05:35 05:35 WBC 9.2 Sodium 135 L 137 Potassium 5.2 H 3.7 D Random Glucose 81 99 D CXR- 03/05- IMPRESSION: Postoperative changes in the left upper lobe. Left chest tube as described above. No definite pneumothorax seen. 03/06- No significant change. 03/06 S/P CHEST TUBE REMOVAL- Since the earlier study of 0716 hours, the left chest tube has been removed. There is a small peripheral left pneumothorax. There is some increased atelectasis or infiltrate in the right lower lung field. There is some atelectasis at the left base. 03/07-Since 03/06/2017 at 1424 hours, the left subcutaneous emphysema has diminished. There are left upper lung sutures with prominent mediastinum and some increased markings at the bases with some pleural reaction and atelectasis. A pneumothorax is not seen. The previously noted pneumothorax has resolved. Correlation recommended. 03/08- Impression // slight improvement at bases. HOSPITAL COURSE: Date of Admission:03/05/17 Date of Discharge: 03/08/17 81 year old F with a PMH of CAD, COPD, HTN, HLD, and TEREZA lung nodule presented for a elective bronchoscopy, left VATS, pneumolysis, wedge resection, mediastinal lymph node sampling, and intercostal nerve block on 03/05 and admitted for pain at the chest tube site. Patient underwent procedure with left chest tube placement and woke up with severe sharp pain at the chest tube site radiating across her chest. Pain was a 10/10. Pain worse upon movement. Patient admitted for pain control. Chest tube was removed. Patient's pain improved over her stay. Patient was also found to be hyponatremic and hyperkalemic post operatively. Her labs resolved prior to discharge. Patient's hypertension was not well controlled and was tachycardic. She was started on Lopressor 12.5 mg TID and will continue it until she follows up with her aboriginal community council member. Minutes to complete discharge: 30 Discharge Summary Reason For Visit: LUNG CANCER Condition: Improved - Instructions Diet, Activity, Other Instructions: You were in the hospital due to surgery for a lung mass. Please follow up with Dr. Rocha in two weeks. Please follow up with your Primary care doctor within 1 week. Referrals for the doctors that saw you in the hospital have been provided. You may remove outer dressing on Sunday. Keep area clean and dry. Please continue the following medication: -Aspirin 81 mg by mouth every 2 days -Calcium carbonate/Vitamin D3 2 capsules daily -Lipitor 10 mg at night -Vitamin c 500 mg by mouth daily -Zyrtec 10 mg by mouth at night -Spiriva 1 inhalation daily Start the following medication -Lopressor 12.5 mg by mouth three times per day. Primary care provider will adjust as necessary If you have new chest pain, shortness of breath, or any new symptoms please come back to the hospital immediately Referrals: Quentin Britton MD [Staff Physician] - Chandu Rocha MD [Staff Physician] - Renan Harper MD, MD [Staff Physician] - Disposition: HOME - Home Medications Comprehensive Discharge Medication List: Ambulatory Orders Aspirin [ASA -] 81 mg PO Q48H 11/23/16 Atorvastatin Ca [Lipitor] 10 mg PO HS 11/23/16 Cetirizine HCl [Zyrtec -] 10 mg PO HS 11/23/16 Lisinopril 10 mg PO DAILY 11/23/16 Tiotropium [place] [Spiriva] 1 puff IH DAILY #1 inh 11/28/16 Ascorbate Calcium [Vitamin C] 500 mg PO DAILY 03/01/17 Calcium Carbonate/Vitamin D3 [Calcium 600-Vit D3 500 Softgel] 2 each PO DAILY Metoprolol Tartrate [Lopressor -] 12.5 mg PO TID #30 tablet 03/08/17 Problem List - Problems (1) Lung mass (2) Hyperkalemia (3) COPD (chronic obstructive pulmonary disease) (4) Hyperlipidemia (5) Hypertension (6) Constipation (7) CAD (coronary artery disease) (8) Urinary incontinence (9) DVT prophylaxis This patient is new to me today: No Emergency Visit: No Critical Care patient: No - Discharge Referral Referred to [facility] No
--- NOTE | 2017-03-08 17:41 | PN ---
Teaching Attending Note Name of Resident: Sabino Branch ATTENDING PHYSICIAN STATEMENT I saw and evaluated the patient. I reviewed the resident's note and discussed the case with the resident. I agree with the resident's findings and plan as documented. SUBJECTIVE: OBJECTIVE: Vital Signs Period Temp Pulse Resp BP Sys/Johns Pulse Ox Last 24 Hr 97.8 F-98.6 F 80-102 13-26 110-171/51-87 91-98 ASSESSMENT AND PLAN:
== END 2017-03-08 16:27 | disposition home or self-care (01) | DRG 164 ==
LOC: JSAMEDAYSX 05:24 → JICU 13:35 → J4W 03-07 21:06
PROVIDERS: ADMIT Internal Medicine; ATTEND Internal Medicine
PROC: 0BJL4ZZ Inspection of Left Lung, Percutaneous Endoscopic Approach (ICD-10-PCS; 2017-03-05)
PROC: 07B74ZX Excision of Thorax Lymphatic, Percutaneous Endoscopic Approach, Diagnostic (ICD-10-PCS; 2017-03-05)
PROC: 0BNG4ZZ Release Left Upper Lung Lobe, Percutaneous Endoscopic Approach (ICD-10-PCS; 2017-03-05)
PROC: 3E0T3BZ Introduction of Anesthetic Agent into Peripheral Nerves and Plexi, Percutaneous Approach (ICD-10-PCS; 2017-03-05)
PROC: 0BJ08ZZ Inspection of Tracheobronchial Tree, Via Natural or Artificial Opening Endoscopic (ICD-10-PCS; 2017-03-05)
PROC: 0BB78ZX Excision of Left Main Bronchus, Via Natural or Artificial Opening Endoscopic, Diagnostic (ICD-10-PCS; 2017-03-05)
PROC: 0BBG4ZX Excision of Left Upper Lung Lobe, Percutaneous Endoscopic Approach, Diagnostic (ICD-10-PCS; principal; 2017-03-05 08:00)
PROC: 0BNG4ZZ Release Left Upper Lung Lobe, Percutaneous Endoscopic Approach (ICD-10-PCS; 2017-03-05 08:00)
PROC: 0W9B30Z Drainage of Left Pleural Cavity with Drainage Device, Percutaneous Approach (ICD-10-PCS; 2017-03-06)
DX: C34.12 Malignant neoplasm of upper lobe, left bronchus or lung (principal); E87.1 Hypo-osmolality and hyponatremia; E87.5 Hyperkalemia; J44.9 Chronic obstructive pulmonary disease, unspecified; I25.10 Atherosclerotic heart disease of native coronary artery without angina pectoris; I10 Essential (primary) hypertension; K59.00 Constipation, unspecified; R32 Unspecified urinary incontinence; E78.5 Hyperlipidemia, unspecified
CPT/HCPCS: 36415; 71010-TC; 80048; 80053; 81003; 82436; 83735; 84100; 84133; 84300; 84484; 85025; 85027; 87070; 87205; 88305-TC; 88307-TC; 88331-TC; 88341-TC; 93005; 93010; 94640; 94760; 94761; 97116-GP; 97161-GP; J1644

== ENCOUNTER 2017-05-29 16:08 | Emergency (ER) | payer OTHER ==
[2017-05-29 16:16] VITALS: BP 150/84; PULSE 98; TEMP 98.3; BMI 19.8
[2017-05-29] MEDS ORDERED: ACETAMINOPHEN 500 MG TABLET (FP) PO ONE (16:44)
[2017-05-29] MEDS ORDERED: ACETAMINOPHEN 500 MG TABLET (FP) ONE (16:46)
--- NOTE | 2017-05-29 16:47 | PDOC ---
History of Present Illness - General Chief Complaint: Allergic Reaction Stated Complaint: ALLERGIC REACTION Time Seen by Provider: 05/29/17 16:31 History Source: Patient Exam Limitations: No Limitations - History of Present Illness Initial Comments: 05/29/17 16:44 82 yr female with swelling and pain to the right AC area after pt had ct done here at this hospital today with IV contrast that infiltrated around the site. Pt had pain at that time, noticed swelling . 05/29/17 16:51 Past History - Past Medical History Allergies/Adverse Reactions: Allergies Allergy/AdvReac Type Severity Reaction Status Date / Time shellfish derived Allergy Severe Verified 03/05/17 06:56 Home Medications: Ambulatory Orders Aspirin [ASA -] 81 mg PO Q48H 11/23/16 Atorvastatin Ca [Lipitor] 10 mg PO HS 11/23/16 Cetirizine HCl [Zyrtec -] 10 mg PO HS 11/23/16 Lisinopril 10 mg PO DAILY 11/23/16 Tiotropium [place] [Spiriva] 1 puff IH DAILY #1 inh 11/28/16 Ascorbate Calcium [Vitamin C] 500 mg PO DAILY 03/01/17 Calcium Carbonate/Vitamin D3 [Calcium 600-Vit D3 500 Softgel] 2 each PO DAILY Anemia: No Asthma: No Cancer: Yes (Lung (neoendocrine carcenoma)) Cardiac Disorders: No CVA: No COPD: Yes (POSSIBLE COPD) CHF: No Dementia: No Diabetes: No GI Disorders: No Disorders: No HTN: Yes Hypercholesterolemia: Yes Liver Disease: No Seizures: No Thyroid Disease: No - Surgical History Abdominal Surgery: Yes (HEMMORHOIDS) Appendectomy: No Cardiac Surgery: Yes (BILATERAL) Cholecystectomy: No Lung Surgery: No Neurologic Surgery: No Orthopedic Surgery: No (BILATERAL HIP REPLACEMENT) - Suicide/Smoking/Psychosocial Hx Smoking History: Never smoked Have you smoked in the past 12 months: No If you are a former smoker, when did you quit?: 1989 Information on smoking cessation initiated: Yes 'Breaking Loose' booklet given: 05/29/17 Hx Alcohol Use: No Drug/Substance Use Hx: No Substance Use Type: None Hx Substance Use Treatment: No *Physical Exam - Vital Signs Last Vital Signs Temp Pulse Resp BP Pulse Ox 98.3 F 98 H 18 150/84 98 05/29/17 16:10 05/29/17 16:10 05/29/17 16:10 05/29/17 16:10 05/29/17 16:10 - Physical Exam General Appearance: Yes: Nourished, Appropriately Dressed HEENT: positive: EOMI, BRENDA Integumentary: positive: Normal Color, Dry, Warm, Swelling (right AC with swelling, FROM of the elbow, no limitations, no redness ) Neurologic: positive: Fully Oriented, Alert, Normal Mood/Affect, Normal Response , Motor Strength /5 Medical Decision Making - Medical Decision Making 05/29/17 16:53 cc: pain after IV contrast infiltrated into the skin tissues today pt states they injected a small amount then the pain and swelling started, the nurse stopped the injection however the pain continued pt went home and noticed swelling no redness pt has FROM of the joint will give tylenol and place warm compress to the area dc inst verbally given to pt and the for infiltration care warm compresses , tylenol for pain follow up with your PMD tomorrow return if worse *DC/Admit/Observation/Transfer Diagnosis at time of Disposition: IV infiltration Qualifiers: Encounter type: initial encounter Qualified Code(s): T80.1XXA - Vascular complications following infusion, transfusion and therapeutic injection, initial encounter - Discharge Dispostion Disposition: HOME Condition at time of disposition: Good - Patient Instructions Additional Instructions: warm compresses to area of swelling every 2hrs for 20 minutes for the next 2 days while awake or continue until symptoms improve take tylenol for pain follow with your doctor if any redness to the area worsening pain
== END 2017-05-29 17:24 | disposition home or self-care (01) ==
LOC: JERFT 16:08
DX: T80.1XXA Vascular complications following infusion, transfusion and therapeutic injection, initial encounter (principal); I10 Essential (primary) hypertension; E78.00 Pure hypercholesterolemia, unspecified; Z85.118 Personal history of other malignant neoplasm of bronchus and lung; Z96.643 Presence of artificial hip joint, bilateral; Z87.891 Personal history of nicotine dependence
CPT/HCPCS: 71260-TC; 74177-TC; 99281-25; C1887

== ENCOUNTER 2017-07-09 07:19 | Day surgery (SDC) | payer OTHER ==
[2017-07-09] MEDS ORDERED: DEXAMETHASONE INJECTION 10 MG, ONDANSETRON INJECTION 12 MG in SODIUM CHLORIDE 100 ML IVPB ONE (08:00)
[2017-07-09] MEDS ORDERED: CARBOPLATIN IVPB ONE (08:30)
[2017-07-09] MEDS ORDERED: SODIUM CHLORIDE IVPB ONE (08:30)
[2017-07-09] MEDS ORDERED: ETOPOSIDE IV ONE (09:00)
[2017-07-09] MEDS ORDERED: SODIUM CHLORIDE IV ONE (09:00)
[2017-07-09 10:11] LABS: BASOPHIL 0.5 % (0-2.0); EOSINOPHIL 0.7 % (0-4.5); MCH 30.1 pg (25.7-33.7); MCHC 32.9 g/dl (32.0-36.0); MEAN CELL VOLUME 91.4 fl (80-96); MEAN PLT VOLUME 7.6 fl (7.5-11.1); NEUTROPHILS 68.9 % (42.8-82.8); PLATELET COUNT 442 K/MM3 (134-434); RDW 15.8 % (11.6-15.6)
[2017-07-09 10:44] LABS: ALBUMIN 3.5 g/dl (3.4-5.0); ANION GAP 4 (8-16); BILIRUBIN,DIRECT < 0.2 mg/dL (0.0-0.2); CALCIUM 8.8 mg/dL (8.5-10.1); CO2 29 mmol/L (21-32); CREATININE 0.8 mg/dL (0.55-1.02); GLUCOSE,RANDOM 98 mg/dL (74-106); SGOT/AST 19 U/L (15-37)
[2017-07-09 10:50] LABS: ALK PHOS 161 U/L (45-117); BILIRUBIN,TOTAL 0.4 mg/dL (0.2-1.0); SGPT/ALT 28 U/L (12-78); TOT PROT 7.1 g/dl (6.4-8.2)
[2017-07-09] MEDS ORDERED: SODIUM CHLORIDE 250 ML IV ONE (11:00)
[2017-07-09 18:20] VITALS: BP 130/90; PULSE 112; TEMP 98
--- NOTE | 2017-07-16 15:12 | EKG ---
Test Reason : Blood Pressure : / mmHG Vent. Rate : 114 BPM Atrial Rate : 114 BPM P-R Int : 182 ms QRS Dur : 074 ms QT Int : 340 ms P-R-T Axes : 016 -07 019 degrees QTc Int : 468 ms SINUS TACHYCARDIA POSSIBLE LEFT ATRIAL ENLARGEMENT BORDERLINE ECG WHEN COMPARED WITH ECG OF 06-MAR-2017 12:02, VENT. RATE HAS INCREASED BY 39 BPM PREMATURE VENTRICULAR COMPLEXES ARE NO LONGER SEEN Confirmed by BREONNA VARGHESE MD ([id number]) on 07/16/2017 3:11:36 PM Referred By: Confirmed By:BREONNA VARGHESE MD
== END 2017-07-09 18:22 | disposition home or self-care (01) ==
LOC: JONCCHEMO 07:19 → J7W 10:36 → JONCCHEMO 18:22
PROVIDERS: ATTEND Internal Medicine Hematology & Oncology
DX: Z51.11 Encounter for antineoplastic chemotherapy (principal); C34.90 Malignant neoplasm of unspecified part of unspecified bronchus or lung
CPT/HCPCS: 36415; 80053; 80076; 83735; 85025; 93005; 93010; 96361; 96366; 96367; 96375; 96413; 96415; 96417; J9181

== ENCOUNTER 2017-07-10 07:29 | Day surgery (SDC) | payer OTHER ==
[2017-07-10] MEDS ORDERED: DEXAMETHASONE INJECTION 10 MG, ONDANSETRON INJECTION 12 MG in SODIUM CHLORIDE 100 ML IVPB ONE (08:00)
[2017-07-10] MEDS ORDERED: DEXTROSE 5% IV ONE (08:30)
[2017-07-10] MEDS ORDERED: WATER IV ONE (08:30)
[2017-07-10] MEDS ORDERED: ETOPOSIDE IV ONE (08:30)
[2017-07-10] MEDS ORDERED: SODIUM CHLORIDE 250 ML IV ONE (10:30)
[2017-07-10 10:43] VITALS: TEMP 98
[2017-07-10 13:27] VITALS: BP 118/71; PULSE 97
== END 2017-07-10 13:00 | disposition home or self-care (01) ==
LOC: JONCCHEMO 07:29 → J7W 10:20 → JONCCHEMO 13:00
PROVIDERS: ATTEND Internal Medicine Hematology & Oncology
DX: Z51.11 Encounter for antineoplastic chemotherapy (principal); C34.90 Malignant neoplasm of unspecified part of unspecified bronchus or lung
CPT/HCPCS: 96361; 96367; 96375; 96413; 96415; J9181

== ENCOUNTER 2017-07-11 07:27 | Day surgery (SDC) | payer OTHER ==
[2017-07-11] MEDS ORDERED: DEXAMETHASONE INJECTION 10 MG, ONDANSETRON INJECTION 12 MG in SODIUM CHLORIDE 100 ML IVPB ONE (08:00)
[2017-07-11] MEDS ORDERED: ETOPOSIDE IV ONE (08:30)
[2017-07-11] MEDS ORDERED: DEXTROSE 5% IV ONE (08:30)
[2017-07-11] MEDS ORDERED: WATER IV ONE (08:30)
[2017-07-11 08:56] LABS: BASOPHIL 0.3 % (0-2.0); EOSINOPHIL 0.5 % (0-4.5); MCH 30.2 pg (25.7-33.7); MEAN CELL VOLUME 91.6 fl (80-96); MEAN PLT VOLUME 7.6 fl (7.5-11.1); NEUTROPHILS 61.9 % (42.8-82.8); PLATELET COUNT 382 K/MM3 (134-434); RDW 16.4 % (11.6-15.6); WHITE BLOOD COUNT 8.6 K/mm3 (4.0-10.0)
[2017-07-11 09:24] VITALS: TEMP 98.5
[2017-07-11 09:29] LABS: ALBUMIN 3.5 g/dl (3.4-5.0); ALK PHOS 137 U/L (45-117); ANION GAP 7 (8-16); BILIRUBIN,DIRECT < 0.2 mg/dL (0.0-0.2); BILIRUBIN,TOTAL 0.5 mg/dL (0.2-1.0); CALCIUM 8.7 mg/dL (8.5-10.1); CO2 27 mmol/L (21-32); CREATININE 0.8 mg/dL (0.55-1.02); GLUCOSE,RANDOM 108 mg/dL (74-106); MAGNESIUM 2.1 mg/dL (1.8-2.4); SGOT/AST 17 U/L (15-37); SGPT/ALT 26 U/L (12-78); TOT PROT 7.1 g/dl (6.4-8.2)
[2017-07-11] MEDS ORDERED: SODIUM CHLORIDE 250 ML IV ONE (10:30)
[2017-07-11 14:48] VITALS: BP 120/54; PULSE 80
== END 2017-07-11 13:15 | disposition home or self-care (01) ==
LOC: JONCCHEMO 07:27 → J7W 09:14 → JONCCHEMO 13:15
PROVIDERS: ATTEND Internal Medicine Hematology & Oncology
DX: Z51.11 Encounter for antineoplastic chemotherapy (principal); C34.90 Malignant neoplasm of unspecified part of unspecified bronchus or lung
CPT/HCPCS: 36415; 80053; 80076; 83735; 85025; 96361; 96367; 96375; 96413; 96415; J9181

== ENCOUNTER 2017-07-12 07:22 | Day surgery (SDC) | payer OTHER ==
[2017-07-12] MEDS ORDERED: PEGFILGRASTIM 6 MG/0.6 ML DISP.SYRIN SQ ONE (08:00)
[2017-07-12 12:36] VITALS: BP 114/52; PULSE 92; TEMP 98.8
== END 2017-07-12 13:30 | disposition home or self-care (01) ==
LOC: JONCNONCHE 07:22 → J7W 12:22 → JONCNONCHE 13:30
PROVIDERS: ATTEND Internal Medicine Hematology & Oncology
PROC: 3E013GC Introduction of Other Therapeutic Substance into Subcutaneous Tissue, Percutaneous Approach (ICD-10-PCS; principal; 2017-07-12)
DX: C34.90 Malignant neoplasm of unspecified part of unspecified bronchus or lung (principal); Z76.89 Persons encountering health services in other specified circumstances
CPT/HCPCS: 87086; 87186; 96372; J2505

== ENCOUNTER 2017-08-07 07:36 | Day surgery (SDC) | payer OTHER ==
[2017-08-07 09:51] LABS: BASO % 0.7 % (0-2.0); EOS % 2.6 % (0-4.5); HEMATOCRIT 37.9 % (32.4-45.2); HEMOGLOBIN 12.4 GM/dL (10.7-15.3); LYMPH % 30.7 % (8-40); MCH 30.3 pg (25.7-33.7); MCHC 32.8 g/dl (32.0-36.0); MEAN CELL VOLUME 92.6 fl (80-96); MONO % 14.5 % (3.8-10.2); NEUT % 51.5 % (42.8-82.8); PLATELET COUNT 393 K/MM3 (134-434); RBC 4.09 M/mm3 (3.60-5.2); RDW 17.4 % (11.6-15.6); WHITE BLOOD COUNT 7.2 K/mm3 (4.0-10.0)
[2017-08-07] MEDS ORDERED: ONDANSETRON INJECTION 12 MG, DEXAMETHASONE INJECTION 10 MG in SODIUM CHLORIDE 100 ML IVPB ONE (10:00)
[2017-08-07 10:15] LABS: ALBUMIN 3.4 g/dl (3.4-5.0); ANION GAP 5 (8-16); BILIRUBIN,DIRECT < 0.2 mg/dL (0.0-0.2); BILIRUBIN,TOTAL 0.5 mg/dL (0.2-1.0); BLOOD UREA NITROGEN 24 mg/dL (7-18); CALCIUM 9.5 mg/dL (8.5-10.1); CHLORIDE 100 mmol/L (98-107); CO2 30 mmol/L (21-32); CREATININE 0.8 mg/dL (0.55-1.02); GLUCOSE,RANDOM 113 mg/dL (74-106); SGOT/AST 18 U/L (15-37); SODIUM 135 mmol/L (136-145); TOT PROT 7.1 g/dl (6.4-8.2)
[2017-08-07 10:22] LABS: ALK PHOS 139 U/L (45-117); SGPT/ALT 21 U/L (12-78)
[2017-08-07] MEDS ORDERED: SODIUM CHLORIDE IVPB ONE (10:30)
[2017-08-07] MEDS ORDERED: CARBOPLATIN IVPB ONE (10:30)
[2017-08-07 10:35] VITALS: TEMP 97.8
[2017-08-07] MEDS ORDERED: ETOPOSIDE IV ONE (11:30)
[2017-08-07] MEDS ORDERED: SODIUM CHLORIDE IV ONE (11:30)
[2017-08-07] MEDS ORDERED: SODIUM CHLORIDE 250 ML IV ONE (12:30)
[2017-08-07 16:15] VITALS: BP 115/73; PULSE 110
== END 2017-08-07 16:10 | disposition home or self-care (01) ==
LOC: JONCCHEMO 07:36 → J7W 10:32 → JONCCHEMO 16:10
PROVIDERS: ATTEND Internal Medicine Hematology & Oncology
DX: Z51.11 Encounter for antineoplastic chemotherapy (principal); C34.90 Malignant neoplasm of unspecified part of unspecified bronchus or lung
CPT/HCPCS: 36415; 80053; 80076; 85025; 96361; 96367; 96375; 96413; 96415; 96417; J9181

== ENCOUNTER 2017-08-08 07:44 | Day surgery (SDC) | payer OTHER ==
[2017-08-08] MEDS ORDERED: DEXAMETHASONE INJECTION 10 MG, ONDANSETRON INJECTION 12 MG in SODIUM CHLORIDE 250 ML IVPB ONE (10:00)
[2017-08-08 10:59] VITALS: BP 110/62; PULSE 73; TEMP 98.1
[2017-08-08] MEDS ORDERED: SODIUM CHLORIDE IV ONE (11:00)
[2017-08-08] MEDS ORDERED: ETOPOSIDE IV ONE (11:00)
[2017-08-08] MEDS ORDERED: SODIUM CHLORIDE 250 ML IV ONE (13:00)
== END 2017-08-08 15:15 | disposition home or self-care (01) ==
LOC: JONCCHEMO 07:44 → J7W 09:24 → JONCCHEMO 15:15
PROVIDERS: ATTEND Internal Medicine Hematology & Oncology
DX: Z51.11 Encounter for antineoplastic chemotherapy (principal); C34.90 Malignant neoplasm of unspecified part of unspecified bronchus or lung
CPT/HCPCS: 96361; 96367; 96375; 96413; 96415; J9181

== ENCOUNTER 2017-08-10 07:39 | Day surgery (SDC) | payer OTHER ==
[~2017-08-10 07:39] MED LIST: DEXAMETHASONE IVPB ONE; ETOPOSIDE IV ONE; ONDANSETRON IVPB ONE; SODIUM CHLORIDE 250 ML IV ONE; SODIUM CHLORIDE IV ONE; SODIUM CHLORIDE IVPB ONE
[2017-08-10] MEDS ORDERED: DEXAMETHASONE IVPB ONE (10:00)
[2017-08-10] MEDS ORDERED: SODIUM CHLORIDE IVPB ONE (10:00)
[2017-08-10] MEDS ORDERED: ONDANSETRON IVPB ONE (10:00)
[2017-08-10] MEDS ORDERED: ETOPOSIDE IV ONE (11:00)
[2017-08-10] MEDS ORDERED: SODIUM CHLORIDE IV ONE (11:00)
[2017-08-10] MEDS ORDERED: SODIUM CHLORIDE 250 ML IV ONE (13:00)
[2017-08-10 13:34] VITALS: BP 135/62; PULSE 87; TEMP 98.5
== END 2017-08-10 13:30 | disposition home or self-care (01) ==
LOC: JONCCHEMO 07:39 → J7W 09:01 → JONCCHEMO 13:30
PROVIDERS: ATTEND Internal Medicine Hematology & Oncology
PROC: 3E04305 Introduction of Other Antineoplastic into Central Vein, Percutaneous Approach (ICD-10-PCS; principal; 2017-08-10)
PROC: 3E043GC Introduction of Other Therapeutic Substance into Central Vein, Percutaneous Approach (ICD-10-PCS; 2017-08-10)
PROC: 3E0437Z Introduction of Electrolytic and Water Balance Substance into Central Vein, Percutaneous Approach (ICD-10-PCS; 2017-08-10)
DX: Z51.11 Encounter for antineoplastic chemotherapy (principal); C34.90 Malignant neoplasm of unspecified part of unspecified bronchus or lung
CPT/HCPCS: 96361; 96367; 96375; 96413; 96415; J9181

== ENCOUNTER 2017-08-11 12:33 | Day surgery (SDC) | payer OTHER ==
[~2017-08-11 12:33] MED LIST changes: -DEXAMETHASONE IVPB ONE; -ETOPOSIDE IV ONE; -ONDANSETRON IVPB ONE; +PEGFILGRASTIM 6 MG/0.6 ML DISP.SYRIN SQ ONE; -SODIUM CHLORIDE 250 ML IV ONE; -SODIUM CHLORIDE IV ONE; -SODIUM CHLORIDE IVPB ONE
[2017-08-11 15:00] VITALS: BP 114/55; PULSE 84; TEMP 97.7
== END 2017-08-11 13:15 | disposition home or self-care (01) ==
LOC: JONCNONCHE 12:33 → J7W 12:34 → JONCNONCHE 13:15
PROVIDERS: ATTEND Internal Medicine Hematology & Oncology
PROC: 3E033GC Introduction of Other Therapeutic Substance into Peripheral Vein, Percutaneous Approach (ICD-10-PCS; principal; 2017-08-11)
DX: C34.90 Malignant neoplasm of unspecified part of unspecified bronchus or lung (principal)
CPT/HCPCS: 96365; 96401; J2505

== ENCOUNTER 2017-08-27 07:37 | Day surgery (SDC) | payer OTHER ==
[2017-08-27] MEDS ORDERED: DEXAMETHASONE INJECTION 10 MG, ONDANSETRON INJECTION 12 MG in SODIUM CHLORIDE 100 ML IVPB ONE (08:00)
[2017-08-27] MEDS ORDERED: CARBOPLATIN IVPB ONE (08:30)
[2017-08-27] MEDS ORDERED: SODIUM CHLORIDE IVPB ONE (08:30)
[2017-08-27] MEDS ORDERED: DEXTROSE 5% IV ONE (09:00)
[2017-08-27] MEDS ORDERED: WATER IV ONE (09:00)
[2017-08-27] MEDS ORDERED: ETOPOSIDE IV ONE (09:00)
[2017-08-27 09:34] LABS: HEMATOCRIT 36.1 % (32.4-45.2); HEMOGLOBIN 11.7 GM/dL (10.7-15.3); MCH 30.6 pg (25.7-33.7); MCHC 32.5 g/dl (32.0-36.0); MEAN CELL VOLUME 94.1 fl (80-96); MEAN PLT VOLUME 7.4 fl (7.5-11.1); PLATELET COUNT 272 K/MM3 (134-434); RBC 3.84 M/mm3 (3.60-5.2); RDW 18.6 % (11.6-15.6); WHITE BLOOD COUNT 9.8 K/mm3 (4.0-10.0)
[2017-08-27 10:02] LABS: ALBUMIN 3.5 g/dl (3.4-5.0); ANION GAP 7 (8-16); BILIRUBIN,DIRECT < 0.2 mg/dL (0.0-0.2); BLOOD UREA NITROGEN 20 mg/dL (7-18); CALCIUM 8.8 mg/dL (8.5-10.1); CHLORIDE 101 mmol/L (98-107); CO2 27 mmol/L (21-32); CREATININE 0.8 mg/dL (0.55-1.02); GLUCOSE,RANDOM 93 mg/dL (74-106); LDH 223 U/L (84-246); POTASSIUM 4.9 mmol/L (3.5-5.1); SGOT/AST 20 U/L (15-37); SGPT/ALT 26 U/L (12-78); SODIUM 135 mmol/L (136-145)
[2017-08-27 10:03] LABS: ALK PHOS 188 U/L (45-117); BILIRUBIN,TOTAL 0.3 mg/dL (0.2-1.0); HDL CHOLESTEROL 49 mg/dL (40-60); TOT PROT 7.1 g/dl (6.4-8.2)
[2017-08-27] MEDS ORDERED: SODIUM CHLORIDE 250 ML IV ONE (11:00)
[2017-08-27 14:14] LABS: ANISOCYTOSIS 1+; MACROCYTOSIS 1+; PLATELET ESTIMATE NORMAL
[2017-08-27 18:04] VITALS: TEMP 97.8
[2017-08-27 18:13] VITALS: BP 134/66; PULSE 102
== END 2017-08-27 16:45 | disposition home or self-care (01) ==
LOC: JONCCHEMO 07:37 → J7W 10:52 → EDSTATUS 11:30 → JONCCHEMO 16:45
PROVIDERS: ATTEND Internal Medicine Hematology & Oncology
DX: Z51.11 Encounter for antineoplastic chemotherapy (principal); C34.90 Malignant neoplasm of unspecified part of unspecified bronchus or lung
CPT/HCPCS: 36415; 71260-TC; 80053; 80076; 83615; 83718; 84439; 84478; 85025; 96361; 96367; 96375; 96413; 96415; 96417; C1887; J1100; J9181

== ENCOUNTER 2017-08-28 07:55 | Day surgery (SDC) | payer OTHER ==
[2017-08-28] MEDS ORDERED: ONDANSETRON INJECTION 12 MG, DEXAMETHASONE INJECTION 10 MG in SODIUM CHLORIDE 100 ML IVPB ONE (08:00)
[2017-08-28] MEDS ORDERED: ETOPOSIDE IV ONE (08:30)
[2017-08-28] MEDS ORDERED: WATER IV ONE (08:30)
[2017-08-28] MEDS ORDERED: DEXTROSE 5% IV ONE (08:30)
[2017-08-28] MEDS ORDERED: SODIUM CHLORIDE 250 ML IV ONE (10:30)
[2017-08-28 14:51] VITALS: TEMP 98.1
[2017-08-28 15:08] VITALS: BP 107/54; PULSE 96
== END 2017-08-28 14:30 | disposition home or self-care (01) ==
LOC: JONCCHEMO 07:55 → J7W 10:01 → JONCCHEMO 14:30
PROVIDERS: ATTEND Internal Medicine Hematology & Oncology
DX: Z51.11 Encounter for antineoplastic chemotherapy (principal); C34.90 Malignant neoplasm of unspecified part of unspecified bronchus or lung
CPT/HCPCS: 96361; 96367; 96375; 96413; 96415; J1100; J9181

== ENCOUNTER 2017-08-29 07:34 | Day surgery (SDC) | payer OTHER ==
[2017-08-29] MEDS ORDERED: DEXAMETHASONE INJECTION 10 MG, ONDANSETRON INJECTION 12 MG in SODIUM CHLORIDE 100 ML IVPB ONE (08:00)
[2017-08-29] MEDS ORDERED: ETOPOSIDE IV ONE (08:30)
[2017-08-29] MEDS ORDERED: DEXTROSE 5% IV ONE (08:30)
[2017-08-29] MEDS ORDERED: WATER IV ONE (08:30)
[2017-08-29 09:14] VITALS: TEMP 97.7
[2017-08-29] MEDS ORDERED: SODIUM CHLORIDE 250 ML IV ONE (10:30)
[2017-08-29 17:24] VITALS: BP 110/66; PULSE 84
== END 2017-08-29 14:45 | disposition home or self-care (01) ==
LOC: JONCCHEMO 07:34 → J7W 10:39 → JONCCHEMO 14:45
PROVIDERS: ATTEND Internal Medicine Hematology & Oncology
DX: Z51.11 Encounter for antineoplastic chemotherapy (principal); C34.90 Malignant neoplasm of unspecified part of unspecified bronchus or lung
CPT/HCPCS: 96361; 96367; 96375; 96413; 96415; J1100; J9181

== ENCOUNTER 2017-08-30 07:37 | Day surgery (SDC) | payer OTHER ==
[2017-08-30] MEDS ORDERED: PEGFILGRASTIM 6 MG/0.6 ML DISP.SYRIN SQ ONE (08:00)
[2017-08-30 15:37] VITALS: BP 141/69; PULSE 77; TEMP 97.9
== END 2017-08-30 14:00 | disposition home or self-care (01) ==
LOC: JONCCHEMO 07:37 → J7W 13:32 → JONCCHEMO 14:00
PROVIDERS: ATTEND Internal Medicine Hematology & Oncology
PROC: 3E013GC Introduction of Other Therapeutic Substance into Subcutaneous Tissue, Percutaneous Approach (ICD-10-PCS; principal; 2017-08-30)
DX: C34.90 Malignant neoplasm of unspecified part of unspecified bronchus or lung (principal); Z76.89 Persons encountering health services in other specified circumstances
CPT/HCPCS: 96372; J2505

== ENCOUNTER 2017-09-17 07:05 | Day surgery (SDC) | payer OTHER ==
[2017-09-17] MEDS ORDERED: DEXAMETHASONE INJECTION 10 MG, ONDANSETRON INJECTION 12 MG in SODIUM CHLORIDE 100 ML IVPB ONE (08:00)
[2017-09-17 08:57] LABS: HEMATOCRIT 34.4 % (32.4-45.2); HEMOGLOBIN 11.2 GM/dL (10.7-15.3); MCH 30.9 pg (25.7-33.7); MCHC 32.4 g/dl (32.0-36.0); MEAN CELL VOLUME 95.3 fl (80-96); MEAN PLT VOLUME 7.3 fl (7.5-11.1); PLATELET COUNT 329 K/MM3 (134-434); RBC 3.61 M/mm3 (3.60-5.2); RDW 19.1 % (11.6-15.6); WHITE BLOOD COUNT 10.4 K/mm3 (4.0-10.0)
[2017-09-17] MEDS ORDERED: ETOPOSIDE IV ONE ×2 (09:00)
[2017-09-17] MEDS ORDERED: WATER IV ONE (09:00)
[2017-09-17] MEDS ORDERED: SODIUM CHLORIDE IV ONE (09:00)
[2017-09-17] MEDS ORDERED: DEXTROSE 5% IV ONE (09:00)
[2017-09-17 09:27] LABS: ALBUMIN 3.9 g/dl (3.4-5.0); ANION GAP 6 (8-16); BILIRUBIN,DIRECT < 0.2 mg/dL (0.0-0.2); BLOOD UREA NITROGEN 21 mg/dL (7-18); CALCIUM 8.5 mg/dL (8.5-10.1); CHLORIDE 102 mmol/L (98-107); CO2 27 mmol/L (21-32); CREATININE 0.9 mg/dL (0.55-1.02); GLUCOSE,RANDOM 92 mg/dL (74-106); MAGNESIUM 2.1 mg/dL (1.8-2.4); POTASSIUM 4.5 mmol/L (3.5-5.1); SGOT/AST 16 U/L (15-37); SGPT/ALT 25 U/L (12-78); SODIUM 135 mmol/L (136-145)
[2017-09-17 09:28] LABS: ALK PHOS 209 U/L (45-117); BILIRUBIN,TOTAL 0.3 mg/dL (0.2-1.0); TOT PROT 7.2 g/dl (6.4-8.2)
[2017-09-17 09:55] LABS: ANISOCYTOSIS 1+; MACROCYTOSIS 1+
[2017-09-17 09:56] LABS: OVALOCYTE 1+; PLATELET ESTIMATE ADEQUATE
[2017-09-17 10:24] VITALS: TEMP 98.4
[2017-09-17] MEDS ORDERED: SODIUM CHLORIDE 250 ML IV ONE (11:00)
[2017-09-17 13:44] VITALS: BP 134/70; PULSE 100
== END 2017-09-17 13:47 | disposition home or self-care (01) ==
LOC: JONCCHEMO 07:05 → J7W 08:26 → JONCCHEMO 13:47
PROVIDERS: ATTEND Internal Medicine Hematology & Oncology
DX: Z51.11 Encounter for antineoplastic chemotherapy (principal); C34.90 Malignant neoplasm of unspecified part of unspecified bronchus or lung
CPT/HCPCS: 36415; 80048; 80076; 83735; 85025; 96361; 96367; 96375; 96413; 96415; 96417; J1100; J9181

== ENCOUNTER 2017-09-18 07:26 | Day surgery (SDC) | payer OTHER ==
[2017-09-18] MEDS ORDERED: DEXAMETHASONE INJECTION 10 MG, ONDANSETRON INJECTION 12 MG in SODIUM CHLORIDE 100 ML IVPB ONE (08:00)
[2017-09-18] MEDS ORDERED: SODIUM CHLORIDE IV ONE (08:30)
[2017-09-18] MEDS ORDERED: ETOPOSIDE IV ONE (08:30)
[2017-09-18] MEDS ORDERED: SODIUM CHLORIDE 250 ML IV ONE (10:30)
[2017-09-18 11:39] VITALS: TEMP 98.1
[2017-09-18 14:10] VITALS: BP 108/59; PULSE 98
== END 2017-09-18 13:30 | disposition home or self-care (01) ==
LOC: JONCCHEMO 07:26 → J7W 09:02 → JONCCHEMO 13:30
PROVIDERS: ATTEND Internal Medicine Hematology & Oncology
DX: Z51.11 Encounter for antineoplastic chemotherapy (principal); C34.90 Malignant neoplasm of unspecified part of unspecified bronchus or lung
CPT/HCPCS: 96361; 96367; 96375; 96413; 96415; J1100; J9181

== ENCOUNTER 2017-09-19 07:32 | Day surgery (SDC) | payer OTHER ==
[2017-09-19] MEDS ORDERED: DEXAMETHASONE INJECTION 10 MG, ONDANSETRON INJECTION 12 MG in SODIUM CHLORIDE 100 ML IVPB ONE (08:00)
[2017-09-19] MEDS ORDERED: ETOPOSIDE IV ONE (08:30)
[2017-09-19] MEDS ORDERED: SODIUM CHLORIDE IV ONE (08:30)
[2017-09-19 09:18] LABS: BASO % 0.6 % (0-2.0); EOS % 0.4 % (0-4.5); HEMATOCRIT 31.1 % (32.4-45.2); HEMOGLOBIN 10.2 GM/dL (10.7-15.3); LYMPH % 25.4 % (8-40); MCH 31.6 pg (25.7-33.7); MCHC 32.8 g/dl (32.0-36.0); MEAN CELL VOLUME 96.4 fl (80-96); MEAN PLT VOLUME 7.1 fl (7.5-11.1); MONO % 17.7 % (3.8-10.2); NEUT % 55.9 % (42.8-82.8); PLATELET COUNT 353 K/MM3 (134-434); RBC 3.23 M/mm3 (3.60-5.2); RDW 19.4 % (11.6-15.6); WHITE BLOOD COUNT 8.1 K/mm3 (4.0-10.0)
[2017-09-19 09:47] LABS: ALBUMIN 3.6 g/dl (3.4-5.0); ALK PHOS 168 U/L (45-117); ANION GAP 7 (8-16); BILIRUBIN,TOTAL 0.4 mg/dL (0.2-1.0); BLOOD UREA NITROGEN 28 mg/dL (7-18); CALCIUM 8.4 mg/dL (8.5-10.1); CHLORIDE 104 mmol/L (98-107); CO2 26 mmol/L (21-32); CREATININE 0.9 mg/dL (0.55-1.02); GLUCOSE,RANDOM 83 mg/dL (74-106); MAGNESIUM 2.2 mg/dL (1.8-2.4); POTASSIUM 4.4 mmol/L (3.5-5.1); SGOT/AST 19 U/L (15-37); SGPT/ALT 25 U/L (12-78); SODIUM 137 mmol/L (136-145); TOT PROT 6.8 g/dl (6.4-8.2)
[2017-09-19 09:59] LABS: BILIRUBIN,DIRECT < 0.2 mg/dL (0.0-0.2)
[2017-09-19 10:07] VITALS: TEMP 98.2
[2017-09-19] MEDS ORDERED: SODIUM CHLORIDE 250 ML IV ONE (10:30)
[2017-09-19 13:55] VITALS: BP 143/74; PULSE 92
== END 2017-09-19 14:02 | disposition home or self-care (01) ==
LOC: JONCCHEMO 07:32 → J7W 09:33 → JONCCHEMO 14:02
PROVIDERS: ATTEND Internal Medicine Hematology & Oncology
DX: Z51.11 Encounter for antineoplastic chemotherapy (principal); C34.90 Malignant neoplasm of unspecified part of unspecified bronchus or lung
CPT/HCPCS: 36415; 80053; 82248; 83735; 85025; 96361; 96375; 96413; 96415; J1100; J2405; J9181

== ENCOUNTER 2017-09-20 07:36 | Day surgery (SDC) | payer OTHER ==
[2017-09-20] MEDS ORDERED: PEGFILGRASTIM 6 MG/0.6 ML DISP.SYRIN SQ ONE (08:00)
[2017-09-20 18:50] VITALS: BP 97/57; PULSE 89; TEMP 98.8
== END 2017-09-20 13:10 | disposition home or self-care (01) ==
LOC: JONCCHEMO 07:36 → J7W 12:56 → JONCCHEMO 13:10
PROVIDERS: ATTEND Internal Medicine Hematology & Oncology
PROC: 3E013GC Introduction of Other Therapeutic Substance into Subcutaneous Tissue, Percutaneous Approach (ICD-10-PCS; principal; 2017-09-20)
DX: C34.90 Malignant neoplasm of unspecified part of unspecified bronchus or lung (principal); Z76.89 Persons encountering health services in other specified circumstances
CPT/HCPCS: 96372; J2505

== ENCOUNTER 2017-10-08 07:18 | Day surgery (SDC) | payer OTHER ==
[2017-10-08 09:33] LABS: HEMATOCRIT 32.5 % (32.4-45.2); HEMOGLOBIN 10.9 GM/dL (10.7-15.3); MCHC 33.6 g/dl (32.0-36.0); PLATELET COUNT 394 K/MM3 (134-434); RBC 3.32 M/mm3 (3.60-5.2); RDW 18.6 % (11.6-15.6); WHITE BLOOD COUNT 9.9 K/mm3 (4.0-10.0)
[2017-10-08 10:00] LABS: ALBUMIN 3.7 g/dl (3.4-5.0); ANION GAP 6 (8-16); BILIRUBIN,DIRECT < 0.2 mg/dL (0.0-0.2); BLOOD UREA NITROGEN 23 mg/dL (7-18); CALCIUM 8.8 mg/dL (8.5-10.1); CHLORIDE 101 mmol/L (98-107); CO2 27 mmol/L (21-32); GLUCOSE,RANDOM 95 mg/dL (74-106); MAGNESIUM 2.2 mg/dL (1.8-2.4); POTASSIUM 5.3 mmol/L (3.5-5.1); SODIUM 134 mmol/L (136-145)
[2017-10-08] MEDS ORDERED: ONDANSETRON INJECTION 12 MG, DEXAMETHASONE INJECTION 10 MG in SODIUM CHLORIDE 100 ML IVPB ONE (10:00)
[2017-10-08 10:03] LABS: ALK PHOS 181 U/L (45-117); BILIRUBIN,TOTAL 0.2 mg/dL (0.2-1.0); CREATININE 0.7 mg/dL (0.55-1.02); SGOT/AST 15 U/L (15-37); SGPT/ALT 16 U/L (12-78); TOT PROT 7.4 g/dl (6.4-8.2)
[2017-10-08 10:52] LABS: ANISOCYTOSIS 0; MACROCYTOSIS 0; PLATELET ESTIMATE NORMAL
[2017-10-08] MEDS ORDERED: ETOPOSIDE IV ONE (11:30)
[2017-10-08] MEDS ORDERED: SODIUM CHLORIDE IV ONE (11:30)
[2017-10-08] MEDS ORDERED: SODIUM CHLORIDE 250 ML IV ONE (13:30)
[2017-10-08 15:03] VITALS: TEMP 97.9
[2017-10-08 17:16] VITALS: BP 136/73; PULSE 93
== END 2017-10-08 16:00 | disposition home or self-care (01) ==
LOC: JONCCHEMO 07:18 → J7W 10:14 → JONCCHEMO 16:00
PROVIDERS: ATTEND Internal Medicine Hematology & Oncology
DX: Z51.11 Encounter for antineoplastic chemotherapy (principal); C34.90 Malignant neoplasm of unspecified part of unspecified bronchus or lung
CPT/HCPCS: 36415; 80053; 80076; 83735; 85025; 96361; 96367; 96375; 96413; 96415; 96417; J1100; J9181

== ENCOUNTER 2017-10-09 07:27 | Day surgery (SDC) | payer OTHER ==
[2017-10-09 10:00] VITALS: BP 120/53; PULSE 86; TEMP 97.9
[2017-10-09] MEDS ORDERED: ONDANSETRON INJECTION 12 MG, DEXAMETHASONE INJECTION 10 MG in SODIUM CHLORIDE 100 ML IVPB ONE (10:00)
[2017-10-09] MEDS ORDERED: ETOPOSIDE IV ONE (10:30)
[2017-10-09] MEDS ORDERED: SODIUM CHLORIDE IV ONE (10:30)
[2017-10-09] MEDS ORDERED: SODIUM CHLORIDE 250 ML IV ONE (12:30)
== END 2017-10-09 14:00 | disposition home or self-care (01) ==
LOC: JONCCHEMO 07:27 → J7W 10:27 → JONCCHEMO 14:00
PROVIDERS: ATTEND Internal Medicine Hematology & Oncology
DX: Z51.11 Encounter for antineoplastic chemotherapy (principal); C34.90 Malignant neoplasm of unspecified part of unspecified bronchus or lung
CPT/HCPCS: 96361; 96367; 96375; 96413; 96415; J1100; J9181

== ENCOUNTER 2017-10-11 07:08 | Day surgery (SDC) | payer OTHER ==
[2017-10-11] MEDS ORDERED: ONDANSETRON INJECTION 12 MG, DEXAMETHASONE INJECTION 10 MG in SODIUM CHLORIDE 100 ML IVPB ONE (10:00)
[2017-10-11] MEDS ORDERED: ETOPOSIDE IV ONE (10:30)
[2017-10-11] MEDS ORDERED: SODIUM CHLORIDE IV ONE (10:30)
[2017-10-11] MEDS ORDERED: SODIUM CHLORIDE 250 ML IV ONE (12:30)
[2017-10-11 12:34] LABS: BASO % 0.6 % (0-2.0); EOS % 1.5 % (0-4.5); HEMATOCRIT 32.5 % (32.4-45.2); HEMOGLOBIN 10.9 GM/dL (10.7-15.3); LYMPH % 31.1 % (8-40); MCH 32.9 pg (25.7-33.7); MCHC 33.6 g/dl (32.0-36.0); MEAN CELL VOLUME 98.1 fl (80-96); MEAN PLT VOLUME 6.9 fl (7.5-11.1); MONO % 7.3 % (3.8-10.2); NEUT % 59.5 % (42.8-82.8); PLATELET COUNT 342 K/MM3 (134-434); RBC 3.31 M/mm3 (3.60-5.2); RDW 17.4 % (11.6-15.6); WHITE BLOOD COUNT 4.7 K/mm3 (4.0-10.0)
[2017-10-11 14:52] VITALS: TEMP 97.8
[2017-10-11 17:32] VITALS: BP 140/69; PULSE 92
== END 2017-10-11 17:30 | disposition home or self-care (01) ==
LOC: JONCCHEMO 07:08 → J7W 12:51 → JONCCHEMO 17:30
PROVIDERS: ATTEND Internal Medicine Hematology & Oncology
DX: Z51.11 Encounter for antineoplastic chemotherapy (principal); C34.90 Malignant neoplasm of unspecified part of unspecified bronchus or lung
CPT/HCPCS: 36415; 85025; 96361; 96367; 96375; 96413; 96415; J1100; J2405; J9181

== ENCOUNTER 2017-10-12 07:24 | Day surgery (SDC) | payer OTHER ==
[2017-10-12] MEDS ORDERED: PEGFILGRASTIM 6 MG/0.6 ML DISP.SYRIN SQ ONE (10:00)
[2017-10-12 15:56] VITALS: BP 123/62; PULSE 118; TEMP 98
== END 2017-10-12 15:20 | disposition home or self-care (01) ==
LOC: JONCCHEMO 07:24
PROVIDERS: ATTEND Internal Medicine Hematology & Oncology
PROC: 3E013GC Introduction of Other Therapeutic Substance into Subcutaneous Tissue, Percutaneous Approach (ICD-10-PCS; principal; 2017-10-12)
DX: C34.90 Malignant neoplasm of unspecified part of unspecified bronchus or lung (principal); Z76.89 Persons encountering health services in other specified circumstances
CPT/HCPCS: 96372; J2505

== ENCOUNTER 2018-08-28 09:17 | Day surgery (SDC) | payer OTHER ==
[2018-08-27 11:46] VITALS: BMI 22.9
[2018-08-28 09:44] LABS: BASO % 0.5 % (0-2.0); HEMATOCRIT 39.5 % (32.4-45.2); LYMPH % 24.4 % (8-40); MCH 29.1 pg (25.7-33.7); MEAN CELL VOLUME 88.2 fl (80-96); MONO % 11.1 % (3.8-10.2); PLATELET COUNT 346 K/MM3 (134-434); RBC 4.48 M/mm3 (3.60-5.2); RDW 14.8 % (11.6-15.6); WHITE BLOOD COUNT 7.4 K/mm3 (4.0-10.0)
[2018-08-28 10:00] LABS: INR 0.95 (0.83-1.09); PROTHROMBIN TIME (PATIENT) 11.2 SEC (9.7-13.0)
[2018-08-28 15:07] VITALS: TEMP 98.1
[2018-08-28 15:09] VITALS: BP 130/65; PULSE 85
== END 2018-08-28 15:00 | disposition home or self-care (01) ==
LOC: JRADIR 09:17
PROVIDERS: ATTEND Internal Medicine Hematology & Oncology
PROC: 0JH63XZ Insertion of Tunneled Vascular Access Device into Chest Subcutaneous Tissue and Fascia, Percutaneous Approach (ICD-10-PCS; principal; 2018-08-28)
PROC: 02HV33Z Insertion of Infusion Device into Superior Vena Cava, Percutaneous Approach (ICD-10-PCS; 2018-08-28)
PROC: B518ZZA Fluoroscopy of Superior Vena Cava, Guidance (ICD-10-PCS; 2018-08-28)
DX: C50.919 Malignant neoplasm of unspecified site of unspecified female breast (principal)
CPT/HCPCS: 36561; C1751; 36415; 77001-TC-FY; 85025; 85610; C1788

== ENCOUNTER 2018-08-29 07:13 | Day surgery (SDC) | payer OTHER ==
[2018-08-29] MEDS ORDERED: DEXAMETHASONE SODIUM PHOSPHATE 10 MG, DIPHENHYDRAMINE 50 MG, RANITIDINE INJECTION 50 MG... IVPB ONE (10:00)
[2018-08-29] MEDS ORDERED: PALONOSETRON HCL 0.25 MG/5 ML VIAL IVPUSH ONE (10:00)
[2018-08-29] MEDS ORDERED: SODIUM CHLORIDE IVPB ONE ×2 (10:30→11:30)
[2018-08-29] MEDS ORDERED: PACLITAXEL IVPB ONE (10:30)
[2018-08-29 11:09] LABS: BASO % 0.1 % (0-2.0); HEMATOCRIT 37.1 % (32.4-45.2); HEMOGLOBIN 12.3 GM/dL (10.7-15.3); LYMPH % 11.4 % (8-40); MCH 29.4 pg (25.7-33.7); MCHC 33.1 g/dl (32.0-36.0); MEAN CELL VOLUME 88.7 fl (80-96); MEAN PLT VOLUME 7.3 fl (7.5-11.1); MONO % 1.3 % (3.8-10.2); NEUT % 87.2 % (42.8-82.8); PLATELET COUNT 347 K/MM3 (134-434); RBC 4.18 M/mm3 (3.60-5.2); RDW 14.3 % (11.6-15.6); WHITE BLOOD COUNT 4.9 K/mm3 (4.0-10.0)
[2018-08-29 11:26] LABS: ALBUMIN 3.3 g/dl (3.4-5.0); ALK PHOS 161 U/L (45-117); ANION GAP 11 MMOL/L (8-16); BILIRUBIN,DIRECT 0.1 mg/dL (0.0-0.2); BILIRUBIN,TOTAL 0.4 mg/dL (0.2-1); BLOOD UREA NITROGEN 25 mg/dL (7-18); CALCIUM 8.8 mg/dL (8.5-10.1); CHLORIDE 101 mmol/L (98-107); CO2 26 mmol/L (21-32); GLUCOSE,RANDOM 229 mg/dL (74-106); MAGNESIUM 2.3 mg/dL (1.8-2.4); POTASSIUM 3.8 mmol/L (3.5-5.1); SGOT/AST 19 U/L (15-37); SGPT/ALT 19 U/L (13-61); SODIUM 138 mmol/L (136-145); TOT PROT 7.3 g/dl (6.4-8.2)
[2018-08-29] MEDS ORDERED: CARBOPLATIN IVPB ONE (11:30)
[2018-08-29] MEDS ORDERED: SODIUM CHLORIDE 250 ML IV ONE (12:00)
[2018-08-29] MEDS ORDERED: PORTA CATH FLUSH 10 ML IVPUSH ONE (16:11)
[2018-08-29 16:13] VITALS: BP 107/55; PULSE 93; TEMP 97.7
== END 2018-08-29 15:45 | disposition home or self-care (01) ==
LOC: JONCCHEMO 07:13 → J7W 10:17 → JONCCHEMO 15:45
PROVIDERS: ATTEND Internal Medicine Hematology & Oncology
DX: Z51.11 Encounter for antineoplastic chemotherapy (principal); C50.919 Malignant neoplasm of unspecified site of unspecified female breast
CPT/HCPCS: 36415; 80048; 80076; 82378; 83735; 85025; 96361; 96367; 96375; 96413; 96417; J2469

== ENCOUNTER 2018-09-05 07:22 | Day surgery (SDC) | payer OTHER ==
[2018-09-05] MEDS ORDERED: DEXAMETHASONE SODIUM PHOSPHATE IVPB ONE (10:00)
[2018-09-05] MEDS ORDERED: RANITIDINE IVPB ONE (10:00)
[2018-09-05] MEDS ORDERED: [UNRECOGNIZED DRUG - OTHER] IVPB ONE (10:00)
[2018-09-05] MEDS ORDERED: PALONOSETRON HCL 0.25 MG/5 ML VIAL IVPUSH ONE (10:00)
[2018-09-05] MEDS ORDERED: PACLITAXEL IVPB ONE (10:30)
[2018-09-05] MEDS ORDERED: SODIUM CHLORIDE IVPB ONE ×2 (10:30→11:30)
[2018-09-05] MEDS ORDERED: CARBOPLATIN IVPB ONE (11:30)
[2018-09-05] MEDS ORDERED: SODIUM CHLORIDE 250 ML IV ONE (12:00)
[2018-09-05 12:16] LABS: BASO % 0.1 % (0-2.0); EOS % 0.2 % (0-4.5); HEMATOCRIT 35.2 % (32.4-45.2); HEMOGLOBIN 11.9 GM/dL (10.7-15.3); LYMPH % 6.7 % (8-40); MCH 29.5 pg (25.7-33.7); MCHC 33.7 g/dl (32.0-36.0); MEAN CELL VOLUME 87.7 fl (80-96); MEAN PLT VOLUME 7.2 fl (7.5-11.1); PLATELET COUNT 308 K/MM3 (134-434); RBC 4.02 M/mm3 (3.60-5.2); RDW 14.4 % (11.6-15.6); WHITE BLOOD COUNT 4.5 K/mm3 (4.0-10.0)
[2018-09-05 12:45] LABS: ALBUMIN 3.1 g/dl (3.4-5.0); ALK PHOS 149 U/L (45-117); ANION GAP 9 MMOL/L (8-16); BILIRUBIN,DIRECT 0.1 mg/dL (0.0-0.2); BILIRUBIN,TOTAL 0.3 mg/dL (0.2-1); BLOOD UREA NITROGEN 29 mg/dL (7-18); CALCIUM 8.3 mg/dL (8.5-10.1); CHLORIDE 100 mmol/L (98-107); CO2 27 mmol/L (21-32); CREATININE 0.8 mg/dL (0.55-1.3); GLUCOSE,RANDOM 140 mg/dL (74-106); MAGNESIUM 2.2 mg/dL (1.8-2.4); SGOT/AST 19 U/L (15-37); SGPT/ALT 20 U/L (13-61); SODIUM 136 mmol/L (136-145); TOT PROT 6.8 g/dl (6.4-8.2)
[2018-09-05 13:56] LABS: ANISOCYTOSIS 0; HELMET CELLS 0; HOWELL-JOLLY BODIES 0; MACROCYTOSIS 0; OVALOCYTE 0; PLATELET ESTIMATE NORMAL; ROULEAU 0; SICKELED CELLS 0; TARGET CELLS 0; TEAR DROP CELLS 0; TOXIC GRANULATION 0
[2018-09-05 17:26] VITALS: TEMP 98
[2018-09-05 17:42] VITALS: BP 99/57; PULSE 104
[2018-09-05] MEDS ORDERED: PORTA CATH FLUSH 10 ML IVPUSH ONE (17:42)
== END 2018-09-05 16:35 | disposition home or self-care (01) ==
LOC: JONCCHEMO 07:22 → J7W 10:45 → JONCCHEMO 16:35
PROVIDERS: ATTEND Internal Medicine Hematology & Oncology
DX: Z51.11 Encounter for antineoplastic chemotherapy (principal); C50.919 Malignant neoplasm of unspecified site of unspecified female breast
CPT/HCPCS: 36415; 80048; 80076; 83735; 85025; 96361; 96367; 96375; 96413; 96417; J2469

== ENCOUNTER 2018-09-12 07:10 | Day surgery (SDC) | payer OTHER ==
[2018-09-12] MEDS ORDERED: DEXAMETHASONE SODIUM PHOSPHATE 10 MG, DIPHENHYDRAMINE 50 MG, RANITIDINE INJECTION 50 MG... IVPB ONE (10:00)
[2018-09-12] MEDS ORDERED: PALONOSETRON HCL 0.25 MG/5 ML VIAL IVPUSH ONE (10:00)
[2018-09-12] MEDS ORDERED: SODIUM CHLORIDE IVPB ONE ×2 (10:30→11:30)
[2018-09-12] MEDS ORDERED: PACLITAXEL IVPB ONE (10:30)
[2018-09-12 10:45] LABS: BASO % 0.4 % (0-2.0); EOS % 0.7 % (0-4.5); HEMOGLOBIN 12.9 GM/dL (10.7-15.3); LYMPH % 7.6 % (8-40); MCH 30.3 pg (25.7-33.7); MCHC 33.9 g/dl (32.0-36.0); MEAN CELL VOLUME 89.2 fl (80-96); MEAN PLT VOLUME 7.7 fl (7.5-11.1); MONO % 4.6 % (3.8-10.2); NEUT % 86.7 % (42.8-82.8); PLATELET COUNT 258 K/MM3 (134-434); RBC 4.25 M/mm3 (3.60-5.2); RDW 14.2 % (11.6-15.6)
[2018-09-12] MEDS ORDERED: CARBOPLATIN IVPB ONE (11:30)
[2018-09-12 11:38] LABS: ALBUMIN 3.4 g/dl (3.4-5.0); ALK PHOS 169 U/L (45-117); ANION GAP 8 MMOL/L (8-16); BILIRUBIN,DIRECT 0.1 mg/dL (0.0-0.2); BILIRUBIN,TOTAL 0.4 mg/dL (0.2-1); BLOOD UREA NITROGEN 20 mg/dL (7-18); CALCIUM 8.8 mg/dL (8.5-10.1); CHLORIDE 100 mmol/L (98-107); CO2 29 mmol/L (21-32); CREATININE 0.8 mg/dL (0.55-1.3); GLUCOSE,RANDOM 108 mg/dL (74-106); MAGNESIUM 2.5 mg/dL (1.8-2.4); POTASSIUM 3.9 mmol/L (3.5-5.1); SGOT/AST 22 U/L (15-37); SGPT/ALT 21 U/L (13-61); SODIUM 137 mmol/L (136-145); TOT PROT 7.1 g/dl (6.4-8.2)
[2018-09-12] MEDS ORDERED: SODIUM CHLORIDE 250 ML IV ONE (12:00)
[2018-09-12 16:57] VITALS: TEMP 98
[2018-09-12] MEDS ORDERED: PORTA CATH FLUSH 10 ML IVPUSH ONE (16:57)
[2018-09-12 16:59] VITALS: BP 114/65; PULSE 102
== END 2018-09-12 16:00 | disposition home or self-care (01) ==
LOC: JONCCHEMO 07:10 → J7W 12:32 → JONCCHEMO 16:00
PROVIDERS: ATTEND Internal Medicine Hematology & Oncology
DX: Z51.11 Encounter for antineoplastic chemotherapy (principal); C50.919 Malignant neoplasm of unspecified site of unspecified female breast
CPT/HCPCS: 36415; 80048; 80076; 83735; 85025; 96361; 96367; 96375; 96413; 96417; J2469

== ENCOUNTER 2018-09-19 07:33 | Day surgery (SDC) | payer OTHER ==
[2018-09-19 09:54] LABS: BASO % 0.2 % (0-2.0); EOS % 0.8 % (0-4.5); HEMATOCRIT 36.3 % (32.4-45.2); HEMOGLOBIN 12.3 GM/dL (10.7-15.3); LYMPH % 11.8 % (8-40); MCH 30.2 pg (25.7-33.7); MCHC 33.8 g/dl (32.0-36.0); MEAN CELL VOLUME 89.3 fl (80-96); MEAN PLT VOLUME 7.2 fl (7.5-11.1); MONO % 17.8 % (3.8-10.2); NEUT % 69.4 % (42.8-82.8); PLATELET COUNT 223 K/MM3 (134-434); RBC 4.07 M/mm3 (3.60-5.2); RDW 14.9 % (11.6-15.6); WHITE BLOOD COUNT 3.4 K/mm3 (4.0-10.0)
[2018-09-19] MEDS ORDERED: DEXAMETHASONE SODIUM PHOSPHATE 10 MG, DIPHENHYDRAMINE 50 MG, RANITIDINE INJECTION 50 MG... IVPB ONE (10:00)
[2018-09-19] MEDS ORDERED: PALONOSETRON HCL 0.25 MG/5 ML VIAL IVPUSH ONE (10:00)
[2018-09-19 10:20] LABS: ALBUMIN 3.2 g/dl (3.4-5.0); ALK PHOS 166 U/L (45-117); ANION GAP 6 MMOL/L (8-16); BILIRUBIN,TOTAL 0.2 mg/dL (0.2-1); BLOOD UREA NITROGEN 21 mg/dL (7-18); CALCIUM 8.6 mg/dL (8.5-10.1); CHLORIDE 101 mmol/L (98-107); CO2 32 mmol/L (21-32); CREATININE 0.8 mg/dL (0.55-1.3); GLUCOSE,RANDOM 101 mg/dL (74-106); POTASSIUM 3.9 mmol/L (3.5-5.1); SGOT/AST 20 U/L (15-37); SGPT/ALT 22 U/L (13-61); SODIUM 139 mmol/L (136-145); TOT PROT 6.7 g/dl (6.4-8.2)
[2018-09-19 10:24] LABS: ALBUMIN 3.2 g/dl (3.4-5.0); BILIRUBIN,DIRECT 0.1 mg/dL (0.0-0.2); BILIRUBIN,TOTAL 0.3 mg/dL (0.2-1); MAGNESIUM 2.1 mg/dL (1.8-2.4); TOT PROT 6.7 g/dl (6.4-8.2)
[2018-09-19] MEDS ORDERED: SODIUM CHLORIDE IVPB ONE ×2 (10:30→11:00)
[2018-09-19] MEDS ORDERED: PACLITAXEL IVPB ONE (10:30)
[2018-09-19] MEDS ORDERED: CARBOPLATIN IVPB ONE (11:00)
[2018-09-19] MEDS ORDERED: SODIUM CHLORIDE 250 ML IV ONE (11:30)
--- NOTE | 2018-09-19 15:40 | EKG ---
Test Reason : Blood Pressure : / mmHG Vent. Rate : 102 BPM Atrial Rate : 102 BPM P-R Int : 184 ms QRS Dur : 082 ms QT Int : 374 ms P-R-T Axes : 069 056 045 degrees QTc Int : 487 ms SINUS TACHYCARDIA POSSIBLE LEFT ATRIAL ENLARGEMENT SEPTAL INFARCT (CITED ON OR BEFORE 28-FEB-2018) ABNORMAL ECG WHEN COMPARED WITH ECG OF 28-FEB-2018 02:53, FUSION COMPLEXES ARE NO LONGER PRESENT PREMATURE VENTRICULAR COMPLEXES ARE NO LONGER PRESENT QUESTIONABLE CHANGE IN INITIAL FORCES OF SEPTAL LEADS Confirmed by NACHO DONOHUE MD ([id number]) on 09/19/2018 3:39:47 PM Referred By: Confirmed By:NACHO DONOHUE MD
[2018-09-19 16:52] VITALS: TEMP 97.9
[2018-09-19] MEDS ORDERED: PORTA CATH FLUSH 10 ML IVPUSH ONE (16:52)
[2018-09-19 16:54] VITALS: BP 140/73; PULSE 111
== END 2018-09-19 14:10 | disposition home or self-care (01) ==
LOC: JONCCHEMO 07:33 → J7W 10:27 → JONCCHEMO 14:10
PROVIDERS: ATTEND Internal Medicine Hematology & Oncology
DX: Z51.11 Encounter for antineoplastic chemotherapy (principal); C50.919 Malignant neoplasm of unspecified site of unspecified female breast
CPT/HCPCS: 36415; 80053; 80076; 82962; 83735; 84439; 84443; 85025; 93005; 93010; 96361; 96366; 96367; 96375; 96413; 96417; J2469

== ENCOUNTER 2018-09-26 05:44 | Day surgery (SDC) | payer OTHER ==
[2018-09-26] MEDS ORDERED: DEXAMETHASONE SODIUM PHOSPHATE IVPB ONE (08:00)
[2018-09-26] MEDS ORDERED: PALONOSETRON HCL 0.25 MG/5 ML VIAL IVPUSH ONE (08:00)
[2018-09-26] MEDS ORDERED: [UNRECOGNIZED DRUG - OTHER] IVPB ONE (08:00)
[2018-09-26] MEDS ORDERED: DIPHENHYDRAMINE IVPB ONE (08:00)
[2018-09-26] MEDS ORDERED: SODIUM CHLORIDE IVPB ONE ×2 (08:30→09:30)
[2018-09-26] MEDS ORDERED: PACLITAXEL IVPB ONE (08:30)
[2018-09-26] MEDS ORDERED: CARBOPLATIN IVPB ONE (09:30)
[2018-09-26] MEDS ORDERED: SODIUM CHLORIDE 250 ML IV ONE (10:00)
[2018-09-26 10:09] LABS: BASO % 0.2 % (0-2.0); EOS % 1.3 % (0-4.5); HEMATOCRIT 33.8 % (32.4-45.2); HEMOGLOBIN 11.7 GM/dL (10.7-15.3); LYMPH % 16.8 % (8-40); MCHC 34.5 g/dl (32.0-36.0); MEAN CELL VOLUME 89.7 fl (80-96); MEAN PLT VOLUME 7.1 fl (7.5-11.1); MONO % 20.6 % (3.8-10.2); NEUT % 61.1 % (42.8-82.8); PLATELET COUNT 177 K/MM3 (134-434); RBC 3.77 M/mm3 (3.60-5.2); RDW 15.2 % (11.6-15.6); WHITE BLOOD COUNT 2.4 K/mm3 (4.0-10.0)
[2018-09-26 10:14] LABS: URINE APPEARANCE CLEAR; URINE BILIRUBIN NEGATIVE (<2.0 mg/dL); URINE COLOR LTYELLOW; URINE GLUCOSE (UA) NEGATIVE (NEGATIVE); URINE KETONE NEGATIVE (NEGATIVE); URINE LEUK ESTERASE TRACE (NEGATIVE); URINE NITRITE NEGATIVE (NEGATIVE); URINE PROTEIN NEGATIVE (NEGATIVE); URINE UROBILINOGEN NEGATIVE mg/dL (0.2-1.0)
[2018-09-26 10:23] LABS: URINE HYALINE CAST 1 /lpf; URINE MUCUS RARE
[2018-09-26 10:43] LABS: ALBUMIN 3.2 g/dl (3.4-5.0); ANION GAP 6 MMOL/L (8-16); BILIRUBIN,TOTAL 0.2 mg/dL (0.2-1); BLOOD UREA NITROGEN 21 mg/dL (7-18); CALCIUM 8.2 mg/dL (8.5-10.1); CHLORIDE 102 mmol/L (98-107); CO2 33 mmol/L (21-32); CREATININE 0.8 mg/dL (0.55-1.3); GLUCOSE,RANDOM 96 mg/dL (74-106); POTASSIUM 3.6 mmol/L (3.5-5.1); SGOT/AST 20 U/L (15-37); SODIUM 140 mmol/L (136-145); TOT PROT 6.5 g/dl (6.4-8.2)
[2018-09-26 10:44] LABS: ALK PHOS 183 U/L (45-117); SGPT/ALT 19 U/L (13-61)
[2018-09-26 10:55] LABS: ALBUMIN 3.1 g/dl (3.4-5.0); BILIRUBIN,DIRECT 0.1 mg/dL (0.0-0.2); BILIRUBIN,TOTAL 0.2 mg/dL (0.2-1); MAGNESIUM 2.3 mg/dL (1.8-2.4); TOT PROT 6.5 g/dl (6.4-8.2)
[2018-09-26] MEDS ORDERED: TBO-FILGRASTIM 300 MCG/0.5 ML DISP.SYRINGE SQ ONE (11:30)
[2018-09-26 13:41] LABS: ANISOCYTOSIS 2+; MACROCYTOSIS 0; OVALOCYTE 1+; PLATELET ESTIMATE NORMAL; TEAR DROP CELLS 2+
[2018-09-26 16:08] VITALS: PULSE 98; TEMP 98.3
[2018-09-26] MEDS ORDERED: PORTA CATH FLUSH 10 ML IVPUSH ONE ×2 (16:08→16:40)
[2018-09-26 16:14] VITALS: BP 121/65
[2018-09-27] MEDS ORDERED: TBO-FILGRASTIM 300 MCG/0.5 ML DISP.SYRINGE SQ ONE (11:00)
== END 2018-09-26 15:10 | disposition home or self-care (01) ==
LOC: JONCCHEMO 05:44 → J7W 11:01 → JONCCHEMO 15:10
PROVIDERS: ATTEND Internal Medicine Hematology & Oncology
DX: Z51.11 Encounter for antineoplastic chemotherapy (principal); C50.919 Malignant neoplasm of unspecified site of unspecified female breast
CPT/HCPCS: 36415; 80053; 80076; 81003; 81015; 83735; 85025; 87086; 96361; 96367; 96375; 96413; 96417; J2469

== ENCOUNTER 2018-09-27 07:20 | Day surgery (SDC) | payer OTHER ==
[2018-09-27] MEDS ORDERED: TBO-FILGRASTIM 300 MCG/0.5 ML DISP.SYRINGE SQ ONE (14:30)
[2018-09-27 15:09] VITALS: BP 128/58; PULSE 94; TEMP 99
== END 2018-09-27 15:15 | disposition home or self-care (01) ==
LOC: JONCCHEMO 07:20 → J7W 14:15 → JONCCHEMO 15:15
PROVIDERS: ATTEND Internal Medicine Hematology & Oncology
PROC: 3E013GC Introduction of Other Therapeutic Substance into Subcutaneous Tissue, Percutaneous Approach (ICD-10-PCS; principal; 2018-09-27)
DX: C50.919 Malignant neoplasm of unspecified site of unspecified female breast (principal)
CPT/HCPCS: 96372; J1447

== ENCOUNTER 2018-10-03 05:58 | Day surgery (SDC) | payer OTHER ==
[2018-10-03] MEDS ORDERED: PALONOSETRON HCL 0.25 MG/5 ML VIAL IVPUSH ONE (08:00)
[2018-10-03] MEDS ORDERED: DEXAMETHASONE SODIUM PHOSPHATE IVPB ONE (08:00)
[2018-10-03] MEDS ORDERED: [UNRECOGNIZED DRUG - OTHER] IVPB ONE (08:00)
[2018-10-03] MEDS ORDERED: DIPHENHYDRAMINE IVPB ONE (08:00)
[2018-10-03] MEDS ORDERED: SODIUM CHLORIDE IVPB ONE ×2 (08:30→09:30)
[2018-10-03] MEDS ORDERED: PACLITAXEL IVPB ONE (08:30)
[2018-10-03] MEDS ORDERED: CARBOPLATIN IVPB ONE (09:30)
[2018-10-03] MEDS ORDERED: SODIUM CHLORIDE 250 ML IV ONE (10:00)
[2018-10-03 10:34] VITALS: TEMP 97.8
[2018-10-03 10:58] LABS: BASO % 0.3 % (0-2.0); EOS % 0.8 % (0-4.5); HEMATOCRIT 34.9 % (32.4-45.2); LYMPH % 13.5 % (8-40); MCHC 34.3 g/dl (32.0-36.0); MEAN CELL VOLUME 90.3 fl (80-96); MEAN PLT VOLUME 7.7 fl (7.5-11.1); MONO % 24.3 % (3.8-10.2); NEUT % 61.1 % (42.8-82.8); PLATELET COUNT 154 K/MM3 (134-434); RBC 3.87 M/mm3 (3.60-5.2); WHITE BLOOD COUNT 2.3 K/mm3 (4.0-10.0)
[2018-10-03 11:29] LABS: ALBUMIN 3.4 g/dl (3.4-5.0); ALK PHOS 189 U/L (45-117); ANION GAP 7 MMOL/L (8-16); BILIRUBIN,TOTAL 0.2 mg/dL (0.2-1); BLOOD UREA NITROGEN 17 mg/dL (7-18); CALCIUM 8.8 mg/dL (8.5-10.1); CHLORIDE 103 mmol/L (98-107); CO2 30 mmol/L (21-32); CREATININE 0.7 mg/dL (0.55-1.3); GLUCOSE,RANDOM 96 mg/dL (74-106); POTASSIUM 4.6 mmol/L (3.5-5.1); SGOT/AST 18 U/L (15-37); SGPT/ALT 21 U/L (13-61); SODIUM 140 mmol/L (136-145)
[2018-10-03 11:35] LABS: ALBUMIN 3.3 g/dl (3.4-5.0); BILIRUBIN,DIRECT 0.1 mg/dL (0.0-0.2); BILIRUBIN,TOTAL 0.3 mg/dL (0.2-1); MAGNESIUM 2.6 mg/dL (1.8-2.4); TOT PROT 6.7 g/dl (6.4-8.2)
[2018-10-03 11:37] LABS: ANISOCYTOSIS 0; HELMET CELLS 0; HOWELL-JOLLY BODIES 0; MACROCYTOSIS 0; OVALOCYTE 0; ROULEAU 0; SICKELED CELLS 0; TARGET CELLS 0; TEAR DROP CELLS 0; TOXIC GRANULATION 0
[2018-10-03 11:47] LABS: PLATELET ESTIMATE ADEQUATE
[2018-10-03] MEDS ORDERED: PORTA CATH FLUSH 10 ML IVPUSH ONE (18:37)
[2018-10-03 18:39] VITALS: BP 119/62
[2018-10-03 18:40] VITALS: PULSE 112
== END 2018-10-03 15:20 | disposition home or self-care (01) ==
LOC: JONCCHEMO 05:58 → J7W 11:39 → JONCCHEMO 15:20
PROVIDERS: ATTEND Internal Medicine Hematology & Oncology
DX: Z51.11 Encounter for antineoplastic chemotherapy (principal); C34.90 Malignant neoplasm of unspecified part of unspecified bronchus or lung
CPT/HCPCS: 36415; 80053; 80076; 83735; 85025; 93970-TC; 96361; 96367; 96375; 96413; 96417; J2469

== ENCOUNTER 2018-10-04 05:47 | Day surgery (SDC) | payer OTHER ==
[2018-10-04] MEDS ORDERED: TBO-FILGRASTIM 300 MCG/0.5 ML DISP.SYRINGE SQ ONE (09:00)
[2018-10-04 17:05] VITALS: BP 111/58; PULSE 92; TEMP 97.8
== END 2018-10-04 15:20 | disposition home or self-care (01) ==
LOC: JONCCHEMO 05:47
PROVIDERS: ATTEND Internal Medicine Hematology & Oncology
PROC: 3E013GC Introduction of Other Therapeutic Substance into Subcutaneous Tissue, Percutaneous Approach (ICD-10-PCS; principal; 2018-10-04)
DX: C34.90 Malignant neoplasm of unspecified part of unspecified bronchus or lung (principal); Z76.89 Persons encountering health services in other specified circumstances
CPT/HCPCS: 96372; J1447

== ENCOUNTER 2018-10-10 07:23 | Day surgery (SDC) | payer OTHER ==
[2018-10-10] MEDS ORDERED: DIPHENHYDRAMINE IVPB ONE (08:00)
[2018-10-10] MEDS ORDERED: [UNRECOGNIZED DRUG - OTHER] IVPB ONE (08:00)
[2018-10-10] MEDS ORDERED: DEXAMETHASONE SODIUM PHOSPHATE IVPB ONE (08:00)
[2018-10-10] MEDS ORDERED: PALONOSETRON HCL 0.25 MG/5 ML VIAL IVPUSH ONE (08:00)
[2018-10-10] MEDS ORDERED: SODIUM CHLORIDE IVPB ONE ×2 (08:30→09:30)
[2018-10-10] MEDS ORDERED: PACLITAXEL IVPB ONE (08:30)
[2018-10-10] MEDS ORDERED: CARBOPLATIN IVPB ONE (09:30)
[2018-10-10] MEDS ORDERED: SODIUM CHLORIDE 250 ML IV ONE (10:00)
[2018-10-10 10:52] LABS: BASO % 0.1 % (0-2.0); EOS % 0.6 % (0-4.5); HEMATOCRIT 30.4 % (32.4-45.2); HEMOGLOBIN 10.5 GM/dL (10.7-15.3); LYMPH % 7.9 % (8-40); MCH 31.1 pg (25.7-33.7); MCHC 34.5 g/dl (32.0-36.0); MEAN PLT VOLUME 7.8 fl (7.5-11.1); MONO % 26.7 % (3.8-10.2); NEUT % 64.7 % (42.8-82.8); PLATELET COUNT 166 K/MM3 (134-434); RBC 3.37 M/mm3 (3.60-5.2); RDW 16.9 % (11.6-15.6); WHITE BLOOD COUNT 2.9 K/mm3 (4.0-10.0)
[2018-10-10 11:24] LABS: ALBUMIN 3.4 g/dl (3.4-5.0); BILIRUBIN,DIRECT 0.1 mg/dL (0.0-0.2); BILIRUBIN,TOTAL 0.5 mg/dL (0.2-1); MAGNESIUM 2.3 mg/dL (1.8-2.4); TOT PROT 6.9 g/dl (6.4-8.2)
[2018-10-10 11:28] LABS: ALBUMIN 3.4 g/dl (3.4-5.0); ALK PHOS 169 U/L (45-117); ANION GAP 7 MMOL/L (8-16); BILIRUBIN,TOTAL 0.3 mg/dL (0.2-1); BLOOD UREA NITROGEN 21 mg/dL (7-18); CALCIUM 8.8 mg/dL (8.5-10.1); CHLORIDE 104 mmol/L (98-107); CO2 28 mmol/L (21-32); CREATININE 0.7 mg/dL (0.55-1.3); GLUCOSE,RANDOM 108 mg/dL (74-106); POTASSIUM 3.9 mmol/L (3.5-5.1); SGOT/AST 23 U/L (15-37); SGPT/ALT 23 U/L (13-61); SODIUM 139 mmol/L (136-145); TOT PROT 6.9 g/dl (6.4-8.2)
[2018-10-10 13:47] LABS: ANISOCYTOSIS 0; HELMET CELLS 0; HOWELL-JOLLY BODIES 0; MACROCYTOSIS 0; OVALOCYTE 0; ROULEAU 0; SICKELED CELLS 0; TARGET CELLS 0; TEAR DROP CELLS 0; TOXIC GRANULATION 0
[2018-10-10 14:01] LABS: PLATELET ESTIMATE ADEQUATE
[2018-10-10 17:19] VITALS: TEMP 98.1
[2018-10-10] MEDS ORDERED: PORTA CATH FLUSH 10 ML IVPUSH ONE (17:19)
[2018-10-10 17:20] VITALS: BP 100/54; PULSE 80
== END 2018-10-10 15:30 | disposition home or self-care (01) ==
LOC: JONCCHEMO 07:23 → J7W 12:21 → JONCCHEMO 15:30
PROVIDERS: ATTEND Internal Medicine Hematology & Oncology
DX: Z51.11 Encounter for antineoplastic chemotherapy (principal); C34.90 Malignant neoplasm of unspecified part of unspecified bronchus or lung
CPT/HCPCS: 36415; 80053; 80076; 83735; 85025; 96361; 96367; 96375; 96413; 96417; J2469

== ENCOUNTER → 2018-10-10 | Day surgery (SDC) | payer OTHER | LOC: JLAB 11:59 ==

== ENCOUNTER 2018-10-11 07:54 | Day surgery (SDC) | payer OTHER ==
[2018-10-11] MEDS ORDERED: TBO-FILGRASTIM 300 MCG/0.5 ML DISP.SYRINGE SQ ONE (14:15)
[2018-10-11 15:43] VITALS: BP 118/56; PULSE 96; TEMP 98.3
== END 2018-10-11 14:30 | disposition home or self-care (01) ==
LOC: JONCCHEMO 07:54 → J7W 14:04 → JONCCHEMO 14:30
PROVIDERS: ATTEND Internal Medicine Hematology & Oncology
PROC: 3E013GC Introduction of Other Therapeutic Substance into Subcutaneous Tissue, Percutaneous Approach (ICD-10-PCS; principal; 2018-10-11)
DX: C34.90 Malignant neoplasm of unspecified part of unspecified bronchus or lung (principal); Z76.89 Persons encountering health services in other specified circumstances
CPT/HCPCS: 96372; J1447

== ENCOUNTER 2018-10-17 05:42 | Day surgery (SDC) | payer OTHER ==
[2018-10-17] MEDS ORDERED: PALONOSETRON HCL 0.25 MG/5 ML VIAL IVPUSH ONE (08:00)
[2018-10-17] MEDS ORDERED: [UNRECOGNIZED DRUG - OTHER] IVPB ONE (08:00)
[2018-10-17] MEDS ORDERED: DIPHENHYDRAMINE IVPB ONE (08:00)
[2018-10-17] MEDS ORDERED: DEXAMETHASONE SODIUM PHOSPHATE IVPB ONE (08:00)
[2018-10-17] MEDS ORDERED: PACLITAXEL IVPB ONE (08:30)
[2018-10-17] MEDS ORDERED: SODIUM CHLORIDE IVPB ONE ×2 (08:30→09:30)
[2018-10-17] MEDS ORDERED: CARBOPLATIN IVPB ONE (09:30)
[2018-10-17 09:56] LABS: BASO % 0.2 % (0-2.0); EOS % 0.6 % (0-4.5); HEMATOCRIT 29.8 % (32.4-45.2); HEMOGLOBIN 10.2 GM/dL (10.7-15.3); LYMPH % 12.2 % (8-40); MCH 31.4 pg (25.7-33.7); MCHC 34.1 g/dl (32.0-36.0); MEAN PLT VOLUME 7.6 fl (7.5-11.1); PLATELET COUNT 176 K/MM3 (134-434); RBC 3.24 M/mm3 (3.60-5.2); RDW 19.1 % (11.6-15.6)
[2018-10-17] MEDS ORDERED: SODIUM CHLORIDE 250 ML IV ONE (10:00)
[2018-10-17 10:25] LABS: ALBUMIN 3.2 g/dl (3.4-5.0); ALK PHOS 162 U/L (45-117); ANION GAP 5 MMOL/L (8-16); BILIRUBIN,TOTAL 0.3 mg/dL (0.2-1); BLOOD UREA NITROGEN 20 mg/dL (7-18); CALCIUM 8.6 mg/dL (8.5-10.1); CHLORIDE 103 mmol/L (98-107); CO2 31 mmol/L (21-32); CREATININE 0.8 mg/dL (0.55-1.3); GLUCOSE,RANDOM 96 mg/dL (74-106); POTASSIUM 3.9 mmol/L (3.5-5.1); SGOT/AST 21 U/L (15-37); SGPT/ALT 22 U/L (13-61); SODIUM 139 mmol/L (136-145); TOT PROT 6.6 g/dl (6.4-8.2)
[2018-10-17 10:26] LABS: ALBUMIN 3.3 g/dl (3.4-5.0); BILIRUBIN,DIRECT 0.1 mg/dL (0.0-0.2); BILIRUBIN,TOTAL 0.5 mg/dL (0.2-1); MAGNESIUM 2.5 mg/dL (1.8-2.4); TOT PROT 6.6 g/dl (6.4-8.2)
[2018-10-17 11:58] LABS: ANISOCYTOSIS 0; MACROCYTOSIS 1+; OVALOCYTE 1+; PLATELET ESTIMATE NORMAL
[2018-10-17] MEDS ORDERED: PORTA CATH FLUSH 10 ML IVPUSH ONE (16:12)
[2018-10-17 16:13] VITALS: TEMP 98.1
[2018-10-17 16:39] VITALS: BP 117/57; PULSE 88
== END 2018-10-17 15:00 | disposition home or self-care (01) ==
LOC: JONCCHEMO 05:42 → J7W 11:01 → JONCCHEMO 15:00
PROVIDERS: ATTEND Internal Medicine Hematology & Oncology
PROC: 3E013GC Introduction of Other Therapeutic Substance into Subcutaneous Tissue, Percutaneous Approach (ICD-10-PCS; principal; 2018-10-17)
DX: C34.90 Malignant neoplasm of unspecified part of unspecified bronchus or lung (principal); Z76.89 Persons encountering health services in other specified circumstances
CPT/HCPCS: 36415; 80053; 80076; 83735; 85025; 96361; 96367; 96372; 96375; 96413; 96417; J2469

== ENCOUNTER 2018-10-18 07:18 | Day surgery (SDC) | payer OTHER ==
[2018-10-18] MEDS ORDERED: TBO-FILGRASTIM 300 MCG/0.5 ML DISP.SYRINGE SQ ONE (12:30)
[2018-10-18 12:56] VITALS: BP 110/45; PULSE 99; TEMP 97.9
== END 2018-10-18 12:20 | disposition home or self-care (01) ==
LOC: JONCCHEMO 07:18 → J7W 11:24 → JONCCHEMO 12:20
PROVIDERS: ATTEND Internal Medicine Hematology & Oncology
PROC: 3E013GC Introduction of Other Therapeutic Substance into Subcutaneous Tissue, Percutaneous Approach (ICD-10-PCS; principal; 2018-10-18)
DX: C34.90 Malignant neoplasm of unspecified part of unspecified bronchus or lung (principal); Z76.89 Persons encountering health services in other specified circumstances
CPT/HCPCS: 96372; J1447

== ENCOUNTER 2018-11-11 14:14 | Emergency (ER) | payer OTHER ==
[2018-11-11 15:02] VITALS: BP 127/64; PULSE 115; TEMP 98.4; BMI 22.0
--- NOTE | 2018-11-11 15:43 | PDOC ---
History of Present Illness - General Chief Complaint: Respiratory Stated Complaint: COLD SYMPTOMS Time Seen by Provider: 11/11/18 15:07 History Source: Patient Exam Limitations: No Limitations - History of Present Illness Initial Comments: 11/11/18 15:36 83 y/o female with PMH of lung ca, (s/p chemo and radiation; finished 6 months ago), CHF, HTN, COPD who presents to the ED with worsening cough and dyspnea. Patient states for the past few days she has been having worsening shortness of breath with associated productive sputum. The sputum she states is yellow in color; she denies having any fevers at home but endorses chills. She states that she has a hard time bringing up her phlegm to the point where it gets stuck in her throat and she then has a hard time breathing. She finished chemo/ radiation around 6 months ago (DR kemp is her oncologist) she also endorses having frequent UTI's ; she just finished a 7 day course of macrobid however she states that the oral abx never really help her symptoms. she denies any sick contacts at home or any recent travel. Associated Symptoms: reports: cough, shortness of breath Past History - Travel Traveled outside of the country in the last 30 days: No Close contact w/someone who was outside of country & ill: No - Past Medical History Allergies/Adverse Reactions: Allergies Allergy/AdvReac Type Severity Reaction Status Date / Time shellfish derived Allergy Severe Verified 11/11/18 14:46 Home Medications: Ambulatory Orders Amlodipine Besylate 7.5 mg PO DAILY 02/28/18 Ascorbate Calcium [Vitamin C] 500 mg PO DAILY 02/28/18 Aspirin [Adult Aspirin] 81 mg PO DAILY 02/28/18 Calcium Carbonate [Calcium] 1,200 mg PO DAILY 02/28/18 Cetirizine HCl [Zyrtec -] 10 mg PO PRN PRN 02/28/18 Ketotifen Fumarate [Zaditor] 5 ml OP BID 02/28/18 Multivit-Min/FA/Lycopen/Lutein [Centrum Silver Tablet] 1 each PO DAILY 02/28/18 Ondansetron [Zofran -] 4 mg PO PRN PRN 02/28/18 Pravastatin Sodium 20 mg PO HS 02/28/18 Tetrahydrz/Dext 70/Peg 400/Pvp [Eye Drops] 15 ml OP BID 02/28/18 Tiotropium [place] [Spiriva] 18 mcg IH DAILY 02/28/18 Budesonide/Formeterol Fumarate [SYMBICORT 160/4.5mcg -] 1 inh PO BID 08/27/18 Metoprolol Succinate 12.5 mg PO BID 08/27/18 Anemia: No Asthma: No Cancer: Yes (Lung (neoendocrine carcenoma)) Cardiac Disorders: Yes (RAPID HEART BEAT) CVA: No COPD: Yes (POSSIBLE COPD) CHF: No Dementia: No Diabetes: No GI Disorders: No Disorders: No HTN: Yes Hypercholesterolemia: Yes Liver Disease: No Seizures: No Thyroid Disease: No - Surgical History Abdominal Surgery: Yes (HEMMORHOIDS) Appendectomy: No Cardiac Surgery: Yes (BILATERAL) Cholecystectomy: No Lung Surgery: No Neurologic Surgery: No Orthopedic Surgery: No (BILATERAL HIP REPLACEMENT) - Suicide/Smoking/Psychosocial Hx Smoking History: Unknown if ever smoked Have you smoked in the past 12 months: No If you are a former smoker, when did you quit?: 1989 'Breaking Loose' booklet given: 05/29/17 Hx Alcohol Use: No Drug/Substance Use Hx: No Substance Use Type: None Hx Substance Use Treatment: No Review of Systems - Review of Systems Able to Perform ROS?: Yes Is the patient limited Yoruba proficient: Yes Constitutional: Yes: Chills Respiratory: Yes: Shortness of Breath, Productive cough : Yes: Dysuria *Physical Exam - Vital Signs Last Vital Signs Temp Pulse Resp BP Pulse Ox 98.4 F 115 H 20 127/64 94 L 11/11/18 14:54 11/11/18 14:54 11/11/18 14:54 11/11/18 14:54 11/11/18 14:54 - Physical Exam General Appearance: Yes: Nourished Respiratory/Chest: positive: Lungs Clear, Normal Breath Sounds Cardiovascular: positive: Regular Rhythm, Regular Rate, S1, S2 Gastrointestinal/Abdominal: positive: Normal Bowel Sounds, Soft. negative: Tender ED Treatment Course - LABORATORY CBC & Chemistry Diagram: 11/11/18 15:50 11/11/18 15:50 - RADIOLOGY Radiology Studies Ordered: Category Date Time Status CHEST PA & LAT [RAD] Stat Radiology 11/11/18 15:33 Ordered Medical Decision Making - Medical Decision Making 11/11/18 16:24 CBC/CMP CTA BNP/troponin u/a 11/11/18 16:39 *DC/Admit/Observation/Transfer Diagnosis at time of Disposition: Dyspnea, Tachycardia - Discharge Dispostion Disposition: AGAINST MEDICAL ADVICE - Referrals Referrals: Sandra Brandon MD [Primary Care Provider] - - Patient Instructions Printed Discharge Instructions: DI for Shortness of Breath Additional Instructions: You were evaluated today in the ER for your symptoms. We performed laboratory evaluation which was negative. You declined a head CT or admission and elected to leave against medical advice. Please follow-up with primary care provider tomorrow for further evaluation. Return to immediately ER if any exacerbation of symptoms, fever, chills, chest pain, or other concerning symptoms. - Post Discharge Activity
[2018-11-11 16:15] LABS: BASO % 0.3 % (0-2.0); EOS % 3.6 % (0-4.5); HEMOGLOBIN 9.7 GM/dL (10.7-15.3); LYMPH % 19.9 % (8-40); MCH 30.7 pg (25.7-33.7); MCHC 32.4 g/dl (32.0-36.0); MEAN CELL VOLUME 94.6 fl (80-96); MEAN PLT VOLUME 7.3 fl (7.5-11.1); NEUT % 58.2 % (42.8-82.8); PLATELET COUNT 159 K/MM3 (134-434); RBC 3.17 M/mm3 (3.60-5.2); RDW 22.5 % (11.6-15.6); WHITE BLOOD COUNT 6.3 K/mm3 (4.0-10.0)
[2018-11-11 16:54] LABS: ALBUMIN 3.5 g/dl (3.4-5.0); ALK PHOS 141 U/L (45-117); ANION GAP 9 MMOL/L (8-16); BILIRUBIN,TOTAL 0.8 mg/dL (0.2-1); BLOOD UREA NITROGEN 13 mg/dL (7-18); CALCIUM 8.3 mg/dL (8.5-10.1); CHLORIDE 97 mmol/L (98-107); CO2 27 mmol/L (21-32); CREATININE 0.8 mg/dL (0.55-1.3); GLUCOSE,RANDOM 92 mg/dL (74-106); POTASSIUM 3.8 mmol/L (3.5-5.1); SGOT/AST 37 U/L (15-37); SGPT/ALT 27 U/L (13-61); SODIUM 134 mmol/L (136-145)
[2018-11-11 17:44] LABS: ANISOCYTOSIS 3+; PLATELET ESTIMATE ADEQUATE
--- NOTE | 2018-11-11 18:26 | PDOC ---
Attending Attestation - Resident Resident Name: SemajOksana - ED Attending Attestation I have performed the following: I have examined & evaluated the patient, The case was reviewed & discussed with the resident, I agree w/resident's findings & plan, Exceptions are as noted - HPI HPI: 11/11/18 18:17 The patient is an 84 year old female, with a significant PMH of lung cancer s/p radiation (~6 months ago), COPD, CHF, HTN, ESBL UTIs, who presents to the emergency department for evaluation of 3 days of worsening cough, productive at times of white sputum, and SOB. Patient states she has also been experiencing chills. Patient was sent in by Dr. Canseco for an XR to rule out pneumonia. Of note, patient is on macrobid for her UTIs at this time. Patient denies using O2 at home. Patient denies sick contact or travel. Denies LE edema or pain. On review of EMR, pt had surveillance CT chest/abd/pelvis with contrast this morning which did not show PNA. The patient denies chest pain, headache and dizziness. Denies fever, nausea, vomit, diarrhea and constipation. Denies dysuria, frequency, urgency and hematuria. Allergies: Shellfish Social history: None reported PCP: Aleksandr Oncologist: Dr. Canseco - Physicial Exam PE: 11/11/18 18:26 agree with resident exam - Medical Decision Making 11/11/18 16:26 83yo F hx lung ca presents to the ED with 3 days of SOB, cough. CT chest neg for PNA this AM. Vitals with tachycardia and hypoxia 94%. Exam with clear lungs , well appearing patient. PE is high on the differential in light of malignancy , SOB, tachycardia but per software support technician, we can not get CTA chest as pt already got contrast this AM. Plan to get CTH to eval for brain mets, if neg, plan to treat empirically with lovenox and admit. 11/11/18 18:31 BNP elevated Trop neg Labs otherwise unremarkable Pt refusing CTH, lovenox treatment requests DC Discussed with pt that with her sxs and vital signs (tachycardia 115 and hypoxia ) that we are concerned about a potentially deadly diagnosis of pulm embolism. Pt states her HR is always high since she was a teen and she feels better now and is not SOB AMA
[2018-11-11 18:45] LABS: URINE APPEARANCE CLEAR; URINE BILIRUBIN NEGATIVE (NEGATIVE); URINE COLOR DK YELLOW; URINE GLUCOSE (UA) NEGATIVE (NEGATIVE); URINE KETONE NEGATIVE (NEGATIVE); URINE LEUK ESTERASE NEGATIVE (NEGATIVE); URINE NITRITE POSITIVE (NEGATIVE); URINE PROTEIN NEGATIVE (NEGATIVE)
--- NOTE | 2018-11-11 19:04 | PDOC ---
*Physical Exam - Vital Signs Last Vital Signs Temp Pulse Resp BP Pulse Ox 98.4 F 115 H 20 127/64 94 L 11/11/18 14:54 11/11/18 14:54 11/11/18 14:54 11/11/18 14:54 11/11/18 14:54 ED Treatment Course - LABORATORY CBC & Chemistry Diagram: 11/11/18 15:50 11/11/18 15:50 - ADDITIONAL ORDERS Additional order review: Laboratory Results 11/11/18 15:50 Sodium 134 L Potassium 3.8 Chloride 97 L Carbon Dioxide 27 Anion Gap 9 BUN 13 Creatinine 0.8 Creat Clearance w eGFR 68.67 Random Glucose 92 Calcium 8.3 L Total Bilirubin 0.8 AST 37 ALT 27 Alkaline Phosphatase 141 H Troponin I < 0.02 B-Natriuretic Peptide 1201.0 H Total Protein 7.0 Albumin 3.5 11/11/18 15:50 RBC 3.17 L MCV 94.6 MCHC 32.4 RDW 22.5 H MPV 7.3 L Neutrophils % 58.2 Lymphocytes % 19.9 D Monocytes % 18.0 H Eosinophils % 3.6 D Basophils % 0.3 Medical Decision Making - Medical Decision Making 11/11/18 19:03 Ms. Chang is an 83 yo female w/ pmh of lung ca (chemo/radiation finished 6 months ago), CHF, HTN, COPD who presents for evaluation of cough/dyspnea. Patient had negative CT Chest this AM for r/o pneumonia; is unable to CTA given previous dye load today for r/o PE. Patient explained that she is at great risk for PE given tachycardia and chest pain with concurrent hypoxia however patient reporting she would like to leave AMA following UA. 11/11/18 19:45 Patient negative for UTI. Discussed risks of leaving with patient and patient adamant she will leave. Patient will sign AMA. 11/11/18 20:01 Patient signed out AMA. Encouraged to return immediately if any change in symptoms. *DC/Admit/Observation/Transfer Diagnosis at time of Disposition: Tachycardia Dyspnea Qualifiers: Dyspnea type: unspecified Qualified Code(s): R06.00 - Dyspnea, unspecified - Discharge Dispostion Disposition: AGAINST MEDICAL ADVICE - Referrals Referrals: Sandra Brandon MD [Primary Care Provider] - - Patient Instructions Printed Discharge Instructions: DI for Shortness of Breath Additional Instructions: You were evaluated today in the ER for your symptoms. We performed laboratory evaluation which was negative. You declined a head CT or admission and elected to leave against medical advice. Please follow-up with primary care provider tomorrow for further evaluation. Return to immediately ER if any exacerbation of symptoms, fever, chills, chest pain, or other concerning symptoms. - Post Discharge Activity
[2018-11-11 19:32] LABS: URINE BACTERIA FEW /hpf (NEGATIVE)
== END 2018-11-11 20:00 | disposition left against medical advice (07) ==
LOC: JER 14:14
DX: R06.09 Other forms of dyspnea (principal); R00.0 Tachycardia, unspecified; I11.0 Hypertensive heart disease with heart failure; I50.9 Heart failure, unspecified; J44.9 Chronic obstructive pulmonary disease, unspecified; Z85.118 Personal history of other malignant neoplasm of bronchus and lung
CPT/HCPCS: 36415; 71260-TC; 74177-TC; 80053; 81003; 83880; 84484; 85025; 99281-25; C1887

== ENCOUNTER 2019-01-25 18:48 | Inpatient (IN) | payer OTHER | END 2019-01-30 11:38 | disposition home or self-care (01) | LOC: JER 18:48 → J4S 01-26 13:48 → JER 18:48 → JERBED 22:50 ==

== ENCOUNTER 2019-04-08 09:25 | Day surgery (SDC) | payer OTHER ==
[2019-04-08 09:51] VITALS: BMI 21.2
[2019-04-08 13:58] VITALS: BP 142/70; TEMP 98.3
[2019-04-08 14:48] LABS: BF WBC & OTHER NUCLEATED CELLS 1797 /mm3
[2019-04-08 15:01] VITALS: PULSE 100
[2019-04-08 15:20] LABS: BODY FLUID MACROPHAGES 5 %; BODY FLUID MESOTHELIAL 5 %; BODY FLUID MONOCYTE 12 %
[2019-04-09 15:33] LABS: BODY FLUID ALBUMIN 2.8 g/dL (.)
--- NOTE | 2019-04-10 17:28 | PATH ---
Cytology Non-Gynecological Report Patient Name: FIORDALIZA CARVER [facility]. Rec. #: [id number] /Age/Gender: 1935 (Age: 84) / F Account: [id number] Location: RADIOLOGY INTER Taken: 04/09/2019 Received: 04/09/2019 Reported: 04/10/2019 Physicians: Suresh Canseco M.D. Specimen(s) Received A: PLEURAL FLUID RECEIVED FRESH B: PLEURAL FLUID RECEIVED IN 50% ALCOHOL Clinical History History of lung non-small cell carcinoma Final Diagnosis PLEURAL FLUID, THORACENTESIS: SATISFACTORY FOR EVALUATION. NO MALIGNANT CELLS IDENTIFIED. MESOTHELIAL CELLS AND SOME SMALL LYMPHOCYTES PRESENT. Electronically Signed Bryant Cruz M.D. Gross Description A. Approximately 50cc of yellow fluid received fixed in 50% alcohol. One cytofunnel and one cellblock prepared. B. Approximately 200cc of yellow fluid received fresh. One cytofunnel and one cellblock prepared.
== END 2019-04-08 14:50 | disposition home or self-care (01) ==
LOC: JRADIR 09:25
PROVIDERS: ATTEND Internal Medicine Hematology & Oncology
PROC: 0W993ZZ Drainage of Right Pleural Cavity, Percutaneous Approach (ICD-10-PCS; principal; 2019-04-08)
PROC: BB4BZZZ Ultrasonography of Pleura (ICD-10-PCS; 2019-04-08)
DX: J90 Pleural effusion, not elsewhere classified (principal); Z85.118 Personal history of other malignant neoplasm of bronchus and lung
CPT/HCPCS: 36415; 71045-TC-FY; 76942; 82042; 82150; 82945; 83615; 84157; 84478; 87070; 87075; 87102; 87116; 87205; 87206; 87210; 87899; 88108; 88305-TC

== ENCOUNTER 2019-05-05 11:07 | Inpatient (IN) | payer OTHER ==
--- NOTE | 2019-05-05 12:04 | PDOC ---
Attending Attestation - Resident Resident Name: Lai Kelly - HPI HPI: 05/05/19 13:22 Pt presents to the ED complaining of fever. Febrile in the ED. Also complaining of worsening shortness of breath. 05/05/19 16:28 - Physicial Exam PE: 05/05/19 16:28 Agree with resident exam. Patient is alert and in NAD. Speaking in 2-3 word sentences. Mildly tachypneic. + rhonchi in bases. - Medical Decision Making 05/05/19 16:29 Pt presents to the ED complaining of shortness of breath and fever. Found to be febrile in the ED. Will treat with antibiotics, admit to medicine.
[2019-05-05] MEDS ORDERED: AZITHROMYCIN IVPB 500 MG in DEXTROSE 5%-WATER - 250 ML IVPB ONE (12:16)
[2019-05-05] MEDS ORDERED: PIPERACILLIN/TAZOB 4.5 GM 4.5 GM in DEXTROSE 5%-WATER 100 ML IVPB ONE (12:16)
[2019-05-05] MEDS ORDERED: SODIUM CHLORIDE 0.9% 500 ML INFUS.BAG IV ONE (12:17)
--- NOTE | 2019-05-05 12:23 | PDOC ---
History of Present Illness - General Chief Complaint: SIRS, Suspected/Possible Stated Complaint: FEVER Time Seen by Provider: 05/05/19 12:03 - History of Present Illness Initial Comments: The pt is an 84F w/ a history of HTN, HLD, COPD, CAD, PSVT, L lung ca s/p resection and CTX and R lung ca s/p chemo/rads (last 6 months ago), and a new RUL lesion pending Bx who presents for evaluation of 5 days of fevers and cough. The pt reports Tm at home to 102 that would resolve with Tylenol but recur every 6 hours. She was seen by her PCP on Sunday (3d ago) who prescribed Augmentin that the pt has been taking. However, her symptoms have not improved and thus presented today. She reports one episode of NB diarrhea today. She denies sick contacts, HODGES, vision changes, chest pain, abdominal pain, vomiting, dysuria, hematuria, or rash. She reports her PCP checked her urine on Sunday which 'looked clean' per the pt. Onc: Dr. Canseco Cards: Dr. Britton 05/05/19 12:19 Past History - Past Medical History Allergies/Adverse Reactions: Allergies Allergy/AdvReac Type Severity Reaction Status Date / Time shellfish derived Allergy Severe Verified 05/05/19 11:43 Home Medications: Ambulatory Orders Ascorbate Calcium [Vitamin C] 500 mg PO DAILY 02/28/18 Aspirin [Adult Aspirin] 81 mg PO HS 02/28/18 Cetirizine HCl [Zyrtec -] 10 mg PO PRN PRN 02/28/18 Ketotifen Fumarate [Zaditor] 5 ml OP BID 02/28/18 Multivit-Min/FA/Lycopen/Lutein [Centrum Silver Tablet] 1 each PO DAILY 02/28/18 Ondansetron [Zofran -] 4 mg PO PRN PRN 02/28/18 Pravastatin Sodium 20 mg PO HS 02/28/18 Tetrahydrz/Dext 70/Peg 400/Pvp [Eye Drops] 15 ml OP BID 02/28/18 Tiotropium [place] [Spiriva] 18 mcg IH DAILY 02/28/18 Budesonide/Formeterol Fumarate [SYMBICORT 160/4.5mcg -] 1 inh PO HS 08/27/18 Furosemide [Lasix] 40 mg PO DAILY 01/26/19 Metoprolol Succinate 25 mg PO BID #60 tab.er.24h 01/30/19 Acetaminophen [Tylenol] 325 mg PO PRN PRN 04/04/19 Amlodipine Besylate 5 mg PO DAILY 04/04/19 Calcium Carbonate [Calcium] 1,200 mg PO DAILY 04/04/19 Amoxicillin - [Amoxicillin 250mg Capsule -] 250 mg PO PRN 04/08/19 Anemia: No Asthma: No 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 03/18/18 - Diastolic Dysfunction) Cholecystectomy: No ("sluggish GB, with Stones on CT Scan") Lung Surgery: Yes (TEREZA Thoracotomy wedge resection) Neurologic Surgery: No Orthopedic Surgery: No (BILATERAL HIP REPLACEMENT) - Immunization History Td Vaccination: Yes TDAP Vaccination: Yes Immunization Up to Date: Yes - Psycho Social/Smoking Cessation Hx Smoking History: Never smoked Have you smoked in the past 12 months: No If you are a former smoker, when did you quit?: 1989 Information on smoking cessation initiated: Yes 'Breaking Loose' booklet given: 05/29/17 Hx Alcohol Use: No Drug/Substance Use Hx: No Substance Use Type: None Hx Substance Use Treatment: No Review of Systems - Review of Systems Able to Perform ROS?: Yes Comments:: GENERAL/CONSTITUTIONAL: +fever HEAD, EYES, EARS, NOSE AND THROAT: No change in vision. No change in hearing. No sore throat CARDIOVASCULAR: No chest pain or shortness of breath RESPIRATORY: +Cough GASTROINTESTINAL: +Nausea; Denies vomiting, constipation GENITOURINARY: No dysuria, frequency MUSCULOSKELETAL: No joint or muscle swelling or pain. No neck or back pain SKIN: No rash NEUROLOGIC: No headache, vertigo, loss of consciousness, or change in strength/ sensation ENDOCRINE: No increased thirst. No abnormal weight change HEMATOLOGIC/LYMPHATIC: No anemia, easy bleeding, or history of blood clots ALLERGIC/IMMUNOLOGIC: No hives or skin allergy 05/05/19 12:23 Is the patient limited Chilean proficient: No *Physical Exam - Vital Signs Last Vital Signs Temp Pulse Resp BP Pulse Ox 99.9 F H 115 H 22 H 118/56 L 96 05/05/19 12:13 05/05/19 12:13 05/05/19 11:43 05/05/19 11:43 05/05/19 11:43 - Physical Exam Comments: GENERAL: Awake, alert, and oriented to person/place/time, in no acute distress HEAD: No signs of trauma, normocephalic, atraumatic EYES: PERRLA, EOMI, sclera anicteric, conjunctiva clear ENT: Hearing grossly normal, nares patent, oropharynx clear without exudates. Moist mucosa LUNGS: No respiratory distress, RML/RLL crackles and mild LLL crackles, SpO2 decrease to 92% w/ conversation; tachypnea, intermittent cough appreciated at bedside HEART: Tachycardic rate w/ regular rhythm, normal S1 and S2, no murmurs appreciated, peripheral pulses normal and equal bilaterally ABDOMEN: Soft, nontender, normoactive bowel sounds. No guarding, no rebound EXTREMITIES: Normal inspection, Normal range of motion, no edema. No clubbing or cyanosis NEUROLOGICAL: Cranial nerves II through XII grossly intact. Normal speech, no focal sensorimotor deficits SKIN: Warm, Dry 05/05/19 12:25 ED Treatment Course - LABORATORY CBC & Chemistry Diagram: 05/05/19 12:15 05/05/19 12:15 - RADIOLOGY Radiology Studies Ordered: Category Date Time Status CHEST PA & LAT [RAD] Stat Radiology 05/05/19 12:15 Ordered Medical Decision Making - Medical Decision Making The pt is a 84F w/ a history of lung ca (last CTX 10/2018), HTN, HLD, COPD, PSVT , who presents for evaluation of 5 days of fever (Tm 102) and cough s/p 3 days of Augmentin use w/o improvement Likely 2/2 PNA ED Course Sepsis labs sent ECG CXR IVF Will give Vanc/Zosyn/Azithromycin 05/05/19 12:26 No leukcytosis No anemia Potassium 3.1, will replete LFTs wnl No BA Trop I ECG w/ sinus tachycardia; HR 109; QTc 506; no axis deviation; no evidence of DEJA CXR w/ evidence of RML/RLL PNA Pt accepted for admission by Dr. Mata 05/05/19 14:16 Discharge - Discharge Information Problems reviewed: Yes Clinical Impression/Diagnosis: Pneumonia Qualifiers: Pneumonia type: due to unspecified organism Laterality: right Lung location: lower lobe of lung Qualified Code(s): J18.1 - Lobar pneumonia, unspecified organism Lung cancer Qualifiers: Laterality: unspecified laterality Lung location: unspecified part of lung Qualified Code(s): C34.90 - Malignant neoplasm of unspecified part of unspecified bronchus or lung COPD (chronic obstructive pulmonary disease) Qualifiers: COPD type: unspecified COPD Qualified Code(s): J44.9 - Chronic obstructive pulmonary disease, unspecified Condition: Good - Admission Yes - Follow up/Referral - Patient Discharge Instructions - Post Discharge Activity
[2019-05-05 12:39] LABS: BASO % 0.2 % (0-2.0); EOS % 4.7 % (0-4.5); HEMATOCRIT 36.7 % (32.4-45.2); HEMOGLOBIN 12.3 GM/dL (10.7-15.3); LYMPH % 16.9 % (8-40); MCH 29.5 pg (25.7-33.7); MCHC 33.4 g/dl (32.0-36.0); MEAN CELL VOLUME 88.4 fl (80-96); MEAN PLT VOLUME 6.9 fl (7.5-11.1); NEUT % 63.2 % (42.8-82.8); PLATELET COUNT 315 K/MM3 (134-434); RBC 4.15 M/mm3 (3.60-5.2); RDW 14.8 % (11.6-15.6); WHITE BLOOD COUNT 6.3 K/mm3 (4.0-10.0)
[2019-05-05 12:40] LABS: VENOUS PO2 < 49 mmHg (28-48)
[2019-05-05] MEDS ORDERED: PIPERACILLIN/TAZOB 4.5 GM 4.5 GM/100 ML BAG IVPB ONE (12:42)
[2019-05-05 13:10] LABS: ALK PHOS 115 U/L (45-117); ANION GAP 9 MMOL/L (8-16); BILIRUBIN,TOTAL 0.3 mg/dL (0.2-1); BLOOD UREA NITROGEN 16.6 mg/dL (7-18); CALCIUM 9.1 mg/dL (8.5-10.1); CHLORIDE 95 mmol/L (98-107); CO2 32 mmol/L (21-32); CREATININE 0.9 mg/dL (0.55-1.3); GLUCOSE,RANDOM 100 mg/dL (74-106); POTASSIUM 3.1 mmol/L (3.5-5.1); SGOT/AST 22 U/L (15-37); SGPT/ALT 21 U/L (13-61); SODIUM 137 mmol/L (136-145); TOT PROT 7.5 g/dl (6.4-8.2)
[2019-05-05 13:24] LABS: PH,URINE 6.5 (5.0-8.0); URINE APPEARANCE CLEAR; URINE BILIRUBIN NEGATIVE (NEGATIVE); URINE COLOR YELLOW; URINE GLUCOSE (UA) NEGATIVE (NEGATIVE); URINE KETONE NEGATIVE (NEGATIVE); URINE LEUK ESTERASE NEGATIVE (NEGATIVE); URINE NITRITE NEGATIVE (NEGATIVE); URINE PROTEIN NEGATIVE (NEGATIVE); URINE UROBILINOGEN 0.2 mg/dL (0.2-1.0)
[2019-05-05] MEDS ORDERED: POTASSIUM CHLORIDE TABS 20 MEQ TABLET.ER (FP) PO ONE ×2 (13:56→16:42)
[2019-05-05] MEDS ORDERED: AZITHROMYCIN IVPB 500 MG/250 ML BAG IVPB ONE (15:00)
[2019-05-05] MEDS ORDERED: ACETAMINOPHEN 1000 MG/100 ML VIAL (NON FORMULARY) IVPB ONE (16:17)
[2019-05-05] MEDS ORDERED: ACETAMINOPHEN 1000 MG/100 ML VIAL (NON FORMULARY) IVPB PRN (16:26)
--- NOTE | 2019-05-05 16:28 | HP ---
Admitting History and Physical - Primary Care Physician PCP: Sandra Brandon - Admission Chief Complaint: fever History of Present Illness: developed fever up to 102 in past 6 days, came to see me in the office on 05.02, labs, urine, rapid flu swab was unremarkable, pt was started on augmentin. she felt better sunday and went to [place] to her grandson's engagement alliance party. sunday again had fever and today am too. feels tired and more short of breath. History Source: Patient - Past Medical History Cardiovascular: Yes: CHF, HTN, Hyperlipdemia, Other (SVT) Pulmonary: Yes: Cancer (neuroendocrine tumor right lung, left lung squamous cell cncer), COPD Renal/: Yes: UTI, Other (ESBL) Musculoskeletal: Yes: Osteoarthritis - Past Surgical History Past Surgical History: Yes: Joint Replacement (bilateral hip replacements.), Thoracotomy (03.05.17 left lower lobe wedge resection for large cell neuroendocrine ca.), TURP, Tonsillectomy (1935) Additional Past Surgical History: port placement - Smoking History Smoking history: Never smoked Have you smoked in the past 12 months: No If you are a former smoker, when did you quit?: 1989 - Alcohol/Substance Use Hx Alcohol Use: No History of Substance Use: reports: None - Social History ADL: Independent History of Recent Travel: No Home Medications - Allergies Allergies/Adverse Reactions: Allergies Allergy/AdvReac Type Severity Reaction Status Date / Time shellfish derived Allergy Severe Verified 05/05/19 11:43 - Home Medications Home Medications: Ambulatory Orders Ascorbate Calcium [Vitamin C] 500 mg PO DAILY 02/28/18 Aspirin [Adult Aspirin] 81 mg PO HS 02/28/18 Cetirizine HCl [Zyrtec -] 10 mg PO PRN PRN 02/28/18 Ketotifen Fumarate [Zaditor] 5 ml OP BID 02/28/18 Ondansetron [Zofran -] 4 mg PO PRN PRN 02/28/18 Pravastatin Sodium 20 mg PO HS 02/28/18 Tiotropium [place] [Spiriva] 18 mcg IH DAILY 02/28/18 Budesonide/Formeterol Fumarate [SYMBICORT 160/4.5mcg -] 1 inh PO HS 08/27/18 Furosemide [Lasix] 40 mg PO DAILY 01/26/19 Metoprolol Succinate 25 mg PO BID #60 tab.er.24h 01/30/19 Acetaminophen [Tylenol] 325 mg PO PRN PRN 04/04/19 Amlodipine Besylate 5 mg PO DAILY 04/04/19 Calcium Carbonate [Calcium] 1,200 mg PO DAILY 04/04/19 Amoxicillin - [Amoxicillin 250mg Capsule -] 2,000 mg PO PRN 04/08/19 Review of Systems - Review of Systems Constitutional: reports: Chills, Fever, Loss of Appetite, Weakness Eyes: reports: No Symptoms HENT: reports: No Symptoms Neck: reports: No Symptoms Cardiovascular: reports: No Symptoms. denies: Chest Pain, Palpitations Respiratory: reports: Cough (dry), SOB on Exertion. denies: Wheezing Gastrointestinal: reports: No Symptoms Genitourinary: reports: No Symptoms Musculoskeletal: reports: No Symptoms Integumentary: reports: No Symptoms Neurological: reports: No Symptoms Hematology/Lymphatic: reports: No Symptoms Psychiatric: reports: No Symptoms Pain Intensity: 0 Physical Examination Vital Signs: Vital Signs Temperature 99.9 F H 05/05/19 12:15 Pulse Rate 115 H 05/05/19 12:13 Respiratory Rate 22 H 05/05/19 11:43 Blood Pressure 118/56 L 05/05/19 11:43 O2 Sat by Pulse Oximetry (%) 96 05/05/19 11:43 Constitutional: Yes: Calm, Thin Eyes: Yes: Conjunctiva Clear HENT: Yes: Normocephalic Neck: Yes: Supple, Trachea Midline Cardiovascular: Yes: Regular Rate and Rhythm Respiratory: Yes: Regular, Rales (coarse bilateral rales) Gastrointestinal: Yes: Normal Bowel Sounds, Soft Renal/: Yes: WNL Breast(s): Yes: WNL Musculoskeletal: Yes: WNL. No: Back Pain, Joint Stiffness Extremities: Yes: WNL Edema: No Peripheral Pulses WNL: Yes Integumentary: Yes: WNL ...Motor Strength: WNL Psychiatric: Yes: WNL Labs: CBC, BMP 05/05/19 12:15 05/05/19 12:15 lactic acid 1.5 Imaging - Results Chest X-ray: Image Reviewed (right middle/lower lobe infiltrate, mass) Problem List - Problems (1) Hypokalemia Code(s): E87.6 - HYPOKALEMIA (2) COPD (chronic obstructive pulmonary disease) Code(s): J44.9 - CHRONIC OBSTRUCTIVE PULMONARY DISEASE, UNSPECIFIED Qualifiers: COPD type: unspecified COPD Qualified Code(s): J44.9 - Chronic obstructive pulmonary disease, unspecified (3) Lung cancer Code(s): C34.90 - MALIGNANT NEOPLASM OF UNSP PART OF UNSP BRONCHUS OR LUNG Qualifiers: Laterality: right Lung location: unspecified part of lung Qualified Code( s): C34.91 - Malignant neoplasm of unspecified part of right bronchus or lung (4) Pneumonia Code(s): J18.9 - PNEUMONIA, UNSPECIFIED ORGANISM Qualifiers: Pneumonia type: due to unspecified organism Laterality: right Lung location: lower lobe of lung Qualified Code(s): J18.1 - Lobar pneumonia, unspecified organism Assessment/Plan iv abx blood cultures ID evaluation requested oncology f/up-pt was supposed to go for right lung biopsy this week DVT prophylaxis
[2019-05-05] MEDS ORDERED: PIPERACILLIN/TAZOB 3.375 GM 3.375 GM/50 ML BAG IVPB ONE (18:37)
[2019-05-05] MEDS: PIPERACILLIN/TAZOB 3.375 GM 3.375 GM in DEXTROSE 5%-WATER - 50 ML IVPB SCH (19:01)
[2019-05-05 21:25] VITALS: BMI 20.9
--- NOTE | 2019-05-05 21:28 | CONSULT ---
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 lung ca s/p chemo/rads (last 6 months ago), and a new RUL lesion pending Bx who presents for evaluation of 5 days of fevers and cough. The pt reports Tm at home to 102 that would resolve with Tylenol but recur every 6 hours. She was seen by her PCP on Sunday (3d ago) who prescribed Augmentin that the pt has been taking. However, her symptoms have not improved and thus presented today. She reports one episode of NB diarrhea today. She denies sick contacts, HODGES, vision changes, chest pain, abdominal pain, vomiting, dysuria, hematuria, or rash. Allergies/Adverse Reactions: Allergies Allergy/AdvReac Type Severity Reaction Status Date / Time shellfish derived Allergy Severe Verified 05/05/19 11:43 Home Medications: Ambulatory Orders Ascorbate Calcium [Vitamin C] 500 mg PO DAILY 02/28/18 Aspirin [Adult Aspirin] 81 mg PO HS 02/28/18 Cetirizine HCl [Zyrtec -] 10 mg PO PRN PRN 02/28/18 Ketotifen Fumarate [Zaditor] 5 ml OP BID 02/28/18 Multivit-Min/FA/Lycopen/Lutein [Centrum Silver Tablet] 1 each PO DAILY 02/28/18 Ondansetron [Zofran -] 4 mg PO PRN PRN 02/28/18 Pravastatin Sodium 20 mg PO HS 02/28/18 Tetrahydrz/Dext 70/Peg 400/Pvp [Eye Drops] 15 ml OP BID 02/28/18 Tiotropium [place] [Spiriva] 18 mcg IH DAILY 02/28/18 Budesonide/Formeterol Fumarate [SYMBICORT 160/4.5mcg -] 1 inh PO HS 08/27/18 Furosemide [Lasix] 40 mg PO DAILY 01/26/19 Metoprolol Succinate 25 mg PO BID #60 tab.er.24h 01/30/19 Acetaminophen [Tylenol] 325 mg PO PRN PRN 04/04/19 Amlodipine Besylate 5 mg PO DAILY 04/04/19 Calcium Carbonate [Calcium] 1,200 mg PO DAILY 04/04/19 Amoxicillin - [Amoxicillin 250mg Capsule -] 250 mg PO PRN 04/08/19 PMH Cancer: Yes (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, Right Squamous Cell) Cardiac Disorders: Yes (SVT, CAD, CHF) COPD: Yes (COPD) CHF: Yes GI Disorders: Yes (Acid Reflux) HTN: Yes Hypercholesterolemia: Yes - Surgical History Cardiac Surgery: Yes (Angiogram @ [facility] 03/18/18 - Diastolic Dysfunction) Lung Surgery: Yes (TEREZA Thoracotomy wedge resection) (BILATERAL HIP REPLACEMENT) - Psycho Social/Smoking Cessation Hx Smoking History: Never smoked - Vital Signs Last Vital Signs Temp Pulse Resp BP Pulse Ox 99.9 F H 115 H 22 H 118/56 L 96 05/05/19 12:13 05/05/19 12:13 05/05/19 11:43 05/05/19 11:43 05/05/19 11:43 Cor: RSR, No murmurs, No gallops Lungs: Clear to P&A Abd: Soft, Normal bowel sounds, No organomegaly Ext:No significant edema Labs/Meds reviewed A/P 84F w/ a history of HTN, HLD, COPD, CAD, PSVT, 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 lung ca s/p chemo/rads (last 6 months ago), and a new RUL lesion pending Bx who presents for evaluation of 5 days of fevers and cough. The pt reports Tm at home to 102 that would resolve with Tylenol but recur every 6 hours. She was seen by her PCP on Sunday (3d ago ) who prescribed Augmentin that the pt has been taking. However, her symptoms have not improved and thus presented today. She reports one episode of NB diarrhea today. She denies sick contacts, HODGES, vision changes, chest pain, abdominal pain, vomiting, dysuria, hematuria, or rash. On zosyn empirically CBC/CMP normal will consult pulmonary/ID
[2019-05-05] MEDS: metoPROLOL SUCCINATE 25 MG TAB.SR.24H (FP) PO SCH (22:03)
[2019-05-05] MEDS: BUDESONIDE/FORMETEROL FUMARATE 160/4.5 mcg INHALER IH SCH (23:00)
[2019-05-06 01:43] LABS: INR 1.11 (0.83-1.09); PROTHROMBIN TIME (PATIENT) 13.1 SEC (9.7-13.0)
[2019-05-06] MEDS ORDERED: DEXTROSE 5%-WATER - 50 ML IVPB ONE ×3 (02:12→17:38)
[2019-05-06] MEDS ORDERED: PIPERACILLIN/TAZOBACTAM 3.375 GM VIAL IVPB ONE ×3 (02:12→17:38)
[2019-05-06] MEDS: PIPERACILLIN/TAZOB 3.375 GM 3.375 GM in DEXTROSE 5%-WATER - 50 ML IVPB SCH ×5 (02:16→18:28)
[2019-05-06 06:33] LABS: BASO % 0.3 % (0-2.0); EOS % 6.4 % (0-4.5); HEMATOCRIT 31.6 % (32.4-45.2); HEMOGLOBIN 10.6 GM/dL (10.7-15.3); LYMPH % 17.9 % (8-40); MCH 29.4 pg (25.7-33.7); MCHC 33.5 g/dl (32.0-36.0); MEAN CELL VOLUME 87.8 fl (80-96); MEAN PLT VOLUME 6.7 fl (7.5-11.1); MONO % 15.7 % (3.8-10.2); NEUT % 59.7 % (42.8-82.8); PLATELET COUNT 284 K/MM3 (134-434); WHITE BLOOD COUNT 6.2 K/mm3 (4.0-10.0)
[2019-05-06 06:57] LABS: ALBUMIN 2.5 g/dl (3.4-5.0); BILIRUBIN,TOTAL 0.5 mg/dL (0.2-1); BLOOD UREA NITROGEN 12.7 mg/dL (7-18); CALCIUM 8.3 mg/dL (8.5-10.1); CREATININE 0.8 mg/dL (0.55-1.3); POTASSIUM 3.3 mmol/L (3.5-5.1); TOT PROT 6.3 g/dl (6.4-8.2)
--- NOTE | 2019-05-06 08:31 | PN ---
Progress Note (short form) - Note Progress Note: CBC, BMP 05/06/19 05:57 05/06/19 05:57 Vital Signs Period Temp Pulse Resp BP Sys/Johns Pulse Ox Last 24 Hr 97.8 F-101.9 F 101-121 16-22 118-140/56-68 96-97 Febrile again this am more dyspneic than usual has dry cough,no productive sputum s1s2 sl.tachy coarse bilateral rales abd soft no edema Pneumonia lung cancer-increased right lung field mass iv abx f/up culture results possibly lung biopsy later this week if cleared from infectious point of view Problem List - Problems (1) Hypokalemia Code(s): E87.6 - HYPOKALEMIA (2) COPD (chronic obstructive pulmonary disease) Code(s): J44.9 - CHRONIC OBSTRUCTIVE PULMONARY DISEASE, UNSPECIFIED Qualifiers: COPD type: unspecified COPD Qualified Code(s): J44.9 - Chronic obstructive pulmonary disease, unspecified (3) Lung cancer Code(s): C34.90 - MALIGNANT NEOPLASM OF UNSP PART OF UNSP BRONCHUS OR LUNG Qualifiers: Laterality: right Lung location: unspecified part of lung Qualified Code( s): C34.91 - Malignant neoplasm of unspecified part of right bronchus or lung (4) Pneumonia Code(s): J18.9 - PNEUMONIA, UNSPECIFIED ORGANISM Qualifiers: Pneumonia type: due to unspecified organism Laterality: right Lung location: lower lobe of lung Qualified Code(s): J18.1 - Lobar pneumonia, unspecified organism
--- NOTE | 2019-05-06 08:58 | CON.PULM ---
Consult Consult Specialty:: PULM/CCM Referred by:: ZOLTAN Reason for Consultation:: SOB - History of Present Illness Chief Complaint: SOB & Fever History of Present Illness: 84 F, HTN, HLD, COPD due to previous smoking, CAD, PSVT, Left lung large cell neuroendocrine cancer S/P resection and Chemotherapy with recurrence in Right lung and S/P chemo/rads (last was 6 months ago). S/P diagnostic right thoracentesis 04/08, which was non-diagnostic. 3 to 4 days of progressive URI symptoms and fever to 102. No travel history or sick contacts. No hemoptysis or night sweats. No pleuritic type pain. No GI or symptoms. CXR: some minimal increase in infiltrates on the right. - History Source History Provided By: Patient Limitations to Obtaining History: No Limitations - Past Medical History Cardio/Vascular: Yes: CHF, HTN, Hyperlipdemia, Other (SVT) Pulmonary: Yes: Bronchitis, Cancer (neuroendocrine tumor right lung, left lung squamous cell cncer), COPD, Pneumonia. No: Asthma, O2 Dependent, Previously Intubated, Pulmonary Embolus, Pulmonary Fibrosis, Sleep Apnea Renal/: Yes: UTI, Other (ESBL) ...: No Musculoskeletal: Yes: Osteoarthritis - Past Surgical History Past Surgical History: Yes: Joint Replacement (bilateral hip replacements.), Thoracotomy (03.05.17 left lower lobe wedge resection for large cell neuroendocrine ca.), TURP, Tonsillectomy (1936) - Alcohol/Substance Use Hx Alcohol Use: No History of Substance Use: reports: None - Smoking History Smoking history: Never smoked Have you smoked in the past 12 months: No If you are a former smoker, when did you quit?: 1989 - Social History Usual Living Arrangement: With Spouse ADL: Independent History of Recent Travel: No Home Medications - Allergies Allergies/Adverse Reactions: Allergies Allergy/AdvReac Type Severity Reaction Status Date / Time shellfish derived Allergy Severe Verified 05/05/19 11:43 - Home Medications Home Medications: Ambulatory Orders Ascorbate Calcium [Vitamin C] 500 mg PO DAILY 02/28/18 Aspirin [Adult Aspirin] 81 mg PO HS 02/28/18 Cetirizine HCl [Zyrtec -] 10 mg PO PRN PRN 02/28/18 Ketotifen Fumarate [Zaditor] 5 ml OP BID 02/28/18 Ondansetron [Zofran -] 4 mg PO PRN PRN 02/28/18 Pravastatin Sodium 20 mg PO HS 02/28/18 Tiotropium [place] [Spiriva] 18 mcg IH DAILY 02/28/18 Budesonide/Formeterol Fumarate [SYMBICORT 160/4.5mcg -] 1 inh PO HS 08/27/18 Furosemide [Lasix] 40 mg PO DAILY 01/26/19 Metoprolol Succinate 25 mg PO BID #60 tab.er.24h 01/30/19 Acetaminophen [Tylenol] 325 mg PO PRN PRN 04/04/19 Amlodipine Besylate 5 mg PO DAILY 04/04/19 Calcium Carbonate [Calcium] 1,200 mg PO DAILY 04/04/19 Amoxicillin - [Amoxicillin 250mg Capsule -] 2,000 mg PO PRN 04/08/19 Review of Systems - Review of Systems Constitutional: reports: Chills, Fever, Malaise. denies: Night Sweats, Unintentional Wgt. Loss Eyes: reports: No Symptoms HENT: reports: No Symptoms Neck: reports: No Symptoms Cardiovascular: reports: Shortness of Breath. denies: Chest Pain, Edema, Palpitations Respiratory: reports: Cough, SOB, SOB on Exertion. denies: Hemoptysis, Orthopnea, PND, Snoring, Wheezing Gastrointestinal: reports: No Symptoms Genitourinary: reports: No Symptoms Breasts: reports: No Symptoms Reported Musculoskeletal: reports: No Symptoms Integumentary: reports: No Symptoms Neurological: reports: No Symptoms Endocrine: reports: No Symptoms Hematology/Lymphatic: reports: No Symptoms Psychiatric: reports: No Symptoms Physical Exam Vital Sings: Vital Signs Temperature 99.9 F H 05/06/19 07:05 Pulse Rate 112 H 05/06/19 06:00 Respiratory Rate 20 05/06/19 06:00 Blood Pressure 126/61 05/06/19 06:00 O2 Sat by Pulse Oximetry (%) 97 05/05/19 21:00 Constitutional: Yes: No Distress, Thin Eyes: Yes: Conjunctiva Clear, EOM Intact HENT: Yes: Atraumatic, Normocephalic Neck: Yes: Supple, Trachea Midline Cardiovascular: Yes: Regular Rate and Rhythm Respiratory: Yes: Cough, On Nasal O2, Rhonchi, SOB, SOB on Exertion, Tachypnea. No: Accessory Muscle Use, Rales, Stridor, Wheezes ...Inspection: Yes: WNL ...Clubbing: No Gastrointestinal: Yes: Normal Bowel Sounds, Soft Renal/: Yes: WNL Musculoskeletal: Yes: WNL Extremities: Yes: WNL Edema: No Peripheral Pulses WNL: Yes Integumentary: Yes: WNL Neurological: Yes: WNL, Alert, Oriented ...Motor Strength: WNL Psychiatric: Yes: WNL, Alert, Oriented Labs: CBC, BMP 05/06/19 05:57 05/06/19 05:57 Imaging - Results Chest X-ray: Report Reviewed, Image Reviewed Cat Scan: Report Reviewed, Image Reviewed Problem List - Problems (1) COPD (chronic obstructive pulmonary disease) Code(s): J44.9 - CHRONIC OBSTRUCTIVE PULMONARY DISEASE, UNSPECIFIED Qualifiers: COPD type: unspecified COPD Qualified Code(s): J44.9 - Chronic obstructive pulmonary disease, unspecified (2) Lung cancer Code(s): C34.90 - MALIGNANT NEOPLASM OF UNSP PART OF UNSP BRONCHUS OR LUNG Qualifiers: Laterality: right Lung location: unspecified part of lung Qualified Code( s): C34.91 - Malignant neoplasm of unspecified part of right bronchus or lung (3) Pneumonia Code(s): J18.9 - PNEUMONIA, UNSPECIFIED ORGANISM Qualifiers: Pneumonia type: due to unspecified organism Laterality: right Lung location: lower lobe of lung Qualified Code(s): J18.1 - Lobar pneumonia, unspecified organism (4) Congestive heart failure Code(s): I50.9 - HEART FAILURE, UNSPECIFIED (5) Constipation Code(s): K59.00 - CONSTIPATION, UNSPECIFIED Qualifiers: Constipation type: drug induced constipation Qualified Code(s): K59.03 - Drug induced constipation (6) Dyspnea Code(s): R06.00 - DYSPNEA, UNSPECIFIED Qualifiers: Dyspnea type: unspecified Qualified Code(s): R06.00 - Dyspnea, unspecified (7) Inflammatory arthritis Code(s): M19.90 - UNSPECIFIED OSTEOARTHRITIS, UNSPECIFIED SITE (8) Moderate aortic regurgitation Code(s): I35.1 - NONRHEUMATIC AORTIC (VALVE) INSUFFICIENCY (9) Paroxysmal SVT (supraventricular tachycardia) Code(s): I47.1 - SUPRAVENTRICULAR TACHYCARDIA (10) CAD (coronary artery disease) Code(s): I25.10 - ATHSCL HEART DISEASE OF [place] CORONARY ARTERY W/O ANG PCTRS (11) Hyperlipidemia Code(s): E78.5 - HYPERLIPIDEMIA, UNSPECIFIED Qualifiers: (12) Hypertension Code(s): I10 - ESSENTIAL (PRIMARY) HYPERTENSION Qualifiers: (13) Lung mass Code(s): R91.8 - OTHER NONSPECIFIC ABNORMAL FINDING OF LUNG FIELD Assessment/Plan Noted empiric Zosyn and ID was consulted. May need to add atypical coverage. O2 as needed Check Sputum Check urinary antigen Medrol BD TX Symbicort Spiriva VTE prophylaxis Will help arrange to biopsy once improved and cultures are negative Will follow Thank you. Dr Mcgill
--- NOTE | 2019-05-06 10:05 | EKG ---
Test Reason : Blood Pressure : / mmHG Vent. Rate : 109 BPM Atrial Rate : 109 BPM P-R Int : 156 ms QRS Dur : 080 ms QT Int : 376 ms P-R-T Axes : 051 023 046 degrees QTc Int : 506 ms SINUS TACHYCARDIA POSSIBLE LEFT ATRIAL ENLARGEMENT BORDERLINE ECG WHEN COMPARED WITH ECG OF 25-JAN-2019 23:02, NONSPECIFIC T WAVE ABNORMALITY NO LONGER EVIDENT IN INFERIOR LEADS Confirmed by MD ZIYAD, DEB ([id number]) on 05/06/2019 10:05:34 AM Referred By: Confirmed By:DEB LACKEY MD
[2019-05-06] MEDS: ENOXAPARIN NA (PORCINE) 30 MG/0.3 ML DISP.SYRIN SQ SCH (10:07)
[2019-05-06] MEDS: metoPROLOL SUCCINATE 25 MG TAB.SR.24H (FP) PO SCH ×2 (10:08→21:50)
[2019-05-06] MEDS: BUDESONIDE/FORMETEROL FUMARATE 160/4.5 mcg INHALER IH SCH ×2 (10:09→21:51)
[2019-05-06] MEDS: methylPREDNISolone NA SUCC 40 MG/1 ML VIAL IVPUSH SCH ×2 (10:10→21:50)
[2019-05-06] MEDS: POTASSIUM CHLORIDE TABS 20 MEQ TABLET.ER (FP) PO SCH (10:10)
--- NOTE | 2019-05-06 12:23 | PN ---
Progress Note (short form) - Note Progress Note: ID CONSULT DICTATED PNEUMONIA LUNG CA AWAIT C/S EMPIRIC ZOSYN
--- NOTE | 2019-05-06 13:02 | CONS ---
INFECTIOUS DISEASE CONSULTATION DATE OF CONSULTATION: DATE OF DICTATION: 05/06/2019 HISTORY OF PRESENT ILLNESS: The patient is an 84-year-old, female with a history of lung cancer, evaluated for pneumonia. The patient has a history of squamous cell and neuroendocrine tumor. She last received chemotherapy in October 2018. She reports that on May 02, she began feeling ill. She developed worsening shortness of breath and fever. She had presented to her primary care physician and was prescribed augmentation. The patient reports developing fever to 102 at home associated with chills. She presented to the emergency room where she was noted to be febrile. Chest x-ray shows a right-sided infiltrate. Of note, the patient had a CAT scan performed approximately 2 weeks ago which showed right-sided lung masses. She was being evaluated for a percutaneous biopsy. Patient underwent a thoracentesis approximately 1 month ago which was negative for infection. Routine culture and sensitivity, AFB, and fungal cultures were negative. At the present time, she complains of dyspnea on exertion. She has a cough which is dry. She is unable to expectorate any sputum. She denies any hemoptysis. Patient denies any ill contacts. She was last hospitalized in January. PAST MEDICAL HISTORY: Positive for lung cancer, positive squamous cell and neuroendocrine tumor, hypertension, hyperlipidemia, COPD, coronary artery disease. PAST SURGICAL HISTORY: Status post port placement. ALLERGIES: No known drug allergies. MEDICATIONS: Include vitamin C, aspirin, Zofran, pravastatin, Lasix, metoprolol, amlodipine. SOCIAL HISTORY: She lives at home with her significant other. No active tobacco or alcohol use. SYSTEMS REVIEW: Neurologic: No loss of consciousness, seizure activity, focal weakness. Cardiac: Negative chest pain or palpitations. Respiratory: As per HPI. Gastrointestinal: Negative vomiting or diarrhea. Genitourinary: Negative for urinary tract infection. LABORATORY DATA: White count 6.2, hematocrit 31.6, platelets 284. Creatinine 0.8. Liver enzymes normal. White blood cell count 6.2, neutrophils 59, monocytes. Urinalysis negative. Blood and urine cultures are pending. Previous urine culture was positive for ESBL. PHYSICAL EXAMINATION: General: On physical examination, she is awake, seated in bed. She is slightly short of breath at rest on nasal cannula. Vital Signs: Temperature 98.5, T-maximum 101.7, blood pressure 112/54, pulse 96 regular, respirations 20 per minute. Eyes: Sclerae are anicteric. Heart: Heart sounds S1, S2. Lungs: Rales right lower lung field. Abdomen: Soft. No tenderness elicited. Extremities: Edema 1+. Port site: No erythema or tenderness. IMPRESSION: 1. Rule out right-sided pneumonia. 2. Right lung mass. 3. History of squamous cell and neuroendocrine tumor of the lung. Await culture results. Empiric Zosyn. Pulmonology evaluation. Oncology followup. Thank you for the kind referral. CHARLES RUSH M.D. [id number]
[2019-05-06] MEDS: ALBUTEROL SO4 0.083% IH SOL 2.5 MG/3 ML VIAL.NEB. NEB SCH ×2 (13:30→19:55)
[2019-05-06] MEDS ORDERED: PT OWN MED DRAWER 7, Y5N ONE (13:54)
[2019-05-06] MEDS: TIOTROPIUM BROMIDE 2.5 MCG (SPIRIVA) RESPIMAT INHALER IH SCH (14:04)
--- NOTE | 2019-05-06 16:38 | PN ---
Progress Note (short form) - Note Progress Note: Patient seen and examined Feels improved No chills Temp down Last Vital Signs Temp Pulse Resp BP Pulse Ox 98.6 F 107 H 20 119/56 L 98 05/06/19 14:09 05/06/19 14:09 05/06/19 14:09 05/06/19 14:09 05/06/19 09:00 HEENT: DAFNE, EOM Intact Cor: RSR, No murmurs, No gallops Lungs: rales -RLL Abd: Soft, Normal bowel sounds, No organomegaly Ext:No significant edema Skin: No rashes, Integument intact CBC, BMP 05/06/19 05:57 05/06/19 05:57 Current Medications Generic Name Dose Route Start Last Admin Trade Name Freq PRN Reason Stop Dose Admin Acetaminophen 1,000 mg 05/05/19 16:26 05/06/19 06:10 Ofirmev Injection - IVPB 1,000 mg Q6H PRN Administration FEVER Albuterol Sulfate 1 amp 05/06/19 14:00 05/06/19 13:30 Ventolin 0.083% Nebulizer Soln - NEB 1 amp RTID CONRAD Administration Budesonide/Formoterol Fumarate 2 puff 05/05/19 22:00 05/06/19 10:09 Symbicort 160/4.5mcg - IH 2 puff BID CONRAD Administration Enoxaparin Sodium 30 mg 05/06/19 10:00 05/06/19 10:07 Lovenox - SQ 30 mg DAILY CONRAD Administration Piperacillin Sod/Tazobactam 50 mls @ 100 mls/hr 05/06/19 18:00 Sod 3.375 gm/ Dextrose IVPB Q8H-IV CONRAD Protocol Methylprednisolone Sodium Succinate 30 mg 05/06/19 10:00 05/06/19 10:10 Solu-Medrol - IVPUSH 30 mg Q12H CONRAD Administration Metoprolol Succinate 25 mg 05/05/19 22:00 05/06/19 10:08 Toprol Xl - PO 25 mg BID CONRAD Administration Non-Formulary Medication 10 mg 05/05/19 16:24 Cetirizine Hcl PO PRN PRN allergy Potassium Chloride 40 meq 05/06/19 10:00 05/06/19 10:10 K-Dur - PO 40 meq DAILY CONRAD Administration Tiotropium [place] 2 puff 05/06/19 10:00 05/06/19 14:04 Spiriva Respimat IH 2 puff DAILY CONRAD Administration Impression: 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 coli-ESBL Anemia Plan : antibiotics per ID Currently zosyn and medrol 30 BID
[2019-05-06] MEDS ORDERED: PORTA CATH FLUSH 10 ML IVPUSH PRN (17:16)
[2019-05-06] MEDS: LACTOBACILLUS ACIDOPHILUS 1 TABLET PO SCH (18:29)
[2019-05-06] MEDS: ATORVASTATIN CA 10 MG TABLET (FP) PO SCH (21:50)
[2019-05-07] MEDS ORDERED: PIPERACILLIN/TAZOBACTAM 3.375 GM VIAL IVPB ONE ×3 (01:45→17:25)
[2019-05-07] MEDS ORDERED: DEXTROSE 5%-WATER - 50 ML IVPB ONE ×3 (01:46→17:26)
[2019-05-07] MEDS: PIPERACILLIN/TAZOB 3.375 GM 3.375 GM in DEXTROSE 5%-WATER - 50 ML IVPB SCH ×3 (01:56→18:00)
[2019-05-07] MEDS: ALBUTEROL SO4 0.083% IH SOL 2.5 MG/3 ML VIAL.NEB. NEB SCH ×3 (08:32→21:02)
[2019-05-07] MEDS ORDERED: PT OWN MED DRAWER 7, Y5N ONE (09:16)
[2019-05-07] MEDS: metoPROLOL SUCCINATE 25 MG TAB.SR.24H (FP) PO SCH ×2 (09:49→22:21)
[2019-05-07] MEDS: methylPREDNISolone NA SUCC 40 MG/1 ML VIAL IVPUSH SCH ×2 (09:49→22:20)
[2019-05-07] MEDS: POTASSIUM CHLORIDE TABS 20 MEQ TABLET.ER (FP) PO SCH (09:49)
[2019-05-07] MEDS: LACTOBACILLUS ACIDOPHILUS 1 TABLET PO SCH (09:49)
[2019-05-07] MEDS: ENOXAPARIN NA (PORCINE) 30 MG/0.3 ML DISP.SYRIN SQ SCH (09:50)
[2019-05-07] MEDS: TIOTROPIUM BROMIDE 2.5 MCG (SPIRIVA) RESPIMAT INHALER IH SCH (09:50)
[2019-05-07] MEDS: BUDESONIDE/FORMETEROL FUMARATE 160/4.5 mcg INHALER IH SCH ×2 (09:51→22:22)
--- NOTE | 2019-05-07 13:17 | PN ---
Progress Note (short form) - Note Progress Note: PULMONARY Feels better today. Less short of breath. +nonproductive cough. No fevers recorded. Vital Signs Period Temp Pulse Resp BP Sys/Johns Pulse Ox Last 24 Hr 97.6 F-98.6 F 99-112 18-20 109-136/53-86 97 Gen: NAD at rest Heart: RRR Lung: right base rales Abd: soft, nontender Ext: no edema CBC, BMP 05/06/19 05:57 05/06/19 05:57 Active Medications Acetaminophen (Ofirmev Injection -) 1,000 mg IVPB Q6H PRN PRN Reason: FEVER Last Admin: 05/06/19 06:10 Dose: 1,000 mg Albuterol Sulfate (Ventolin 0.083% Nebulizer Soln -) 1 amp NEB RTID [facility] Last Admin: 05/07/19 08:32 Dose: 1 amp Atorvastatin Calcium (Lipitor -) 10 mg PO HS [facility] Last Admin: 05/06/19 21:50 Dose: 10 mg Budesonide/Formoterol Fumarate (Symbicort 160/4.5mcg -) 2 puff IH BID [facility] Last Admin: 05/07/19 09:51 Dose: 2 puff Enoxaparin Sodium (Lovenox -) 30 mg SQ DAILY [facility] Last Admin: 05/07/19 09:50 Dose: 30 mg IV Flush (Mat-Cath Flush) 10 ml IVPUSH PRN PRN PRN Reason: policy Piperacillin Sod/Tazobactam (Sod 3.375 gm/ Dextrose) 50 mls @ 100 mls/hr IVPB Q8H-IV [facility]; Protocol Last Admin: 05/07/19 09:50 Dose: 100 mls/hr Lactobacillus Acidophilus (Bacid -) 1 tab PO DAILY [facility] Last Admin: 05/07/19 09:49 Dose: 1 tab Methylprednisolone Sodium Succinate (Solu-Medrol -) 30 mg IVPUSH Q12H [facility] Last Admin: 05/07/19 09:49 Dose: 30 mg Metoprolol Succinate (Toprol Xl -) 25 mg PO BID [facility] Last Admin: 05/07/19 09:49 Dose: 25 mg Non-Formulary Medication (Cetirizine Hcl) 10 mg PO PRN PRN PRN Reason: allergy Potassium Chloride (K-Dur -) 40 meq PO DAILY [facility] Last Admin: 05/07/19 09:49 Dose: 40 meq Tiotropium [place] (Spiriva Respimat) 2 puff IH DAILY [facility] Last Admin: 05/07/19 09:50 Dose: 2 puff A/P Pneumonia Acute COPD Exacerbation Large Cell Neuroendocrine Lung Cancer CAD HTN Hyperlipidemia - continue antibiotics - f/u cultures - IV medrol - inhaled bronchodilators - O2 to keep SpO2 >90% - DVT prophylaxis
--- NOTE | 2019-05-07 13:52 | PN ---
Progress Note (short form) - Note Progress Note: Vital Signs Period Temp Pulse Resp BP Sys/Johns Pulse Ox Last 24 Hr 97.6 F-98.6 F 99-112 18-20 109-136/53-86 97 s1s2 sl.tachy coarse bilateral rales, better today abd soft no edema Pneumonia lung cancer-increased right lung field mass iv abx f/up culture negative dvt prophylaxis HCP d/w pt Problem List - Problems (1) Hypokalemia Code(s): E87.6 - HYPOKALEMIA (2) COPD (chronic obstructive pulmonary disease) Code(s): J44.9 - CHRONIC OBSTRUCTIVE PULMONARY DISEASE, UNSPECIFIED Qualifiers: COPD type: unspecified COPD Qualified Code(s): J44.9 - Chronic obstructive pulmonary disease, unspecified (3) Lung cancer Code(s): C34.90 - MALIGNANT NEOPLASM OF UNSP PART OF UNSP BRONCHUS OR LUNG Qualifiers: Laterality: right Lung location: unspecified part of lung Qualified Code( s): C34.91 - Malignant neoplasm of unspecified part of right bronchus or lung (4) Pneumonia Code(s): J18.9 - PNEUMONIA, UNSPECIFIED ORGANISM Qualifiers: Pneumonia type: due to unspecified organism Laterality: right Lung location: lower lobe of lung Qualified Code(s): J18.1 - Lobar pneumonia, unspecified organism
--- NOTE | 2019-05-07 18:48 | PN ---
Progress Note (short form) - Note Progress Note: Patient seen and examined Clinically improved Remains congested and dyspneic and tachypneic on talking Using O-2 prn Last Vital Signs Temp Pulse Resp BP Pulse Ox 97.9 F 102 H 18 125/65 95 05/07/19 18:02 05/07/19 18:02 05/07/19 18:02 05/07/19 18:02 05/07/19 09:00 HEENT: DAFNE, EOM Intact Cor: RSR, No murmurs, No gallops Lungs: Rales RLL Abd: Soft, Normal bowel sounds, No organomegaly Ext:No significant edema Skin: No rashes, Integument intact CBC, BMP 05/06/19 05:57 05/06/19 05:57 Current Medications Generic Name Dose Route Start Last Admin Trade Name Freq PRN Reason Stop Dose Admin Acetaminophen 1,000 mg 05/05/19 16:26 05/06/19 06:10 Ofirmev Injection - IVPB 1,000 mg Q6H PRN Administration FEVER Albuterol Sulfate 1 amp 05/06/19 14:00 05/07/19 14:45 Ventolin 0.083% Nebulizer Soln - NEB 1 amp RTID CONRAD Administration Atorvastatin Calcium 10 mg 05/06/19 22:00 05/06/19 21:50 Lipitor - PO 10 mg HS [facility] Administration Budesonide/Formoterol Fumarate 2 puff 05/05/19 22:00 05/07/19 09:51 Symbicort 160/4.5mcg - IH 2 puff BID [facility] Administration Enoxaparin Sodium 30 mg 05/06/19 10:00 05/07/19 09:50 Lovenox - SQ 30 mg DAILY [facility] Administration IV Flush 10 ml 05/06/19 17:16 Mat-Cath Flush IVPUSH PRN PRN policy Piperacillin Sod/Tazobactam 50 mls @ 100 mls/hr 05/06/19 18:00 05/07/19 18:00 Sod 3.375 gm/ Dextrose IVPB 100 mls/hr Q8H-IV [facility] Administration Protocol Lactobacillus Acidophilus 1 tab 05/06/19 16:45 05/07/19 09:49 Bacid - PO 1 tab DAILY [facility] Administration Methylprednisolone Sodium Succinate 30 mg 05/06/19 10:00 05/07/19 09:49 Solu-Medrol - IVPUSH 30 mg Q12H [facility] Administration Metoprolol Succinate 25 mg 05/05/19 22:00 05/07/19 09:49 Toprol Xl - PO 25 mg BID CONRAD Administration Non-Formulary Medication 10 mg 05/05/19 16:24 Cetirizine Hcl PO PRN PRN allergy Potassium Chloride 40 meq 05/06/19 10:00 05/07/19 09:49 K-Dur - PO 40 meq DAILY [facility] Administration Tiotropium [place] 2 puff 05/06/19 10:00 05/07/19 09:50 Spiriva Respimat IH 2 puff DAILY [facility] Administration Impression: Large cell neuroendocrine tumor _LUL -s/p slobectomy SCC RLL-s/p RT/Chemotherapy pneumonia Continue with steroids and antibiotics Biopsy of RLL masses in future.
[2019-05-07] MEDS: ATORVASTATIN CA 10 MG TABLET (FP) PO SCH (22:20)
[2019-05-08] MEDS ORDERED: DEXTROSE 5%-WATER - 50 ML IVPB ONE ×3 (01:38→16:57)
[2019-05-08] MEDS ORDERED: PIPERACILLIN/TAZOBACTAM 3.375 GM VIAL IVPB ONE ×3 (01:38→16:57)
[2019-05-08] MEDS: PIPERACILLIN/TAZOB 3.375 GM 3.375 GM in DEXTROSE 5%-WATER - 50 ML IVPB SCH ×3 (01:44→17:16)
[2019-05-08 07:08] LABS: BASO % 0.1 % (0-2.0); EOS % 0.1 % (0-4.5); HEMATOCRIT 29.4 % (32.4-45.2); HEMOGLOBIN 9.7 GM/dL (10.7-15.3); MCH 29.3 pg (25.7-33.7); MCHC 32.9 g/dl (32.0-36.0); MEAN CELL VOLUME 88.8 fl (80-96); MEAN PLT VOLUME 6.9 fl (7.5-11.1); MONO % 5.5 % (3.8-10.2); NEUT % 85.3 % (42.8-82.8); PLATELET COUNT 309 K/MM3 (134-434); RBC 3.31 M/mm3 (3.60-5.2); RDW 15.2 % (11.6-15.6); WHITE BLOOD COUNT 6.7 K/mm3 (4.0-10.0)
[2019-05-08 07:37] LABS: ALBUMIN 2.3 g/dl (3.4-5.0); BILIRUBIN,TOTAL 0.1 mg/dL (0.2-1); BLOOD UREA NITROGEN 19.4 mg/dL (7-18); CALCIUM 8.7 mg/dL (8.5-10.1); CREATININE 0.8 mg/dL (0.55-1.3); POTASSIUM 4.4 mmol/L (3.5-5.1); TOT PROT 5.8 g/dl (6.4-8.2)
[2019-05-08] MEDS: ALBUTEROL SO4 0.083% IH SOL 2.5 MG/3 ML VIAL.NEB. NEB SCH ×3 (08:35→19:57)
--- NOTE | 2019-05-08 08:39 | PN ---
Progress Note (short form) - Note Progress Note: Feels overall better today. Less short of breath. Less nonproductive cough. No fevers recorded. Intake & Output 05/05/19 05/06/19 05/07/19 05/08/19 23:59 23:59 23:59 23:59 Intake Total 550 640 170 Output Total 1 Balance -1 550 640 170 Weight 97 lb 1.6 oz 97 lb 1.6 oz 97 lb 4.8 oz 99 lb 6.4 oz Last Vital Signs Temp Pulse Resp BP Pulse Ox 97.7 F 88 18 129/71 95 05/07/19 22:00 05/07/19 22:00 05/07/19 22:00 05/07/19 22:00 05/07/19 21:00 Active Medications Acetaminophen (Ofirmev Injection -) 1,000 mg IVPB Q6H PRN PRN Reason: FEVER Last Admin: 05/06/19 06:10 Dose: 1,000 mg Albuterol Sulfate (Ventolin 0.083% Nebulizer Soln -) 1 amp NEB RTID [facility] Last Admin: 05/08/19 08:35 Dose: 1 amp Atorvastatin Calcium (Lipitor -) 10 mg PO HS [facility] Last Admin: 05/07/19 22:20 Dose: 10 mg Budesonide/Formoterol Fumarate (Symbicort 160/4.5mcg -) 2 puff IH BID [facility] Last Admin: 05/07/19 22:22 Dose: 2 puff Enoxaparin Sodium (Lovenox -) 30 mg SQ DAILY [facility] Last Admin: 05/07/19 09:50 Dose: 30 mg IV Flush (Mat-Cath Flush) 10 ml IVPUSH PRN PRN PRN Reason: policy Piperacillin Sod/Tazobactam (Sod 3.375 gm/ Dextrose) 50 mls @ 100 mls/hr IVPB Q8H-IV [facility]; Protocol Last Admin: 05/08/19 01:44 Dose: 100 mls/hr Lactobacillus Acidophilus (Bacid -) 1 tab PO DAILY [facility] Last Admin: 05/07/19 09:49 Dose: 1 tab Methylprednisolone Sodium Succinate (Solu-Medrol -) 30 mg IVPUSH Q12H [facility] Last Admin: 05/07/19 22:20 Dose: 30 mg Metoprolol Succinate (Toprol Xl -) 25 mg PO BID [facility] Last Admin: 05/07/19 22:21 Dose: 25 mg Non-Formulary Medication (Cetirizine Hcl) 10 mg PO PRN PRN PRN Reason: allergy Potassium Chloride (K-Dur -) 40 meq PO DAILY [facility] Last Admin: 05/07/19 09:49 Dose: 40 meq Tiotropium [place] (Spiriva Respimat) 2 puff IH DAILY [facility] Last Admin: 05/07/19 09:50 Dose: 2 puff Gen: NAD at rest Heart: RRR Lung: right base rales Abd: soft, nontender Ext: no edema Laboratory Results - last 24 hr 05/08/19 05/08/19 06:25 06:25 WBC 6.7 RBC 3.31 L Hgb 9.7 L Hct 29.4 L MCV 88.8 MCH 29.3 MCHC 32.9 RDW 15.2 Plt Count 309 MPV 6.9 L Absolute Neuts (auto) 5.7 Neutrophils % 85.3 H D Lymphocytes % 9.0 D Monocytes % 5.5 Eosinophils % 0.1 D Basophils % 0.1 Nucleated RBC % 0 Sodium 140 Potassium 4.4 Chloride 105 Carbon Dioxide 26 Anion Gap 9 BUN 19.4 H Creatinine 0.8 Est GFR (CKD-EPI)AfAm 79.02 Est GFR (CKD-EPI)NonAf 68.18 Random Glucose 131 H Calcium 8.7 Total Bilirubin 0.1 L AST 22 ALT 22 Alkaline Phosphatase 83 Total Protein 5.8 L Albumin 2.3 L A/P Pneumonia Acute COPD Exacerbation Large Cell Neuroendocrine Lung Cancer CAD HTN Hyperlipidemia - ABX Per ID - f/u cultures - IV medrol - inhaled bronchodilators - O2 to keep SpO2 >90% - DVT prophylaxis Dr Mcgill Problem List - Problems (1) COPD (chronic obstructive pulmonary disease) Code(s): J44.9 - CHRONIC OBSTRUCTIVE PULMONARY DISEASE, UNSPECIFIED Qualifiers: COPD type: unspecified COPD Qualified Code(s): J44.9 - Chronic obstructive pulmonary disease, unspecified (2) Lung cancer Code(s): C34.90 - MALIGNANT NEOPLASM OF UNSP PART OF UNSP BRONCHUS OR LUNG Qualifiers: Laterality: right Lung location: unspecified part of lung Qualified Code( s): C34.91 - Malignant neoplasm of unspecified part of right bronchus or lung (3) Pneumonia Code(s): J18.9 - PNEUMONIA, UNSPECIFIED ORGANISM Qualifiers: Pneumonia type: due to unspecified organism Laterality: right Lung location: lower lobe of lung Qualified Code(s): J18.1 - Lobar pneumonia, unspecified organism (4) Congestive heart failure Code(s): I50.9 - HEART FAILURE, UNSPECIFIED (5) Constipation Code(s): K59.00 - CONSTIPATION, UNSPECIFIED Qualifiers: Constipation type: drug induced constipation Qualified Code(s): K59.03 - Drug induced constipation (6) Dyspnea Code(s): R06.00 - DYSPNEA, UNSPECIFIED Qualifiers: Dyspnea type: unspecified Qualified Code(s): R06.00 - Dyspnea, unspecified (7) Inflammatory arthritis Code(s): M19.90 - UNSPECIFIED OSTEOARTHRITIS, UNSPECIFIED SITE (8) Moderate aortic regurgitation Code(s): I35.1 - NONRHEUMATIC AORTIC (VALVE) INSUFFICIENCY (9) Paroxysmal SVT (supraventricular tachycardia) Code(s): I47.1 - SUPRAVENTRICULAR TACHYCARDIA (10) CAD (coronary artery disease) Code(s): I25.10 - ATHSCL HEART DISEASE OF [place] CORONARY ARTERY W/O ANG PCTRS (11) Hyperlipidemia Code(s): E78.5 - HYPERLIPIDEMIA, UNSPECIFIED Qualifiers: (12) Hypertension Code(s): I10 - ESSENTIAL (PRIMARY) HYPERTENSION Qualifiers: (13) Lung mass Code(s): R91.8 - OTHER NONSPECIFIC ABNORMAL FINDING OF LUNG FIELD
--- NOTE | 2019-05-08 09:12 | PN ---
Progress Note (short form) - Note Progress Note: no complaints, feels better, no fever x 24 hours CBC, BMP 05/08/19 06:25 05/08/19 06:25 Vital Signs Period Temp Pulse Resp BP Sys/Johns Pulse Ox Last 24 Hr 97.7 F-98.2 F 72-102 18-18 124-137/55-71 95-98 s1s2 sl.tachy coarse bilateral rales, better today abd soft no edema Pneumonia lung cancer-increased right lung field mass iv abx nebs iv steroid check pre and post o2 sats dc planning likely tomorrow Problem List - Problems (1) Hypokalemia Code(s): E87.6 - HYPOKALEMIA (2) COPD (chronic obstructive pulmonary disease) Code(s): J44.9 - CHRONIC OBSTRUCTIVE PULMONARY DISEASE, UNSPECIFIED Qualifiers: COPD type: unspecified COPD Qualified Code(s): J44.9 - Chronic obstructive pulmonary disease, unspecified (3) Lung cancer Code(s): C34.90 - MALIGNANT NEOPLASM OF UNSP PART OF UNSP BRONCHUS OR LUNG Qualifiers: Laterality: right Lung location: unspecified part of lung Qualified Code( s): C34.91 - Malignant neoplasm of unspecified part of right bronchus or lung (4) Pneumonia Code(s): J18.9 - PNEUMONIA, UNSPECIFIED ORGANISM Qualifiers: Pneumonia type: due to unspecified organism Laterality: right Lung location: lower lobe of lung Qualified Code(s): J18.1 - Lobar pneumonia, unspecified organism
[2019-05-08] MEDS: BUDESONIDE/FORMETEROL FUMARATE 160/4.5 mcg INHALER IH SCH ×2 (09:15→21:12)
[2019-05-08] MEDS: TIOTROPIUM BROMIDE 2.5 MCG (SPIRIVA) RESPIMAT INHALER IH SCH (09:15)
[2019-05-08] MEDS: methylPREDNISolone NA SUCC 40 MG/1 ML VIAL IVPUSH SCH ×2 (09:16→21:11)
[2019-05-08] MEDS: ENOXAPARIN NA (PORCINE) 30 MG/0.3 ML DISP.SYRIN SQ SCH (09:16)
[2019-05-08] MEDS: POTASSIUM CHLORIDE TABS 20 MEQ TABLET.ER (FP) PO SCH (09:18)
[2019-05-08] MEDS: metoPROLOL SUCCINATE 25 MG TAB.SR.24H (FP) PO SCH ×2 (09:18→21:11)
[2019-05-08] MEDS: LACTOBACILLUS ACIDOPHILUS 1 TABLET PO SCH ×2 (09:18→21:12)
[2019-05-08] MEDS ORDERED: LORATADINE 10 MG TABLET PO PRN (10:00)
--- NOTE | 2019-05-08 11:59 | PN ---
Progress Note, Physician History of Present Illness: OOB IN CHAIR NO COMPLAINTS NO FEVER/ CHILLS DENIES CHEST PAIN/ DYSPNEA/ COUGH NO URINARY TRACT SYMPTOMS TEMS DOWN AFEBRILE WBC WNL BC (-) - Current Medication List Current Medications: Active Medications Acetaminophen (Ofirmev Injection -) 1,000 mg IVPB Q6H PRN PRN Reason: FEVER Last Admin: 05/06/19 06:10 Dose: 1,000 mg Albuterol Sulfate (Ventolin 0.083% Nebulizer Soln -) 1 amp NEB RTID [facility] Last Admin: 05/08/19 08:35 Dose: 1 amp Atorvastatin Calcium (Lipitor -) 10 mg PO HS [facility] Last Admin: 05/07/19 22:20 Dose: 10 mg Budesonide/Formoterol Fumarate (Symbicort 160/4.5mcg -) 2 puff IH BID [facility] Last Admin: 05/08/19 09:15 Dose: 2 puff Enoxaparin Sodium (Lovenox -) 30 mg SQ DAILY [facility] Last Admin: 05/08/19 09:16 Dose: 30 mg IV Flush (Mat-Cath Flush) 10 ml IVPUSH PRN PRN PRN Reason: policy Piperacillin Sod/Tazobactam (Sod 3.375 gm/ Dextrose) 50 mls @ 100 mls/hr IVPB Q8H-IV [facility]; Protocol Last Admin: 05/08/19 09:14 Dose: 100 mls/hr Lactobacillus Acidophilus (Bacid -) 1 tab PO BID [facility] Loratadine (Claritin -) 10 mg PO DAILY PRN PRN Reason: allergy Methylprednisolone Sodium Succinate (Solu-Medrol -) 30 mg IVPUSH Q12H [facility] Last Admin: 05/08/19 09:16 Dose: 30 mg Metoprolol Succinate (Toprol Xl -) 25 mg PO BID [facility] Last Admin: 05/08/19 09:18 Dose: 25 mg Potassium Chloride (K-Dur -) 40 meq PO DAILY [facility] Last Admin: 05/08/19 09:18 Dose: 40 meq Tiotropium [place] (Spiriva Respimat) 2 puff IH DAILY [facility] Last Admin: 05/08/19 09:15 Dose: 2 puff - Objective Vital Signs: Vital Signs Temperature 98.0 F 05/08/19 10:00 Pulse Rate 101 H 05/08/19 11:23 Respiratory Rate 18 10/03/19 10:00 Blood Pressure 137/55 L 05/08/19 10:00 O2 Sat by Pulse Oximetry (%) 94 L 05/08/19 11:23 Constitutional: Yes: No Distress Eyes: Yes: Conjunctiva Clear Cardiovascular: Yes: Regular Rate and Rhythm Respiratory: Yes: CTA Bilaterally Gastrointestinal: Yes: Normal Bowel Sounds, Soft. No: Tenderness Edema: No Labs: CBC, BMP 05/08/19 06:25 05/08/19 06:25 INR, PTT INR 1.11 (0.83-1.09) H 05/06/19 01:06 Assessment/Plan PNEUMONIA LUNG MASS FEVER RESOLVED SUBSTITUTE PO AUGMENTIN 875MG BID X 7D
--- NOTE | 2019-05-08 19:04 | PN ---
Progress Note (short form) - Note Progress Note: Patient seen an dexamined Fever curve improved AFVSS Cor: RSR, No murmurs, No gallops Lungs: decreased at bases Abd: Soft, Normal bowel sounds, No organomegaly Ext:No significant edema Labs/Meds reviewed A/P 84 y/o patient with Large cell neuroendocrine tumor _LUL -s/p lobectomy SCC RLL-s/p RT/Chemotherapy pneumonia diarrhea --checking c.diff Continue with steroids and antibiotics Biopsy of RLL mass in future aspirin on hold
[2019-05-08] MEDS: ATORVASTATIN CA 10 MG TABLET (FP) PO SCH (21:11)
[2019-05-09] MEDS ORDERED: PIPERACILLIN/TAZOBACTAM 3.375 GM VIAL IVPB ONE ×2 (00:26→08:45)
[2019-05-09] MEDS ORDERED: DEXTROSE 5%-WATER - 50 ML IVPB ONE ×2 (00:26→08:45)
[2019-05-09] MEDS: PIPERACILLIN/TAZOB 3.375 GM 3.375 GM in DEXTROSE 5%-WATER - 50 ML IVPB SCH ×2 (01:34→09:15)
[2019-05-09] MEDS: ALBUTEROL SO4 0.083% IH SOL 2.5 MG/3 ML VIAL.NEB. NEB SCH ×2 (07:30→13:44)
--- NOTE | 2019-05-09 08:57 | PN ---
Progress Note (short form) - Note Progress Note: Vital Signs Period Temp Pulse Resp BP Sys/Johns Pulse Ox Last 24 Hr 97.7 F-98.0 F 72-101 18-18 127-137/55-66 94-98 s1s2 sl.tachy coarse bilateral rales, better today abd soft no edema Pneumonia lung cancer-increased right lung field mass has had 5 episodes of loose muddy stools yesterday with cramping-resolved by the evening, none since, feels well stool c.diff sent if neg will dc home on oral augmentin otherwise well pre and post o2 was good, does not require home o2 Problem List - Problems (1) Hypokalemia Code(s): E87.6 - HYPOKALEMIA (2) COPD (chronic obstructive pulmonary disease) Code(s): J44.9 - CHRONIC OBSTRUCTIVE PULMONARY DISEASE, UNSPECIFIED Qualifiers: COPD type: unspecified COPD Qualified Code(s): J44.9 - Chronic obstructive pulmonary disease, unspecified (3) Lung cancer Code(s): C34.90 - MALIGNANT NEOPLASM OF UNSP PART OF UNSP BRONCHUS OR LUNG Qualifiers: Laterality: right Lung location: unspecified part of lung Qualified Code( s): C34.91 - Malignant neoplasm of unspecified part of right bronchus or lung (4) Pneumonia Code(s): J18.9 - PNEUMONIA, UNSPECIFIED ORGANISM Qualifiers: Pneumonia type: due to unspecified organism Laterality: right Lung location: lower lobe of lung Qualified Code(s): J18.1 - Lobar pneumonia, unspecified organism
[2019-05-09] MEDS: metoPROLOL SUCCINATE 25 MG TAB.SR.24H (FP) PO SCH (09:15)
[2019-05-09] MEDS: methylPREDNISolone NA SUCC 40 MG/1 ML VIAL IVPUSH SCH (09:16)
[2019-05-09] MEDS: ENOXAPARIN NA (PORCINE) 30 MG/0.3 ML DISP.SYRIN SQ SCH (09:16)
[2019-05-09] MEDS: LACTOBACILLUS ACIDOPHILUS 1 TABLET PO SCH (09:17)
[2019-05-09] MEDS: TIOTROPIUM BROMIDE 2.5 MCG (SPIRIVA) RESPIMAT INHALER IH SCH (09:20)
[2019-05-09] MEDS: BUDESONIDE/FORMETEROL FUMARATE 160/4.5 mcg INHALER IH SCH (09:20)
--- NOTE | 2019-05-09 13:07 | DS ---
Physical Examination Vital Signs: Vital Signs Temperature 98.7 F 05/09/19 08:00 Pulse Rate 105 H 05/09/19 08:00 Respiratory Rate 18 05/09/19 08:00 Blood Pressure 125/72 05/09/19 08:00 O2 Sat by Pulse Oximetry (%) 97 05/09/19 09:00 Constitutional: Yes: No Distress, Calm, Thin Eyes: Yes: EOM Intact HENT: Yes: Normocephalic Neck: Yes: Trachea Midline Cardiovascular: Yes: Regular Rate and Rhythm Respiratory: Yes: Rales (coarse basal) Gastrointestinal: Yes: Normal Bowel Sounds, Soft Edema: No Peripheral Pulses WNL: Yes Neurological: Yes: WNL Labs: CBC, BMP 05/08/19 06:25 05/08/19 06:25 Discharge Summary Problems reviewed: Yes Reason For Visit: TACHYCARDIA,MALIGNANT NEOPLASM OF LUNG,HYPERTENSI Current Active Problems COPD (chronic obstructive pulmonary disease) (Acute) Hypokalemia (Acute) Lung cancer (Acute) Pneumonia (Acute) Hospital Course: Admitted for persistent fever, dry cough and increased dyspnea. Known h/o lung ca, recent increase in right upper lobe mass. started iv zosyn with resolution of fever and subjective improvment. Blood cultures remained negative. Pre and post O2 evaluation did not indicate need for home O2. Feeling better, can switch to oral augmentin for additional 7 days and will be discharged home with close outp follow up. Condition: Good - Instructions Disposition: HOME - Home Medications Comprehensive Discharge Medication List: Ambulatory Orders Ascorbate Calcium [Vitamin C] 500 mg PO DAILY 02/28/18 Aspirin [Adult Aspirin] 81 mg PO HS 02/28/18 Cetirizine HCl [Zyrtec -] 10 mg PO PRN PRN 02/28/18 Ketotifen Fumarate [Zaditor] 5 ml OP BID 02/28/18 Pravastatin Sodium 20 mg PO HS 02/28/18 Tiotropium [place] [Spiriva] 18 mcg IH DAILY 02/28/18 Budesonide/Formeterol Fumarate [SYMBICORT 160/4.5mcg -] 1 inh PO HS 08/27/18 Metoprolol Succinate 25 mg PO BID #60 tab.er.24h 01/30/19 Acetaminophen [Tylenol] 325 mg PO PRN PRN 04/04/19 Amlodipine Besylate 5 mg PO DAILY 04/04/19 Calcium Carbonate [Calcium] 1,200 mg PO DAILY 04/04/19 Amoxicillin/Potassium Clav [Augmentin 875-125 Tablet] 1 each PO BID #14 tablet 05/09/19 Lactobacillus Acidophilus [Bacid -] 1 tab PO BID tab 05/09/19 Prescription Drug Monitoring Program (I-STOP) results: I-STOP not reviewed (not on narcotic)
[2019-05-09 14:55] VITALS: BP 143/78; PULSE 102; TEMP 97.9
== END 2019-05-09 15:58 | disposition home or self-care (01) | DRG 190 ==
LOC: JER 11:07 → JERBED 14:15 → J7W 20:19
PROVIDERS: ADMIT Internal Medicine; ATTEND Internal Medicine
DX: J44.0 Chronic obstructive pulmonary disease with (acute) lower respiratory infection (principal); J18.1 Lobar pneumonia, unspecified organism; C7A.1 Malignant poorly differentiated neuroendocrine tumors; C34.90 Malignant neoplasm of unspecified part of unspecified bronchus or lung; J44.1 Chronic obstructive pulmonary disease with (acute) exacerbation; I25.10 Atherosclerotic heart disease of native coronary artery without angina pectoris; Z85.118 Personal history of other malignant neoplasm of bronchus and lung; Z92.21 Personal history of antineoplastic chemotherapy; E87.6 Hypokalemia; J44.9 Chronic obstructive pulmonary disease, unspecified; I11.0 Hypertensive heart disease with heart failure; I50.9 Heart failure, unspecified; I35.1 Nonrheumatic aortic (valve) insufficiency; E78.5 Hyperlipidemia, unspecified; D64.9 Anemia, unspecified; R19.7 Diarrhea, unspecified
CPT/HCPCS: 36415; 71046-TC-FY; 80053; 81003; 82803; 83605; 84484; 85025; 85610; 85730; 87040; 87086; 87324; 87449; 87899; 93005; 93010; 94640; 94761; 97116-GP; 97161-GP; 99282-25; J0131

== ENCOUNTER 2019-06-09 08:59 | Day surgery (SDC) | payer OTHER ==
[2019-06-06 13:19] VITALS: BMI 19.0
[2019-06-09 09:35] LABS: BASO % 0.4 % (0-2.0); EOS % 2.3 % (0-4.5); HEMATOCRIT 35.9 % (32.4-45.2); HEMOGLOBIN 11.7 GM/dL (10.7-15.3); LYMPH % 23.1 % (8-40); MCH 28.9 pg (25.7-33.7); MCHC 32.6 g/dl (32.0-36.0); MEAN CELL VOLUME 88.7 fl (80-96); MEAN PLT VOLUME 6.7 fl (7.5-11.1); MONO % 16.2 % (3.8-10.2); PLATELET COUNT 348 K/MM3 (134-434); RBC 4.05 M/mm3 (3.60-5.2); RDW 15.6 % (11.6-15.6); WHITE BLOOD COUNT 6.9 K/mm3 (4.0-10.0)
[2019-06-09 09:47] LABS: INR 1.02 (0.83-1.09)
[2019-06-09 13:08] VITALS: TEMP 98
[2019-06-09 16:49] VITALS: BP 116/64; PULSE 102
--- NOTE | 2019-06-11 14:02 | PATH ---
Surgical Pathology Report Patient Name: FIORDALIZA [facility]. Rec. #: [id number] /Age/Gender: 1935 (Age: 84) / F Account: [id number] Location: RADIOLOGY INTER Taken: 06/09/2019 Received: 06/09/2019 Reported: 06/11/2019 Physicians: Tin Thomas M.D. Suresh Canseco M.D. Specimen(s) Received RIGHT LUNG BIOPSY Clinical History 84-year-old female with history of lung cancer status post radiation therapy now with enlarging right lower lobe nodule Final Diagnosis RIGHT LUNG, BIOPSY: INVASIVE SQUAMOUS CELL CARCINOMA, MODERATELY DIFFERENTIATED, WITH MARKED NECROSIS. Comment: Immunohistochemical stained slides performed at [place], [place] ([id number]) interpreted at [facility] demonstrate tumor cells to be positive for p40 and CK7 (focal, patchy), while negative for CK20, TTF-1, Napsin A, CD56, Synaptophysin, and Chromogranin A. The morphology and immunophenotype support a diagnosis of squamous cell carcinoma. Positive and negative controls (internal if applicable) show appropriate results. This case was discussed with Dr. Canseco on June 11, 2019. Electronically Signed Bryant Cruz M.D. Gross Description Received in formalin labeled "right lung biopsy," is a 0.5 x 0.3 x 0.1 cm aggregate of woodard soft tissue fragments. The formalin is filtered and the specimen is entirely submitted in one cassette. /06/09/2019 saudi06/09/2019
== END 2019-06-09 16:45 | disposition home or self-care (01) ==
LOC: JRADIR 08:59
PROVIDERS: ATTEND Nurse Practitioner Family
PROC: BB24ZZZ Computerized Tomography (CT Scan) of Bilateral Lungs (ICD-10-PCS; principal; 2019-06-09)
PROC: 0BBF3ZX Excision of Right Lower Lung Lobe, Percutaneous Approach, Diagnostic (ICD-10-PCS; 2019-06-09)
DX: C34.31 Malignant neoplasm of lower lobe, right bronchus or lung (principal)
CPT/HCPCS: 32405; 36415; 71045-TC-FY; 76098-TC-FY; 77012-TC; 85025; 85610; 87899; 88305-TC

== ENCOUNTER 2019-07-01 07:08 | Day surgery (SDC) | payer OTHER ==
[2019-07-01 09:22] LABS: BASO % 0.5 % (0-2.0); EOS % 3.8 % (0-4.5); HEMATOCRIT 34.4 % (32.4-45.2); HEMOGLOBIN 11.4 GM/dL (10.7-15.3); LYMPH % 23.7 % (8-40); MCH 29.3 pg (25.7-33.7); MCHC 33.1 g/dl (32.0-36.0); MEAN CELL VOLUME 88.5 fl (80-96); MEAN PLT VOLUME 6.7 fl (7.5-11.1); MONO % 14.7 % (3.8-10.2); NEUT % 57.3 % (42.8-82.8); PLATELET COUNT 352 K/MM3 (134-434); RBC 3.89 M/mm3 (3.60-5.2); RDW 15.8 % (11.6-15.6); WHITE BLOOD COUNT 6.4 K/mm3 (4.0-10.0)
[2019-07-01] MEDS ORDERED: DEXAMETHASONE SODIUM PHOSPHATE 10 MG in SODIUM CHLORIDE 50 ML IVPB ONE (09:30)
[2019-07-01] MEDS ORDERED: ACETAMINOPHEN 325 MG TABLET (FP) PO ONE (09:30)
[2019-07-01] MEDS ORDERED: diphenhydrAMINE HCL 25 MG CAPSULE (FP) PO ONE (09:30)
[2019-07-01] MEDS ORDERED: PEMBROLIZUMAB 200 MG in SODIUM CHLORIDE 50 ML IV ONE (10:00)
[2019-07-01 10:04] LABS: ALBUMIN 2.9 g/dl (3.4-5.0); BILIRUBIN,TOTAL 0.3 mg/dL (0.2-1); BLOOD UREA NITROGEN 22.9 mg/dL (7-18); CALCIUM 8.9 mg/dL (8.5-10.1); CREATININE 0.9 mg/dL (0.55-1.3); MAGNESIUM 2.1 mg/dL (1.8-2.4); POTASSIUM 4.2 mmol/L (3.5-5.1); TOT PROT 6.9 g/dl (6.4-8.2)
[2019-07-01] MEDS ORDERED: SODIUM CHLORIDE 250 ML IV ONE (10:30)
[2019-07-01] MEDS ORDERED: PORTA CATH FLUSH 10 ML IVPUSH ONE (12:31)
[2019-07-01 13:36] VITALS: BP 91/52; PULSE 103
[2019-07-01 13:40] VITALS: TEMP 98.4
== END 2019-07-01 13:41 | disposition home or self-care (01) ==
LOC: JONCCHEMO 07:08 → J7W 10:30 → JONCCHEMO 13:41
PROVIDERS: ATTEND Internal Medicine Hematology & Oncology
DX: Z51.11 Encounter for antineoplastic chemotherapy (principal); C34.90 Malignant neoplasm of unspecified part of unspecified bronchus or lung; C7A.8 Other malignant neuroendocrine tumors
CPT/HCPCS: 36415; 80053; 83735; 84443; 85025; 96361; 96375; 96413; J9271

== ENCOUNTER 2019-07-22 06:56 | Day surgery (SDC) | payer OTHER ==
[2019-07-22] MEDS ORDERED: ACETAMINOPHEN 325 MG TABLET (FP) PO ONE (09:30)
[2019-07-22] MEDS ORDERED: diphenhydrAMINE HCL 25 MG CAPSULE (FP) PO ONE (09:30)
[2019-07-22] MEDS ORDERED: DEXAMETHASONE SODIUM PHOSPHATE 10 MG in SODIUM CHLORIDE 50 ML IVPB ONE (09:30)
[2019-07-22 09:40] LABS: BASO % 0.3 % (0-2.0); EOS % 5.7 % (0-4.5); HEMOGLOBIN 12.6 GM/dL (10.7-15.3); LYMPH % 22.8 % (8-40); MCH 29.6 pg (25.7-33.7); MCHC 33.3 g/dl (32.0-36.0); MEAN PLT VOLUME 6.8 fl (7.5-11.1); MONO % 14.3 % (3.8-10.2); NEUT % 56.9 % (42.8-82.8); PLATELET COUNT 317 K/MM3 (134-434); RBC 4.27 M/mm3 (3.60-5.2); RDW 16.2 % (11.6-15.6); WHITE BLOOD COUNT 5.2 K/mm3 (4.0-10.0)
[2019-07-22] MEDS ORDERED: PEMBROLIZUMAB 200 MG in SODIUM CHLORIDE 50 ML IV ONE (10:00)
[2019-07-22 10:24] LABS: ALBUMIN 3.2 g/dl (3.4-5.0); BILIRUBIN,TOTAL 0.3 mg/dL (0.2-1); CALCIUM 9.3 mg/dL (8.5-10.1); CREATININE 0.8 mg/dL (0.55-1.3); MAGNESIUM 2.2 mg/dL (1.8-2.4); POTASSIUM 3.8 mmol/L (3.5-5.1); TOT PROT 7.4 g/dl (6.4-8.2)
[2019-07-22] MEDS ORDERED: SODIUM CHLORIDE 250 ML IV ONE (10:30)
[2019-07-22 14:30] VITALS: TEMP 97.5
[2019-07-22 14:41] VITALS: BP 132/54; PULSE 98
== END 2019-07-22 13:30 | disposition home or self-care (01) ==
LOC: JONCCHEMO 06:56 → J7W 10:20 → JONCCHEMO 13:30
PROVIDERS: ATTEND Internal Medicine Hematology & Oncology
PROC: 3E04305 Introduction of Other Antineoplastic into Central Vein, Percutaneous Approach (ICD-10-PCS; principal; 2019-07-22)
PROC: 3E043GC Introduction of Other Therapeutic Substance into Central Vein, Percutaneous Approach (ICD-10-PCS; 2019-07-22)
PROC: 3E0437Z Introduction of Electrolytic and Water Balance Substance into Central Vein, Percutaneous Approach (ICD-10-PCS; 2019-07-22)
DX: Z51.11 Encounter for antineoplastic chemotherapy (principal); C34.31 Malignant neoplasm of lower lobe, right bronchus or lung; C7A.8 Other malignant neuroendocrine tumors; I10 Essential (primary) hypertension; E78.00 Pure hypercholesterolemia, unspecified
CPT/HCPCS: 36415; 80053; 83735; 84439; 84443; 85025; 96361; 96367; 96413; J9271

== ENCOUNTER 2019-08-12 05:55 | Day surgery (SDC) | payer OTHER ==
[2019-08-12 09:12] LABS: BASO % 0.5 % (0-2.0); EOS % 3.6 % (0-4.5); HEMATOCRIT 39.4 % (32.4-45.2); HEMOGLOBIN 12.8 GM/dL (10.7-15.3); LYMPH % 35.5 % (8-40); MCH 29.1 pg (25.7-33.7); MCHC 32.6 g/dl (32.0-36.0); MEAN CELL VOLUME 89.2 fl (80-96); MEAN PLT VOLUME 6.9 fl (7.5-11.1); MONO % 14.8 % (3.8-10.2); NEUT % 45.6 % (42.8-82.8); PLATELET COUNT 261 K/MM3 (134-434); RBC 4.41 M/mm3 (3.60-5.2); RDW 16.5 % (11.6-15.6); WHITE BLOOD COUNT 4.8 K/mm3 (4.0-10.0)
[2019-08-12 09:58] LABS: ALBUMIN 3.2 g/dl (3.4-5.0); BILIRUBIN,TOTAL 0.2 mg/dL (0.2-1); CALCIUM 8.7 mg/dL (8.5-10.1); CREATININE 0.9 mg/dL (0.55-1.3); MAGNESIUM 2.2 mg/dL (1.8-2.4); POTASSIUM 4.3 mmol/L (3.5-5.1); TOT PROT 7.3 g/dl (6.4-8.2)
[2019-08-12] MEDS ORDERED: diphenhydrAMINE HCL 25 MG CAPSULE (FP) PO ONE (10:00)
[2019-08-12] MEDS ORDERED: DEXAMETHASONE SODIUM PHOSPHATE 10 MG in SODIUM CHLORIDE 50 ML IVPB ONE (10:00)
[2019-08-12] MEDS ORDERED: SODIUM CHLORIDE 250 ML IV ONE (10:00)
[2019-08-12] MEDS ORDERED: ACETAMINOPHEN 325 MG TABLET (FP) PO ONE (10:00)
[2019-08-12] MEDS ORDERED: PEMBROLIZUMAB 200 MG in SODIUM CHLORIDE 50 ML IV ONE (10:30)
[2019-08-12 16:26] VITALS: BP 157/71; PULSE 108; TEMP 97.7
[2019-08-12] MEDS ORDERED: PORTA CATH FLUSH 10 ML IVPUSH ONE (16:26)
== END 2019-08-12 14:30 | disposition home or self-care (01) ==
LOC: JONCCHEMO 05:55 → J7W 11:21 → JONCCHEMO 14:30
PROVIDERS: ATTEND Internal Medicine Hematology & Oncology
DX: Z51.11 Encounter for antineoplastic chemotherapy (principal); C34.31 Malignant neoplasm of lower lobe, right bronchus or lung; C7A.8 Other malignant neuroendocrine tumors
CPT/HCPCS: 36415; 71046-TC-FY; 80053; 83735; 84443; 85025; 96361; 96375; 96413; J9271

== ENCOUNTER 2019-09-02 07:12 | Day surgery (SDC) | payer OTHER ==
[2019-09-02 09:13] LABS: BASO % 0.7 % (0-2.0); EOS % 4.6 % (0-4.5); HEMATOCRIT 41.9 % (32.4-45.2); HEMOGLOBIN 13.9 GM/dL (10.7-15.3); LYMPH % 28.1 % (8-40); MCH 29.9 pg (25.7-33.7); MCHC 33.2 g/dl (32.0-36.0); MEAN PLT VOLUME 6.9 fl (7.5-11.1); MONO % 14.5 % (3.8-10.2); NEUT % 52.1 % (42.8-82.8); PLATELET COUNT 301 K/MM3 (134-434); RBC 4.65 M/mm3 (3.60-5.2); RDW 16.1 % (11.6-15.6); WHITE BLOOD COUNT 5.1 K/mm3 (4.0-10.0)
[2019-09-02] MEDS ORDERED: diphenhydrAMINE HCL 25 MG CAPSULE (FP) PO ONE (09:30)
[2019-09-02] MEDS ORDERED: ACETAMINOPHEN 325 MG TABLET (FP) PO ONE (09:30)
[2019-09-02] MEDS ORDERED: DEXAMETHASONE SODIUM PHOSPHATE 10 MG in SODIUM CHLORIDE 50 ML IVPB ONE (09:30)
[2019-09-02 09:35] LABS: ALBUMIN 3.2 g/dl (3.4-5.0); BILIRUBIN,TOTAL 0.3 mg/dL (0.2-1); BLOOD UREA NITROGEN 28.3 mg/dL (7-18); CALCIUM 9.5 mg/dL (8.5-10.1); CREATININE 0.9 mg/dL (0.55-1.3); MAGNESIUM 2.4 mg/dL (1.8-2.4); POTASSIUM 4.1 mmol/L (3.5-5.1); TOT PROT 7.4 g/dl (6.4-8.2)
[2019-09-02] MEDS ORDERED: PEMBROLIZUMAB 200 MG in SODIUM CHLORIDE 50 ML IV ONE (10:00)
[2019-09-02] MEDS ORDERED: SODIUM CHLORIDE 250 ML IV ONE (10:30)
[2019-09-02 16:37] VITALS: PULSE 104; TEMP 97.5
[2019-09-02 16:43] VITALS: BP 116/59
== END 2019-09-02 13:15 | disposition home or self-care (01) ==
LOC: JONCCHEMO 07:12 → J7W 10:05 → JONCCHEMO 13:15
PROVIDERS: ATTEND Internal Medicine Hematology & Oncology
DX: Z51.11 Encounter for antineoplastic chemotherapy (principal); C34.31 Malignant neoplasm of lower lobe, right bronchus or lung; C7A.8 Other malignant neuroendocrine tumors
CPT/HCPCS: 36415; 80053; 83735; 85025; 96361; 96375; 96413; J9271

== ENCOUNTER 2019-09-23 05:43 | Day surgery (SDC) | payer OTHER ==
[2019-09-23 10:00] LABS: BASO % 0.5 % (0-2.0); EOS % 8.8 % (0-4.5); HEMATOCRIT 39.3 % (32.4-45.2); HEMOGLOBIN 12.8 GM/dL (10.7-15.3); LYMPH % 21.9 % (8-40); MCH 29.3 pg (25.7-33.7); MCHC 32.6 g/dl (32.0-36.0); MEAN CELL VOLUME 89.8 fl (80-96); MEAN PLT VOLUME 7.1 fl (7.5-11.1); MONO % 12.9 % (3.8-10.2); NEUT % 55.9 % (42.8-82.8); PLATELET COUNT 255 K/MM3 (134-434); RBC 4.37 M/mm3 (3.60-5.2); RDW 15.5 % (11.6-15.6); WHITE BLOOD COUNT 6.4 K/mm3 (4.0-10.0)
[2019-09-23] MEDS ORDERED: DEXAMETHASONE SODIUM PHOSPHATE 10 MG in SODIUM CHLORIDE 50 ML IVPB ONE (10:00)
[2019-09-23] MEDS ORDERED: diphenhydrAMINE HCL 25 MG CAPSULE (FP) PO ONE (10:00)
[2019-09-23] MEDS ORDERED: ACETAMINOPHEN 325 MG TABLET (FP) PO ONE (10:00)
[2019-09-23] MEDS ORDERED: PEMBROLIZUMAB 200 MG in SODIUM CHLORIDE 50 ML IV ONE (10:30)
[2019-09-23 10:42] LABS: BILIRUBIN,TOTAL 0.3 mg/dL (0.2-1); BLOOD UREA NITROGEN 27.5 mg/dL (7-18); CALCIUM 8.4 mg/dL (8.5-10.1); MAGNESIUM 2.3 mg/dL (1.8-2.4); POTASSIUM 3.6 mmol/L (3.5-5.1); TOT PROT 6.9 g/dl (6.4-8.2)
[2019-09-23] MEDS ORDERED: SODIUM CHLORIDE 250 ML IV ONE (11:00)
[2019-09-23 15:22] VITALS: TEMP 97.8
[2019-09-23 15:23] VITALS: BP 130/67; PULSE 97
== END 2019-09-23 13:18 | disposition home or self-care (01) ==
LOC: JONCCHEMO 05:43 → J7W 11:41 → JONCCHEMO 13:18
PROVIDERS: ATTEND Internal Medicine Hematology & Oncology
DX: Z51.11 Encounter for antineoplastic chemotherapy (principal); C34.31 Malignant neoplasm of lower lobe, right bronchus or lung; C7A.8 Other malignant neuroendocrine tumors; E78.00 Pure hypercholesterolemia, unspecified; J44.9 Chronic obstructive pulmonary disease, unspecified; M19.90 Unspecified osteoarthritis, unspecified site; I10 Essential (primary) hypertension
CPT/HCPCS: 36415; 80053; 83735; 84443; 85025; 96361; 96375; 96413; J9271

== ENCOUNTER 2019-10-03 13:31 | Emergency (ER) | payer OTHER ==
[2019-10-03 13:51] VITALS: BMI 19.8
[2019-10-03] MEDS ORDERED: ACETAMINOPHEN 325 MG TABLET (FP) PO ONE (14:23)
--- NOTE | 2019-10-03 14:24 | PDOC ---
History of Present Illness - General History Source: Patient Exam Limitations: No Limitations - History of Present Illness Initial Comments: Kaia Chang is an 84 yo F w a hx of bilateral hip replacements, CHF, HTN, Hyperlipdemia, (SVT), Cancer (neuroendocrine tumor right lung, left lung squamous cell cncer), COPD, OA, multiple UTI's with ESBL who presents to the [facility] er with right sided hip pain after she tripped on a curb that she didn't see and fell down and landed on her right hip. She did not hit her head or experience any LOC. Her , sister and brother were all with her who witnessed the fall and confirm her story. She was able to get up and walk on her hip at the scene of the accident. Here in the ER she is able to lift her right leg but the right leg is weaker than the left leg. She describes an uncomfortable feeling in her right hip that goes down all the way to the right knee. She is concerned because she has cancer and was told she has very brittle bones. She also has had multiple hip replacements. She does not take anticoagulants. She usually takes a baby aspirin every day but has not taken any aspirin since Sunday because she is going through a paracentesis next week and they wanted to hold her aspirin for one week before the procedure. 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.), TURP, Tonsillectomy (193), Port placement Social: Quit smoking in 1989 Allergies: Shellfish <Mack Hernandez - Last Filed: 10/04/19 12:28> <Radha Fernandes - Last Filed: 10/04/19 12:33> - General Chief Complaint: Injury Stated Complaint: FALL Time Seen by Provider: 10/03/19 14:03 Past History - Past Medical History Anemia: No Asthma: No Cancer: Yes (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, Right LL Squamous Cell) Cardiac Disorders: Yes (SVT, CAD, CHF?) CVA: No COPD: Yes (COPD) CHF: Yes Dementia: No Diabetes: No GI Disorders: Yes (Acid Reflux) Disorders: No HTN: Yes Hypercholesterolemia: Yes Liver Disease: No Seizures: No Thyroid Disease: No - Surgical History Abdominal Surgery: No Appendectomy: No Cardiac Surgery: Yes ([facility] - Diastolic Dysfunction) Cholecystectomy: No ("sluggish GB, with Stones on CT Scan") Lung Surgery: Yes (ETREZA Thoracotomy wedge resection) Neurologic Surgery: No Orthopedic Surgery: Yes (BILATERAL HIP REPLACEMENT) - Immunization History Td Vaccination: Yes TDAP Vaccination: Yes Immunization Up to Date: Yes - Psycho Social/Smoking Cessation Hx Smoking History: Never smoked Have you smoked in the past 12 months: No If you are a former smoker, when did you quit?: 1989 Information on smoking cessation initiated: No 'Breaking Loose' booklet given: 05/29/17 Hx Alcohol Use: No Drug/Substance Use Hx: No Substance Use Type: None Hx Substance Use Treatment: No <Mack Hernandez - Last Filed: 10/04/19 12:28> <Radha Fernandes - Last Filed: 10/04/19 12:33> - Past Medical History Allergies/Adverse Reactions: Allergies Allergy/AdvReac Type Severity Reaction Status Date / Time shellfish derived Allergy Severe Verified 10/03/19 13:40 Home Medications: Ambulatory Orders Ascorbate Calcium [Vitamin C] 500 mg PO DAILY 02/28/18 Cetirizine HCl [Zyrtec -] 10 mg PO PRN PRN 02/28/18 Ketotifen Fumarate [Zaditor] 5 ml OP BID 02/28/18 Pravastatin Sodium 20 mg PO HS 02/28/18 Tiotropium [place] [Spiriva] 18 mcg IH DAILY 02/28/18 Budesonide/Formeterol Fumarate [SYMBICORT 160/4.5mcg -] 1 inh PO HS 08/27/18 Metoprolol Succinate 25 mg PO BID #60 tab.er.24h 01/30/19 Acetaminophen [Tylenol] 325 mg PO PRN PRN 04/04/19 Amlodipine Besylate 5 mg PO DAILY 04/04/19 Calcium Carbonate [Calcium] 1,200 mg PO DAILY 04/04/19 Lactobacillus Acidophilus [Bacid -] 1 tab PO BID tab 05/09/19 Aspirin [Aspirin EC] 81 mg PO DAILY 06/06/19 Furosemide [Lasix] 40 mg PO DAILY 06/06/19 Review of Systems - Review of Systems Able to Perform ROS?: Yes Comments:: CONSTITUTIONAL: Absent: fever, no chills, no fatigue EYES: Absent: visual changes ENT: Absent: ear pain, no sore throat CARDIOVASCULAR: Absent: chest pain, no palpitations RESPIRATORY: Absent: cough, no SOB GI: Absent: abdominal pain, no nausea, no vomiting, no constipation, no diarrhea GENITOURINARY: Absent: dysuria, no frequency, no hematuria MUSKULOSKELETAL: Present: Arthralgia Absent: back pain, no myalgia SKIN: Absent: rash NEURO: Absent: headache <Mack Hernandez - Last Filed: 10/04/19 12:28> *Physical Exam - Vital Signs Last Vital Signs Temp Pulse Resp BP Pulse Ox 98 F 108 H 16 133/69 100 10/03/19 13:35 10/03/19 13:35 10/03/19 13:35 10/03/19 13:35 10/03/19 13:35 - Physical Exam GENERAL: Patient is awake, alert and in no acute distress. Speech is clear and appropriate. HEAD: Atraumatic and nontender. HEENT: Pupils are equal round and reactive to light, extraocular movements are intact. No facial deformity. No facial bone tenderness or step-off. The oropharynx is clear. NECK: The trachea is midline, there is no stridor. There is no midline cervical spine tenderness, full range of motion of neck. CHEST: Non-tender, no ecchymosis or abrasions. Equal chest wall expansion bilaterally. No flail segments. Lungs are clear to auscultation bilaterally. CARDIOVASCULAR: Tachycardic rate. regular rhythm. . ABDOMEN: Soft, nontender, nondistended. Bowel sounds are normoactive. There is no abdominal or flank ecchymosis. BACK/PELVIS: There is right sided pelvic pain. There is no midline thoracic or lumbosacral spine tenderness or step-off. RIGHT LEG: There is decreased strength on right leg extension 3/5 compared to the left leg 5/5. Normal and equal sensation b/l. EXTREMITIES: There is no extremity deformity or joint swelling. No focal bony tenderness throughout. 2+ distal pulses throughout. NEURO: Alert and oriented x3. Cranial nerves II through XII are intact. 3/5 motor strength right leg. 5 out of 5 motor strength x3 extremities. No gross sensory deficits. Gait is stable. SKIN: No abrasions, hematomas, lacerations. PSYCH: Affect is appropriate <Mack Hernandez - Last Filed: 10/04/19 12:28> - Vital Signs Last Vital Signs Temp Pulse Resp BP Pulse Ox 98.1 F 97 H 20 140/90 98 10/03/19 13:49 10/03/19 13:49 10/03/19 13:49 10/03/19 13:49 10/03/19 13:49 <Radha Fernandes - Last Filed: 10/04/19 12:33> ED Treatment Course - RADIOLOGY Radiology Studies Ordered: Category Date Time Status PELVIS CT WITHOUT CONTRAST [CT] Stat CT Scan 10/03/19 14:21 Ordered Radiograph Interpretation: XR: Pelvis and left hip: Pain. An AP view of the pelvis and 2 views of the left hip reveal an intact left hip and right hip replacement. There is no sign of loosening or subluxation. The pelvic bones are intact. There are degenerative spine changes, abdominal distention and vascular calcifications. If symptoms persist, further imaging may be of help. - Right knee: Pain. 2 views of the right knee reveal loss of bone density, no significant arthritic changes and vascular calcifications. An acute process is not seen. - EXAM#: TYPE/EXAM: RESULT: [id number] RAD/FEMUR-RIGHT Right femur: Pain. 5 views of the right femur including a pelvis view and 2 views of the left hip reveal bilateral hip replacements which appear intact with no sign of loosening or subluxation. The pelvic bones are intact. The SI joints are patent. There are heavy aortic calcification or abdominal distention. The femur appears intact. There are vascular calcifications. If symptoms persist, further imaging may be of help. - EXAM#: TYPE/EXAM: RESULT: RAD/PELVIS Pelvis: Pain. Single pelvis reveals bilateral hip replacements which are intact. The pelvic bones are intact. The SI joints are patent. There is abdominal distention, degenerative spine changes and vascular calcifications. If symptoms persist, further imaging and orthopedic consultation may be of help. - EXAM#: TYPE/EXAM: RESULT: [id number] RAD/HIP PELVIS-RIGHT Pelvis and right hip : Pain An AP view of the pelvis and 2 views of the right hip reveal symmetrical bilateral hip replacements with no sign of loosening or subluxation. Blastic or lytic changes are not seen. There are vascular calcifications. There is abdominal distention, pain and SI joints, degenerative spine changes and vascular calcifications. If symptoms persist, further imaging may be of help. CT: EXAM#: TYPE/EXAM: RESULT: [id number] CT/LOWER EXTREMITY CT W/O CONTR Lower extremity CT (without contrast) Clinical information: evaluate for fracture/ lytic lesion; right leg pain Multiplanar imaging of the lower extremities was performed. Exam coverage extends from the level of the lower pelvis to the proximal tibial diaphyses. The femora and proximal tibiae/fibulae demonstrate no definite CT evidence of fracture or neoplastic disease allowing for partially obscuring metallic artifact arising from bilateral hip replacements. Note is again made of an approximately 5 x 3 cm subcutaneous fluid collection/ hematoma along the posterolateral aspect of the right hip. Impression: As noted above. EXAM#: TYPE/EXAM: RESULT: [id number] CT/PELVIS CT WITHOUT CONTRAST Pelvis/hips CT (without contrast) Clinical information: status post fall; right hip pain, evaluate for fracture/dislocation Multiplanar imaging was performed. No pelvis fracture is seen. Bilateral total hip replacements are noted. There is no definite CT evidence of a hip fracture allowing for partially obscuring metallic artifact arising from surgical instrumentation. No hip dislocation is seen. There is no definite hardware fracture. In comparison to a prior CT exam of 09/20/2019 interval development of an approximately 5 x 3 cm subcutaneous fluid collection probably representing a hematoma is noted along the posterolateral aspect of the right hip at the level of the greater trochanter. Surrounding subcutaneous soft tissue stranding is seen. Diffuse osteoporosis. Marked left L5-S1 degenerative facet arthropathy. As noted on the recent prior CT exam small bilateral ovarian cysts are noted. Cholelithiasis. Impression: No pelvic fracture is identified. Bilateral total hip replacements are seen. No definite periprosthetic fracture is noted allowing for partially obscuring metallic artifact. An approximately 5 x 3 cm subcutaneous fluid collection/hematoma is noted along the posterolateral aspect of the right hip at the level of the greater trochanter which has developed since a CT study of 09/20/2019. Surrounding subcutaneous soft tissue stranding is seen. <Mack Hernandez - Last Filed: 10/04/19 12:28> - RADIOLOGY Radiology Studies Ordered: Category Date Time Status LOWER EXTREMITY CT W/O CONTR [CT] Stat CT Scan 10/03/19 16:45 Completed - Medications Given in the ED: ED Medications Discontinued Medications Generic Name Dose Route Start Last Admin Trade Name Darius PRN Reason Stop Dose Admin Acetaminophen 650 mg 10/03/19 14:23 10/03/19 18:00 Tylenol - PO 10/03/19 14:24 650 mg ONCE ONE Administration <Radha Fernandes - Last Filed: 10/04/19 12:33> Medical Decision Making - Medical Decision Making Kaia Chang is an 84 yo F w a hx of bilateral hip replacements, CHF, HTN, Hyperlipdemia, (SVT), Cancer (neuroendocrine tumor right lung, left lung squamous cell cncer), COPD, OA, multiple UTI's with ESBL who presents to the [facility] er with right sided hip pain after she tripped on a curb that she didn't see and fell down and landed on her right hip. She did not hit her head or experience any LOC. Her , sister and brother were all with her who witnessed the fall and confirm her story. She was able to get up and walk on her hip at the scene of the accident. Here in the ER she is able to lift her right leg but the right leg is weaker than the left leg. She describes an uncomfortable feeling in her right hip that goes down all the way to the right knee. She is concerned because she has cancer and was told she has very brittle bones. She also has had multiple hip replacements. She does not take anticoagulants. She usually takes a baby aspirin every day but has not taken any aspirin since Sunday because she is going through a paracentesis next week and they wanted to hold her aspirin for one week before the procedure. Vital Signs Temp Pulse Resp BP Pulse Ox 98 F 108 H 16 133/69 100 10/03/19 13:35 10/03/19 13:35 10/03/19 13:35 10/03/19 13:35 10/03/19 13:35 - Tachycardic DDx IBNLT: Hip fracture, hip dislocation, other MSK injury Plan: XR, analgesia, +/- CT, re-assess XR: Documented above - no acute fx CT: Documented above - no acute fx Re-assessment: Patient ambulating around the ED. Pain improved significantly after receiving tylenol. She also now has a hematoma around where she fell down. We placed an jackson bandage pressure dressing around it and gave the instructions how to do this at home. Disposition: Home with PCP fu <Mack Hernandez - Last Filed: 10/04/19 12:28> Discharge - Discharge Information Problems reviewed: Yes - Admission No <Mack Hernandez - Last Filed: 10/04/19 12:28> <Radha Fernandes - Last Filed: 10/04/19 12:33> - Discharge Information Clinical Impression/Diagnosis: Fall Qualifiers: Encounter type: initial encounter Qualified Code(s): W19.XXXA - Unspecified fall, initial encounter Traumatic hematoma of buttock Qualifiers: Encounter type: initial encounter Qualified Code(s): S30.0XXA - Contusion of lower back and pelvis, initial encounter Condition: Improved Disposition: HOME - Follow up/Referral Referrals: Sandra Brandon MD [Primary Care Provider] - - Patient Discharge Instructions Patient Printed Discharge Instructions: How to Prevent Falls, DI for Contusion , DI for Hematoma (Bruise) Additional Instructions: You came into the ER after a fall. We did x-rays and cat scans which showed no acute fracture or dislocation. Please schedule a follow up appointment with your primary care doctor in the next 2 to 4 days to make sure your hematoma is getting better. Discuss the cat scan results that we handed you with your doctor. Come back to the ER immediately with any new or worsening concerns. Thank you for coming to the [facility] ER. We hope you feel better soon! Print Language: FRISIAN - Post Discharge Activity
[2019-10-03 15:22] VITALS: BP 140/90; PULSE 97; TEMP 98.1
--- NOTE | 2019-10-03 16:40 | PDOC ---
Attending Attestation - Resident Resident Name: Mack Hernandez - ED Attending Attestation I have performed the following: I have examined & evaluated the patient, The case was reviewed & discussed with the resident, I agree w/resident's findings & plan - HPI HPI: 10/03/19 16:40 84 yo F w a hx of bilateral hip replacements, CHF, HTN, Hyperlipdemia, (SVT), Cancer (neuroendocrine tumor right lung, left lung squamous cell cncer), COPD, OA, multiple UTI's with ESBL who presents to the [facility] er with right sided hip pain after she tripped on a curb that she didn't see and fell down and landed on her right hip. She did not hit her head or experience any LOC. Her , sister and brother were all with her who witnessed the fall and confirm her story. She was able to get up and walk on her hip at the scene of the accident. Here in the ER she is able to lift her right leg but the right leg is weaker than the left leg. She describes an uncomfortable feeling in her right hip that goes down all the way to the right knee. She is concerned because she has cancer and was told she has very brittle bones. She also has had multiple hip replacements. She does not take anticoagulants. She usually takes a baby aspirin every day but has not taken any aspirin since Sunday because she is going through a paracentesis next week and they wanted to hold her aspirin for one week before the procedure. PCP: Sandra Brandon - Physicial Exam PE: 10/03/19 16:39 physical exam General: NAD, well appearing, GCS 15 HEENT: NCAT, EOMI, PERRL. airway patent CVS: RRR, no murmur Lungs: decreased breath sound in right s/p prior thoracotomy. right lung field clear. no respiratory dsitress Abdomen: soft, no tenderness, nondistended Vascular: 2+ DP pulses symmetric and equal. Back: no midline tenderness, no stepoffs, FROM MSK: notable for soft compartments, Cap refill <2 sec. 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 Plantar flexion and dorsiflexion 5/5. FROM. Sensation grossly intact to light touch. no laxity at knee jt. 2+ DP pulses bilaterally. +TTP to the right posterior lateral buttock/hip. 15cm x 15cm palp hematoma and overlying mild ecchymosis to the right posterior lateral buttock. Neuro: alert, no focal neurologic deficits Skin: color normal color, warm and well perfused. Cap refill <2 sec. 10/03/19 18:41 10/03/19 18:44 - Medical Decision Making 10/03/19 16:39 Vital Signs Temp Pulse Resp BP Pulse Ox 98.1 F 97 H 20 140/90 98 10/03/19 13:49 10/03/19 13:49 10/03/19 13:49 10/03/19 13:49 10/03/19 13:49 Trauma ddx: extremity sprain/fracture, pelvis fracture. MSK contusion, msk spasms. periprosthetic fx. VS reviewed, wnl Xray pelvis/hip/femur normal joint space alignment, no acute fx or dislocation. prosthetic hip/hardware in place of the acetabulum. no dislocation. due to persistent pain, difficulty ambulating, CT pelvis/RLE indicated to eval for occult fx. 10/03/19 17:49 by the time of my exam. she developed 15cm x 15cm right buttock hematoma, tender no other neuro deficits, good strength and sensation throughout per phys exam as documented. CT pelvis and LE with sq hematoma on right buttock, prosthesis b/l in place, no fx or dislocation. no fx. no lytic lesions pain control, area dressed with compression/jackson and ice, with improvement. ambulatory with assistance, gait stable VS rechecked on discharge, wnl. pt and family aware of impression and plan, DC stable condition with family member. pt has safety measures and walking devices, safe at home with appropriate supervision and care 10/04/19 10:03 10/04/19 10:03
[2019-10-03] MEDS ORDERED: ACETAMINOPHEN 325 MG TABLET (FP) ONE (17:52)
== END 2019-10-03 19:00 | disposition home or self-care (01) ==
LOC: JER 13:31
DX: S30.0XXA Contusion of lower back and pelvis, initial encounter (principal); Z91.013 Allergy to seafood; Z85.3 Personal history of malignant neoplasm of breast; I10 Essential (primary) hypertension; E78.5 Hyperlipidemia, unspecified; I47.1 Supraventricular tachycardia; I50.9 Heart failure, unspecified; J44.9 Chronic obstructive pulmonary disease, unspecified
CPT/HCPCS: 72170-TC-FY; 72192-TC; 73523-TC-FY; 73552-TC-RT-FY; 73560-TC-RT-FY; 73700-TC-RT; 99285-25

== ENCOUNTER 2019-10-07 07:56 | Day surgery (SDC) | payer OTHER ==
[2019-10-06 11:31] VITALS: BMI 19.8
[2019-10-07 09:06] LABS: INR 0.94 (0.83-1.09); PROTHROMBIN TIME (PATIENT) 11.1 SEC (9.7-13.0)
[2019-10-07 14:41] LABS: BF WBC & OTHER NUCLEATED CELLS 4697 /mm3
[2019-10-07 15:15] VITALS: PULSE 102; TEMP 98.1
[2019-10-07 15:25] VITALS: BP 124/71
[2019-10-07 15:33] LABS: BODY FLUID BASOPHIL 1 %; BODY FLUID MONOCYTE 0 %; BODYL FLD EOSINOPHIL 83 %
[2019-10-07 15:34] LABS: BODY FLUID MESOTHELIAL 5 %
--- NOTE | 2019-10-08 17:03 | PATH ---
Cytology Non-Gynecological Report Patient Name: FIORDALIZA CARVER Med. Rec. #: [id number] /Age/Gender: 1935 (Age: 84) / F Account: [id number] Location: RADIOLOGY INTER Taken: 10/07/2019 Received: 10/07/2019 Reported: 10/08/2019 Physicians: Tin Thomas M.D. Specimen(s) Received A: PLEURAL FLUID B: PLEURAL FLUID Clinical History Pleural effusion Final Diagnosis A-B. PLEURAL FLUID, THORACENTESIS: SATISFACTORY FOR EVALUATION. NO MALIGNANT CELLS IDENTIFIED. ACUTE INFLAMMATORY INFILTRATE COMPRISED OF MANY NEUTROPHILS, LYMPHOCYTES, AND RARE MACROPHAGES. FEW MESOTHELIAL CELLS PRESENT. Electronically Signed Lesvia Madsen M.D. Gross Description A. Approximately 40 cc of yellow fluid received fixed in 50% alcohol. One cytofunnel prepared and Pap stained. One cellblock prepared. B. Approximately 800 cc of yellow fluid received fresh. One cytofunnel prepared and Pap stained. One cellblock prepared.
== END 2019-10-07 13:28 | disposition home or self-care (01) ==
LOC: JRADIR 07:56
PROVIDERS: ATTEND Internal Medicine Hematology & Oncology
PROC: 0W993ZZ Drainage of Right Pleural Cavity, Percutaneous Approach (ICD-10-PCS; principal; 2019-10-07)
PROC: BB4BZZZ Ultrasonography of Pleura (ICD-10-PCS; 2019-10-07)
DX: J90 Pleural effusion, not elsewhere classified (principal); Z85.118 Personal history of other malignant neoplasm of bronchus and lung
CPT/HCPCS: 36415; 71045-TC-FY; 76942; 82150; 82945; 83615; 84157; 85610; 87070; 87075; 87102; 87116; 87205; 87206; 87210; 88108; 88305-TC

== ENCOUNTER 2020-01-29 06:31 | Day surgery (SDC) | payer OTHER ==
[2020-01-29 09:57] LABS: BASO % 0.7 % (0-2.0); EOS % 2.2 % (0-4.5); HEMATOCRIT 41.6 % (32.4-45.2); HEMOGLOBIN 13.6 GM/dL (10.7-15.3); LYMPH % 25.8 % (8-40); MCH 30.4 pg (25.7-33.7); MCHC 32.6 g/dl (32.0-36.0); MEAN PLT VOLUME 7.3 fl (7.5-11.1); MONO % 18.8 % (3.8-10.2); NEUT % 52.5 % (42.8-82.8); PLATELET COUNT 254 K/MM3 (134-434); RBC 4.47 M/mm3 (3.60-5.2); RDW 16.6 % (11.6-15.6); WHITE BLOOD COUNT 5.2 K/mm3 (4.0-10.0)
[2020-01-29] MEDS ORDERED: diphenhydrAMINE HCL 25 MG CAPSULE (FP) PO ONE (10:00)
[2020-01-29] MEDS ORDERED: ACETAMINOPHEN 325 MG TABLET (FP) PO ONE (10:00)
[2020-01-29] MEDS ORDERED: SODIUM CHLORIDE 250 ML IV ONE (10:00)
[2020-01-29] MEDS ORDERED: DEXAMETHASONE SODIUM PHOSPHATE 8 MG in SODIUM CHLORIDE 50 ML IVPB ONE (10:00)
[2020-01-29 10:30] LABS: ALBUMIN 3.1 g/dl (3.4-5.0); BILIRUBIN,DIRECT 0.1 mg/dL (0.0-0.2); BILIRUBIN,TOTAL 0.4 mg/dL (0.2-1); BLOOD UREA NITROGEN 32.8 mg/dL (7-18); CALCIUM 8.7 mg/dL (8.5-10.1); MAGNESIUM 2.5 mg/dL (1.8-2.4); POTASSIUM 3.9 mmol/L (3.5-5.1); TOT PROT 6.8 g/dl (6.4-8.2)
[2020-01-29] MEDS ORDERED: PEMBROLIZUMAB 200 MG in SODIUM CHLORIDE 50 ML IV ONE (10:30)
[2020-01-29 11:49] LABS: ANISOCYTOSIS 1+; MACROCYTOSIS 0; PLATELET ESTIMATE NORMAL
[2020-01-29 14:24] VITALS: TEMP 98
[2020-01-29 14:26] VITALS: BP 133/64; PULSE 102
== END 2020-01-29 12:00 | disposition home or self-care (01) ==
LOC: JONCCHEMO 06:31
PROVIDERS: ATTEND Internal Medicine Hematology & Oncology
DX: Z51.11 Encounter for antineoplastic chemotherapy (principal); C34.31 Malignant neoplasm of lower lobe, right bronchus or lung; C7A.8 Other malignant neuroendocrine tumors
CPT/HCPCS: 36415; 80048; 80076; 83735; 84439; 84443; 85025; 96361; 96375; 96413; J9271

== ENCOUNTER 2020-02-17 07:18 | Day surgery (SDC) | payer OTHER ==
[2020-02-17] MEDS ORDERED: DEXAMETHASONE SODIUM PHOSPHATE 8 MG in SODIUM CHLORIDE 50 ML IVPB ONE (09:30)
[2020-02-17] MEDS ORDERED: diphenhydrAMINE HCL 25 MG CAPSULE (FP) PO ONE (09:30)
[2020-02-17] MEDS ORDERED: ACETAMINOPHEN 325 MG TABLET (FP) PO ONE (09:30)
[2020-02-17] MEDS ORDERED: PEMBROLIZUMAB 200 MG in SODIUM CHLORIDE 50 ML IV ONE (10:00)
[2020-02-17 10:25] LABS: BASO % 0.6 % (0-2.0); EOS % 2.5 % (0-4.5); HEMATOCRIT 40.3 % (32.4-45.2); HEMOGLOBIN 13.3 GM/dL (10.7-15.3); LYMPH % 27.1 % (8-40); MCH 30.6 pg (25.7-33.7); MEAN CELL VOLUME 92.5 fl (80-96); MEAN PLT VOLUME 7.3 fl (7.5-11.1); MONO % 13.6 % (3.8-10.2); NEUT % 56.2 % (42.8-82.8); PLATELET COUNT 245 K/MM3 (134-434); RBC 4.36 M/mm3 (3.60-5.2); RDW 16.3 % (11.6-15.6); WHITE BLOOD COUNT 5.9 K/mm3 (4.0-10.0)
[2020-02-17] MEDS ORDERED: SODIUM CHLORIDE 250 ML IV ONE (10:30)
[2020-02-17 10:58] LABS: ALBUMIN 3.1 g/dl (3.4-5.0); BILIRUBIN,DIRECT 0.1 mg/dL (0.0-0.2); BILIRUBIN,TOTAL 0.7 mg/dL (0.2-1); BLOOD UREA NITROGEN 33.4 mg/dL (7-18); CALCIUM 8.6 mg/dL (8.5-10.1); CREATININE 1.1 mg/dL (0.55-1.3); POTASSIUM 3.4 mmol/L (3.5-5.1); TOT PROT 6.8 g/dl (6.4-8.2)
[2020-02-17] MEDS ORDERED: POTASSIUM CHLORIDE TABS 20 MEQ TABLET.ER (FP) PO ONE (11:05)
[2020-02-17 14:13] VITALS: TEMP 98
[2020-02-17 14:30] VITALS: BP 126/72; PULSE 103
== END 2020-02-17 13:20 | disposition home or self-care (01) ==
LOC: JONCCHEMO 07:18
PROVIDERS: ATTEND Internal Medicine Hematology & Oncology
DX: Z51.11 Encounter for antineoplastic chemotherapy (principal); C34.31 Malignant neoplasm of lower lobe, right bronchus or lung; C7A.8 Other malignant neuroendocrine tumors
CPT/HCPCS: 36415; 80048; 80076; 83735; 84439; 84443; 85025; 96361; 96375; 96413; J9271

== ENCOUNTER 2020-03-09 07:07 | Day surgery (SDC) | payer OTHER ==
[2020-03-09] MEDS ORDERED: DEXAMETHASONE SODIUM PHOSPHATE 8 MG in SODIUM CHLORIDE 50 ML IVPB ONE (10:00)
[2020-03-09] MEDS ORDERED: ACETAMINOPHEN 325 MG TABLET (FP) PO ONE (10:00)
[2020-03-09] MEDS ORDERED: diphenhydrAMINE HCL 25 MG CAPSULE (FP) PO ONE (10:00)
[2020-03-09] MEDS ORDERED: PEMBROLIZUMAB 200 MG in SODIUM CHLORIDE 50 ML IV ONE (10:30)
[2020-03-09] MEDS ORDERED: SODIUM CHLORIDE 250 ML IV ONE (11:00)
[2020-03-09 11:27] LABS: BASO % 0.4 % (0-2.0); EOS % 2.8 % (0-4.5); HEMATOCRIT 41.4 % (32.4-45.2); HEMOGLOBIN 13.5 GM/dL (10.7-15.3); LYMPH % 18.5 % (8-40); MCH 30.1 pg (25.7-33.7); MCHC 32.5 g/dl (32.0-36.0); MEAN CELL VOLUME 92.6 fl (80-96); MEAN PLT VOLUME 7.1 fl (7.5-11.1); MONO % 13.8 % (3.8-10.2); NEUT % 64.5 % (42.8-82.8); PLATELET COUNT 296 K/MM3 (134-434); RBC 4.47 M/mm3 (3.60-5.2); RDW 15.3 % (11.6-15.6); WHITE BLOOD COUNT 9.4 K/mm3 (4.0-10.0)
[2020-03-09 12:02] LABS: ALBUMIN 3.2 g/dl (3.4-5.0); BILIRUBIN,DIRECT 0.1 mg/dL (0.0-0.2); BILIRUBIN,TOTAL 0.2 mg/dL (0.2-1); BLOOD UREA NITROGEN 29.7 mg/dL (7-18); CALCIUM 9.3 mg/dL (8.5-10.1); MAGNESIUM 2.5 mg/dL (1.8-2.4); POTASSIUM 3.8 mmol/L (3.5-5.1); TOT PROT 7.4 g/dl (6.4-8.2)
[2020-03-09 14:27] VITALS: BP 146/72; PULSE 95; TEMP 97.9
[2020-03-09] MEDS ORDERED: PORTA CATH FLUSH 10 ML IVPUSH ONE (14:27)
== END 2020-03-09 13:50 | disposition home or self-care (01) ==
LOC: JONCCHEMO 07:07
PROVIDERS: ATTEND Internal Medicine Hematology & Oncology
PROC: 3E04305 Introduction of Other Antineoplastic into Central Vein, Percutaneous Approach (ICD-10-PCS; principal; 2020-03-09)
PROC: 3E043GC Introduction of Other Therapeutic Substance into Central Vein, Percutaneous Approach (ICD-10-PCS; 2020-03-09)
PROC: 3E0437Z Introduction of Electrolytic and Water Balance Substance into Central Vein, Percutaneous Approach (ICD-10-PCS; 2020-03-09)
DX: Z51.11 Encounter for antineoplastic chemotherapy (principal); C34.31 Malignant neoplasm of lower lobe, right bronchus or lung; C7A.8 Other malignant neuroendocrine tumors; I10 Essential (primary) hypertension; E78.00 Pure hypercholesterolemia, unspecified; J44.9 Chronic obstructive pulmonary disease, unspecified
CPT/HCPCS: 36415; 80048; 80076; 82150; 82533; 83690; 83735; 84439; 84443; 85025; 96361; 96375; 96413; J9271

== ENCOUNTER 2020-04-19 10:09 | Day surgery (SDC) | payer OTHER ==
[~2020-04-19 10:09] MED LIST changes: +ACETAMINOPHEN 325 MG TABLET (FP) PO ONE; +DEXAMETHASONE SODIUM PHOSPHATE 8 MG in SODIUM CHLORIDE 50 ML IVPB ONE; -PEGFILGRASTIM 6 MG/0.6 ML DISP.SYRIN SQ ONE; +PEMBROLIZUMAB 200 MG in SODIUM CHLORIDE 50 ML IV ONE; +diphenhydrAMINE HCL 25 MG CAPSULE (FP) PO ONE
[2020-04-19] MEDS ORDERED: SODIUM CHLORIDE 250 ML IV ONE (10:30)
[2020-04-19 11:22] LABS: BASO % 0.3 % (0-2.0); HEMATOCRIT 41.2 % (32.4-45.2); HEMOGLOBIN 13.8 GM/dL (10.7-15.3); LYMPH % 17.9 % (8-40); MCH 31.1 pg (25.7-33.7); MCHC 33.4 g/dl (32.0-36.0); MEAN PLT VOLUME 7.2 fl (7.5-11.1); MONO % 12.8 % (3.8-10.2); PLATELET COUNT 261 K/MM3 (134-434); RBC 4.43 M/mm3 (3.60-5.2); RDW 14.2 % (11.6-15.6); WHITE BLOOD COUNT 8.3 K/mm3 (4.0-10.0)
[2020-04-19 11:53] LABS: ALBUMIN 3.3 g/dl (3.4-5.0); BILIRUBIN,DIRECT 0.1 mg/dL (0.0-0.2); BILIRUBIN,TOTAL 0.3 mg/dL (0.2-1); BLOOD UREA NITROGEN 28.6 mg/dL (7-18); MAGNESIUM 2.4 mg/dL (1.8-2.4); POTASSIUM 3.9 mmol/L (3.5-5.1)
[2020-04-19 16:11] VITALS: TEMP 97.9
[2020-04-19 16:17] VITALS: BP 114/52; PULSE 81
[2020-04-19] MEDS ORDERED: PORTA CATH FLUSH 10 ML IVPUSH ONE (16:17)
== END 2020-04-19 13:19 | disposition home or self-care (01) ==
LOC: JONCCHEMO 10:09
PROVIDERS: ATTEND Internal Medicine Hematology & Oncology
DX: Z51.11 Encounter for antineoplastic chemotherapy (principal); C34.31 Malignant neoplasm of lower lobe, right bronchus or lung; C7A.8 Other malignant neuroendocrine tumors
CPT/HCPCS: 36415; 80048; 80076; 82150; 82533; 83690; 83735; 84439; 84443; 85025; 96361; 96375; 96413; J9271

== ENCOUNTER 2020-05-10 07:04 | Day surgery (SDC) | payer OTHER ==
--- OUTSIDE RECORDS SUMMARY | 2020-05-10 07:07 | XMS ---
:1935 Author Organization [facility] Support Name Relationship Address Phone RE, RETIRED Unavailable Unavailable Unavailable RETIRED Unavailable Unavailable Unavailable RE Unavailable Unavailable Unavailable SHAUN CARVER [address] [facility] [place] [address] SHAUN CARVER Spouse [address] [facility] [place] [address] Re-disclosure Warning The records that you are about to access may contain information from federally- assisted alcohol or drug abuse programs. If such information is present, then the following federally mandated warning applies: This information has been disclosed to you from records protected by federal confidentiality rules (42 CFR part 2). The federal rules prohibit you from making any further disclosure of this information unless further disclosure is expressly permitted by the written consent of the person to whom it pertains or as otherwise permitted by 42 CFR part 2. A general authorization for the release of medical or other information is NOT sufficient for this purpose. The Federal rules restrict any use of the information to criminally investigate or prosecute any alcohol or drug abuse patient.The records that you are about to access may contain highly sensitive health information, the redisclosure of which is protected by Article 27-F of the [facility] Public Health law. If you continue you may haveaccess to information: Regarding HIV / AIDS; Provided by facilities licensed or operated by the [facility] Office of Mental Health; or Provided by the [facility] Office for People With Developmental Disabilities. If such information is present, then the following [facility] mandated warning applies: This information has been disclosed to you from confidential records which are protected by state law. State law prohibits you from making any further disclosure of this information without the specific written consent of the person to whom it pertains, or as otherwise permitted by law. Any unauthorized further disclosure in violation of state law may result in a fine or assisted sentence or both. A general authorization for the release of medical or other information is NOT sufficient authorization for further disclosure. 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 [id number] SP [id number] PLUMBERS [id number] SP [id number] [employer] MEDICARE [id number] SP [id number] PLUMMERS [id number] SP [id number] STEAM[employer]S LOCAL MEDICARE [id number] SP [id number] LOCAL OTHER [id number] SP [id number] LOCAL [id number] SP [id number] PLUMERS [id number] SP [id number] STEAM[employer]TERS LOC21 PENDING WC/NF [id number] SP [id number] ONLY [id number] PLUMBERS [id number] SP [id number] [employer]TERS LOC 21 SELF PAY INSURANCE PENDING WC/NF [id number] SP [id number] ONLY MEDICARE [id number] SP [id number] A LOCAL OTHER [id number] SP [id number] LOCAL 21 [id number] SP [id number] PLUMBERS [id number] PT [id number] [employer] MEDICARE [id number] PT [id number] MEDICARE [id number] SP [id number] LOCAL OTHER [id number] SP [id number] LOCAL 21 HEALTH [id number] SP [id number] [employer] PLAN MEDICARE [id number] SP [id number] A LOCAL OTHER [id number] SP [id number] PLUMBERS [id number] SP [id number] [employer] Problems, Conditions, and Diagnoses Code Display Name Description Problem Type Effective Dates Data Source(s) Z96.643 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
[2020-05-10] MEDS ORDERED: diphenhydrAMINE HCL 25 MG CAPSULE (FP) PO ONE (10:00)
[2020-05-10] MEDS ORDERED: ACETAMINOPHEN 325 MG TABLET (FP) PO ONE (10:00)
[2020-05-10] MEDS ORDERED: DEXAMETHASONE INJECTION 8 MG in SODIUM CHLORIDE 50 ML IVPB ONE (10:00)
[2020-05-10] MEDS ORDERED: PEMBROLIZUMAB 200 MG in SODIUM CHLORIDE 50 ML IV ONE (10:30)
[2020-05-10 10:36] LABS: BASO % 0.5 % (0-2.0); EOS % 2.4 % (0-4.5); HEMATOCRIT 41.7 % (32.4-45.2); HEMOGLOBIN 13.6 GM/dL (10.7-15.3); LYMPH % 19.7 % (8-40); MCH 29.9 pg (25.7-33.7); MCHC 32.7 g/dl (32.0-36.0); MEAN CELL VOLUME 91.5 fl (80-96); MONO % 12.9 % (3.8-10.2); NEUT % 64.5 % (42.8-82.8); PLATELET COUNT 291 K/MM3 (134-434); RBC 4.56 M/mm3 (3.60-5.2); WHITE BLOOD COUNT 6.7 K/mm3 (4.0-10.0)
[2020-05-10] MEDS ORDERED: SODIUM CHLORIDE 250 ML IV ONE (11:00)
[2020-05-10 11:13] LABS: ALBUMIN 3.2 g/dl (3.4-5.0); BILIRUBIN,DIRECT 0.1 mg/dL (0.0-0.2); BILIRUBIN,TOTAL 0.4 mg/dL (0.2-1); BLOOD UREA NITROGEN 28.6 mg/dL (7-18); CALCIUM 9.1 mg/dL (8.5-10.1); CREATININE 0.9 mg/dL (0.55-1.3); MAGNESIUM 2.1 mg/dL (1.8-2.4); POTASSIUM 3.4 mmol/L (3.5-5.1); TOT PROT 7.4 g/dl (6.4-8.2)
[2020-05-10 12:00] LABS: PH,URINE 5.5 (5.0-8.0); URINE APPEARANCE CLEAR; URINE BILIRUBIN NEGATIVE (NEGATIVE); URINE COLOR YELLOW; URINE GLUCOSE (UA) NEGATIVE (NEGATIVE); URINE KETONE NEGATIVE (NEGATIVE); URINE LEUK ESTERASE NEGATIVE (NEGATIVE); URINE NITRITE NEGATIVE (NEGATIVE); URINE PROTEIN NEGATIVE (NEGATIVE); URINE UROBILINOGEN 0.2 mg/dL (0.2-1.0)
[2020-05-10] MEDS ORDERED: POTASSIUM CHLORIDE TABS 20 MEQ TABLET.ER (FP) PO ONE (13:00)
[2020-05-10 17:48] VITALS: TEMP 98
[2020-05-10 17:52] VITALS: BP 123/62; PULSE 95
== END 2020-05-10 13:45 | disposition home or self-care (01) ==
LOC: JONCCHEMO 07:04
PROVIDERS: ATTEND Internal Medicine Hematology & Oncology
DX: Z51.11 Encounter for antineoplastic chemotherapy (principal); C34.31 Malignant neoplasm of lower lobe, right bronchus or lung; C7A.8 Other malignant neuroendocrine tumors
CPT/HCPCS: 36415; 80048; 80076; 81003; 82150; 82533; 83690; 83735; 84439; 84443; 85025; 87086; 87186; J1100; J9271

== ENCOUNTER 2020-06-22 06:21 | Day surgery (SDC) | payer OTHER ==
[2020-06-22] MEDS ORDERED: diphenhydrAMINE HCL 25 MG CAPSULE (FP) PO ONE (09:30)
[2020-06-22] MEDS ORDERED: DEXAMETHASONE SODIUM PHOSPHATE 8 MG in SODIUM CHLORIDE 50 ML IVPB ONE (09:30)
[2020-06-22] MEDS ORDERED: ACETAMINOPHEN 325 MG TABLET (FP) PO ONE (09:30)
[2020-06-22] MEDS ORDERED: PEMBROLIZUMAB 200 MG in SODIUM CHLORIDE 50 ML IV ONE (10:00)
[2020-06-22] MEDS ORDERED: SODIUM CHLORIDE 250 ML IV ONE (10:30)
[2020-06-22 11:11] LABS: BASO % 0.4 % (0-2.0); EOS % 1.2 % (0-4.5); HEMATOCRIT 40.8 % (32.4-45.2); HEMOGLOBIN 13.7 GM/dL (10.7-15.3); LYMPH % 12.2 % (8-40); MCH 31.2 pg (25.7-33.7); MCHC 33.6 g/dl (32.0-36.0); MEAN CELL VOLUME 92.9 fl (80-96); MEAN PLT VOLUME 7.3 fl (7.5-11.1); MONO % 10.5 % (3.8-10.2); NEUT % 75.7 % (42.8-82.8); PLATELET COUNT 294 K/MM3 (134-434); RBC 4.39 M/mm3 (3.60-5.2); RDW 14.7 % (11.6-15.6); WHITE BLOOD COUNT 8.9 K/mm3 (4.0-10.0)
[2020-06-22 12:41] LABS: ALBUMIN 3.3 g/dl (3.4-5.0); BILIRUBIN,DIRECT 0.1 mg/dL (0.0-0.2); BILIRUBIN,TOTAL 0.4 mg/dL (0.2-1); BLOOD UREA NITROGEN 27.2 mg/dL (7-18); CALCIUM 8.6 mg/dL (8.5-10.1); CREATININE 0.9 mg/dL (0.55-1.3); MAGNESIUM 2.2 mg/dL (1.8-2.4); POTASSIUM 3.8 mmol/L (3.5-5.1); TOT PROT 7.5 g/dl (6.4-8.2)
[2020-06-22 16:28] VITALS: TEMP 97.9
[2020-06-22 16:55] VITALS: BP 129/67; PULSE 99
[2020-06-22] MEDS ORDERED: PORTA CATH FLUSH 10 ML IVPUSH ONE (16:55)
== END 2020-06-22 14:45 | disposition home or self-care (01) ==
LOC: JONCCHEMO 06:21
PROVIDERS: ATTEND Internal Medicine Hematology & Oncology
DX: Z51.11 Encounter for antineoplastic chemotherapy (principal); C34.31 Malignant neoplasm of lower lobe, right bronchus or lung; C7A.8 Other malignant neuroendocrine tumors
CPT/HCPCS: 36415; 80048; 80076; 82150; 83690; 83735; 84436; 84439; 84443; 85025; 96361; 96375; 96413; J9271

== ENCOUNTER 2020-07-05 05:22 | Day surgery (SDC) | payer OTHER ==
[2020-06-30 10:07] VITALS: BMI 23.8
[2020-07-05 13:07] VITALS: TEMP 97.3
[2020-07-05 14:37] LABS: BF WBC & OTHER NUCLEATED CELLS 2232 /mm3
[2020-07-05 15:05] LABS: BODY FLUID MACROPHAGES 16 %; BODY FLUID MESOTHELIAL 2 %
[2020-07-05 17:47] VITALS: BP 100/59; PULSE 108
== END 2020-07-05 16:40 | disposition home or self-care (01) ==
LOC: JRADIR 05:22
PROVIDERS: ATTEND Nurse Practitioner Family
PROC: 0W993ZZ Drainage of Right Pleural Cavity, Percutaneous Approach (ICD-10-PCS; principal; 2020-07-05)
PROC: BB4BZZZ Ultrasonography of Pleura (ICD-10-PCS; 2020-07-05)
DX: J90 Pleural effusion, not elsewhere classified (principal)
CPT/HCPCS: 36415; 71045-TC-FY; 71046-TC-FY; 76942; 82042; 82150; 82465; 82945; 83615; 83986; 84157; 84478; 87070; 87075; 87102; 87116; 87205; 87206; 87210; 88108; 88305-TC

== ENCOUNTER 2020-07-12 05:35 | Day surgery (SDC) | payer OTHER ==
[2020-07-12] MEDS ORDERED: SODIUM CHLORIDE 250 ML IV ONE (09:00)
[2020-07-12] MEDS ORDERED: ACETAMINOPHEN 325 MG TABLET (FP) PO ONE (10:00)
[2020-07-12] MEDS ORDERED: DEXAMETHASONE INJECTION 8 MG in SODIUM CHLORIDE 50 ML IVPB ONE (10:00)
[2020-07-12] MEDS ORDERED: diphenhydrAMINE HCL 25 MG CAPSULE (FP) PO ONE (10:00)
[2020-07-12 10:09] LABS: BASO % 0.4 % (0-2.0); EOS % 3.1 % (0-4.5); HEMATOCRIT 42.8 % (32.4-45.2); HEMOGLOBIN 14.2 GM/dL (10.7-15.3); LYMPH % 20.8 % (8-40); MCH 30.6 pg (25.7-33.7); MCHC 33.2 g/dl (32.0-36.0); MEAN CELL VOLUME 92.3 fl (80-96); MEAN PLT VOLUME 7.1 fl (7.5-11.1); MONO % 14.8 % (3.8-10.2); NEUT % 60.9 % (42.8-82.8); PLATELET COUNT 307 K/MM3 (134-434); RBC 4.64 M/mm3 (3.60-5.2); RDW 14.4 % (11.6-15.6); WHITE BLOOD COUNT 7.3 K/mm3 (4.0-10.0)
[2020-07-12 10:24] LABS: POTASSIUM 3.6 mmol/L (3.5-5.1)
[2020-07-12 10:26] LABS: CALCIUM 9.1 mg/dL (8.5-10.1)
[2020-07-12 10:27] LABS: ALBUMIN 3.1 g/dl (3.4-5.0); BLOOD UREA NITROGEN 20.7 mg/dL (7-18)
[2020-07-12 10:30] LABS: BILIRUBIN,DIRECT 0.1 mg/dL (0.0-0.2); CREATININE 0.8 mg/dL (0.55-1.3)
[2020-07-12] MEDS ORDERED: PEMBROLIZUMAB 200 MG in SODIUM CHLORIDE 50 ML IV ONE (10:30)
[2020-07-12 10:32] LABS: BILIRUBIN,TOTAL 0.4 mg/dL (0.2-1); TOT PROT 7.1 g/dl (6.4-8.2)
[2020-07-12 15:30] VITALS: TEMP 97.8
[2020-07-12 15:46] VITALS: BP 142/49; PULSE 67
== END 2020-07-12 12:25 | disposition home or self-care (01) ==
LOC: JONCCHEMO 05:35
PROVIDERS: ATTEND Internal Medicine Hematology & Oncology
DX: Z51.11 Encounter for antineoplastic chemotherapy (principal); C34.31 Malignant neoplasm of lower lobe, right bronchus or lung; C7A.8 Other malignant neuroendocrine tumors
CPT/HCPCS: 36415; 80048; 80076; 82150; 83690; 83735; 84439; 84443; 85025; 96361; 96375; 96413; J1100; J9271

== ENCOUNTER 2020-08-02 06:06 | Day surgery (SDC) | payer OTHER ==
[~2020-08-02 06:06] MED LIST changes: -ACETAMINOPHEN 325 MG TABLET (FP) PO ONE; -DEXAMETHASONE SODIUM PHOSPHATE 8 MG in SODIUM CHLORIDE 50 ML IVPB ONE; -PEMBROLIZUMAB 200 MG in SODIUM CHLORIDE 50 ML IV ONE
[2020-08-02] MEDS ORDERED: SODIUM CHLORIDE 250 ML IV ONE (09:00)
[2020-08-02 09:13] LABS: BASO % 0.4 % (0-2.0); EOS % 2.5 % (0-4.5); HEMATOCRIT 40.5 % (32.4-45.2); HEMOGLOBIN 13.5 GM/dL (10.7-15.3); LYMPH % 21.1 % (8-40); MCH 30.4 pg (25.7-33.7); MCHC 33.2 g/dl (32.0-36.0); MEAN CELL VOLUME 91.6 fl (80-96); MONO % 13.9 % (3.8-10.2); NEUT % 62.1 % (42.8-82.8); PLATELET COUNT 334 K/MM3 (134-434); RBC 4.43 M/mm3 (3.60-5.2); RDW 14.3 % (11.6-15.6); WHITE BLOOD COUNT 7.5 K/mm3 (4.0-10.0)
[2020-08-02] MEDS ORDERED: ACETAMINOPHEN 325 MG TABLET (FP) PO ONE (09:30)
[2020-08-02] MEDS ORDERED: diphenhydrAMINE HCL 25 MG CAPSULE (FP) PO ONE (09:30)
[2020-08-02] MEDS ORDERED: DEXAMETHASONE INJECTION 8 MG in SODIUM CHLORIDE 50 ML IVPB ONE (09:30)
[2020-08-02 09:35] LABS: BLOOD UREA NITROGEN 18.8 mg/dL (7-18)
[2020-08-02 09:36] LABS: BILIRUBIN,DIRECT 0.1 mg/dL (0.0-0.2)
[2020-08-02 09:38] LABS: CREATININE 0.9 mg/dL (0.55-1.3)
[2020-08-02 09:39] LABS: BILIRUBIN,TOTAL 0.4 mg/dL (0.2-1)
[2020-08-02 09:42] LABS: TOT PROT 7.1 g/dl (6.4-8.2)
[2020-08-02] MEDS ORDERED: PEMBROLIZUMAB 200 MG in SODIUM CHLORIDE 50 ML IV ONE (10:00)
[2020-08-02] MEDS ORDERED: PORTA CATH FLUSH 10 ML IVPUSH ONE (15:39)
[2020-08-02 15:40] VITALS: BP 138/64; PULSE 96; TEMP 98.3
== END 2020-08-02 16:42 | disposition home or self-care (01) ==
LOC: JONCCHEMO 06:06
PROVIDERS: ATTEND Student in an Organized Health Care Education/Training Program
DX: Z51.11 Encounter for antineoplastic chemotherapy (principal); C34.31 Malignant neoplasm of lower lobe, right bronchus or lung; C7A.8 Other malignant neuroendocrine tumors
CPT/HCPCS: 36415; 80048; 80076; 83735; 84439; 84443; 85025; 96375; 96413; J1100; J9271

== ENCOUNTER 2020-08-24 07:41 | Day surgery (SDC) | payer BC ==
[2020-08-24] MEDS ORDERED: DEXAMETHASONE SODIUM PHOSPHATE 8 MG in SODIUM CHLORIDE 50 ML IVPB ONE (10:00)
[2020-08-24] MEDS ORDERED: ACETAMINOPHEN 325 MG TABLET (FP) PO ONE (10:00)
[2020-08-24] MEDS ORDERED: diphenhydrAMINE HCL 25 MG CAPSULE (FP) PO ONE (10:00)
[2020-08-24] MEDS ORDERED: PEMBROLIZUMAB 200 MG in SODIUM CHLORIDE 50 ML IV ONE (10:30)
[2020-08-24 10:57] LABS: BASO % 0.2 % (0-2.0); EOS % 1.3 % (0-4.5); HEMATOCRIT 40.6 % (32.4-45.2); HEMOGLOBIN 13.4 GM/dL (10.7-15.3); LYMPH % 13.6 % (8-40); MCH 30.4 pg (25.7-33.7); MCHC 33.1 g/dl (32.0-36.0); MEAN CELL VOLUME 91.8 fl (80-96); MEAN PLT VOLUME 7.1 fl (7.5-11.1); MONO % 11.6 % (3.8-10.2); NEUT % 73.3 % (42.8-82.8); PLATELET COUNT 332 K/MM3 (134-434); RBC 4.43 M/mm3 (3.60-5.2); RDW 14.5 % (11.6-15.6); WHITE BLOOD COUNT 11.3 K/mm3 (4.0-10.0)
[2020-08-24] MEDS ORDERED: SODIUM CHLORIDE 250 ML IV ONE (11:00)
[2020-08-24 11:22] LABS: POTASSIUM 3.8 mmol/L (3.5-5.1)
[2020-08-24 11:25] LABS: CALCIUM 9.3 mg/dL (8.5-10.1)
[2020-08-24 11:26] LABS: ALBUMIN 3.3 g/dl (3.4-5.0); MAGNESIUM 2.2 mg/dL (1.8-2.4)
[2020-08-24 11:29] LABS: BILIRUBIN,DIRECT 0.1 mg/dL (0.0-0.2); CREATININE 0.9 mg/dL (0.55-1.3)
[2020-08-24 11:31] LABS: BILIRUBIN,TOTAL 0.4 mg/dL (0.2-1); TOT PROT 7.4 g/dl (6.4-8.2)
[2020-08-24 12:18] LABS: EPI CELLS 1 /uL (0-25.1); HYALINE CASTS 0 /uL (0-3.1); PH,URINE 6.5 (5.0-8.0); URINE APPEARANCE CLOUDY; URINE BACTERIA 2717 /uL (0-1359); URINE BILIRUBIN NEGATIVE (NEGATIVE); URINE COLOR YELLOW; URINE GLUCOSE (UA) NEGATIVE (NEGATIVE); URINE KETONE NEGATIVE (NEGATIVE); URINE LEUK ESTERASE 3+ (NEGATIVE); URINE NITRITE NEGATIVE (NEGATIVE); URINE PROTEIN NEGATIVE (NEGATIVE); URINE RBC 16 /uL (0-23.9); URINE UROBILINOGEN 0.2 mg/dL (0.2-1.0); URINE WBC 1057 /uL (0-25.8)
[2020-08-24] MEDS ORDERED: PORTA CATH FLUSH 10 ML IVPUSH ONE (16:24)
[2020-08-24 16:25] VITALS: BP 122/50; PULSE 98; TEMP 98.4
== END 2020-08-24 18:51 | disposition home or self-care (01) ==
LOC: JONCCHEMO 07:41
PROVIDERS: ATTEND Internal Medicine Hematology & Oncology
DX: Z51.11 Encounter for antineoplastic chemotherapy (principal); C34.31 Malignant neoplasm of lower lobe, right bronchus or lung; C7A.8 Other malignant neuroendocrine tumors
CPT/HCPCS: 36415; 80048; 80076; 81003; 82150; 83690; 83735; 84439; 84443; 85025; 87086; 87186; 96361; 96367; 96413; J9271

== ENCOUNTER 2020-09-14 07:29 | Day surgery (SDC) | payer BC ==
[2020-09-14] MEDS ORDERED: ACETAMINOPHEN 325 MG TABLET (FP) PO ONE (10:00)
[2020-09-14] MEDS ORDERED: diphenhydrAMINE HCL 25 MG CAPSULE (FP) PO ONE (10:00)
[2020-09-14] MEDS ORDERED: SODIUM CHLORIDE 250 ML IV ONE (10:00)
[2020-09-14] MEDS ORDERED: DEXAMETHASONE SODIUM PHOSPHATE 8 MG in SODIUM CHLORIDE 50 ML IVPB ONE (10:00)
[2020-09-14] MEDS ORDERED: PEMBROLIZUMAB 200 MG in SODIUM CHLORIDE 50 ML IV ONE (10:30)
[2020-09-14 11:18] LABS: BASO % 0.4 % (0-2.0); EOS % 1.9 % (0-4.5); HEMATOCRIT 42.6 % (32.4-45.2); HEMOGLOBIN 14.2 GM/dL (10.7-15.3); MCH 30.8 pg (25.7-33.7); MCHC 33.4 g/dl (32.0-36.0); MEAN CELL VOLUME 92.3 fl (80-96); MONO % 14.9 % (3.8-10.2); NEUT % 63.8 % (42.8-82.8); PLATELET COUNT 278 K/MM3 (134-434); RBC 4.62 M/mm3 (3.60-5.2); RDW 15.4 % (11.6-15.6); WHITE BLOOD COUNT 8.2 K/mm3 (4.0-10.0)
[2020-09-14 11:21] LABS: EPI CELLS 11 /uL (0-25.1); HYALINE CASTS 2 /uL (0-3.1); URINE APPEARANCE CLEAR; URINE BACTERIA 11 /uL (0-1359); URINE BILIRUBIN NEGATIVE (NEGATIVE); URINE COLOR YELLOW; URINE GLUCOSE (UA) NEGATIVE (NEGATIVE); URINE KETONE NEGATIVE (NEGATIVE); URINE LEUK ESTERASE 1+ (NEGATIVE); URINE NITRITE NEGATIVE (NEGATIVE); URINE PROTEIN NEGATIVE (NEGATIVE); URINE RBC 3 /uL (0-23.9); URINE UROBILINOGEN 0.2 mg/dL (0.2-1.0); URINE WBC 31 /uL (0-25.8)
[2020-09-14 11:39] LABS: LIPASE 57 U/L (73-393)
[2020-09-14 11:40] LABS: AMYLASE 72 U/L (25-115)
[2020-09-14 11:47] LABS: POTASSIUM 4.5 mmol/L (3.5-5.1)
[2020-09-14 11:49] LABS: ALBUMIN 3.5 g/dl (3.4-5.0); CALCIUM 9.3 mg/dL (8.5-10.1); MAGNESIUM 2.5 mg/dL (1.8-2.4)
[2020-09-14 11:52] LABS: BILIRUBIN,DIRECT 0.1 mg/dL (0.0-0.2)
[2020-09-14 11:53] LABS: CREATININE 1.2 mg/dL (0.55-1.3)
[2020-09-14 11:54] LABS: BILIRUBIN,TOTAL 0.3 mg/dL (0.2-1); TOT PROT 7.6 g/dl (6.4-8.2)
[2020-09-14] MEDS ORDERED: DEXTROSE 5%-1/3 NS - 500 ML IV SCH (12:30)
[2020-09-14 17:01] VITALS: BP 124/60; PULSE 96; TEMP 98
[2020-09-14 17:06] LABS: POTASSIUM 4.2 mmol/L (3.5-5.1)
[2020-09-14 17:07] LABS: CALCIUM 8.6 mg/dL (8.5-10.1)
[2020-09-14 17:08] LABS: BLOOD UREA NITROGEN 25.7 mg/dL (7-18)
== END 2020-09-14 16:50 | disposition home or self-care (01) ==
LOC: JONCCHEMO 07:29
PROVIDERS: ATTEND Internal Medicine Hematology & Oncology
DX: Z51.11 Encounter for antineoplastic chemotherapy (principal); C34.31 Malignant neoplasm of lower lobe, right bronchus or lung; C7A.8 Other malignant neuroendocrine tumors
CPT/HCPCS: 36415; 80048; 80076; 81003; 82150; 82533; 83690; 83735; 84439; 84443; 85025; 87086; 96361; 96375; 96413; J9271

== ENCOUNTER 2020-10-05 07:33 | Day surgery (SDC) | payer BC ==
[2020-10-05] MEDS ORDERED: ACETAMINOPHEN 325 MG TABLET (FP) PO ONE (09:30)
[2020-10-05] MEDS ORDERED: DEXAMETHASONE SODIUM PHOSPHATE 8 MG in SODIUM CHLORIDE 50 ML IVPB ONE (09:30)
[2020-10-05] MEDS ORDERED: diphenhydrAMINE HCL 25 MG CAPSULE (FP) PO ONE (09:30)
[2020-10-05] MEDS ORDERED: PEMBROLIZUMAB 200 MG in SODIUM CHLORIDE 50 ML IV ONE (10:00)
[2020-10-05 10:28] LABS: BASO % 0.4 % (0-2.0); EOS % 1.1 % (0-4.5); HEMATOCRIT 41.4 % (32.4-45.2); HEMOGLOBIN 13.9 GM/dL (10.7-15.3); MCH 30.9 pg (25.7-33.7); MCHC 33.5 g/dl (32.0-36.0); MEAN CELL VOLUME 92.3 fl (80-96); MEAN PLT VOLUME 7.1 fl (7.5-11.1); MONO % 15.9 % (3.8-10.2); NEUT % 61.6 % (42.8-82.8); PLATELET COUNT 316 K/MM3 (134-434); RBC 4.49 M/mm3 (3.60-5.2); RDW 15.3 % (11.6-15.6); WHITE BLOOD COUNT 6.5 K/mm3 (4.0-10.0)
[2020-10-05] MEDS ORDERED: SODIUM CHLORIDE 250 ML IV ONE (10:30)
[2020-10-05 10:51] LABS: POTASSIUM 3.8 mmol/L (3.5-5.1)
[2020-10-05 10:54] LABS: ALBUMIN 0.4 g/dl (3.4-5.0); BLOOD UREA NITROGEN 19.5 mg/dL (7-18); CALCIUM 9.1 mg/dL (8.5-10.1)
[2020-10-05 10:55] LABS: MAGNESIUM 2.1 mg/dL (1.8-2.4)
[2020-10-05 10:56] LABS: BILIRUBIN,DIRECT 0.1 mg/dL (0.0-0.2)
[2020-10-05 10:59] LABS: BILIRUBIN,TOTAL 0.4 mg/dL (0.2-1); TOT PROT 7.2 g/dl (6.4-8.2)
[2020-10-05 15:18] VITALS: TEMP 97.9
[2020-10-05 15:20] VITALS: BP 123/63; PULSE 95
== END 2020-10-05 12:30 | disposition home or self-care (01) ==
LOC: JONCCHEMO 07:33
PROVIDERS: ATTEND Internal Medicine Hematology & Oncology
DX: Z51.11 Encounter for antineoplastic chemotherapy (principal); C34.31 Malignant neoplasm of lower lobe, right bronchus or lung; C7A.8 Other malignant neuroendocrine tumors
CPT/HCPCS: 36415; 80048; 80076; 82150; 82378; 82962; 83690; 83735; 84439; 84443; 85025; 96361; 96375; 96413; J9271

== ENCOUNTER 2020-10-25 06:26 | Day surgery (SDC) | payer BC ==
[2020-10-25] MEDS ORDERED: SODIUM CHLORIDE 250 ML IV ONE (09:00)
[2020-10-25] MEDS ORDERED: ACETAMINOPHEN 325 MG TABLET (FP) PO ONE (10:00)
[2020-10-25] MEDS ORDERED: DEXAMETHASONE INJECTION 4 MG in SODIUM CHLORIDE 50 ML IVPB ONE (10:00)
[2020-10-25] MEDS ORDERED: diphenhydrAMINE HCL 25 MG CAPSULE (FP) PO ONE (10:00)
[2020-10-25] MEDS ORDERED: PEMBROLIZUMAB 200 MG in SODIUM CHLORIDE 50 ML IV ONE (10:30)
[2020-10-25 10:57] LABS: BASO % 0.5 % (0-2.0); EOS % 2.4 % (0-4.5); HEMATOCRIT 40.3 % (32.4-45.2); HEMOGLOBIN 13.6 GM/dL (10.7-15.3); LYMPH % 17.8 % (8-40); MCHC 33.7 g/dl (32.0-36.0); MEAN PLT VOLUME 7.3 fl (7.5-11.1); MONO % 15.1 % (3.8-10.2); NEUT % 64.2 % (42.8-82.8); PLATELET COUNT 310 K/MM3 (134-434); RBC 4.38 M/mm3 (3.60-5.2); WHITE BLOOD COUNT 7.1 K/mm3 (4.0-10.0)
[2020-10-25 11:13] LABS: POTASSIUM 3.4 mmol/L (3.5-5.1)
[2020-10-25 11:15] LABS: ALBUMIN 3.2 g/dl (3.4-5.0); BLOOD UREA NITROGEN 22.8 mg/dL (7-18); CALCIUM 9.5 mg/dL (8.5-10.1); MAGNESIUM 2.1 mg/dL (1.8-2.4)
[2020-10-25 11:18] LABS: BILIRUBIN,DIRECT 0.1 mg/dL (0.0-0.2); CREATININE 0.9 mg/dL (0.55-1.3)
[2020-10-25 11:21] LABS: BILIRUBIN,TOTAL 0.4 mg/dL (0.2-1); TOT PROT 7.2 g/dl (6.4-8.2)
[2020-10-25] MEDS ORDERED: POTASSIUM CHLORIDE TABS 20 MEQ TABLET.ER (FP) PO ONE (12:45)
[2020-10-25 13:17] VITALS: BP 115/49; PULSE 98; TEMP 98.2
== END 2020-10-25 12:50 | disposition home or self-care (01) ==
LOC: JONCCHEMO 06:26
PROVIDERS: ATTEND Internal Medicine Hematology & Oncology
DX: Z51.11 Encounter for antineoplastic chemotherapy (principal); C34.31 Malignant neoplasm of lower lobe, right bronchus or lung; C7A.8 Other malignant neuroendocrine tumors
CPT/HCPCS: 36415; 80048; 80076; 82150; 82533; 83690; 83735; 84439; 84443; 85025; 96361; 96367; 96375; 96413; J1100; J9271

== ENCOUNTER 2020-11-15 06:45 | Day surgery (SDC) | payer BC ==
[2020-11-15] MEDS ORDERED: DEXAMETHASONE INJECTION 4 MG in SODIUM CHLORIDE 50 ML IVPB ONE (09:30)
[2020-11-15] MEDS ORDERED: diphenhydrAMINE HCL 25 MG CAPSULE (FP) PO ONE (09:30)
[2020-11-15] MEDS ORDERED: ACETAMINOPHEN 325 MG TABLET (FP) PO ONE (09:30)
[2020-11-15] MEDS ORDERED: PEMBROLIZUMAB 200 MG in SODIUM CHLORIDE 50 ML IV ONE (10:00)
[2020-11-15] MEDS ORDERED: SODIUM CHLORIDE 250 ML IV ONE (10:30)
[2020-11-15 11:11] LABS: BASO % 0.4 % (0-2.0); EOS % 1.6 % (0-4.5); HEMATOCRIT 41.7 % (32.4-45.2); HEMOGLOBIN 14.1 GM/dL (10.7-15.3); LYMPH % 17.5 % (8-40); MCH 30.9 pg (25.7-33.7); MCHC 33.8 g/dl (32.0-36.0); MEAN CELL VOLUME 91.6 fl (80-96); MEAN PLT VOLUME 7.5 fl (7.5-11.1); NEUT % 66.5 % (42.8-82.8); PLATELET COUNT 326 K/MM3 (134-434); RBC 4.55 M/mm3 (3.60-5.2); RDW 14.7 % (11.6-15.6); WHITE BLOOD COUNT 7.3 K/mm3 (4.0-10.0)
[2020-11-15 11:33] LABS: ALBUMIN 3.3 g/dl (3.4-5.0); BLOOD UREA NITROGEN 18.5 mg/dL (7-18); CALCIUM 9.3 mg/dL (8.5-10.1); MAGNESIUM 2.2 mg/dL (1.8-2.4)
[2020-11-15 11:36] LABS: BILIRUBIN,DIRECT 0.1 mg/dL (0.0-0.2); CREATININE 0.9 mg/dL (0.55-1.3)
[2020-11-15 11:37] LABS: TOT PROT 7.4 g/dl (6.4-8.2)
[2020-11-15 11:46] LABS: BILIRUBIN,TOTAL 0.5 mg/dL (0.2-1)
[2020-11-15 17:54] VITALS: BP 127/68; PULSE 88; TEMP 98
[2020-11-15] MEDS ORDERED: PORTA CATH FLUSH 10 ML IVPUSH ONE (18:02)
== END 2020-11-15 13:40 | disposition home or self-care (01) ==
LOC: JONCCHEMO 06:45
PROVIDERS: ATTEND Internal Medicine Hematology & Oncology
PROC: 3E04305 Introduction of Other Antineoplastic into Central Vein, Percutaneous Approach (ICD-10-PCS; principal; 2020-11-15)
PROC: 3E0437Z Introduction of Electrolytic and Water Balance Substance into Central Vein, Percutaneous Approach (ICD-10-PCS; 2020-11-15)
PROC: 3E0433Z Introduction of Anti-inflammatory into Central Vein, Percutaneous Approach (ICD-10-PCS; 2020-11-15)
DX: Z51.11 Encounter for antineoplastic chemotherapy (principal); C34.31 Malignant neoplasm of lower lobe, right bronchus or lung; C7A.8 Other malignant neuroendocrine tumors
CPT/HCPCS: 36415; 80048; 80076; 82150; 82533; 83690; 83735; 84439; 84443; 85025; 96361; 96375; 96413; J1100; J9271

== ENCOUNTER 2020-12-06 06:32 | Day surgery (SDC) | payer BC ==
[2020-12-06] MEDS ORDERED: diphenhydrAMINE HCL 25 MG CAPSULE (FP) PO ONE (09:30)
[2020-12-06] MEDS ORDERED: ACETAMINOPHEN 325 MG TABLET (FP) PO ONE (09:30)
[2020-12-06] MEDS ORDERED: DEXAMETHASONE INJECTION 4 MG in SODIUM CHLORIDE 50 ML IVPB ONE (09:30)
[2020-12-06] MEDS ORDERED: PEMBROLIZUMAB 200 MG in SODIUM CHLORIDE 50 ML IV ONE (10:00)
[2020-12-06] MEDS ORDERED: SODIUM CHLORIDE 250 ML IV ONE (10:30)
[2020-12-06 11:42] LABS: BASO % 0.3 % (0-2.0); EOS % 0.9 % (0-4.5); HEMATOCRIT 39.1 % (32.4-45.2); HEMOGLOBIN 13.2 GM/dL (10.7-15.3); LYMPH % 10.5 % (8-40); MCHC 33.7 g/dl (32.0-36.0); MEAN PLT VOLUME 7.5 fl (7.5-11.1); MONO % 9.4 % (3.8-10.2); NEUT % 78.9 % (42.8-82.8); PLATELET COUNT 338 K/MM3 (134-434); RBC 4.25 M/mm3 (3.60-5.2); RDW 14.5 % (11.6-15.6); WHITE BLOOD COUNT 9.6 K/mm3 (4.0-10.0)
[2020-12-06 12:00] LABS: CALCIUM 8.9 mg/dL (8.5-10.1)
[2020-12-06 12:01] LABS: ALBUMIN 3.2 g/dl (3.4-5.0); BLOOD UREA NITROGEN 21.2 mg/dL (7-18); MAGNESIUM 2.1 mg/dL (1.8-2.4)
[2020-12-06 12:03] LABS: BILIRUBIN,DIRECT 0.1 mg/dL (0.0-0.2)
[2020-12-06 12:04] LABS: BILIRUBIN,TOTAL 0.4 mg/dL (0.2-1); CREATININE 0.9 mg/dL (0.55-1.3)
[2020-12-06 12:05] LABS: TOT PROT 7.4 g/dl (6.4-8.2)
[2020-12-06 15:25] VITALS: BP 102/48; PULSE 99
[2020-12-06] MEDS ORDERED: PORTA CATH FLUSH 10 ML IVPUSH ONE (15:25)
[2020-12-06 15:27] VITALS: TEMP 98.5
== END 2020-12-06 14:05 | disposition home or self-care (01) ==
LOC: JONCCHEMO 06:32
PROVIDERS: ATTEND Internal Medicine Hematology & Oncology
DX: Z51.11 Encounter for antineoplastic chemotherapy (principal); C34.31 Malignant neoplasm of lower lobe, right bronchus or lung; C7A.8 Other malignant neuroendocrine tumors
CPT/HCPCS: 36415; 80048; 80076; 82150; 82533; 83690; 83735; 84439; 84443; 85025; 96361; 96367; 96413; J1100; J9271

== ENCOUNTER 2020-12-27 07:39 | Day surgery (SDC) | payer BC ==
[2020-12-27] MEDS ORDERED: SODIUM CHLORIDE 250 ML IV ONE (09:00)
[2020-12-27] MEDS ORDERED: diphenhydrAMINE HCL 25 MG CAPSULE (FP) PO ONE (10:00)
[2020-12-27] MEDS ORDERED: ACETAMINOPHEN 325 MG TABLET (FP) PO ONE (10:00)
[2020-12-27] MEDS ORDERED: DEXAMETHASONE SODIUM PHOSPHATE 4 MG in SODIUM CHLORIDE 50 ML IVPB ONE (10:00)
[2020-12-27] MEDS ORDERED: PEMBROLIZUMAB 200 MG in SODIUM CHLORIDE 50 ML IV ONE (10:30)
[2020-12-27 14:34] LABS: BASO % 0.5 % (0-2.0); EOS % 2.8 % (0-4.5); HEMATOCRIT 38.4 % (32.4-45.2); LYMPH % 17.4 % (8-40); MCH 31.1 pg (25.7-33.7); MCHC 33.8 g/dl (32.0-36.0); MEAN CELL VOLUME 92.1 fl (80-96); MEAN PLT VOLUME 7.4 fl (7.5-11.1); MONO % 13.7 % (3.8-10.2); NEUT % 65.6 % (42.8-82.8); PLATELET COUNT 396 K/MM3 (134-434); RBC 4.16 M/mm3 (3.60-5.2); RDW 14.2 % (11.6-15.6)
[2020-12-27 14:58] LABS: ALBUMIN 3.4 g/dl (3.4-5.0); BLOOD UREA NITROGEN 20.4 mg/dL (7-18); MAGNESIUM 2.2 mg/dL (1.8-2.4)
[2020-12-27 15:00] LABS: BILIRUBIN,DIRECT 0.1 mg/dL (0.0-0.2)
[2020-12-27 15:01] LABS: CREATININE 0.8 mg/dL (0.55-1.3)
[2020-12-27 15:02] LABS: BILIRUBIN,TOTAL 0.4 mg/dL (0.2-1); TOT PROT 7.4 g/dl (6.4-8.2)
[2020-12-27 16:41] VITALS: BP 125/65; PULSE 95; TEMP 97.9
== END 2020-12-27 16:35 | disposition home or self-care (01) ==
LOC: JONCCHEMO 07:39
PROVIDERS: ATTEND Internal Medicine Hematology & Oncology
DX: Z51.11 Encounter for antineoplastic chemotherapy (principal); C34.31 Malignant neoplasm of lower lobe, right bronchus or lung; C7A.8 Other malignant neuroendocrine tumors
CPT/HCPCS: 36415; 80048; 80076; 82150; 82533; 83690; 83735; 84439; 84443; 85025; 96361; 96375; 96413; J9271

== ENCOUNTER 2021-01-26 11:17 | Day surgery (SDC) | payer BC ==
[~2021-01-26 11:17] MED LIST changes: +ACETAMINOPHEN 325 MG TABLET (FP) PO ONE; +DEXAMETHASONE SODIUM PHOSPHATE 4 MG in SODIUM CHLORIDE 50 ML IVPB ONE; +PEMBROLIZUMAB 200 MG in SODIUM CHLORIDE 50 ML IV ONE; +SODIUM CHLORIDE 250 ML IV ONE
[2021-01-26 11:25] LABS: BASO % 0.4 % (0-2.0); EOS % 2.5 % (0-4.5); HEMATOCRIT 39.4 % (32.4-45.2); HEMOGLOBIN 13.1 GM/dL (10.7-15.3); MCH 29.6 pg (25.7-33.7); MCHC 33.2 g/dl (32.0-36.0); MEAN CELL VOLUME 89.1 fl (80-96); MEAN PLT VOLUME 6.8 fl (7.5-11.1); MONO % 9.6 % (3.8-10.2); NEUT % 78.5 % (42.8-82.8); PLATELET COUNT 354 10^3/uL (134-434); RBC 4.42 M/mm3 (3.60-5.2); RDW 14.6 % (11.6-15.6); WHITE BLOOD COUNT 10.3 K/mm3 (4.0-10.0)
[2021-01-26 11:48] LABS: ALBUMIN 3.3 g/dl (3.4-5.0); BLOOD UREA NITROGEN 23.8 mg/dL (7-18); CALCIUM 9.4 mg/dL (8.5-10.1); MAGNESIUM 2.3 mg/dL (1.8-2.4)
[2021-01-26 11:51] LABS: BILIRUBIN,DIRECT 0.1 mg/dL (0.0-0.2)
[2021-01-26 11:53] LABS: TOT PROT 7.9 g/dl (6.4-8.2)
[2021-01-26 11:56] LABS: EPI CELLS 7 /uL (0-25.1); HYALINE CASTS 1 /uL (0-3.1); URINE APPEARANCE CLEAR; URINE BACTERIA 7 /uL (0-1359); URINE BILIRUBIN NEGATIVE (NEGATIVE); URINE COLOR YELLOW; URINE GLUCOSE (UA) NEGATIVE (NEGATIVE); URINE KETONE NEGATIVE (NEGATIVE); URINE LEUK ESTERASE TRACE (NEGATIVE); URINE NITRITE NEGATIVE (NEGATIVE); URINE PROTEIN NEGATIVE (NEGATIVE); URINE RBC 2 /uL (0-23.9); URINE UROBILINOGEN 0.2 mg/dL (0.2-1.0); URINE WBC 23 /uL (0-25.8)
[2021-01-26 12:14] LABS: BILIRUBIN,TOTAL 0.3 mg/dL (0.2-1)
[2021-01-26 17:21] VITALS: TEMP 99
[2021-01-26 17:29] VITALS: BP 125/56; PULSE 96
[2021-01-26] MEDS ORDERED: PORTA CATH FLUSH 10 ML IVPUSH ONE (17:29)
== END 2021-01-26 14:35 | disposition home or self-care (01) ==
LOC: JONCCHEMO 11:17
PROVIDERS: ATTEND Internal Medicine Hematology & Oncology
DX: Z51.11 Encounter for antineoplastic chemotherapy (principal); C34.31 Malignant neoplasm of lower lobe, right bronchus or lung; C7A.8 Other malignant neuroendocrine tumors
CPT/HCPCS: 36415; 80048; 80076; 81003; 82150; 82533; 83690; 83735; 84439; 84443; 85025; 87086; 96361; 96375; 96413; J9271

== ENCOUNTER 2021-02-15 05:45 | Day surgery (SDC) | payer BC ==
[2021-02-15] MEDS ORDERED: DEXAMETHASONE SODIUM PHOSPHATE 4 MG in SODIUM CHLORIDE 50 ML IVPB ONE (10:00)
[2021-02-15] MEDS ORDERED: SODIUM CHLORIDE 250 ML IV ONE (10:00)
[2021-02-15] MEDS ORDERED: ACETAMINOPHEN 325 MG TABLET (FP) PO ONE (10:00)
[2021-02-15] MEDS ORDERED: diphenhydrAMINE HCL 25 MG CAPSULE (FP) PO ONE (10:00)
[2021-02-15] MEDS ORDERED: PEMBROLIZUMAB 200 MG in SODIUM CHLORIDE 50 ML IV ONE (10:30)
[2021-02-15 12:21] LABS: BASO % 0.7 % (0-2.0); EOS % 2.9 % (0-4.5); HEMOGLOBIN 13.7 GM/dL (10.7-15.3); LYMPH % 18.7 % (8-40); MCH 29.9 pg (25.7-33.7); MCHC 33.5 g/dl (32.0-36.0); MEAN CELL VOLUME 89.2 fl (80-96); MEAN PLT VOLUME 6.7 fl (7.5-11.1); MONO % 14.9 % (3.8-10.2); NEUT % 62.8 % (42.8-82.8); PLATELET COUNT 336 10^3/uL (134-434); RDW 15.3 % (11.6-15.6); WHITE BLOOD COUNT 7.8 K/mm3 (4.0-10.0)
[2021-02-15 12:43] LABS: ALBUMIN 3.3 g/dl (3.4-5.0); BLOOD UREA NITROGEN 22.8 mg/dL (7-18); CALCIUM 8.7 mg/dL (8.5-10.1); MAGNESIUM 2.3 mg/dL (1.8-2.4)
[2021-02-15 12:45] LABS: LIPASE 55 U/L (73-393)
[2021-02-15 12:46] LABS: BILIRUBIN,DIRECT 0.1 mg/dL (0.0-0.2); CREATININE 0.9 mg/dL (0.55-1.3)
[2021-02-15 12:47] LABS: AMYLASE 72 U/L (25-115)
[2021-02-15 12:48] LABS: BILIRUBIN,TOTAL 0.4 mg/dL (0.2-1); TOT PROT 7.8 g/dl (6.4-8.2)
[2021-02-15 16:09] VITALS: TEMP 98.1
[2021-02-15 16:38] VITALS: BP 110/50; PULSE 87
[2021-02-16 18:09] LABS: VARICELLA-ZOSTER IGM < 0.91 index (0.00-0.90)
[2021-02-17 08:08] LABS: THYROID STIM IMMUNOGLOBULIN <0.10 IU/L (0.00-0.55)
== END 2021-02-15 14:40 | disposition home or self-care (01) ==
LOC: JONCCHEMO 05:45
PROVIDERS: ATTEND Internal Medicine Hematology & Oncology
DX: Z51.11 Encounter for antineoplastic chemotherapy (principal); C34.31 Malignant neoplasm of lower lobe, right bronchus or lung; C7A.8 Other malignant neuroendocrine tumors
CPT/HCPCS: 36415; 80048; 80076; 82150; 82533; 83690; 83735; 84436; 84443; 84445; 85025; 86376; 86787; 96361; 96375; 96413; J9271

== ENCOUNTER 2021-03-08 07:38 | Day surgery (SDC) | payer BC ==
[2021-03-08] MEDS ORDERED: SODIUM CHLORIDE 250 ML IV ONE (10:00)
[2021-03-08] MEDS ORDERED: DEXAMETHASONE SODIUM PHOSPHATE 4 MG in SODIUM CHLORIDE 50 ML IVPB ONE (10:30)
[2021-03-08] MEDS ORDERED: diphenhydrAMINE HCL 25 MG CAPSULE (FP) PO ONE (10:30)
[2021-03-08] MEDS ORDERED: ACETAMINOPHEN 325 MG TABLET (FP) PO ONE (10:30)
[2021-03-08] MEDS ORDERED: PEMBROLIZUMAB 200 MG in SODIUM CHLORIDE 50 ML IV ONE (11:00)
[2021-03-08 12:49] LABS: BASO % 0.6 % (0-2.0); EOS % 2.2 % (0-4.5); HEMATOCRIT 41.8 % (32.4-45.2); LYMPH % 16.9 % (8-40); MCHC 33.5 g/dl (32.0-36.0); MEAN CELL VOLUME 89.8 fl (80-96); MONO % 13.7 % (3.8-10.2); NEUT % 66.6 % (42.8-82.8); PLATELET COUNT 314 10^3/uL (134-434); RBC 4.65 M/mm3 (3.60-5.2); RDW 15.6 % (11.6-15.6); WHITE BLOOD COUNT 8.2 K/mm3 (4.0-10.0)
[2021-03-08 13:11] LABS: CALCIUM 8.8 mg/dL (8.5-10.1)
[2021-03-08 13:12] LABS: ALBUMIN 3.3 g/dl (3.4-5.0); BLOOD UREA NITROGEN 24.1 mg/dL (7-18); MAGNESIUM 2.2 mg/dL (1.8-2.4)
[2021-03-08 13:14] LABS: BILIRUBIN,DIRECT 0.1 mg/dL (0.0-0.2)
[2021-03-08 13:26] LABS: BILIRUBIN,TOTAL 0.6 mg/dL (0.2-1); CREATININE 0.9 mg/dL (0.55-1.3); TOT PROT 7.7 g/dl (6.4-8.2)
[2021-03-08 18:44] VITALS: BP 128/55; PULSE 91; TEMP 98
[2021-03-08] MEDS ORDERED: PORTA CATH FLUSH 10 ML IVPUSH ONE (18:44)
== END 2021-03-08 15:50 | disposition home or self-care (01) ==
LOC: JONCCHEMO 07:38
PROVIDERS: ATTEND Internal Medicine Hematology & Oncology
DX: Z51.11 Encounter for antineoplastic chemotherapy (principal); C34.31 Malignant neoplasm of lower lobe, right bronchus or lung; C7A.8 Other malignant neuroendocrine tumors
CPT/HCPCS: 36415; 80048; 80076; 82150; 82533; 83690; 83735; 84439; 84443; 85025; 96367; 96413; J9271

== ENCOUNTER 2021-03-29 07:05 | Day surgery (SDC) | payer BC ==
[2021-03-29] MEDS ORDERED: SODIUM CHLORIDE 250 ML IV ONE (09:00)
[2021-03-29] MEDS ORDERED: diphenhydrAMINE HCL 25 MG CAPSULE (FP) PO ONE (09:30)
[2021-03-29] MEDS ORDERED: ACETAMINOPHEN 325 MG TABLET (FP) PO ONE (09:30)
[2021-03-29] MEDS ORDERED: DEXAMETHASONE SODIUM PHOSPHATE 4 MG in SODIUM CHLORIDE 50 ML IVPB ONE (09:30)
[2021-03-29] MEDS ORDERED: PEMBROLIZUMAB 200 MG in SODIUM CHLORIDE 50 ML IV ONE (10:00)
[2021-03-29 10:30] LABS: BASO % 0.5 % (0-2.0); EOS % 2.4 % (0-4.5); HEMATOCRIT 39.2 % (32.4-45.2); HEMOGLOBIN 13.2 GM/dL (10.7-15.3); MCH 30.2 pg (25.7-33.7); MCHC 33.7 g/dl (32.0-36.0); MEAN CELL VOLUME 89.8 fl (80-96); MONO % 12.7 % (3.8-10.2); NEUT % 65.4 % (42.8-82.8); PLATELET COUNT 310 10^3/uL (134-434); RBC 4.37 M/mm3 (3.60-5.2); RDW 15.8 % (11.6-15.6); WHITE BLOOD COUNT 6.2 K/mm3 (4.0-10.0)
[2021-03-29 10:51] LABS: BLOOD UREA NITROGEN 22.2 mg/dL (7-18); CALCIUM 8.7 mg/dL (8.5-10.1); MAGNESIUM 2.1 mg/dL (1.8-2.4)
[2021-03-29 10:53] LABS: BILIRUBIN,DIRECT 0.1 mg/dL (0.0-0.2)
[2021-03-29 10:54] LABS: CREATININE 0.9 mg/dL (0.55-1.3)
[2021-03-29 10:55] LABS: BILIRUBIN,TOTAL 0.4 mg/dL (0.2-1)
[2021-03-29 18:08] VITALS: TEMP 97.8
[2021-03-29 18:11] VITALS: BP 111/68; PULSE 96
[2021-03-29] MEDS ORDERED: PORTA CATH FLUSH 10 ML IVPUSH ONE (18:11)
== END 2021-03-29 13:45 | disposition home or self-care (01) ==
LOC: JONCCHEMO 07:05
PROVIDERS: ATTEND Internal Medicine Hematology & Oncology
DX: Z51.11 Encounter for antineoplastic chemotherapy (principal); C34.31 Malignant neoplasm of lower lobe, right bronchus or lung; C7A.8 Other malignant neuroendocrine tumors
CPT/HCPCS: 36415; 80048; 80076; 82150; 82533; 83690; 83735; 84439; 84443; 85025; 96361; 96375; 96413; J9271

== ENCOUNTER 2021-04-19 07:39 | Day surgery (SDC) | payer BC ==
[2021-04-19] MEDS ORDERED: ACETAMINOPHEN 325 MG TABLET (FP) PO ONE (10:00)
[2021-04-19] MEDS ORDERED: diphenhydrAMINE HCL 25 MG CAPSULE (FP) PO ONE (10:00)
[2021-04-19] MEDS ORDERED: DEXAMETHASONE SODIUM PHOSPHATE 4 MG in SODIUM CHLORIDE 50 ML IVPB ONE (10:00)
[2021-04-19] MEDS ORDERED: SODIUM CHLORIDE 250 ML IV ONE (10:00)
[2021-04-19] MEDS ORDERED: PEMBROLIZUMAB 200 MG in SODIUM CHLORIDE 50 ML IV ONE (10:30)
[2021-04-19 11:31] LABS: BASO % 0.6 % (0-2.0); EOS % 2.6 % (0-4.5); HEMATOCRIT 39.6 % (32.4-45.2); HEMOGLOBIN 13.1 GM/dL (10.7-15.3); LYMPH % 18.2 % (8-40); MCH 29.9 pg (25.7-33.7); MCHC 33.1 g/dl (32.0-36.0); MEAN CELL VOLUME 90.3 fl (80-96); MEAN PLT VOLUME 7.2 fl (7.5-11.1); MONO % 11.7 % (3.8-10.2); NEUT % 66.9 % (42.8-82.8); PLATELET COUNT 331 10^3/uL (134-434); RBC 4.39 M/mm3 (3.60-5.2); RDW 15.4 % (11.6-15.6); WHITE BLOOD COUNT 5.8 K/mm3 (4.0-10.0)
[2021-04-19 11:50] LABS: BLOOD UREA NITROGEN 24.8 mg/dL (7-18); CALCIUM 8.6 mg/dL (8.5-10.1)
[2021-04-19 11:51] LABS: MAGNESIUM 2.3 mg/dL (1.8-2.4)
[2021-04-19 11:52] LABS: BILIRUBIN,DIRECT 0.1 mg/dL (0.0-0.2)
[2021-04-19 11:53] LABS: CREATININE 1.1 mg/dL (0.55-1.3)
[2021-04-19 11:55] LABS: BILIRUBIN,TOTAL 0.3 mg/dL (0.2-1); TOT PROT 7.1 g/dl (6.4-8.2)
[2021-04-19 14:51] VITALS: TEMP 98.2
[2021-04-19 14:52] VITALS: BP 100/53; PULSE 105
== END 2021-04-19 14:00 | disposition home or self-care (01) ==
LOC: JONCCHEMO 07:39 → EDSTATUS 04-22 07:37
PROVIDERS: ATTEND Internal Medicine Hematology & Oncology
DX: Z51.11 Encounter for antineoplastic chemotherapy (principal); C34.31 Malignant neoplasm of lower lobe, right bronchus or lung; C7A.8 Other malignant neuroendocrine tumors
CPT/HCPCS: 36415; 80048; 80076; 82150; 82533; 83690; 83735; 84439; 84443; 85025; 96361; 96375; 96413; J9271

== ENCOUNTER 2021-05-10 07:19 | Day surgery (SDC) | payer BC ==
[2021-05-10] MEDS ORDERED: diphenhydrAMINE HCL 25 MG CAPSULE (FP) PO ONE (09:00)
[2021-05-10] MEDS ORDERED: ACETAMINOPHEN 325 MG TABLET (FP) PO ONE (09:00)
[2021-05-10] MEDS ORDERED: DEXAMETHASONE INJECTION 4 MG in SODIUM CHLORIDE 50 ML IVPB ONE (09:00)
[2021-05-10] MEDS ORDERED: PEMBROLIZUMAB 200 MG in SODIUM CHLORIDE 50 ML IV ONE (09:30)
[2021-05-10] MEDS ORDERED: SODIUM CHLORIDE 250 ML IV ONE (10:00)
[2021-05-10 10:28] LABS: BASO % 0.4 % (0-2.0); HEMATOCRIT 40.9 % (32.4-45.2); HEMOGLOBIN 13.7 GM/dL (10.7-15.3); LYMPH % 20.7 % (8-40); MCH 30.5 pg (25.7-33.7); MCHC 33.5 g/dl (32.0-36.0); MEAN CELL VOLUME 90.8 fl (80-96); MEAN PLT VOLUME 7.1 fl (7.5-11.1); MONO % 15.8 % (3.8-10.2); NEUT % 61.1 % (42.8-82.8); PLATELET COUNT 328 10^3/uL (134-434); RDW 14.8 % (11.6-15.6)
[2021-05-10 10:57] LABS: BLOOD UREA NITROGEN 24.2 mg/dL (7-18); CALCIUM 9.4 mg/dL (8.5-10.1)
[2021-05-10 10:58] LABS: ALBUMIN 3.2 g/dl (3.4-5.0)
[2021-05-10 11:00] LABS: BILIRUBIN,DIRECT 0.1 mg/dL (0.0-0.2); CREATININE 0.9 mg/dL (0.55-1.3)
[2021-05-10 11:01] LABS: BILIRUBIN,TOTAL 0.3 mg/dL (0.2-1)
[2021-05-10 11:02] LABS: TOT PROT 7.6 g/dl (6.4-8.2)
== END 2021-05-10 14:00 | disposition home or self-care (01) ==
LOC: JONCCHEMO 07:19
PROVIDERS: ATTEND Internal Medicine Hematology & Oncology
DX: Z53.8 Procedure and treatment not carried out for other reasons (principal)
CPT/HCPCS: 36415; 71046-TC-FY; 74018-TC-FY; 80048; 80076; 82150; 82533; 83690; 83735; 84439; 84443; 85025

== ENCOUNTER 2021-06-15 13:43 | Inpatient (IN) | payer BC ==
[2021-06-15 15:21] LABS: VENOUS BASE EXCESS 0.6 mmol/L (-2-2); VENOUS O2 SATURATION 68.8 % (70-80); VENOUS PCO2 43.1 mmHg (38-52); VENOUS PH 7.394 (7.310-7.410)
[2021-06-15 15:22] LABS: BASO % 0.1 % (0-2.0); EOS % 0.1 % (0-4.5); HEMATOCRIT 39.5 % (32.4-45.2); LYMPH % 3.6 % (8-40); MEAN PLT VOLUME 7.2 fl (7.5-11.1); NEUT % 90.2 % (42.8-82.8); PLATELET COUNT 258 10^3/uL (134-434); RBC 4.34 M/mm3 (3.60-5.2); RDW 15.5 % (11.6-15.6)
[2021-06-15 15:29] LABS: INR 1.05 (0.83-1.09); PROTHROMBIN TIME (PATIENT) 11.8 SEC (9.7-13.0)
[2021-06-15 15:32] LABS: ACTIVATED PTT 32.1 SECONDS (25.2-36.5)
[2021-06-15 15:46] LABS: SODIUM 136 mmol/L (136-145)
[2021-06-15 15:48] LABS: ALBUMIN 2.7 g/dl (3.4-5.0); BLOOD UREA NITROGEN 19.4 mg/dL (7-18); CALCIUM 8.6 mg/dL (8.5-10.1); GLUCOSE,RANDOM 198 mg/dL (74-106)
[2021-06-15 15:51] LABS: SGOT/AST 17 U/L (15-37); SGPT/ALT 23 U/L (13-61)
[2021-06-15 15:53] LABS: BILIRUBIN,TOTAL 0.9 mg/dL (0.2-1); TOT PROT 6.4 g/dl (6.4-8.2)
[2021-06-15 15:54] LABS: ALK PHOS 81 U/L (45-117)
[2021-06-15 15:57] LABS: ANION GAP 9 MMOL/L (8-16); CHLORIDE 98 mmol/L (98-107); CO2 28 mmol/L (21-32)
[2021-06-15 15:58] LABS: LACTIC ACID 2.4 mmol/L (0.4-2.0)
[2021-06-15] MEDS ORDERED: ACETAMINOPHEN 1000 MG/100 ML VIAL IVPB ONE (16:26)
[2021-06-15] MEDS ORDERED: VANCOMYCIN 1 GM in D5W (PRE-DOCKED) 1,000 MG/250 ML IVPB ONE (16:34)
[2021-06-15] MEDS ORDERED: PIPERACILLIN/TAZOB 4.5 GM 4.5 GM in DEXTROSE 5%-WATER 100 ML IVPB ONE (16:34)
[2021-06-15] MEDS ORDERED: ALBUTEROL SO4 2.5/IPRATROPIUM 0.5 INH SOL 3 ML VIAL.NEB. NEB ONE (16:38)
[2021-06-15] MEDS ORDERED: ACETAMINOPHEN INJECTION 100 ML IVPB ONE ×2 (16:39→17:10)
[2021-06-15] MEDS: ALBUTEROL SO4 2.5/IPRATROPIUM 0.5 INH SOL 3 ML VIAL.NEB. NEB SCH ×2 (16:42→17:23)
[2021-06-15] MEDS ORDERED: POTASSIUM CHLORIDE ORAL LIQUID 20 MEQ/15 ML PO ONE (16:44)
[2021-06-15] MEDS ORDERED: PIPERACILLIN/TAZOB 4.5 GM 4.5 GM/100 ML BAG IVPB ONE (17:10)
[2021-06-15] MEDS ORDERED: VANCOMYCIN 1 GRAM (PRE-DOCKED) 1,000 MG/250 ML BAG IVPB ONE (17:10)
[2021-06-15] MEDS ORDERED: POTASSIUM CHLORIDE ORAL LIQUID 20 MEQ/15 ML ONE (17:15)
[2021-06-15 17:30] LABS: URINE APPEARANCE CLEAR; URINE BILIRUBIN NEGATIVE (NEGATIVE); URINE COLOR YELLOW; URINE GLUCOSE (UA) NEGATIVE (NEGATIVE); URINE KETONE NEGATIVE (NEGATIVE); URINE LEUK ESTERASE NEGATIVE (NEGATIVE); URINE NITRITE NEGATIVE (NEGATIVE); URINE PROTEIN NEGATIVE (NEGATIVE); URINE UROBILINOGEN 0.2 mg/dL (0.2-1.0)
[2021-06-15] MEDS ORDERED: ALBUTEROL SO4 0.083% IH SOL 2.5 MG/3 ML VIAL.NEB. NEB PRN (18:27)
[2021-06-15] MEDS ORDERED: methylPREDNISolone NA SUCC 40 MG/1 ML VIAL IVPB ONE (21:30)
[2021-06-15] MEDS ORDERED: methylPREDNISolone NA SUCC 40 MG/1 ML VIAL ONE (22:53)
[2021-06-15] MEDS ORDERED: PANTOPRAZOLE SODIUM 40 MG/100 ML BAG IVPB ONE (22:53)
[2021-06-15] MEDS: PANTOPRAZOLE SODIUM 40 MG VIAL IVPB SCH (23:06)
[2021-06-15] MEDS: BUDESONIDE/FORMETEROL FUMARATE 160/4.5 mcg INHALER IH SCH (23:06)
[2021-06-16 01:15] LABS: BLOOD UREA NITROGEN 19.7 mg/dL (7-18); CALCIUM 7.8 mg/dL (8.5-10.1)
[2021-06-16 01:19] LABS: CREATININE 1.1 mg/dL (0.55-1.3)
[2021-06-16 01:54] LABS: LACTIC ACID 2.4 mmol/L (0.4-2.0)
[2021-06-16] MEDS ORDERED: PIPERACILLIN/TAZOB 3.375 GM 3.375 GM/50 ML BAG IVPB ONE ×3 (02:25→17:42)
[2021-06-16] MEDS: PIPERACILLIN/TAZOB 3.375 GM 3.375 GM in DEXTROSE 5%-WATER - 50 ML IVPB SCH ×4 (02:33→18:16)
[2021-06-16 07:23] LABS: HEMATOCRIT 38.9 % (32.4-45.2); HEMOGLOBIN 12.9 GM/dL (10.7-15.3); MCH 30.8 pg (25.7-33.7); MCHC 33.2 g/dl (32.0-36.0); MEAN CELL VOLUME 92.8 fl (80-96); MEAN PLT VOLUME 7.3 fl (7.5-11.1); PLATELET COUNT 282 10^3/uL (134-434); RBC 4.19 M/mm3 (3.60-5.2); RDW 15.6 % (11.6-15.6); WHITE BLOOD COUNT 11.6 K/mm3 (4.0-10.0)
[2021-06-16 07:43] LABS: ALBUMIN 2.6 g/dl (3.4-5.0); CALCIUM 8.5 mg/dL (8.5-10.1)
[2021-06-16 07:44] LABS: BLOOD UREA NITROGEN 18.2 mg/dL (7-18)
[2021-06-16 07:47] LABS: CREATININE 1.3 mg/dL (0.55-1.3)
[2021-06-16 07:48] LABS: BILIRUBIN,TOTAL 0.7 mg/dL (0.2-1); TOT PROT 6.8 g/dl (6.4-8.2)
[2021-06-16] MEDS ORDERED: ASPIRIN COATED 81 MG TABLET.EC ONE (08:45)
[2021-06-16] MEDS ORDERED: ENOXAPARIN NA (PORCINE) 40 MG/0.4 ML DISP.SYRIN SQ ONE (08:46)
[2021-06-16] MEDS ORDERED: amLODIPine BESYLATE 5 MG TABLET (FP) ONE (08:46)
[2021-06-16] MEDS ORDERED: PANTOPRAZOLE SODIUM 40 MG VIAL ONE (08:46)
[2021-06-16] MEDS ORDERED: amLODIPine BESYLATE 2.5 MG TABLET (FP) ONE (08:50)
[2021-06-16] MEDS: PANTOPRAZOLE SODIUM 40 MG VIAL IVPB SCH (09:10)
[2021-06-16] MEDS: amLODIPine BESYLATE 5 MG TABLET (FP) PO SCH (09:10)
[2021-06-16] MEDS: BUDESONIDE/FORMETEROL FUMARATE 160/4.5 mcg INHALER IH SCH ×2 (09:10→22:11)
[2021-06-16] MEDS: TIOTROPIUM BROMIDE 2.5 MCG (SPIRIVA) RESPIMAT INHALER IH SCH (09:10)
[2021-06-16] MEDS: ASPIRIN COATED 81 MG TABLET.EC PO SCH (09:10)
[2021-06-16] MEDS: ENOXAPARIN NA (PORCINE) 40 MG/0.4 ML DISP.SYRIN SQ SCH (09:10)
[2021-06-16] MEDS ORDERED: METOPROLOL TARTRATE 25 MG TABLET (FP) PO SCH (10:00)
[2021-06-16 11:19] LABS: ANISOCYTOSIS 1+; MACROCYTOSIS 1+; PLATELET ESTIMATE NORMAL
[2021-06-16] MEDS ORDERED: SODIUM CHLORIDE 1,000 ML IV SCH (11:45)
[2021-06-16] MEDS: FUROSEMIDE 40 MG TABLET (FP) PO SCH (11:45)
[2021-06-16] MEDS ORDERED: methylPREDNISolone NA SUCC 40 MG/1 ML VIAL ONE ×2 (11:55→21:57)
[2021-06-16] MEDS ORDERED: METOPROLOL TARTRATE 25 MG TABLET (FP) ONE ×2 (11:55→21:57)
[2021-06-16] MEDS ORDERED: FUROSEMIDE 40 MG TABLET (FP) ONE (11:55)
[2021-06-16] MEDS: METOPROLOL TARTRATE 25 MG TABLET (FP) PO SCH ×2 (12:18→22:11)
[2021-06-16] MEDS: methylPREDNISolone NA SUCC 40 MG/1 ML VIAL IVPB SCH ×2 (12:18→22:11)
[2021-06-16] MEDS ORDERED: FAMOTIDINE 20 MG TABLET PO ONE (12:39)
[2021-06-16] MEDS: ATOVAQUONE 750 MG/5 ML (UNIT-DOSE PACKAGING) PO SCH (12:50)
[2021-06-16] MEDS ORDERED: VANCOMYCIN 1 GRAM (PRE-DOCKED) 1,000 MG/250 ML BAG IVPB ONE ×3 (13:24→18:00)
[2021-06-16] MEDS ORDERED: FAMOTIDINE 20 MG TABLET PO SCH (17:00)
[2021-06-16] MEDS: FAMOTIDINE 10 MG TABLET PO SCH (17:38)
[2021-06-17] MEDS ORDERED: ACETAMINOPHEN 325 MG TABLET (FP) PO ONE (00:25)
[2021-06-17] MEDS ORDERED: DEXTROSE 5%-WATER - 50 ML IVPB ONE ×3 (00:35→17:43)
[2021-06-17] MEDS ORDERED: PIPERACILLIN/TAZOBACTAM 3.375 GM VIAL IVPB ONE ×3 (00:35→17:42)
[2021-06-17] MEDS: PIPERACILLIN/TAZOB 3.375 GM 3.375 GM in DEXTROSE 5%-WATER - 50 ML IVPB SCH ×3 (01:07→18:36)
[2021-06-17] MEDS: FAMOTIDINE 10 MG TABLET PO SCH ×2 (05:24→18:36)
[2021-06-17] MEDS ORDERED: FAMOTIDINE 20 MG TABLET PO SCH (06:00)
[2021-06-17] MEDS: METOPROLOL TARTRATE 25 MG TABLET (FP) PO SCH ×2 (09:54→22:00)
[2021-06-17] MEDS: FUROSEMIDE 40 MG TABLET (FP) PO SCH (09:54)
[2021-06-17] MEDS: amLODIPine BESYLATE 5 MG TABLET (FP) PO SCH (09:54)
[2021-06-17] MEDS: ASPIRIN COATED 81 MG TABLET.EC PO SCH (09:54)
[2021-06-17] MEDS: TIOTROPIUM BROMIDE 2.5 MCG (SPIRIVA) RESPIMAT INHALER IH SCH (09:55)
[2021-06-17] MEDS: BUDESONIDE/FORMETEROL FUMARATE 160/4.5 mcg INHALER IH SCH ×2 (09:55→22:01)
[2021-06-17] MEDS: ENOXAPARIN NA (PORCINE) 40 MG/0.4 ML DISP.SYRIN SQ SCH (09:55)
[2021-06-17] MEDS: methylPREDNISolone NA SUCC 40 MG/1 ML VIAL IVPB SCH ×2 (09:55→22:00)
[2021-06-17] MEDS ORDERED: PANTOPRAZOLE 40 MG TABLET PO SCH (10:00)
[2021-06-17] MEDS: ATOVAQUONE 750 MG/5 ML (UNIT-DOSE PACKAGING) PO SCH (12:05)
[2021-06-18] MEDS ORDERED: PIPERACILLIN/TAZOBACTAM 3.375 GM VIAL IVPB ONE ×3 (01:18→17:35)
[2021-06-18] MEDS ORDERED: DEXTROSE 5%-WATER - 50 ML IVPB ONE ×3 (01:19→17:35)
[2021-06-18] MEDS: PIPERACILLIN/TAZOB 3.375 GM 3.375 GM in DEXTROSE 5%-WATER - 50 ML IVPB SCH ×4 (01:26→18:03)
[2021-06-18] MEDS: FAMOTIDINE 10 MG TABLET PO SCH ×2 (05:48→17:38)
[2021-06-18] MEDS ORDERED: methylPREDNISolone NA SUCC 40 MG/1 ML VIAL IVPB SCH (06:15)
[2021-06-18] MEDS ORDERED: PT OWN MED DRAWER 7, Y5N ONE (09:07)
[2021-06-18] MEDS: ENOXAPARIN NA (PORCINE) 40 MG/0.4 ML DISP.SYRIN SQ SCH (10:05)
[2021-06-18] MEDS: amLODIPine BESYLATE 5 MG TABLET (FP) PO SCH (10:06)
[2021-06-18] MEDS: FUROSEMIDE 40 MG TABLET (FP) PO SCH (10:06)
[2021-06-18] MEDS: METOPROLOL TARTRATE 25 MG TABLET (FP) PO SCH ×2 (10:06→21:49)
[2021-06-18] MEDS: ATOVAQUONE 750 MG/5 ML (UNIT-DOSE PACKAGING) PO SCH (10:07)
[2021-06-18] MEDS: ASPIRIN COATED 81 MG TABLET.EC PO SCH (10:07)
[2021-06-18] MEDS: BUDESONIDE/FORMETEROL FUMARATE 160/4.5 mcg INHALER IH SCH ×2 (10:08→21:49)
[2021-06-18] MEDS: TIOTROPIUM BROMIDE 2.5 MCG (SPIRIVA) RESPIMAT INHALER IH SCH (10:08)
[2021-06-18] MEDS: methylPREDNISolone NA SUCC 40 MG/1 ML VIAL IVPB SCH (21:49)
[2021-06-19] MEDS ORDERED: PIPERACILLIN/TAZOBACTAM 3.375 GM VIAL IVPB ONE ×4 (01:57→17:38)
[2021-06-19] MEDS ORDERED: DEXTROSE 5%-WATER - 50 ML IVPB ONE ×4 (01:57→17:38)
[2021-06-19] MEDS: PIPERACILLIN/TAZOB 3.375 GM 3.375 GM in DEXTROSE 5%-WATER - 50 ML IVPB SCH ×3 (02:20→18:20)
[2021-06-19] MEDS: FAMOTIDINE 10 MG TABLET PO SCH ×2 (05:43→16:56)
[2021-06-19] MEDS ORDERED: PT OWN MED DRAWER 7, Y5N ONE (09:16)
[2021-06-19] MEDS: TIOTROPIUM BROMIDE 2.5 MCG (SPIRIVA) RESPIMAT INHALER IH SCH (09:34)
[2021-06-19] MEDS: BUDESONIDE/FORMETEROL FUMARATE 160/4.5 mcg INHALER IH SCH ×2 (09:34→21:42)
[2021-06-19] MEDS: ATOVAQUONE 750 MG/5 ML (UNIT-DOSE PACKAGING) PO SCH (09:36)
[2021-06-19] MEDS: ENOXAPARIN NA (PORCINE) 40 MG/0.4 ML DISP.SYRIN SQ SCH (09:37)
[2021-06-19] MEDS: ASPIRIN COATED 81 MG TABLET.EC PO SCH (09:38)
[2021-06-19] MEDS: amLODIPine BESYLATE 5 MG TABLET (FP) PO SCH (09:38)
[2021-06-19] MEDS: METOPROLOL TARTRATE 25 MG TABLET (FP) PO SCH ×2 (09:39→21:41)
[2021-06-19] MEDS: methylPREDNISolone NA SUCC 40 MG/1 ML VIAL IVPB SCH (09:39)
[2021-06-19] MEDS: FUROSEMIDE 40 MG TABLET (FP) PO SCH (09:39)
[2021-06-19] MEDS ORDERED: methylPREDNISolone NA SUCC 40 MG/1 ML VIAL IVPB ONE (20:00)
[2021-06-20] MEDS ORDERED: DEXTROSE 5%-WATER - 50 ML IVPB ONE ×3 (01:26→16:22)
[2021-06-20] MEDS ORDERED: PIPERACILLIN/TAZOBACTAM 3.375 GM VIAL IVPB ONE ×3 (01:26→16:21)
[2021-06-20] MEDS: PIPERACILLIN/TAZOB 3.375 GM 3.375 GM in DEXTROSE 5%-WATER - 50 ML IVPB SCH ×3 (01:58→17:19)
[2021-06-20] MEDS: FAMOTIDINE 10 MG TABLET PO SCH ×2 (05:23→16:41)
[2021-06-20] MEDS ORDERED: FUROSEMIDE 40 MG/4 ML INJECTABLE VIAL IVPUSH ONE (09:00)
[2021-06-20] MEDS: ASPIRIN COATED 81 MG TABLET.EC PO SCH (09:26)
[2021-06-20] MEDS: ENOXAPARIN NA (PORCINE) 40 MG/0.4 ML DISP.SYRIN SQ SCH (09:26)
[2021-06-20] MEDS: amLODIPine BESYLATE 5 MG TABLET (FP) PO SCH (09:26)
[2021-06-20] MEDS: predniSONE 20 MG TABLET (UD) PO SCH (09:26)
[2021-06-20] MEDS: ATOVAQUONE 750 MG/5 ML (UNIT-DOSE PACKAGING) PO SCH (09:26)
[2021-06-20] MEDS: METOPROLOL TARTRATE 25 MG TABLET (FP) PO SCH ×2 (09:27→21:05)
[2021-06-20] MEDS: BUDESONIDE/FORMETEROL FUMARATE 160/4.5 mcg INHALER IH SCH ×2 (09:27→21:05)
[2021-06-20] MEDS: TIOTROPIUM BROMIDE 2.5 MCG (SPIRIVA) RESPIMAT INHALER IH SCH (09:27)
[2021-06-20] MEDS ORDERED: predniSONE 20 MG TABLET (UD) PO SCH (10:00)
[2021-06-20 15:18] LABS: HEMATOCRIT 38.3 % (32.4-45.2); HEMOGLOBIN 12.9 GM/dL (10.7-15.3); MCH 30.6 pg (25.7-33.7); MCHC 33.6 g/dl (32.0-36.0); MEAN PLT VOLUME 7.4 fl (7.5-11.1); PLATELET COUNT 404 10^3/uL (134-434); RBC 4.21 M/mm3 (3.60-5.2); RDW 15.1 % (11.6-15.6); WHITE BLOOD COUNT 7.3 K/mm3 (4.0-10.0)
[2021-06-20 15:56] LABS: ALBUMIN 2.4 g/dl (3.4-5.0); BILIRUBIN,TOTAL 0.2 mg/dL (0.2-1); BLOOD UREA NITROGEN 36.9 mg/dL (7-18); CALCIUM 8.5 mg/dL (8.5-10.1); CREATININE 1.4 mg/dL (0.55-1.3); TOT PROT 6.6 g/dl (6.4-8.2)
[2021-06-20] MEDS: PANTOPRAZOLE 40 MG TABLET PO SCH (16:41)
[2021-06-20 17:23] LABS: ANISOCYTOSIS 1+; MACROCYTOSIS 0; OVALOCYTE 1+; PLATELET ESTIMATE NORMAL
[2021-06-21] MEDS ORDERED: PIPERACILLIN/TAZOBACTAM 3.375 GM VIAL IVPB ONE (02:09)
[2021-06-21] MEDS ORDERED: DEXTROSE 5%-WATER - 50 ML IVPB ONE (02:09)
[2021-06-21] MEDS: PIPERACILLIN/TAZOB 3.375 GM 3.375 GM in DEXTROSE 5%-WATER - 50 ML IVPB SCH (02:51)
[2021-06-21] MEDS: FAMOTIDINE 10 MG TABLET PO SCH (06:05)
[2021-06-21] MEDS ORDERED: PIPERACILLIN/TAZOB 3.375 GM 2.25 GM in DEXTROSE 5%-WATER - 50 ML IVPB SCH (07:21)
[2021-06-21] MEDS ORDERED: PT OWN MED DRAWER 7, Y5N ONE (08:56)
[2021-06-21 09:27] LABS: HEMATOCRIT 39.2 % (32.4-45.2); HEMOGLOBIN 13.2 GM/dL (10.7-15.3); MCHC 33.8 g/dl (32.0-36.0); MEAN CELL VOLUME 91.7 fl (80-96); MEAN PLT VOLUME 7.8 fl (7.5-11.1); PLATELET COUNT 422 10^3/uL (134-434); RBC 4.27 M/mm3 (3.60-5.2); WHITE BLOOD COUNT 8.2 K/mm3 (4.0-10.0)
[2021-06-21] MEDS: ASPIRIN COATED 81 MG TABLET.EC PO SCH (09:29)
[2021-06-21] MEDS: FLUCONAZOLE 100 MG TABLET (UD) PO SCH (09:29)
[2021-06-21] MEDS: ENOXAPARIN NA (PORCINE) 40 MG/0.4 ML DISP.SYRIN SQ SCH (09:29)
[2021-06-21] MEDS: predniSONE 20 MG TABLET (UD) PO SCH (09:29)
[2021-06-21] MEDS: ATOVAQUONE 750 MG/5 ML (UNIT-DOSE PACKAGING) PO SCH (09:29)
[2021-06-21] MEDS: amLODIPine BESYLATE 5 MG TABLET (FP) PO SCH (09:29)
[2021-06-21] MEDS: METOPROLOL TARTRATE 25 MG TABLET (FP) PO SCH ×2 (09:29→21:11)
[2021-06-21] MEDS: PANTOPRAZOLE 40 MG TABLET PO SCH (09:29)
[2021-06-21] MEDS: TIOTROPIUM BROMIDE 2.5 MCG (SPIRIVA) RESPIMAT INHALER IH SCH (09:30)
[2021-06-21] MEDS: BUDESONIDE/FORMETEROL FUMARATE 160/4.5 mcg INHALER IH SCH ×2 (09:30→21:11)
[2021-06-21 10:34] LABS: CALCIUM 8.6 mg/dL (8.5-10.1)
[2021-06-21 10:35] LABS: ALBUMIN 2.5 g/dl (3.4-5.0); BLOOD UREA NITROGEN 34.8 mg/dL (7-18)
[2021-06-21 10:38] LABS: BILIRUBIN,TOTAL 0.3 mg/dL (0.2-1); CREATININE 1.1 mg/dL (0.55-1.3); TOT PROT 6.3 g/dl (6.4-8.2)
[2021-06-21 14:46] VITALS: BMI 21.7
[2021-06-21] MEDS: AMOX TR/POT CLAV 875MG/125MG TABLETS (FP) PO SCH (16:58)
[2021-06-22 06:32] VITALS: TEMP 97.9
[2021-06-22 08:31] LABS: HEMATOCRIT 37.3 % (32.4-45.2); HEMOGLOBIN 12.5 GM/dL (10.7-15.3); MCH 30.4 pg (25.7-33.7); MCHC 33.6 g/dl (32.0-36.0); MEAN CELL VOLUME 90.6 fl (80-96); MEAN PLT VOLUME 7.3 fl (7.5-11.1); PLATELET COUNT 362 10^3/uL (134-434); RBC 4.12 M/mm3 (3.60-5.2); RDW 14.7 % (11.6-15.6)
[2021-06-22 08:48] LABS: CALCIUM 8.6 mg/dL (8.5-10.1)
[2021-06-22 08:49] LABS: ALBUMIN 2.4 g/dl (3.4-5.0); BLOOD UREA NITROGEN 29.5 mg/dL (7-18)
[2021-06-22 08:52] LABS: CREATININE 0.8 mg/dL (0.55-1.3)
[2021-06-22 08:54] LABS: BILIRUBIN,TOTAL 0.3 mg/dL (0.2-1); TOT PROT 5.8 g/dl (6.4-8.2)
[2021-06-22] MEDS: ASPIRIN COATED 81 MG TABLET.EC PO SCH (09:02)
[2021-06-22] MEDS: AMOX TR/POT CLAV 875MG/125MG TABLETS (FP) PO SCH (09:02)
[2021-06-22] MEDS: ENOXAPARIN NA (PORCINE) 40 MG/0.4 ML DISP.SYRIN SQ SCH (09:02)
[2021-06-22] MEDS: FLUCONAZOLE 100 MG TABLET (UD) PO SCH (09:02)
[2021-06-22] MEDS: predniSONE 20 MG TABLET (UD) PO SCH (09:03)
[2021-06-22] MEDS: PANTOPRAZOLE 40 MG TABLET PO SCH (09:03)
[2021-06-22] MEDS: ATOVAQUONE 750 MG/5 ML (UNIT-DOSE PACKAGING) PO SCH (09:04)
[2021-06-22] MEDS: amLODIPine BESYLATE 5 MG TABLET (FP) PO SCH (09:05)
[2021-06-22] MEDS: METOPROLOL TARTRATE 25 MG TABLET (FP) PO SCH (09:08)
[2021-06-22] MEDS: BUDESONIDE/FORMETEROL FUMARATE 160/4.5 mcg INHALER IH SCH (09:09)
[2021-06-22] MEDS: FUROSEMIDE 40 MG TABLET (FP) PO SCH (09:09)
[2021-06-22] MEDS: TIOTROPIUM BROMIDE 2.5 MCG (SPIRIVA) RESPIMAT INHALER IH SCH (09:09)
[2021-06-22 10:11] LABS: ANISOCYTOSIS 0; HELMET CELLS 0; HOWELL-JOLLY BODIES 0; MACROCYTOSIS 0; OVALOCYTE 0; PLATELET ESTIMATE NORMAL; ROULEAU 0; SICKELED CELLS 0; TARGET CELLS 0; TEAR DROP CELLS 0; TOXIC GRANULATION 0
[2021-06-22 11:52] VITALS: BP 120/50; PULSE 95
== END 2021-06-22 14:56 | disposition home health service (06) | DRG 393 ==
LOC: JER 13:43 → JERBED 16:36 → J7W 06-16 23:38
PROVIDERS: ADMIT Internal Medicine; ATTEND Internal Medicine
DX: K52.1 Toxic gastroenteritis and colitis (principal); J18.9 Pneumonia, unspecified organism; J96.11 Chronic respiratory failure with hypoxia; C34.91 Malignant neoplasm of unspecified part of right bronchus or lung; J44.1 Chronic obstructive pulmonary disease with (acute) exacerbation; N17.9 Acute kidney failure, unspecified; I25.10 Atherosclerotic heart disease of native coronary artery without angina pectoris; I10 Essential (primary) hypertension; E86.0 Dehydration; E78.5 Hyperlipidemia, unspecified; E87.6 Hypokalemia; Z99.81 Dependence on supplemental oxygen; T45.1X5A Adverse effect of antineoplastic and immunosuppressive drugs, initial encounter
CPT/HCPCS: 36415; 71045-TC-FY; 71275-TC; 74177-TC; 80048; 80053; 81003; 82533; 82553; 82803; 82962; 83605; 83993; 84439; 84443; 84484; 85025; 85027; 85610; 85730; 86140; 86850; 86900; 86901; 87040; 87086; 87177; 87209; 87324; 87449; 87899; 93005; 93010; 94761; 97116-GP; 97162-GP; 99285-25; C9803; J0131; Q9967; U0003; U0005

== ENCOUNTER 2021-07-22 13:04 | Inpatient (IN) | payer BC ==
[2021-07-22 16:01] LABS: BASO % 0.5 % (0-2.0); HEMATOCRIT 36.8 % (32.4-45.2); HEMOGLOBIN 12.3 GM/dL (10.7-15.3); LYMPH % 2.9 % (8-40); MCH 30.4 pg (25.7-33.7); MCHC 33.4 g/dl (32.0-36.0); MEAN CELL VOLUME 90.8 fl (80-96); MEAN PLT VOLUME 7.3 fl (7.5-11.1); MONO % 7.2 % (3.8-10.2); NEUT % 89.4 % (42.8-82.8); PLATELET COUNT 361 10^3/uL (134-434); RBC 4.05 M/mm3 (3.60-5.2); WHITE BLOOD COUNT 14.1 K/mm3 (4.0-10.0)
[2021-07-22 16:07] LABS: INR 1.04 (0.83-1.09); PROTHROMBIN TIME (PATIENT) 11.6 SEC (9.7-13.0)
[2021-07-22 16:10] LABS: ACTIVATED PTT 27.8 SECONDS (25.2-36.5)
[2021-07-22 16:18] LABS: CHLORIDE 91 mmol/L (98-107); SODIUM 126 mmol/L (136-145)
[2021-07-22 16:20] LABS: CALCIUM 8.8 mg/dL (8.5-10.1)
[2021-07-22 16:21] LABS: ALBUMIN 2.2 g/dl (3.4-5.0); BLOOD UREA NITROGEN 23.1 mg/dL (7-18); CO2 26 mmol/L (21-32); GLUCOSE,RANDOM 121 mg/dL (74-106)
[2021-07-22 16:24] LABS: CREATININE 1.2 mg/dL (0.55-1.3)
[2021-07-22 16:25] LABS: BILIRUBIN,TOTAL 0.8 mg/dL (0.2-1)
[2021-07-22 16:26] LABS: TOT PROT 7.7 g/dl (6.4-8.2)
[2021-07-22 16:27] LABS: ALK PHOS 88 U/L (45-117)
[2021-07-22 17:10] LABS: ANION GAP 9 MMOL/L (8-16); SGOT/AST 146 U/L (15-37); SGPT/ALT 37 U/L (13-61)
[2021-07-22 17:15] LABS: EPI CELLS 10 /uL (0-25.1); HYALINE CASTS 1 /uL (0-3.1); PH,URINE 6.5 (5.0-8.0); URINE APPEARANCE CLEAR; URINE BACTERIA 101 /uL (0-1359); URINE BILIRUBIN NEGATIVE (NEGATIVE); URINE COLOR YELLOW; URINE GLUCOSE (UA) NEGATIVE (NEGATIVE); URINE KETONE TRACE (NEGATIVE); URINE LEUK ESTERASE TRACE (NEGATIVE); URINE NITRITE NEGATIVE (NEGATIVE); URINE PROTEIN TRACE (NEGATIVE); URINE RBC 19 /uL (0-23.9); URINE UROBILINOGEN 0.2 mg/dL (0.2-1.0); URINE WBC 14 /uL (0-25.8)
[2021-07-22 18:28] LABS: CALCIUM 8.7 mg/dL (8.5-10.1)
[2021-07-22 18:29] LABS: ALBUMIN 2.4 g/dl (3.4-5.0); BLOOD UREA NITROGEN 21.6 mg/dL (7-18)
[2021-07-22 18:33] LABS: BILIRUBIN,TOTAL 0.6 mg/dL (0.2-1); TOT PROT 6.6 g/dl (6.4-8.2)
[2021-07-22] MEDS ORDERED: CEFTRIAXONE 1,000 MG in DEXTROSE 5%-WATER - 50 ML IVPB ONE (19:13)
[2021-07-22] MEDS ORDERED: AZITHROMYCIN 250 MG TABLET PO ONE (19:13)
[2021-07-22] MEDS ORDERED: AZITHROMYCIN 250 MG TABLET ONE (19:55)
[2021-07-22] MEDS ORDERED: CEFTRIAXONE 1 GM/50 ML BAG ONE (19:56)
[2021-07-23] MEDS ORDERED: METOPROLOL TARTRATE 25 MG TABLET (FP) PO ONE (02:21)
[2021-07-23] MEDS: MELATONIN 5 MG TABLETS PO PRN (02:29)
[2021-07-23 09:04] LABS: HEMATOCRIT 33.5 % (32.4-45.2); HEMOGLOBIN 11.5 GM/dL (10.7-15.3); MCH 31.1 pg (25.7-33.7); MCHC 34.2 g/dl (32.0-36.0); MEAN CELL VOLUME 90.8 fl (80-96); MEAN PLT VOLUME 7.4 fl (7.5-11.1); PLATELET COUNT 342 10^3/uL (134-434); RBC 3.69 M/mm3 (3.60-5.2); RDW 15.8 % (11.6-15.6); WHITE BLOOD COUNT 12.3 K/mm3 (4.0-10.0)
[2021-07-23 09:10] LABS: ADD RBC MORPHOLOGY YES
[2021-07-23 09:12] LABS: ALBUMIN 2.2 g/dl (3.4-5.0)
[2021-07-23 09:14] LABS: CALCIUM 8.5 mg/dL (8.5-10.1)
[2021-07-23 09:15] LABS: BLOOD UREA NITROGEN 23.3 mg/dL (7-18); MAGNESIUM 2.3 mg/dL (1.8-2.4)
[2021-07-23 09:18] LABS: CREATININE 0.9 mg/dL (0.55-1.3)
[2021-07-23 09:19] LABS: BILIRUBIN,TOTAL 0.7 mg/dL (0.2-1); TOT PROT 6.1 g/dl (6.4-8.2)
[2021-07-23] MEDS ORDERED: predniSONE 10 MG TABLET (UD) ONE (09:58)
[2021-07-23] MEDS ORDERED: METOPROLOL TARTRATE 25 MG TABLET (FP) ONE (09:59)
[2021-07-23] MEDS ORDERED: FUROSEMIDE 40 MG TABLET (FP) ONE (09:59)
[2021-07-23] MEDS ORDERED: METOPROLOL TARTRATE 25 MG TABLET (FP) PO SCH (10:00)
[2021-07-23] MEDS ORDERED: amLODIPine BESYLATE 2.5 MG TABLET (FP) ONE (10:00)
[2021-07-23] MEDS ORDERED: PANTOPRAZOLE 40 MG TABLET ONE (10:01)
[2021-07-23] MEDS ORDERED: amLODIPine BESYLATE 5 MG TABLET (FP) ONE (10:01)
[2021-07-23] MEDS ORDERED: CEFTRIAXONE 1 GM/50 ML BAG ONE (10:02)
[2021-07-23] MEDS ORDERED: ASCORBIC ACID 500 MG TABLET (FP) ONE (10:03)
[2021-07-23] MEDS ORDERED: CHOLECALCIFEROL (VIT D3) 1,000 UNIT (25 MCG) TABLET ONE (10:04)
[2021-07-23] MEDS: PANTOPRAZOLE 40 MG TABLET PO SCH (10:05)
[2021-07-23] MEDS: CEFTRIAXONE 1 GM in DEXTROSE 5%-WATER - 50 ML IVPB SCH (10:05)
[2021-07-23] MEDS: predniSONE 10 MG TABLET (UD) PO SCH (10:05)
[2021-07-23] MEDS: FUROSEMIDE 40 MG TABLET (FP) PO SCH (10:05)
[2021-07-23] MEDS: ASCORBIC ACID 500 MG TABLET (FP) PO SCH (10:05)
[2021-07-23] MEDS: CHOLECALCIFEROL (VIT D3) 400 UNIT (10 MCG) TABLET PO SCH (10:05)
[2021-07-23] MEDS: amLODIPine BESYLATE 2.5 MG TABLET (FP) PO SCH (10:05)
[2021-07-23 10:06] LABS: ANISOCYTOSIS 1+; MACROCYTOSIS 0; PLATELET ESTIMATE NORMAL
[2021-07-23] MEDS: AZITHROMYCIN IVPB 500 MG/250 ML BAG IVPB SCH (11:01)
[2021-07-23] MEDS: BUDESONIDE/FORMETEROL FUMARATE 160/4.5 mcg INHALER IH SCH ×2 (11:01→23:30)
[2021-07-23] MEDS: TIOTROPIUM BROMIDE 2.5 MCG (SPIRIVA) RESPIMAT INHALER IH SCH (11:01)
[2021-07-23] MEDS ORDERED: AZITHROMYCIN IVPB 500 MG/250 ML BAG IVPB ONE (11:03)
[2021-07-23] MEDS ORDERED: ATORVASTATIN CA 10 MG TABLET (FP) ONE (23:11)
[2021-07-23] MEDS: ATORVASTATIN CA 10 MG TABLET (FP) PO SCH (23:30)
[2021-07-24] MEDS ORDERED: ASCORBIC ACID 500 MG TABLET (FP) ONE (11:01)
[2021-07-24] MEDS ORDERED: FUROSEMIDE 40 MG TABLET (FP) ONE (11:02)
[2021-07-24] MEDS ORDERED: METOPROLOL TARTRATE 25 MG TABLET (FP) ONE ×2 (11:02→22:27)
[2021-07-24] MEDS ORDERED: amLODIPine BESYLATE 2.5 MG TABLET (FP) ONE (11:02)
[2021-07-24] MEDS ORDERED: predniSONE 10 MG TABLET (UD) ONE (11:03)
[2021-07-24] MEDS ORDERED: amLODIPine BESYLATE 5 MG TABLET (FP) ONE (11:03)
[2021-07-24] MEDS ORDERED: PANTOPRAZOLE 40 MG TABLET ONE (11:03)
[2021-07-24] MEDS ORDERED: CEFTRIAXONE 1 GM/50 ML BAG ONE (11:04)
[2021-07-24] MEDS ORDERED: AZITHROMYCIN IVPB 500 MG/250 ML BAG IVPB ONE (11:04)
[2021-07-24] MEDS: amLODIPine BESYLATE 2.5 MG TABLET (FP) PO SCH (11:34)
[2021-07-24] MEDS: predniSONE 10 MG TABLET (UD) PO SCH (11:34)
[2021-07-24] MEDS: FUROSEMIDE 40 MG TABLET (FP) PO SCH (11:34)
[2021-07-24] MEDS: BUDESONIDE/FORMETEROL FUMARATE 160/4.5 mcg INHALER IH SCH ×2 (11:34→22:36)
[2021-07-24] MEDS: TIOTROPIUM BROMIDE 2.5 MCG (SPIRIVA) RESPIMAT INHALER IH SCH (11:34)
[2021-07-24] MEDS: PANTOPRAZOLE 40 MG TABLET PO SCH (11:34)
[2021-07-24] MEDS: ASCORBIC ACID 500 MG TABLET (FP) PO SCH (11:35)
[2021-07-24] MEDS: CHOLECALCIFEROL (VIT D3) 400 UNIT (10 MCG) TABLET PO SCH (11:35)
[2021-07-24] MEDS: CEFTRIAXONE 1 GM in DEXTROSE 5%-WATER - 50 ML IVPB SCH (12:26)
[2021-07-24] MEDS: AZITHROMYCIN IVPB 500 MG/250 ML BAG IVPB SCH (12:58)
[2021-07-24] MEDS ORDERED: ATORVASTATIN CA 10 MG TABLET (FP) ONE (22:27)
[2021-07-24] MEDS: ATORVASTATIN CA 10 MG TABLET (FP) PO SCH (22:36)
[2021-07-24] MEDS: METOPROLOL TARTRATE 25 MG TABLET (FP) PO SCH (22:36)
[2021-07-25] MEDS: MELATONIN 5 MG TABLETS PO PRN (01:37)
[2021-07-25 05:48] VITALS: BMI 22.0
[2021-07-25] MEDS ORDERED: FLU VACC QS2021-22(6MOS UP)/PF 60 MCG/0.5 ML SYRINGE IM ONE (09:00)
[2021-07-25] MEDS ORDERED: DEXTROSE 5%-WATER - 50 ML IVPB ONE (09:17)
[2021-07-25] MEDS ORDERED: cefTRIAXone SODIUM 1 GM VIAL ONE (09:17)
[2021-07-25] MEDS: CHOLECALCIFEROL (VIT D3) 400 UNIT (10 MCG) TABLET PO SCH (09:33)
[2021-07-25] MEDS: PANTOPRAZOLE 40 MG TABLET PO SCH (09:33)
[2021-07-25] MEDS: FUROSEMIDE 40 MG TABLET (FP) PO SCH (09:33)
[2021-07-25] MEDS: amLODIPine BESYLATE 2.5 MG TABLET (FP) PO SCH (09:33)
[2021-07-25] MEDS: ASCORBIC ACID 500 MG TABLET (FP) PO SCH (09:33)
[2021-07-25] MEDS: predniSONE 10 MG TABLET (UD) PO SCH (09:33)
[2021-07-25] MEDS: METOPROLOL TARTRATE 25 MG TABLET (FP) PO SCH (09:33)
[2021-07-25] MEDS: BUDESONIDE/FORMETEROL FUMARATE 160/4.5 mcg INHALER IH SCH (09:34)
[2021-07-25] MEDS: TIOTROPIUM BROMIDE 2.5 MCG (SPIRIVA) RESPIMAT INHALER IH SCH (09:34)
[2021-07-25] MEDS: AZITHROMYCIN IVPB 500 MG/250 ML BAG IVPB SCH (09:42)
[2021-07-25] MEDS: CEFTRIAXONE 1 GM in DEXTROSE 5%-WATER - 50 ML IVPB SCH (09:42)
[2021-07-25 09:44] VITALS: BP 129/60; PULSE 115; TEMP 98
== END 2021-07-25 11:31 | disposition home health service (06) | DRG 191 ==
LOC: JER 13:04 → JERBED 22:10 → J4W 07-24 23:51
PROVIDERS: ADMIT Internal Medicine; ATTEND Internal Medicine
DX: J47.0 Bronchiectasis with acute lower respiratory infection (principal); I50.32 Chronic diastolic (congestive) heart failure; J98.11 Atelectasis; R04.2 Hemoptysis; C34.90 Malignant neoplasm of unspecified part of unspecified bronchus or lung; J90 Pleural effusion, not elsewhere classified; J18.9 Pneumonia, unspecified organism; I25.10 Atherosclerotic heart disease of native coronary artery without angina pectoris; E78.5 Hyperlipidemia, unspecified; K21.9 Gastro-esophageal reflux disease without esophagitis; I10 Essential (primary) hypertension
CPT/HCPCS: 36415; 71045-TC-FY; 71275-TC; 80053; 81003; 83735; 85025; 85610; 85730; 87086; 93005; 93010; 99285-25; C9803; Q9967; U0003; U0005

== ENCOUNTER 2021-08-30 07:02 | Day surgery (SDC) | payer BC ==
[2021-08-30] MEDS ORDERED: ACETAMINOPHEN 325 MG TABLET (FP) PO ONE (11:30)
[2021-08-30] MEDS ORDERED: SODIUM CHLORIDE 250 ML IV ONE (11:30)
[2021-08-30] MEDS ORDERED: diphenhydrAMINE HCL 25 MG CAPSULE (FP) PO ONE (11:30)
[2021-08-30] MEDS ORDERED: DEXAMETHASONE SOD PHOSPHATE 4 MG/1 ML VIAL IVPB ONE (11:30)
[2021-08-30] MEDS ORDERED: PEMBROLIZUMAB 200 MG in SODIUM CHLORIDE 100 ML IV ONE (12:00)
[2021-08-30] MEDS ORDERED: DEXAMETHASONE INJECTION 4 MG in SODIUM CHLORIDE 50 ML IVPB ONE (12:00)
[2021-08-30] MEDS ORDERED: PORTA CATH FLUSH 10 ML IVPUSH ONE (17:46)
[2021-08-30 17:47] VITALS: BP 110/58; PULSE 106; TEMP 97.8
== END 2021-08-30 15:30 | disposition home or self-care (01) ==
LOC: JONCCHEMO 07:02
PROVIDERS: ATTEND Internal Medicine Hematology & Oncology
DX: Z51.11 Encounter for antineoplastic chemotherapy (principal); C34.31 Malignant neoplasm of lower lobe, right bronchus or lung; C7A.8 Other malignant neuroendocrine tumors
CPT/HCPCS: 96367; 96413; J1100; J9271

== ENCOUNTER 2021-09-01 15:51 | Inpatient (IN) | payer BC ==
[2021-09-01 17:44] LABS: BASO % 0.3 % (0-2.0); EOS % 0.8 % (0-4.5); HEMATOCRIT 35.6 % (32.4-45.2); HEMOGLOBIN 11.6 GM/dL (10.7-15.3); LYMPH % 5.5 % (8-40); MCH 30.3 pg (25.7-33.7); MCHC 32.7 g/dl (32.0-36.0); MEAN CELL VOLUME 92.7 fl (80-96); MEAN PLT VOLUME 7.5 fl (7.5-11.1); MONO % 10.7 % (3.8-10.2); NEUT % 82.7 % (42.8-82.8); PLATELET COUNT 494 10^3/uL (134-434); RBC 3.84 M/mm3 (3.60-5.2); RDW 15.4 % (11.6-15.6); WHITE BLOOD COUNT 10.5 K/mm3 (4.0-10.0)
[2021-09-01 17:55] LABS: INR 0.93 (0.83-1.09); PROTHROMBIN TIME (PATIENT) 10.7 SEC (9.7-13.0)
[2021-09-01 17:57] LABS: ACTIVATED PTT 30.7 SECONDS (25.2-36.5)
[2021-09-01 18:03] LABS: CHLORIDE 102 mmol/L (98-107); SODIUM 139 mmol/L (136-145)
[2021-09-01 18:05] LABS: CALCIUM 9.2 mg/dL (8.5-10.1)
[2021-09-01 18:06] LABS: ALBUMIN 3.2 g/dl (3.4-5.0); ANION GAP 10 MMOL/L (8-16); BLOOD UREA NITROGEN 18.3 mg/dL (7-18); CO2 28 mmol/L (21-32); GLUCOSE,RANDOM 110 mg/dL (74-106)
[2021-09-01 18:09] LABS: CREATININE 0.8 mg/dL (0.55-1.3); SGOT/AST 28 U/L (15-37); SGPT/ALT 24 U/L (13-61)
[2021-09-01 18:10] LABS: BILIRUBIN,TOTAL 0.4 mg/dL (0.2-1)
[2021-09-01 18:11] LABS: TOT PROT 7.3 g/dl (6.4-8.2)
[2021-09-01 18:12] LABS: ALK PHOS 113 U/L (45-117)
[2021-09-01 18:14] LABS: N-TERMINAL BNP 6253.9 pg/ml (5-450)
[2021-09-01] MEDS ORDERED: FUROSEMIDE 40 MG/4 ML INJECTABLE VIAL IVPUSH ONE (20:35)
[2021-09-01] MEDS ORDERED: ACETAMINOPHEN 325 MG TABLET (FP) PO PRN (21:57)
[2021-09-01] MEDS ORDERED: POLYETHYLENE GLYCOL (HEALTHYLAX) 3350 17 GM PACKET PO PRN (21:57)
[2021-09-01] MEDS ORDERED: FUROSEMIDE 40 MG/4 ML INJECTABLE VIAL ONE (22:04)
[2021-09-01] MEDS: HEPARIN NA (PORCINE) 5,000 UNITS/ML 1ML VIAL SQ SCH (23:30)
[2021-09-01] MEDS ORDERED: ACETAMINOPHEN 325 MG TABLET (FP) ONE (23:30)
[2021-09-01] MEDS ORDERED: HEPARIN NA (PORCINE) 5,000 UNITS/ML 1ML VIAL ONE (23:30)
[2021-09-02] MEDS ORDERED: HEPARIN NA (PORCINE) 5,000 UNITS/ML 1ML VIAL ONE (05:34)
[2021-09-02] MEDS ORDERED: ALBUTEROL SO4 HFA INHALER IH PRN (05:45)
[2021-09-02] MEDS: HEPARIN NA (PORCINE) 5,000 UNITS/ML 1ML VIAL SQ SCH (05:46)
[2021-09-02 06:48] LABS: BASO % 0.4 % (0-2.0); EOS % 1.9 % (0-4.5); HEMATOCRIT 34.9 % (32.4-45.2); HEMOGLOBIN 11.2 GM/dL (10.7-15.3); LYMPH % 11.7 % (8-40); MCH 29.5 pg (25.7-33.7); MCHC 31.9 g/dl (32.0-36.0); MEAN CELL VOLUME 92.4 fl (80-96); MEAN PLT VOLUME 7.5 fl (7.5-11.1); MONO % 17.6 % (3.8-10.2); NEUT % 68.4 % (42.8-82.8); PLATELET COUNT 432 10^3/uL (134-434); RBC 3.78 M/mm3 (3.60-5.2); RDW 15.3 % (11.6-15.6); WHITE BLOOD COUNT 5.9 K/mm3 (4.0-10.0)
[2021-09-02 07:17] LABS: CALCIUM 9.1 mg/dL (8.5-10.1)
[2021-09-02 07:18] LABS: BLOOD UREA NITROGEN 14.4 mg/dL (7-18)
[2021-09-02 07:21] LABS: CREATININE 0.8 mg/dL (0.55-1.3)
[2021-09-02] MEDS: ATOVAQUONE 750 MG/5 ML (UNIT-DOSE PACKAGING) PO SCH (09:04)
[2021-09-02] MEDS ORDERED: POTASSIUM CHLORIDE TABS 20 MEQ TABLET.ER (FP) PO ONE (09:36)
[2021-09-02] MEDS ORDERED: FUROSEMIDE 40 MG TABLET (FP) PO SCH (10:00)
[2021-09-02 10:28] VITALS: BMI 21.7
[2021-09-02] MEDS: ENOXAPARIN NA (PORCINE) 40 MG/0.4 ML DISP.SYRIN SQ SCH (10:39)
[2021-09-02] MEDS: metoPROLOL SUCCINATE 25 MG TAB.SR.24H (FP) PO SCH ×2 (10:47→21:20)
[2021-09-02] MEDS: FUROSEMIDE 40 MG/4 ML INJECTABLE VIAL IVPUSH SCH (10:47)
[2021-09-02] MEDS: PANTOPRAZOLE 40 MG TABLET PO SCH (10:47)
[2021-09-02] MEDS: ASPIRIN COATED 81 MG TABLET.EC PO SCH (10:47)
[2021-09-03] MEDS ORDERED: INSULIN (NOVOLOG) ASPART 100 UNITS/ML 10ML VIAL ONE (07:01)
[2021-09-03] MEDS: ATOVAQUONE 750 MG/5 ML (UNIT-DOSE PACKAGING) PO SCH (09:38)
[2021-09-03] MEDS: ENOXAPARIN NA (PORCINE) 40 MG/0.4 ML DISP.SYRIN SQ SCH (09:40)
[2021-09-03] MEDS: FUROSEMIDE 40 MG/4 ML INJECTABLE VIAL IVPUSH SCH (09:43)
[2021-09-03] MEDS: PANTOPRAZOLE 40 MG TABLET PO SCH (09:46)
[2021-09-03] MEDS: ASPIRIN COATED 81 MG TABLET.EC PO SCH (09:47)
[2021-09-03] MEDS: predniSONE 5 MG TABLET (UD) PO SCH (09:47)
[2021-09-03] MEDS: metoPROLOL SUCCINATE 25 MG TAB.SR.24H (FP) PO SCH ×2 (09:47→21:40)
[2021-09-03] MEDS: FLUTICASONE/UMECLIDIN/VILANTER(200-62.5-25 TRELEGY ELLIPTA) INAHLER IH SCH (09:48)
[2021-09-03 12:59] LABS: HEMATOCRIT 36.3 % (32.4-45.2); HEMOGLOBIN 11.7 GM/dL (10.7-15.3); MCHC 32.3 g/dl (32.0-36.0); MEAN PLT VOLUME 7.6 fl (7.5-11.1); PLATELET COUNT 437 10^3/uL (134-434); RDW 15.3 % (11.6-15.6); WHITE BLOOD COUNT 9.1 K/mm3 (4.0-10.0)
[2021-09-03 13:27] LABS: CALCIUM 8.8 mg/dL (8.5-10.1)
[2021-09-03 13:28] LABS: ALBUMIN 3.1 g/dl (3.4-5.0); BLOOD UREA NITROGEN 17.6 mg/dL (7-18); CREATININE 0.9 mg/dL (0.55-1.3)
[2021-09-03 13:30] LABS: BILIRUBIN,TOTAL 0.6 mg/dL (0.2-1); TOT PROT 7.1 g/dl (6.4-8.2)
[2021-09-04] MEDS: metoPROLOL SUCCINATE 25 MG TAB.SR.24H (FP) PO SCH ×2 (10:24→21:00)
[2021-09-04] MEDS: ASPIRIN COATED 81 MG TABLET.EC PO SCH (10:24)
[2021-09-04] MEDS: ATOVAQUONE 750 MG/5 ML (UNIT-DOSE PACKAGING) PO SCH (10:24)
[2021-09-04] MEDS: ENOXAPARIN NA (PORCINE) 40 MG/0.4 ML DISP.SYRIN SQ SCH (10:24)
[2021-09-04] MEDS: PANTOPRAZOLE 40 MG TABLET PO SCH (10:24)
[2021-09-04] MEDS: FUROSEMIDE 40 MG/4 ML INJECTABLE VIAL IVPUSH SCH (10:25)
[2021-09-04] MEDS: FLUTICASONE/UMECLIDIN/VILANTER(200-62.5-25 TRELEGY ELLIPTA) INAHLER IH SCH (10:31)
[2021-09-04] MEDS: predniSONE 5 MG TABLET (UD) PO SCH (10:32)
[2021-09-04] MEDS ORDERED: ATORVASTATIN CA 20 MG TABLET (FP) PO SCH (22:00)
[2021-09-05] MEDS ORDERED: predniSONE 5 MG TABLET (UD) PO SCH (10:00)
[2021-09-05] MEDS ORDERED: FUROSEMIDE 40 MG TABLET (FP) PO SCH (10:00)
[2021-09-05] MEDS: PANTOPRAZOLE 40 MG TABLET PO SCH (10:04)
[2021-09-05] MEDS: ASPIRIN COATED 81 MG TABLET.EC PO SCH (10:04)
[2021-09-05] MEDS: metoPROLOL SUCCINATE 25 MG TAB.SR.24H (FP) PO SCH (10:04)
[2021-09-05] MEDS: FLUTICASONE/UMECLIDIN/VILANTER(200-62.5-25 TRELEGY ELLIPTA) INAHLER IH SCH (10:05)
[2021-09-05] MEDS: ENOXAPARIN NA (PORCINE) 40 MG/0.4 ML DISP.SYRIN SQ SCH (10:05)
[2021-09-05] MEDS: ATOVAQUONE 750 MG/5 ML (UNIT-DOSE PACKAGING) PO SCH (10:05)
[2021-09-05 17:06] VITALS: BP 126/82; PULSE 106; TEMP 98
== END 2021-09-05 17:44 | disposition home health service (06) | DRG 291 ==
LOC: JER 15:51 → JERBED 20:16 → J6S 09-02 08:29 → OBSVTOIN 09-02 09:48
PROVIDERS: ADMIT Internal Medicine; ATTEND Internal Medicine
DX: I11.0 Hypertensive heart disease with heart failure (principal); I50.33 Acute on chronic diastolic (congestive) heart failure; I47.1 Supraventricular tachycardia; C34.90 Malignant neoplasm of unspecified part of unspecified bronchus or lung; J44.9 Chronic obstructive pulmonary disease, unspecified; I25.10 Atherosclerotic heart disease of native coronary artery without angina pectoris; K21.9 Gastro-esophageal reflux disease without esophagitis; E78.5 Hyperlipidemia, unspecified
CPT/HCPCS: 36415; 71045-TC-FY; 71275-TC; 80048; 80053; 82550; 83735; 83880; 84443; 84484; 85025; 85027; 85610; 85730; 87804; 93005; 93010; 93306-TC; 94761; 99285-25; C9803; G0378; J1644; Q9967; U0003; U0005

== ENCOUNTER 2021-09-20 07:00 | Day surgery (SDC) | payer BC ==
[2021-09-20] MEDS ORDERED: SODIUM CHLORIDE 250 ML IV ONE (10:00)
[2021-09-20] MEDS ORDERED: diphenhydrAMINE HCL 25 MG CAPSULE (FP) PO ONE (10:00)
[2021-09-20] MEDS ORDERED: ACETAMINOPHEN 325 MG TABLET (FP) PO ONE (10:00)
[2021-09-20] MEDS ORDERED: DEXAMETHASONE SODIUM PHOSPHATE 4 MG in SODIUM CHLORIDE 50 ML IVPB ONE (10:00)
[2021-09-20] MEDS ORDERED: PEMBROLIZUMAB 200 MG in SODIUM CHLORIDE 50 ML IV ONE (10:30)
[2021-09-20 11:18] LABS: BASO % 0.5 % (0-2.0); EOS % 1.5 % (0-4.5); HEMATOCRIT 35.8 % (32.4-45.2); LYMPH % 10.8 % (8-40); MCH 30.2 pg (25.7-33.7); MCHC 33.5 g/dl (32.0-36.0); MEAN CELL VOLUME 90.1 fl (80-96); MEAN PLT VOLUME 7.2 fl (7.5-11.1); MONO % 12.6 % (3.8-10.2); NEUT % 74.6 % (42.8-82.8); PLATELET COUNT 416 10^3/uL (134-434); RBC 3.97 M/mm3 (3.60-5.2); RDW 14.8 % (11.6-15.6); WHITE BLOOD COUNT 8.7 K/mm3 (4.0-10.0)
[2021-09-20 11:55] LABS: MAGNESIUM 2.2 mg/dL (1.8-2.4)
[2021-09-20 11:58] LABS: BLOOD UREA NITROGEN 18.1 mg/dL (7-18); CALCIUM 9.6 mg/dL (8.5-10.1)
[2021-09-20 11:59] LABS: ALBUMIN 3.3 g/dl (3.4-5.0); CREATININE 0.9 mg/dL (0.55-1.3)
[2021-09-20 12:00] LABS: TOT PROT 7.3 g/dl (6.4-8.2)
[2021-09-20 12:01] LABS: BILIRUBIN,DIRECT 0.1 mg/dL (0.0-0.2)
[2021-09-20 12:03] LABS: BILIRUBIN,TOTAL 0.6 mg/dL (0.2-1)
[2021-09-20 16:21] VITALS: TEMP 98.3
[2021-09-20 17:42] VITALS: BP 128/63; PULSE 111
== END 2021-09-20 15:30 | disposition home or self-care (01) ==
LOC: JONCCHEMO 07:00
PROVIDERS: ATTEND Internal Medicine Hematology & Oncology
PROC: 3E04305 Introduction of Other Antineoplastic into Central Vein, Percutaneous Approach (ICD-10-PCS; principal; 2021-09-20)
PROC: 3E0437Z Introduction of Electrolytic and Water Balance Substance into Central Vein, Percutaneous Approach (ICD-10-PCS; 2021-09-20)
PROC: 3E04305 Introduction of Other Antineoplastic into Central Vein, Percutaneous Approach (ICD-10-PCS; 2021-09-20)
DX: Z51.11 Encounter for antineoplastic chemotherapy (principal); C34.31 Malignant neoplasm of lower lobe, right bronchus or lung; C7A.8 Other malignant neuroendocrine tumors
CPT/HCPCS: 36415; 80048; 80076; 82150; 82378; 82533; 83690; 83735; 84439; 84443; 85025; 96361; 96367; 96413; J9271

== ENCOUNTER 2021-09-22 00:15 | Inpatient (IN) | payer BC ==
[2021-09-22 01:16] LABS: BASO % 0.3 % (0-2.0); HEMATOCRIT 37.5 % (32.4-45.2); HEMOGLOBIN 12.2 GM/dL (10.7-15.3); LYMPH % 19.7 % (8-40); MCH 30.1 pg (25.7-33.7); MCHC 32.6 g/dl (32.0-36.0); MEAN CELL VOLUME 92.1 fl (80-96); MEAN PLT VOLUME 7.5 fl (7.5-11.1); MONO % 11.9 % (3.8-10.2); NEUT % 67.1 % (42.8-82.8); PLATELET COUNT 504 10^3/uL (134-434); RBC 4.07 M/mm3 (3.60-5.2); RDW 14.9 % (11.6-15.6)
[2021-09-22 01:23] LABS: INR 0.92 (0.83-1.09); PROTHROMBIN TIME (PATIENT) 10.6 SEC (9.7-13.0)
[2021-09-22 01:26] LABS: ACTIVATED PTT 27.8 SECONDS (25.2-36.5)
[2021-09-22 01:27] LABS: ARTERIAL BLD GAS O2 SATURATION 92.5 % (95-98); ARTERIAL BLOOD GAS BASE EXCESS -0.7 mmol/L (-2-2); ARTERIAL BLOOD GAS PO2 67.8 mmHg (80-100); ARTERIAL BLOOD GAS pH 7.345 (7.350-7.450)
[2021-09-22 01:40] LABS: CALCIUM 9.4 mg/dL (8.5-10.1)
[2021-09-22] MEDS ORDERED: DEXAMETHASONE SOD PHOSPHATE 10 MG/1 ML VIAL IVPUSH ONE (01:40)
[2021-09-22 01:41] LABS: ALBUMIN 3.4 g/dl (3.4-5.0); BLOOD UREA NITROGEN 27.2 mg/dL (7-18); MAGNESIUM 2.4 mg/dL (1.8-2.4)
[2021-09-22] MEDS ORDERED: DEXAMETHASONE SOD PHOSPHATE 10 MG/1 ML VIAL ONE (01:42)
[2021-09-22 01:44] LABS: CREATININE 1.2 mg/dL (0.55-1.3)
[2021-09-22 01:46] LABS: BILIRUBIN,TOTAL 0.3 mg/dL (0.2-1); TOT PROT 7.9 g/dl (6.4-8.2)
[2021-09-22 01:49] LABS: N-TERMINAL BNP 6750.6 pg/ml (5-450)
[2021-09-22] MEDS ORDERED: VANCOMYCIN 1 GM in D5W (PRE-DOCKED) 1,000 MG/250 ML IVPB ONE (02:19)
[2021-09-22] MEDS ORDERED: PIPERACILLIN/TAZOB 4.5 GM 4.5 GM in DEXTROSE 5%-WATER 100 ML IVPB ONE (02:19)
[2021-09-22] MEDS ORDERED: PIPERACILLIN/TAZOB 4.5 GM 4.5 GM/100 ML BAG IVPB ONE (02:25)
[2021-09-22] MEDS ORDERED: FUROSEMIDE 40 MG/4 ML INJECTABLE VIAL IVPUSH ONE (03:01)
[2021-09-22] MEDS ORDERED: VANCOMYCIN 1 GRAM (PRE-DOCKED) 1,000 MG/250 ML BAG IVPB ONE (03:30)
[2021-09-22] MEDS ORDERED: FUROSEMIDE 40 MG/4 ML INJECTABLE VIAL ONE (03:30)
[2021-09-22 04:12] LABS: LACTIC ACID 3.3 mmol/L (0.4-2.0)
[2021-09-22] MEDS ORDERED: ALBUTEROL SO4 HFA INHALER IH PRN (06:00)
[2021-09-22 06:01] LABS: EPI CELLS 5 /uL (0-25.1); HYALINE CASTS 1 /uL (0-3.1); PH,URINE 5.5 (5.0-8.0); URINE APPEARANCE CLEAR; URINE BACTERIA 30 /uL (0-1359); URINE BILIRUBIN NEGATIVE (NEGATIVE); URINE COLOR YELLOW; URINE GLUCOSE (UA) NEGATIVE (NEGATIVE); URINE KETONE NEGATIVE (NEGATIVE); URINE LEUK ESTERASE 1+ (NEGATIVE); URINE NITRITE NEGATIVE (NEGATIVE); URINE PROTEIN NEGATIVE (NEGATIVE); URINE RBC 5 /uL (0-23.9); URINE UROBILINOGEN 0.2 mg/dL (0.2-1.0); URINE WBC 44 /uL (0-25.8)
[2021-09-22 08:59] LABS: LACTIC ACID 3.4 mmol/L (0.4-2.0)
[2021-09-22] MEDS ORDERED: PIPERACILLIN/TAZOB 3.375 GM 3.375 GM in DEXTROSE 5%-WATER - 50 ML IVPB SCH (10:00)
[2021-09-22] MEDS: ALBUTEROL SO4 2.5/IPRATROPIUM 0.5 INH SOL 3 ML VIAL.NEB. NEB SCH ×3 (13:00→19:41)
[2021-09-22] MEDS: metoPROLOL SUCCINATE 25 MG TAB.SR.24H (FP) PO SCH ×2 (13:00→21:47)
[2021-09-22] MEDS: PANTOPRAZOLE 40 MG TABLET PO SCH (13:00)
[2021-09-22] MEDS: ASPIRIN COATED 81 MG TABLET.EC PO SCH (13:01)
[2021-09-22] MEDS: ENOXAPARIN NA (PORCINE) 30 MG/0.3 ML DISP.SYRIN SQ SCH (13:01)
[2021-09-22] MEDS: FLUTICASONE/UMECLIDIN/VILANTER(200-62.5-25 TRELEGY ELLIPTA) INAHLER IH SCH ×2 (15:18→15:21)
[2021-09-22] MEDS: PIPERACILLIN/TAZOB 3.375 GM 3.375 GM in DEXTROSE 5%-WATER - 50 ML IVPB SCH ×2 (21:46→22:00)
[2021-09-23] MEDS ORDERED: DEXTROSE 5%-WATER - 50 ML IVPB ONE ×3 (03:48→18:15)
[2021-09-23] MEDS ORDERED: PIPERACILLIN/TAZOBACTAM 3.375 GM VIAL IVPB ONE ×3 (03:48→18:15)
[2021-09-23] MEDS ORDERED: VANCOMYCIN 500 MG in DEXTROSE 5%-WATER - 100 ML IVPB SCH (04:00)
[2021-09-23 08:18] LABS: BASO % 0.1 % (0-2.0); EOS % 0.2 % (0-4.5); HEMATOCRIT 32.3 % (32.4-45.2); HEMOGLOBIN 10.4 GM/dL (10.7-15.3); LYMPH % 8.5 % (8-40); MCH 29.8 pg (25.7-33.7); MCHC 32.1 g/dl (32.0-36.0); MEAN CELL VOLUME 92.6 fl (80-96); MEAN PLT VOLUME 7.6 fl (7.5-11.1); MONO % 11.8 % (3.8-10.2); NEUT % 79.4 % (42.8-82.8); PLATELET COUNT 373 10^3/uL (134-434); RBC 3.48 M/mm3 (3.60-5.2); RDW 14.5 % (11.6-15.6); WHITE BLOOD COUNT 8.9 K/mm3 (4.0-10.0)
[2021-09-23] MEDS: ALBUTEROL SO4 2.5/IPRATROPIUM 0.5 INH SOL 3 ML VIAL.NEB. NEB SCH ×4 (08:35→20:27)
[2021-09-23 08:48] LABS: CALCIUM 9.3 mg/dL (8.5-10.1)
[2021-09-23 08:49] LABS: BLOOD UREA NITROGEN 30.8 mg/dL (7-18); MAGNESIUM 2.4 mg/dL (1.8-2.4)
[2021-09-23 08:52] LABS: CREATININE 1.1 mg/dL (0.55-1.3)
[2021-09-23 08:53] LABS: BILIRUBIN,TOTAL 0.3 mg/dL (0.2-1); TOT PROT 6.7 g/dl (6.4-8.2)
[2021-09-23] MEDS: metoPROLOL SUCCINATE 25 MG TAB.SR.24H (FP) PO SCH ×2 (09:18→22:35)
[2021-09-23] MEDS: PANTOPRAZOLE 40 MG TABLET PO SCH (09:18)
[2021-09-23] MEDS: ASPIRIN COATED 81 MG TABLET.EC PO SCH (09:18)
[2021-09-23] MEDS: ENOXAPARIN NA (PORCINE) 30 MG/0.3 ML DISP.SYRIN SQ SCH (09:21)
[2021-09-23] MEDS: ATOVAQUONE 750 MG/5 ML (UNIT-DOSE PACKAGING) PO SCH (09:21)
[2021-09-23] MEDS: amLODIPine BESYLATE 5 MG TABLET (FP) PO SCH (09:21)
[2021-09-23] MEDS: BUDESONIDE/FORMETEROL FUMARATE 160/4.5 mcg INHALER IH SCH ×2 (09:22→09:35)
[2021-09-23] MEDS: methylPREDNISolone NA SUCC 40 MG/1 ML VIAL IVPUSH SCH ×2 (09:23→22:36)
[2021-09-23] MEDS: PIPERACILLIN/TAZOB 3.375 GM 3.375 GM in DEXTROSE 5%-WATER - 50 ML IVPB SCH ×2 (09:24→18:26)
[2021-09-23] MEDS ORDERED: FUROSEMIDE 40 MG/4 ML INJECTABLE VIAL IVPUSH SCH (10:00)
[2021-09-23] MEDS ORDERED: PIPERACILLIN/TAZOB 3.375 GM 3.375 GM in DEXTROSE 5%-WATER - 50 ML IVPB SCH (10:00)
[2021-09-23 12:08] LABS: SARS-CoV-2 NAA Not Detected (Not Detected)
[2021-09-23] MEDS: TIOTROPIUM BROMIDE 2.5 MCG (SPIRIVA) RESPIMAT INHALER IH SCH (14:16)
[2021-09-23] MEDS ORDERED: FUROSEMIDE 40 MG/4 ML INJECTABLE VIAL IVPUSH ONE (15:00)
[2021-09-23] MEDS: ATORVASTATIN CA 10 MG TABLET (FP) PO SCH (22:36)
[2021-09-24] MEDS ORDERED: DEXTROSE 5%-WATER - 50 ML IVPB ONE ×3 (02:38→17:17)
[2021-09-24] MEDS ORDERED: PIPERACILLIN/TAZOBACTAM 3.375 GM VIAL IVPB ONE ×3 (02:38→17:16)
[2021-09-24] MEDS: BUDESONIDE/FORMETEROL FUMARATE 160/4.5 mcg INHALER IH SCH ×3 (03:33→22:16)
[2021-09-24] MEDS: PIPERACILLIN/TAZOB 3.375 GM 3.375 GM in DEXTROSE 5%-WATER - 50 ML IVPB SCH ×3 (03:35→17:21)
[2021-09-24] MEDS ORDERED: VANCOMYCIN 500 MG in DEXTROSE 5%-WATER - 100 ML IVPB SCH (04:00)
[2021-09-24 08:00] LABS: CALCIUM 8.5 mg/dL (8.5-10.1); MAGNESIUM 2.3 mg/dL (1.8-2.4)
[2021-09-24 08:04] LABS: CREATININE 1.1 mg/dL (0.55-1.3)
[2021-09-24] MEDS: ALBUTEROL SO4 2.5/IPRATROPIUM 0.5 INH SOL 3 ML VIAL.NEB. NEB SCH ×4 (08:55→20:24)
[2021-09-24] MEDS: ATOVAQUONE 750 MG/5 ML (UNIT-DOSE PACKAGING) PO SCH (09:00)
[2021-09-24] MEDS: ENOXAPARIN NA (PORCINE) 30 MG/0.3 ML DISP.SYRIN SQ SCH (10:22)
[2021-09-24] MEDS: amLODIPine BESYLATE 5 MG TABLET (FP) PO SCH (10:24)
[2021-09-24] MEDS: ASPIRIN COATED 81 MG TABLET.EC PO SCH (10:24)
[2021-09-24] MEDS: PANTOPRAZOLE 40 MG TABLET PO SCH (10:24)
[2021-09-24] MEDS: metoPROLOL SUCCINATE 25 MG TAB.SR.24H (FP) PO SCH ×2 (10:24→22:16)
[2021-09-24] MEDS: FUROSEMIDE 40 MG/4 ML INJECTABLE VIAL IVPUSH SCH ×2 (10:25→14:33)
[2021-09-24] MEDS: methylPREDNISolone NA SUCC 40 MG/1 ML VIAL IVPUSH SCH ×2 (10:25→22:16)
[2021-09-24] MEDS: TIOTROPIUM BROMIDE 2.5 MCG (SPIRIVA) RESPIMAT INHALER IH SCH (10:25)
[2021-09-24] MEDS: ATORVASTATIN CA 10 MG TABLET (FP) PO SCH (22:15)
[2021-09-25] MEDS ORDERED: PIPERACILLIN/TAZOBACTAM 3.375 GM VIAL IVPB ONE ×3 (03:38→17:14)
[2021-09-25] MEDS ORDERED: DEXTROSE 5%-WATER - 50 ML IVPB ONE ×3 (03:38→17:14)
[2021-09-25] MEDS: PIPERACILLIN/TAZOB 3.375 GM 3.375 GM in DEXTROSE 5%-WATER - 50 ML IVPB SCH ×3 (03:44→17:54)
[2021-09-25] MEDS: FUROSEMIDE 40 MG/4 ML INJECTABLE VIAL IVPUSH SCH ×2 (05:32→14:18)
[2021-09-25] MEDS: ALBUTEROL SO4 2.5/IPRATROPIUM 0.5 INH SOL 3 ML VIAL.NEB. NEB SCH ×4 (07:20→20:10)
[2021-09-25 07:29] LABS: BLOOD UREA NITROGEN 31.4 mg/dL (7-18); CALCIUM 8.8 mg/dL (8.5-10.1)
[2021-09-25 07:30] LABS: MAGNESIUM 2.3 mg/dL (1.8-2.4)
[2021-09-25 07:33] LABS: CREATININE 1.1 mg/dL (0.55-1.3)
[2021-09-25] MEDS ORDERED: ACETAMINOPHEN 325 MG TABLET (FP) PO ONE (08:45)
[2021-09-25] MEDS: ATOVAQUONE 750 MG/5 ML (UNIT-DOSE PACKAGING) PO SCH (09:02)
[2021-09-25] MEDS: PANTOPRAZOLE 40 MG TABLET PO SCH (09:03)
[2021-09-25] MEDS: DOCUSATE SODIUM 100 MG CAPSULE (FP) PO PRN ×2 (09:03→21:44)
[2021-09-25] MEDS: metoPROLOL SUCCINATE 25 MG TAB.SR.24H (FP) PO SCH ×2 (09:03→21:44)
[2021-09-25] MEDS: ASPIRIN COATED 81 MG TABLET.EC PO SCH (09:03)
[2021-09-25] MEDS: amLODIPine BESYLATE 5 MG TABLET (FP) PO SCH (09:03)
[2021-09-25] MEDS: ENOXAPARIN NA (PORCINE) 30 MG/0.3 ML DISP.SYRIN SQ SCH (09:04)
[2021-09-25] MEDS: TIOTROPIUM BROMIDE 2.5 MCG (SPIRIVA) RESPIMAT INHALER IH SCH (09:05)
[2021-09-25] MEDS: methylPREDNISolone NA SUCC 40 MG/1 ML VIAL IVPUSH SCH ×2 (09:05→21:45)
[2021-09-25] MEDS: BUDESONIDE/FORMETEROL FUMARATE 160/4.5 mcg INHALER IH SCH ×2 (09:05→21:44)
[2021-09-25 17:07] LABS: LACTIC ACID 4.4 mmol/L (0.4-2.0)
[2021-09-25] MEDS: MELATONIN 5 MG TABLETS PO PRN (21:44)
[2021-09-25] MEDS: ATORVASTATIN CA 10 MG TABLET (FP) PO SCH (21:44)
[2021-09-26] MEDS ORDERED: DEXTROSE 5%-WATER - 50 ML IVPB ONE ×3 (00:09→16:27)
[2021-09-26] MEDS ORDERED: PIPERACILLIN/TAZOBACTAM 3.375 GM VIAL IVPB ONE ×3 (00:09→16:27)
[2021-09-26] MEDS: PIPERACILLIN/TAZOB 3.375 GM 3.375 GM in DEXTROSE 5%-WATER - 50 ML IVPB SCH ×3 (01:05→17:39)
[2021-09-26] MEDS: FUROSEMIDE 40 MG/4 ML INJECTABLE VIAL IVPUSH SCH ×2 (05:37→13:58)
[2021-09-26] MEDS: ALBUTEROL SO4 2.5/IPRATROPIUM 0.5 INH SOL 3 ML VIAL.NEB. NEB SCH ×4 (07:20→20:10)
[2021-09-26 08:09] LABS: BLOOD UREA NITROGEN 36.3 mg/dL (7-18); MAGNESIUM 2.2 mg/dL (1.8-2.4)
[2021-09-26 08:12] LABS: CREATININE 1.2 mg/dL (0.55-1.3)
[2021-09-26] MEDS: ASPIRIN COATED 81 MG TABLET.EC PO SCH (10:30)
[2021-09-26] MEDS: ATOVAQUONE 750 MG/5 ML (UNIT-DOSE PACKAGING) PO SCH (10:30)
[2021-09-26] MEDS: metoPROLOL SUCCINATE 25 MG TAB.SR.24H (FP) PO SCH ×2 (10:30→21:42)
[2021-09-26] MEDS: ENOXAPARIN NA (PORCINE) 30 MG/0.3 ML DISP.SYRIN SQ SCH (10:30)
[2021-09-26] MEDS: methylPREDNISolone NA SUCC 40 MG/1 ML VIAL IVPUSH SCH ×2 (10:30→21:38)
[2021-09-26] MEDS: amLODIPine BESYLATE 5 MG TABLET (FP) PO SCH (10:31)
[2021-09-26] MEDS: PANTOPRAZOLE 40 MG TABLET PO SCH (10:31)
[2021-09-26] MEDS: BUDESONIDE/FORMETEROL FUMARATE 160/4.5 mcg INHALER IH SCH ×2 (10:31→21:37)
[2021-09-26] MEDS: TIOTROPIUM BROMIDE 2.5 MCG (SPIRIVA) RESPIMAT INHALER IH SCH (10:31)
[2021-09-26] MEDS: DOCUSATE SODIUM 100 MG CAPSULE (FP) PO PRN ×3 (10:40→21:46)
[2021-09-26] MEDS: amLODIPine BESYLATE 2.5 MG TABLET (FP) PO SCH (10:44)
[2021-09-26] MEDS: FUROSEMIDE 100 MG/10 ML INJECTABLE VIAL IVPB SCH (16:26)
[2021-09-26] MEDS: ATORVASTATIN CA 10 MG TABLET (FP) PO SCH (21:41)
[2021-09-26] MEDS: MELATONIN 5 MG TABLETS PO PRN (21:42)
[2021-09-27] MEDS ORDERED: PIPERACILLIN/TAZOBACTAM 3.375 GM VIAL IVPB ONE ×3 (01:18→17:28)
[2021-09-27] MEDS ORDERED: DEXTROSE 5%-WATER - 50 ML IVPB ONE ×3 (01:18→17:28)
[2021-09-27] MEDS: PIPERACILLIN/TAZOB 3.375 GM 3.375 GM in DEXTROSE 5%-WATER - 50 ML IVPB SCH ×3 (01:21→17:37)
[2021-09-27] MEDS: FUROSEMIDE 100 MG/10 ML INJECTABLE VIAL IVPB SCH ×2 (06:12→14:16)
[2021-09-27] MEDS: ALBUTEROL SO4 2.5/IPRATROPIUM 0.5 INH SOL 3 ML VIAL.NEB. NEB SCH (07:35)
[2021-09-27 08:02] LABS: CALCIUM 8.8 mg/dL (8.5-10.1)
[2021-09-27] MEDS: ATOVAQUONE 750 MG/5 ML (UNIT-DOSE PACKAGING) PO SCH (08:02)
[2021-09-27 08:03] LABS: BLOOD UREA NITROGEN 35.1 mg/dL (7-18)
[2021-09-27 08:06] LABS: CREATININE 1.1 mg/dL (0.55-1.3)
[2021-09-27] MEDS: TIOTROPIUM BROMIDE 2.5 MCG (SPIRIVA) RESPIMAT INHALER IH SCH (08:59)
[2021-09-27] MEDS: BUDESONIDE/FORMETEROL FUMARATE 160/4.5 mcg INHALER IH SCH ×2 (08:59→21:20)
[2021-09-27] MEDS: PANTOPRAZOLE 40 MG TABLET PO SCH (09:00)
[2021-09-27] MEDS: methylPREDNISolone NA SUCC 40 MG/1 ML VIAL IVPUSH SCH ×2 (09:00→21:20)
[2021-09-27] MEDS: amLODIPine BESYLATE 2.5 MG TABLET (FP) PO SCH (09:01)
[2021-09-27] MEDS: metoPROLOL SUCCINATE 25 MG TAB.SR.24H (FP) PO SCH ×2 (09:01→21:19)
[2021-09-27] MEDS: ENOXAPARIN NA (PORCINE) 30 MG/0.3 ML DISP.SYRIN SQ SCH (09:01)
[2021-09-27] MEDS: ASPIRIN COATED 81 MG TABLET.EC PO SCH (09:01)
[2021-09-27] MEDS: ATORVASTATIN CA 10 MG TABLET (FP) PO SCH (21:19)
[2021-09-27] MEDS: MELATONIN 5 MG TABLETS PO PRN (23:03)
[2021-09-28] MEDS ORDERED: PIPERACILLIN/TAZOBACTAM 3.375 GM VIAL IVPB ONE ×3 (00:51→17:07)
[2021-09-28] MEDS ORDERED: DEXTROSE 5%-WATER - 50 ML IVPB ONE ×3 (00:51→17:07)
[2021-09-28] MEDS: PIPERACILLIN/TAZOB 3.375 GM 3.375 GM in DEXTROSE 5%-WATER - 50 ML IVPB SCH ×3 (01:43→17:31)
[2021-09-28] MEDS: FUROSEMIDE 100 MG/10 ML INJECTABLE VIAL IVPB SCH ×2 (06:33→14:04)
[2021-09-28 07:18] LABS: BASO % 0.1 % (0-2.0); EOS % 0.3 % (0-4.5); HEMATOCRIT 34.3 % (32.4-45.2); LYMPH % 7.4 % (8-40); MCH 29.6 pg (25.7-33.7); MCHC 32.1 g/dl (32.0-36.0); MEAN CELL VOLUME 92.2 fl (80-96); MEAN PLT VOLUME 7.8 fl (7.5-11.1); MONO % 8.6 % (3.8-10.2); NEUT % 83.6 % (42.8-82.8); PLATELET COUNT 340 10^3/uL (134-434); RBC 3.72 M/mm3 (3.60-5.2); RDW 15.2 % (11.6-15.6); WHITE BLOOD COUNT 8.3 K/mm3 (4.0-10.0)
[2021-09-28 07:42] LABS: ALBUMIN 2.7 g/dl (3.4-5.0); BLOOD UREA NITROGEN 37.5 mg/dL (7-18)
[2021-09-28 07:47] LABS: BILIRUBIN,TOTAL 0.5 mg/dL (0.2-1)
[2021-09-28] MEDS: ATOVAQUONE 750 MG/5 ML (UNIT-DOSE PACKAGING) PO SCH (08:13)
[2021-09-28] MEDS: metoPROLOL SUCCINATE 25 MG TAB.SR.24H (FP) PO SCH ×2 (09:12→21:01)
[2021-09-28] MEDS: amLODIPine BESYLATE 2.5 MG TABLET (FP) PO SCH (09:12)
[2021-09-28] MEDS: ASPIRIN COATED 81 MG TABLET.EC PO SCH (09:12)
[2021-09-28] MEDS: PANTOPRAZOLE 40 MG TABLET PO SCH (09:12)
[2021-09-28] MEDS: ENOXAPARIN NA (PORCINE) 30 MG/0.3 ML DISP.SYRIN SQ SCH (09:12)
[2021-09-28] MEDS: methylPREDNISolone NA SUCC 40 MG/1 ML VIAL IVPUSH SCH ×2 (09:12→21:00)
[2021-09-28] MEDS: BUDESONIDE/FORMETEROL FUMARATE 160/4.5 mcg INHALER IH SCH ×2 (09:13→21:01)
[2021-09-28] MEDS: TIOTROPIUM BROMIDE 2.5 MCG (SPIRIVA) RESPIMAT INHALER IH SCH (09:13)
[2021-09-28] MEDS: ATORVASTATIN CA 10 MG TABLET (FP) PO SCH (21:00)
[2021-09-28] MEDS: DOCUSATE SODIUM 100 MG CAPSULE (FP) PO PRN (21:01)
[2021-09-28] MEDS: MELATONIN 5 MG TABLETS PO PRN (21:01)
[2021-09-29] MEDS ORDERED: PIPERACILLIN/TAZOBACTAM 3.375 GM VIAL IVPB ONE ×3 (01:08→17:52)
[2021-09-29] MEDS ORDERED: DEXTROSE 5%-WATER - 50 ML IVPB ONE ×3 (01:09→17:52)
[2021-09-29] MEDS: PIPERACILLIN/TAZOB 3.375 GM 3.375 GM in DEXTROSE 5%-WATER - 50 ML IVPB SCH ×3 (01:13→18:01)
[2021-09-29] MEDS: FUROSEMIDE 100 MG/10 ML INJECTABLE VIAL IVPB SCH ×2 (06:10→13:46)
[2021-09-29 07:34] LABS: BASO % 0.1 % (0-2.0); EOS % 0.2 % (0-4.5); HEMATOCRIT 36.4 % (32.4-45.2); HEMOGLOBIN 11.6 GM/dL (10.7-15.3); LYMPH % 8.3 % (8-40); MCH 29.5 pg (25.7-33.7); MEAN CELL VOLUME 92.1 fl (80-96); MEAN PLT VOLUME 7.7 fl (7.5-11.1); MONO % 9.7 % (3.8-10.2); NEUT % 81.7 % (42.8-82.8); PLATELET COUNT 362 10^3/uL (134-434); RBC 3.95 M/mm3 (3.60-5.2); RDW 14.8 % (11.6-15.6); WHITE BLOOD COUNT 10.4 K/mm3 (4.0-10.0)
[2021-09-29 07:41] LABS: LACTIC ACID 2.6 mmol/L (0.4-2.0)
[2021-09-29 07:41] LABS: CALCIUM 8.8 mg/dL (8.5-10.1)
[2021-09-29 07:42] LABS: ALBUMIN 2.8 g/dl (3.4-5.0); BLOOD UREA NITROGEN 39.6 mg/dL (7-18)
[2021-09-29 07:45] LABS: CREATININE 1.3 mg/dL (0.55-1.3)
[2021-09-29 07:46] LABS: BILIRUBIN,TOTAL 0.5 mg/dL (0.2-1); TOT PROT 6.7 g/dl (6.4-8.2)
[2021-09-29] MEDS: ATOVAQUONE 750 MG/5 ML (UNIT-DOSE PACKAGING) PO SCH (09:38)
[2021-09-29] MEDS: BUDESONIDE/FORMETEROL FUMARATE 160/4.5 mcg INHALER IH SCH ×2 (09:39→22:28)
[2021-09-29] MEDS: amLODIPine BESYLATE 2.5 MG TABLET (FP) PO SCH (09:39)
[2021-09-29] MEDS: TIOTROPIUM BROMIDE 2.5 MCG (SPIRIVA) RESPIMAT INHALER IH SCH (09:39)
[2021-09-29] MEDS: methylPREDNISolone NA SUCC 40 MG/1 ML VIAL IVPUSH SCH (09:39)
[2021-09-29] MEDS: PANTOPRAZOLE 40 MG TABLET PO SCH (09:39)
[2021-09-29] MEDS: ASPIRIN COATED 81 MG TABLET.EC PO SCH (09:39)
[2021-09-29] MEDS: metoPROLOL SUCCINATE 25 MG TAB.SR.24H (FP) PO SCH ×2 (09:40→22:28)
[2021-09-29] MEDS: LEVALBUTEROL HCL 0.31 MG/3 ML VIAL.NEB IH SCH ×2 (15:00→20:44)
[2021-09-29] MEDS: ATORVASTATIN CA 10 MG TABLET (FP) PO SCH (22:28)
[2021-09-29] MEDS: MELATONIN 5 MG TABLETS PO PRN (22:28)
[2021-09-30] MEDS ORDERED: DEXTROSE 5%-WATER - 50 ML IVPB ONE ×3 (02:09→17:43)
[2021-09-30] MEDS ORDERED: PIPERACILLIN/TAZOBACTAM 3.375 GM VIAL IVPB ONE ×3 (02:09→17:43)
[2021-09-30] MEDS: PIPERACILLIN/TAZOB 3.375 GM 3.375 GM in DEXTROSE 5%-WATER - 50 ML IVPB SCH ×3 (02:28→18:16)
[2021-09-30] MEDS: FUROSEMIDE 100 MG/10 ML INJECTABLE VIAL IVPB SCH ×2 (05:27→14:51)
[2021-09-30] MEDS: ATOVAQUONE 750 MG/5 ML (UNIT-DOSE PACKAGING) PO SCH (08:34)
[2021-09-30] MEDS: LEVALBUTEROL HCL 0.31 MG/3 ML VIAL.NEB IH SCH ×3 (08:55→21:01)
[2021-09-30] MEDS: methylPREDNISolone NA SUCC 40 MG/1 ML VIAL IVPUSH SCH (10:32)
[2021-09-30] MEDS: amLODIPine BESYLATE 2.5 MG TABLET (FP) PO SCH (10:32)
[2021-09-30] MEDS: PANTOPRAZOLE 40 MG TABLET PO SCH (10:32)
[2021-09-30] MEDS: ASPIRIN COATED 81 MG TABLET.EC PO SCH (10:32)
[2021-09-30] MEDS: metoPROLOL SUCCINATE 25 MG TAB.SR.24H (FP) PO SCH ×2 (10:34→22:04)
[2021-09-30] MEDS: TIOTROPIUM BROMIDE 2.5 MCG (SPIRIVA) RESPIMAT INHALER IH SCH (10:36)
[2021-09-30] MEDS: BUDESONIDE/FORMETEROL FUMARATE 160/4.5 mcg INHALER IH SCH ×2 (10:36→22:04)
[2021-09-30 17:33] LABS: CALCIUM 8.3 mg/dL (8.5-10.1)
[2021-09-30 17:34] LABS: BLOOD UREA NITROGEN 40.6 mg/dL (7-18)
[2021-09-30 17:37] LABS: CREATININE 1.1 mg/dL (0.55-1.3)
[2021-09-30] MEDS: MELATONIN 5 MG TABLETS PO PRN (22:04)
[2021-09-30] MEDS: ATORVASTATIN CA 10 MG TABLET (FP) PO SCH (22:04)
[2021-09-30] MEDS: DOCUSATE SODIUM 100 MG CAPSULE (FP) PO PRN (22:04)
[2021-10-01] MEDS ORDERED: DEXTROSE 5%-WATER - 50 ML IVPB ONE ×3 (00:47→17:11)
[2021-10-01] MEDS ORDERED: PIPERACILLIN/TAZOBACTAM 3.375 GM VIAL IVPB ONE ×3 (00:47→17:11)
[2021-10-01] MEDS: PIPERACILLIN/TAZOB 3.375 GM 3.375 GM in DEXTROSE 5%-WATER - 50 ML IVPB SCH ×3 (01:29→17:13)
[2021-10-01] MEDS: FUROSEMIDE 100 MG/10 ML INJECTABLE VIAL IVPB SCH ×2 (05:12→13:22)
[2021-10-01] MEDS: LEVALBUTEROL HCL 0.31 MG/3 ML VIAL.NEB IH SCH ×3 (07:50→20:49)
[2021-10-01] MEDS: metoPROLOL SUCCINATE 25 MG TAB.SR.24H (FP) PO SCH ×2 (09:09→22:07)
[2021-10-01] MEDS: amLODIPine BESYLATE 2.5 MG TABLET (FP) PO SCH (09:09)
[2021-10-01] MEDS: methylPREDNISolone NA SUCC 40 MG/1 ML VIAL IVPUSH SCH (09:09)
[2021-10-01] MEDS: ASPIRIN COATED 81 MG TABLET.EC PO SCH (09:09)
[2021-10-01] MEDS: ATOVAQUONE 750 MG/5 ML (UNIT-DOSE PACKAGING) PO SCH (09:09)
[2021-10-01] MEDS: PANTOPRAZOLE 40 MG TABLET PO SCH (09:09)
[2021-10-01] MEDS: BUDESONIDE/FORMETEROL FUMARATE 160/4.5 mcg INHALER IH SCH ×2 (09:10→22:08)
[2021-10-01] MEDS: TIOTROPIUM BROMIDE 2.5 MCG (SPIRIVA) RESPIMAT INHALER IH SCH (09:10)
[2021-10-01] MEDS: FLUTICASONE PROP 0.05% 16 GM NASAL SPRAY NS SCH (13:22)
[2021-10-01] MEDS: LORATADINE 10 MG TABLET PO SCH (13:22)
[2021-10-01] MEDS: ATORVASTATIN CA 10 MG TABLET (FP) PO SCH (22:07)
[2021-10-01] MEDS: MELATONIN 5 MG TABLETS PO PRN (22:07)
[2021-10-01] MEDS: DOCUSATE SODIUM 100 MG CAPSULE (FP) PO PRN (22:07)
[2021-10-02] MEDS ORDERED: PIPERACILLIN/TAZOBACTAM 3.375 GM VIAL IVPB ONE ×2 (01:42→17:02)
[2021-10-02] MEDS: PIPERACILLIN/TAZOB 3.375 GM 3.375 GM in DEXTROSE 5%-WATER - 50 ML IVPB SCH ×3 (02:06→17:04)
[2021-10-02] MEDS: FUROSEMIDE 100 MG/10 ML INJECTABLE VIAL IVPB SCH ×2 (05:56→13:16)
[2021-10-02] MEDS: LEVALBUTEROL HCL 0.31 MG/3 ML VIAL.NEB IH SCH ×3 (08:35→20:15)
[2021-10-02] MEDS: ATOVAQUONE 750 MG/5 ML (UNIT-DOSE PACKAGING) PO SCH (09:03)
[2021-10-02] MEDS: amLODIPine BESYLATE 2.5 MG TABLET (FP) PO SCH (09:03)
[2021-10-02] MEDS: methylPREDNISolone NA SUCC 40 MG/1 ML VIAL IVPUSH SCH (09:04)
[2021-10-02] MEDS: metoPROLOL SUCCINATE 25 MG TAB.SR.24H (FP) PO SCH ×2 (09:04→21:15)
[2021-10-02] MEDS: LORATADINE 10 MG TABLET PO SCH (09:04)
[2021-10-02] MEDS: PANTOPRAZOLE 40 MG TABLET PO SCH (09:04)
[2021-10-02] MEDS: ASPIRIN COATED 81 MG TABLET.EC PO SCH (09:04)
[2021-10-02] MEDS: TIOTROPIUM BROMIDE 2.5 MCG (SPIRIVA) RESPIMAT INHALER IH SCH (09:05)
[2021-10-02] MEDS: BUDESONIDE/FORMETEROL FUMARATE 160/4.5 mcg INHALER IH SCH ×2 (09:05→21:15)
[2021-10-02] MEDS: FLUTICASONE PROP 0.05% 16 GM NASAL SPRAY NS SCH (09:11)
[2021-10-02 13:08] LABS: CALCIUM 9.1 mg/dL (8.5-10.1)
[2021-10-02 13:09] LABS: BLOOD UREA NITROGEN 36.3 mg/dL (7-18)
[2021-10-02 13:12] LABS: CREATININE 1.1 mg/dL (0.55-1.3)
[2021-10-02] MEDS ORDERED: DEXTROSE 5%-WATER - 50 ML IVPB ONE (17:02)
[2021-10-02] MEDS: MELATONIN 5 MG TABLETS PO PRN (21:15)
[2021-10-02] MEDS: ATORVASTATIN CA 10 MG TABLET (FP) PO SCH (21:15)
[2021-10-02] MEDS: DOCUSATE SODIUM 100 MG CAPSULE (FP) PO PRN (21:15)
[2021-10-03] MEDS ORDERED: DEXTROSE 5%-WATER - 50 ML IVPB ONE (00:23)
[2021-10-03] MEDS ORDERED: PIPERACILLIN/TAZOBACTAM 3.375 GM VIAL IVPB ONE (00:23)
[2021-10-03] MEDS: PIPERACILLIN/TAZOB 3.375 GM 3.375 GM in DEXTROSE 5%-WATER - 50 ML IVPB SCH (01:07)
[2021-10-03] MEDS: FUROSEMIDE 100 MG/10 ML INJECTABLE VIAL IVPB SCH ×2 (05:47→14:55)
[2021-10-03 07:53] LABS: CALCIUM 8.6 mg/dL (8.5-10.1)
[2021-10-03 07:55] LABS: BLOOD UREA NITROGEN 34.1 mg/dL (7-18)
[2021-10-03 07:57] LABS: CREATININE 1.1 mg/dL (0.55-1.3)
[2021-10-03] MEDS: LEVALBUTEROL HCL 0.31 MG/3 ML VIAL.NEB IH SCH ×3 (08:34→20:10)
[2021-10-03] MEDS ORDERED: guaiFENesin 200 MG/10 ML 10 ML UNIT-DOSE CUPS PO PRN (08:40)
[2021-10-03] MEDS: ASPIRIN COATED 81 MG TABLET.EC PO SCH (09:50)
[2021-10-03] MEDS: POTASSIUM CHLORIDE TABS 20 MEQ TABLET.ER (FP) PO SCH (09:50)
[2021-10-03] MEDS: metoPROLOL SUCCINATE 25 MG TAB.SR.24H (FP) PO SCH ×2 (09:50→21:21)
[2021-10-03] MEDS: PANTOPRAZOLE 40 MG TABLET PO SCH (09:51)
[2021-10-03] MEDS: LORATADINE 10 MG TABLET PO SCH (09:51)
[2021-10-03] MEDS: amLODIPine BESYLATE 2.5 MG TABLET (FP) PO SCH (09:51)
[2021-10-03] MEDS: predniSONE 20 MG TABLET (UD) PO SCH (09:51)
[2021-10-03] MEDS: FLUTICASONE PROP 0.05% 16 GM NASAL SPRAY NS SCH (10:08)
[2021-10-03] MEDS: TIOTROPIUM BROMIDE 2.5 MCG (SPIRIVA) RESPIMAT INHALER IH SCH (10:08)
[2021-10-03] MEDS: BUDESONIDE/FORMETEROL FUMARATE 160/4.5 mcg INHALER IH SCH ×2 (10:09→21:22)
[2021-10-03] MEDS: ATOVAQUONE 750 MG/5 ML (UNIT-DOSE PACKAGING) PO SCH (10:35)
[2021-10-03] MEDS: ATORVASTATIN CA 10 MG TABLET (FP) PO SCH (21:21)
[2021-10-03] MEDS: MELATONIN 5 MG TABLETS PO PRN (21:21)
[2021-10-03] MEDS: DOCUSATE SODIUM 100 MG CAPSULE (FP) PO PRN (21:21)
[2021-10-04] MEDS: FUROSEMIDE 100 MG/10 ML INJECTABLE VIAL IVPB SCH (06:36)
[2021-10-04 08:26] LABS: HEMATOCRIT 33.2 % (32.4-45.2); MCH 30.5 pg (25.7-33.7); MCHC 33.3 g/dl (32.0-36.0); MEAN CELL VOLUME 91.6 fl (80-96); MEAN PLT VOLUME 8.3 fl (7.5-11.1); PLATELET COUNT 277 10^3/uL (134-434); RBC 3.62 M/mm3 (3.60-5.2); WHITE BLOOD COUNT 8.6 K/mm3 (4.0-10.0)
[2021-10-04] MEDS: LEVALBUTEROL HCL 0.31 MG/3 ML VIAL.NEB IH SCH ×2 (08:45→20:16)
[2021-10-04 09:18] LABS: CALCIUM 8.7 mg/dL (8.5-10.1)
[2021-10-04 09:19] LABS: ALBUMIN 2.4 g/dl (3.4-5.0); BLOOD UREA NITROGEN 33.8 mg/dL (7-18)
[2021-10-04 09:22] LABS: CREATININE 0.9 mg/dL (0.55-1.3)
[2021-10-04 09:23] LABS: BILIRUBIN,TOTAL 0.4 mg/dL (0.2-1); TOT PROT 5.7 g/dl (6.4-8.2)
[2021-10-04] MEDS: LORATADINE 10 MG TABLET PO SCH (09:58)
[2021-10-04] MEDS: ASPIRIN COATED 81 MG TABLET.EC PO SCH (09:58)
[2021-10-04] MEDS: ATOVAQUONE 750 MG/5 ML (UNIT-DOSE PACKAGING) PO SCH (09:58)
[2021-10-04] MEDS: predniSONE 20 MG TABLET (UD) PO SCH (09:58)
[2021-10-04] MEDS: FLUTICASONE PROP 0.05% 16 GM NASAL SPRAY NS SCH (09:59)
[2021-10-04] MEDS: amLODIPine BESYLATE 2.5 MG TABLET (FP) PO SCH (09:59)
[2021-10-04] MEDS: POTASSIUM CHLORIDE TABS 20 MEQ TABLET.ER (FP) PO SCH (09:59)
[2021-10-04] MEDS: PANTOPRAZOLE 40 MG TABLET PO SCH (10:00)
[2021-10-04] MEDS: TIOTROPIUM BROMIDE 2.5 MCG (SPIRIVA) RESPIMAT INHALER IH SCH (10:00)
[2021-10-04] MEDS: BUDESONIDE/FORMETEROL FUMARATE 160/4.5 mcg INHALER IH SCH ×2 (10:01→21:33)
[2021-10-04] MEDS: metoPROLOL SUCCINATE 25 MG TAB.SR.24H (FP) PO SCH ×2 (10:02→21:30)
[2021-10-04] MEDS: FUROSEMIDE 40 MG TABLET (FP) PO SCH (13:59)
[2021-10-04] MEDS: ATORVASTATIN CA 10 MG TABLET (FP) PO SCH (21:30)
[2021-10-05] MEDS: FUROSEMIDE 40 MG TABLET (FP) PO SCH ×2 (06:40→15:10)
[2021-10-05] MEDS: LEVALBUTEROL HCL 0.31 MG/3 ML VIAL.NEB IH SCH ×3 (08:06→20:41)
[2021-10-05] MEDS: ATOVAQUONE 750 MG/5 ML (UNIT-DOSE PACKAGING) PO SCH (09:30)
[2021-10-05] MEDS: amLODIPine BESYLATE 2.5 MG TABLET (FP) PO SCH (09:31)
[2021-10-05] MEDS: PANTOPRAZOLE 40 MG TABLET PO SCH (09:31)
[2021-10-05] MEDS: LORATADINE 10 MG TABLET PO SCH (09:31)
[2021-10-05] MEDS: ASPIRIN COATED 81 MG TABLET.EC PO SCH (09:31)
[2021-10-05] MEDS: predniSONE 20 MG TABLET (UD) PO SCH (09:31)
[2021-10-05] MEDS: metoPROLOL SUCCINATE 25 MG TAB.SR.24H (FP) PO SCH ×2 (09:32→21:09)
[2021-10-05] MEDS: POTASSIUM CHLORIDE TABS 20 MEQ TABLET.ER (FP) PO SCH (09:32)
[2021-10-05] MEDS: FLUTICASONE PROP 0.05% 16 GM NASAL SPRAY NS SCH (09:33)
[2021-10-05] MEDS: TIOTROPIUM BROMIDE 2.5 MCG (SPIRIVA) RESPIMAT INHALER IH SCH (09:33)
[2021-10-05] MEDS: BUDESONIDE/FORMETEROL FUMARATE 160/4.5 mcg INHALER IH SCH ×2 (09:34→21:09)
[2021-10-05] MEDS: ATORVASTATIN CA 10 MG TABLET (FP) PO SCH (21:09)
[2021-10-06] MEDS ORDERED: ACETAMINOPHEN 500 MG TABLET (FP) PO PRN (05:05)
[2021-10-06] MEDS: FUROSEMIDE 40 MG TABLET (FP) PO SCH ×2 (06:35→13:32)
[2021-10-06] MEDS: LEVALBUTEROL HCL 0.31 MG/3 ML VIAL.NEB IH SCH ×2 (08:38→15:10)
[2021-10-06] MEDS: POTASSIUM CHLORIDE TABS 20 MEQ TABLET.ER (FP) PO SCH (09:14)
[2021-10-06] MEDS: amLODIPine BESYLATE 2.5 MG TABLET (FP) PO SCH (09:14)
[2021-10-06] MEDS: metoPROLOL SUCCINATE 25 MG TAB.SR.24H (FP) PO SCH ×2 (09:14→21:38)
[2021-10-06] MEDS: LORATADINE 10 MG TABLET PO SCH (09:15)
[2021-10-06] MEDS: PANTOPRAZOLE 40 MG TABLET PO SCH (09:15)
[2021-10-06] MEDS: ATOVAQUONE 750 MG/5 ML (UNIT-DOSE PACKAGING) PO SCH (09:15)
[2021-10-06] MEDS: predniSONE 20 MG TABLET (UD) PO SCH (09:15)
[2021-10-06] MEDS: ASPIRIN COATED 81 MG TABLET.EC PO SCH (09:15)
[2021-10-06] MEDS: TIOTROPIUM BROMIDE 2.5 MCG (SPIRIVA) RESPIMAT INHALER IH SCH (09:16)
[2021-10-06] MEDS: FLUTICASONE PROP 0.05% 16 GM NASAL SPRAY NS SCH (09:16)
[2021-10-06] MEDS: BUDESONIDE/FORMETEROL FUMARATE 160/4.5 mcg INHALER IH SCH ×2 (09:16→21:41)
[2021-10-06 11:43] VITALS: BMI 22.3
[2021-10-06] MEDS: guaiFENesin/D-METHORPHAN TAB.ER.12H PO SCH ×2 (15:56→21:38)
[2021-10-06] MEDS ORDERED: guaiFENesin/D-METHORPHAN TAB.ER.12H PO ONE (16:01)
[2021-10-06 18:07] LABS: SARS-CoV-2 NAA Not Detected (Not Detected)
[2021-10-06] MEDS: ATORVASTATIN CA 10 MG TABLET (FP) PO SCH (21:38)
[2021-10-06] MEDS ORDERED: guaiFENesin 600 MG TABLET.ER (FP) PO SCH (22:00)
[2021-10-07 04:34] VITALS: BP 125/69; PULSE 115; TEMP 98
== END 2021-10-07 04:40 | disposition short-term general hospital (02) | DRG 291 ==
LOC: JER 00:15 → JERBED 02:20 → J4W 11:05
PROVIDERS: ADMIT Internal Medicine; ATTEND Internal Medicine
DX: I11.0 Hypertensive heart disease with heart failure (principal); I50.43 Acute on chronic combined systolic (congestive) and diastolic (congestive) heart failure; J18.9 Pneumonia, unspecified organism; J44.1 Chronic obstructive pulmonary disease with (acute) exacerbation; C34.90 Malignant neoplasm of unspecified part of unspecified bronchus or lung; E87.2 Acidosis; J44.0 Chronic obstructive pulmonary disease with (acute) lower respiratory infection; I47.2 Ventricular tachycardia; E78.5 Hyperlipidemia, unspecified; I25.10 Atherosclerotic heart disease of native coronary artery without angina pectoris; K21.9 Gastro-esophageal reflux disease without esophagitis; D72.829 Elevated white blood cell count, unspecified
CPT/HCPCS: 36415; 36600; 71045-TC-FY; 71046-TC-FY; 80048; 80053; 81003; 82550; 82803; 82962; 83605; 83735; 83880; 84484; 85025; 85027; 85610; 85730; 87040; 87086; 87899; 93005; 93010; 93306-TC; 94640; 97116-GP; 97162-GP; 99285-25; 99291; 99292; C9803; J1100; U0003; U0005